=== PATIENT | female | born 1955 | race Caucasian/White ===

== ENCOUNTER 2019-04-11 09:24 | Observation (INO) | payer BC, MEDICARE ==
[~2019-04-11] VITALS: Ht 167.7 cm; Wt 107.9 kg
--- NOTE | 2019-04-11 10:22 | NUR ---
pt arrived to floor with family at bedside. Pt denies needs at this time, pt oriented to room, call light in reach. Will continue to monitor
[2019-04-11 10:41] VITALS: BP 115/76
[2019-04-11 12:00] VITALS: BP 107/71
[2019-04-11] MEDS ORDERED: CLON0.5T4 PO (12:14)
[2019-04-11] MEDS ORDERED: BUPR-42 PO (12:14)
[2019-04-11] MEDS ORDERED: PRAM0.5T9 PO (12:14)
[2019-04-11] MEDS ORDERED: LORA10TA7 PO (12:14)
[2019-04-11] MEDS ORDERED: MELO15TA39 PO (12:14)
[2019-04-11] MEDS ORDERED: FLUT9.9S NS (12:14)
[2019-04-11] MEDS ORDERED: AMOX1TAB12 PO (12:14)
[2019-04-11] MEDS ORDERED: DULO60CA59 PO (12:14)
[2019-04-11] MEDS ORDERED: ZINC50TA58 PO (12:15)
[2019-04-11] MEDS ORDERED: [UNRECOGNIZED DRUG - CODE] PO (12:15)
[2019-04-11] MEDS ORDERED: BIOT25007 PO (12:15)
--- NOTE | 2019-04-11 12:16 | NUR ---
SPOKE WITH THE PT AND RECEIVED A MED LIST FROM HER PHARMACY TO COMPLETE THE MED REC. PT WAS ABLE TO TELL ME HOW SHE TAKES EACH MED AND IT MATCHED THE PHARM RECORD THE FOLLOWING ARE FILL DATES: 02-25-2019 MELOXICAM 15MG #90/90DS 03-06-2019 FLONASE #1 03-06-2019 LORATADINE 10MG #90/90DS 03-27-2019 BUPROPION ER 150MG #68/34DS 04-08-2019 CLONAZEPAM 0.5MH #30/30DS 04-08-2019 DULOXETINE 60MG #68/34DS 04-08-2019 PRAMIPEXOLE 0.5MG #68/34DS 04-10-2019 AMOX/CLAV 875/125 #14/7DS OTC MEDS: BIOTIN MTV ZINC
--- NOTE | 2019-04-11 12:25 | NUR ---
PT INFORMED NOT TO TAKE ASA PER DR BUSTAMANTE.
[2019-04-11] MEDS ORDERED: ACETAMINOPHEN 325 MG TABLET PO PRN (12:30)
[2019-04-11] MEDS ORDERED: FLU QUADRIvalent (5+ YOA) 2019-2020 (AFLURIA) 0.5 ML IM ONE (12:30)
[2019-04-11] MEDS ORDERED: HYDROcodone/APAP 5 MG/325 MG (LORTAB) TAB PO PRN (12:30)
[2019-04-11] MEDS ORDERED: PATIENT MAY USE OWN MEDS, ALL MC SCH (12:30)
[2019-04-11 13:38] LABS: BASOPHILS % (AUTO) 0 % (0-10); EOSINOPHILS # (AUTO) 0.2 10^3/uL (0.0-0.3); EOSINOPHILS % (AUTO) 2 % (0-10); HEMATOCRIT 36 % (35-52); HEMOGLOBIN 11.5 G/DL (11.5-16.0); LYMPHOCYTES # (AUTO) 2.1 X 10^3 (1.0-4.0); LYMPHOCYTES % (AUTO) 25 % (12-44); MEAN CORPUSCULAR HEMOGLOBIN 28 PG (25-34); MEAN CORPUSCULAR HGB CONC 32 G/DL (32-36); MEAN CORPUSCULAR VOLUME 89 FL (80-99); MEAN PLATELET VOLUME 10.3 FL (7.4-10.4); MONOCYTES # (AUTO) 0.7 X 10^3 (0.0-1.0); MONOCYTES % (AUTO) 8 % (0-12); NEUTROPHILS # (AUTO) 5.4 X 10^3 (1.8-7.8); NEUTROPHILS % (AUTO) 64 % (42-75); PLATELET COUNT 274 10^3/uL (130-400); RED CELL DISTRIBUTION WIDTH 14.5 % (10.0-14.5); WHITE BLOOD COUNT 8.4 10^3/uL (4.3-11.0)
[2019-04-11 13:39] LABS: SMEAR SCAN COMMENT NO
[2019-04-11] MEDS ORDERED: OXYMETAZOLINE (AFRIN) 0.05% NA 30 ML BTL PRN (13:45)
[2019-04-11 13:57] LABS: BUN/CREATININE RATIO 22; CALCIUM 8.8 MG/DL (8.5-10.1); CARBON DIOXIDE 26 MMOL/L (21-32); CHLORIDE 108 MMOL/L (98-107); CREATININE SERUM 0.82 MG/DL (0.60-1.30); GFR ESTIMATED > 60; GLUCOSE 110 MG/DL (70-105); POTASSIUM 3.9 MMOL/L (3.6-5.0); SODIUM 143 MMOL/L (135-145)
[2019-04-11 14:03] LABS: BAND NEUTROPHILS 2 %; BASOPHILS % (MANUAL) 0 %; ELLIPT/OVALOCYTES SLIGHT; EOSINOPHILS % (MANUAL) 2 %; LYMPHOCYTES % (MANUAL) 24 %; MONOCYTES % (MANUAL) 5 %; NEUTROPHILS % (MANUAL) 67 %
[2019-04-11 16:29] VITALS: BP 106/69
[2019-04-11 19:59] VITALS: BP 92/58
[2019-04-11 23:56] VITALS: BP 97/61
[2019-04-12] VITALS (11 sets, daily range): BP systolic 97–157; BP diastolic 64–93
--- NOTE | 2019-04-12 06:53 | Progress Note-Pre Operative ---
Pre-Operative Progress Note H&P Reviewed The H&P was reviewed, patient examined and no changes noted. Date Seen by Provider: Apr 12, 2019 Time Seen by Provider: 06:30 Date H&P Reviewed: Apr 12, 2019 Time H&P Reviewed: 06:30 Pre-Operative Diagnosis: Recurrent Left Epistaxis MAXIMUS BUSTAMANTE MD Apr 12, 2019 06:53
--- NOTE | 2019-04-12 06:58 | Progress Note ---
Standard Progress Note Progress Notes/Assess & Plan Date Seen by a Provider: Apr 11, 2019 Time Seen by a Provider: 17:00 Progress/Assessment & Plan ENT-HIstory and Physical cc: Recurrent Left Epistaxis HPI: Patient admittted for treatment of recurrent left posterior epistaxis. Has had bleeding on a recurrent basis for the last 48 hours. Been to the [place] ER multiple times for packing which has been unsuccessful. Initail HGB 13.6. Bleeding has been from the left side of nose and down throat. No prior history of problems. Seen in theclinic and pack removed with no bleeding. Admitted for observation and then EUA on Monday of not bleeding overnight. Admission HGB- 11.5. NO bleeding since seen in clinic All/Meds-see chart Exam: Nose-no acute bleeding and no site seen anteriorly in the nose; right side clear OP-no new or old blood seen Neck-negative to palpation IMP: REcurrent Left Epistaxis REc: 1. NPO p midnight 2. plan on EUA of Nose in OR with potential cauterizatioin on monday as long as doesnt bleed prior to that. Risks and benefits discussed. NPO p mn. Blood work and EKG obtained Final Diagnosis Left Posterior Epistaxis MAXIMUS BUSTAMANTE MD Apr 12, 2019 06:58
[2019-04-12] MEDS ORDERED: ONDANSETRON 4 MG/2 ML (SDV) Z0FRAN ONE (10:07)
[2019-04-12] MEDS ORDERED: SUCCINYLCHOLINE INJ 100 MG/5 ML SYR ONE (10:07)
[2019-04-12] MEDS ORDERED: LIDOCAINE/EPI 1%-1:100,000 (XYLOCAINE) 20ML ONE (10:07)
[2019-04-12] MEDS ORDERED: ROCURONIUM 10 MG/ML 5 ML SYRINGE IV ONE (10:07)
[2019-04-12] MEDS ORDERED: PHENYLEPHRINE 0.5% NASAL SPR (NEO-SYNEPHRINE) REG ONE (10:07)
[2019-04-12] MEDS ORDERED: DEXAMETHASONE 10 MG/ML (DECADRON) 1 ML VIAL ONE (10:07)
[2019-04-12] MEDS ORDERED: proPOfol 200 MG/20 ML (DIPRIVAN) VIAL IV ONE (10:07)
[2019-04-12] MEDS ORDERED: LIDOCAINE PF 2% 5 ML (XYLOCAINE) VIAL ONE (10:07)
[2019-04-12] MEDS ORDERED: BSS 15 ML ONE (10:07)
[2019-04-12] MEDS ORDERED: COCAINE HCL 4% 2 ML SYR ONE (10:07)
[2019-04-12] MEDS ORDERED: MIDAZOLAM 2 MG/2 ML (VERSED) VIAL ONE (10:08)
[2019-04-12] MEDS ORDERED: fentaNYL INJECTION 100 MCG/2 ML AMP ONE (10:08)
[2019-04-12] MEDS ORDERED: MUPIROCIN 2% OINT 22 GM (BACTROBAN) TUBE ONE ×2 (10:17→12:57)
[2019-04-12] MEDS ORDERED: LACTATED RINGERS 1,000 ML IV PRN (11:25)
[2019-04-12] MEDS ORDERED: fentaNYL INJECTION 100 MCG/2 ML AMP IVP ONE (12:00)
[2019-04-12] MEDS ORDERED: morphine INJ 10 MG/ML 1ML (SYR OR VIAL) IVP ONE (12:00)
[2019-04-12] MEDS ORDERED: MEPERIDINE (DEMEROL) INJ 50 MG/ML IVP ONE (12:00)
[2019-04-12] MEDS ORDERED: ONDANSETRON 4 MG/2 ML (SDV) Z0FRAN IVP PRN (12:00)
[2019-04-12] MEDS ORDERED: PHENYLEPHRINE 100 MCG/ML 10 ML (ANESTHESIA) SYR ONE (12:13)
[2019-04-12] MEDS ORDERED: ISOFLURANE (FORANE) 15 ML/15 MIN INHALATION ONE ×4 (12:34→13:14)
[2019-04-12] MEDS ORDERED: D5 1/2 NS W/KCL 20 MEQ/L 1,000 ML IV SCH (13:01)
--- NOTE | 2019-04-12 13:01 | Progress Note-Post Operative ---
Post-Operative Progess Note Surgeon (s)/Golf Cart Repairer (s) Surgeon MAXIMUS BUSTAMANTE MD Golf Cart Repairer n/a Pre-Operative Diagnosis Recurrent Left Epistaxis Post-Operative Diagnosis same Post-Op Procedure Note Date of Procedure: Apr 12, 2019 Name of Procedure Performed: Endscopic Repair of Left Posterio Epistaxis Description & Findings Description and Findings: n/a Anesthesia Type get Estimated Blood Loss 800cc Packing surgicel packing ot lef tside of nose. Specimen(s) collected/removed none MAXIMUS BUSTAMANTE MD Apr 12, 2019 13:01
[2019-04-12] MEDS ORDERED: ACETAMINOPHEN 500 MG TAB (TYLENOL) PO PRN (13:15)
[2019-04-12] MEDS ORDERED: PHENYLEPHRINE 0.5% NASAL SPR (NEO-SYNEPHRINE) REG PRN (13:15)
[2019-04-12] MEDS ORDERED: ACETAMINOPHEN 325 MG TABLET PO PRN (13:15)
[2019-04-12 13:29] LABS: BASOPHILS % (AUTO) 0 % (0-10); EOSINOPHILS # (AUTO) 0.3 10^3/uL (0.0-0.3); EOSINOPHILS % (AUTO) 3 % (0-10); HEMATOCRIT 37 % (35-52); HEMOGLOBIN 11.8 G/DL (11.5-16.0); LYMPHOCYTES # (AUTO) 1.5 X 10^3 (1.0-4.0); LYMPHOCYTES % (AUTO) 16 % (12-44); MEAN CORPUSCULAR HEMOGLOBIN 28 PG (25-34); MEAN CORPUSCULAR HGB CONC 32 G/DL (32-36); MEAN CORPUSCULAR VOLUME 89 FL (80-99); MEAN PLATELET VOLUME 9.7 FL (7.4-10.4); MONOCYTES # (AUTO) 0.3 X 10^3 (0.0-1.0); MONOCYTES % (AUTO) 3 % (0-12); NEUTROPHILS # (AUTO) 7.4 X 10^3 (1.8-7.8); NEUTROPHILS % (AUTO) 78 % (42-75); PLATELET COUNT 287 10^3/uL (130-400); RED CELL DISTRIBUTION WIDTH 14.6 % (10.0-14.5); WHITE BLOOD COUNT 9.6 10^3/uL (4.3-11.0)
--- NOTE | 2019-04-12 14:29 | Anesthesia-General Post-Op ---
General Patient Condition Mental Status/LOC: Same as Preop Cardiovascular: Satisfactory Nausea/Vomiting: Absent Respiratory: Satisfactory Pain: Controlled Complications: Absent Post Op Complications Complications None Follow Up Care/Instructions Patient Instructions None needed. Anesthesia/Patient Condition Patient Condition Patient is doing well, no complaints, stable vital signs, no apparent adverse anesthesia problems. No complications reported per nursing. ADRIAN HAYES CRNA Apr 12, 2019 14:29
[2019-04-12] MEDS: NS IV 500 ML 500 ML IV SCH ×6 (14:32→19:32)
--- NOTE | 2019-04-12 16:13 | NUR ---
this RN took over patient care at this time. patient resting with eyes closed. family at bedside verbalized no additional needs at this time
--- NOTE | 2019-04-12 17:09 | Progress Note ---
Standard Progress Note Progress Notes/Assess & Plan Date Seen by a Provider: Apr 12, 2019 Time Seen by a Provider: 17:00 Progress/Assessment & Plan ENT-HIstory and Physical cc: Recurrent Left Epistaxis HPI: Patient admittted for treatment of recurrent left posterior epistaxis. Has had bleeding on a recurrent basis for the last 48 hours. Been to the [place] ER multiple times for packing which has been unsuccessful. Initail HGB 13.6. Bleeding has been from the left side of nose and down throat. No prior history of problems. Seen in theclinic and pack removed with no bleeding. Admitted for observation and then EUA on Monday of not bleeding overnight. Admission HGB- 11.5. NO bleeding since seen in clinic All/Meds-see chart Exam: Nose-no acute bleeding and no site seen anteriorly in the nose; right side clear OP-no new or old blood seen Neck-negative to palpation IMP: REcurrent Left Epistaxis REc: 1. NPO p midnight 2. plan on EUA of Nose in OR with potential cauterizatioin on monday as long as doesnt bleed prior to that. Risks and benefits discussed. NPO p mn. Blood work and EKG obtained ENT-Postop 3/7-1700 No bleeding since surery nose is sore lorrie diet Nose-no new or old blood seen OP -dry hgb post surgery 11.8-either the morning value of 11.5 is inacurate or the afternoon value is as I lost 800cc at time of surger nose bleed was severe will recheck at 1800 type and cross times 2 and type and screen times two more will be here until monday am home on antibiotics/pain medicine call if bleeds overnight may take home meds-hold meloxicam and flonase MAXIMUS BUSTAMANTE MD Apr 12, 2019 17:09
--- NOTE | 2019-04-12 17:14 | NUR ---
Dr waters here to see patient stated patient may take her own meds. medications except flonase and meloxicam. all other medication sent to pharmacy
[2019-04-12 18:16] LABS: HEMOGLOBIN 11.4 G/DL (11.5-16.0)
[2019-04-12] MEDS ORDERED: NON-FORMULARY MEDICATION 1 EA EA (Duloxetine HCl 60 MG) PO SCH (21:00)
[2019-04-12] MEDS ORDERED: buPROPion XL 150 MG (WELLBUTRIN XL) NON-FORM PO SCH (21:00)
[2019-04-12] MEDS: DULOXETINE 60 MG CAPSULE PO SCH (21:04)
[2019-04-12] MEDS: PRAMIPEXOLE 0.5 MG TAB (MIRAPEX) PO SCH (21:04)
[2019-04-12] MEDS: clonazePAM 0.5 MG (KlonoPIN) TAB PO SCH (21:05)
[2019-04-12] MEDS: HYDROcodone/APAP 5 MG/325 MG (LORTAB) TAB PO PRN (22:15)
[2019-04-13 00:56] VITALS: BP 111/67
[2019-04-13 04:00] VITALS: BP 95/68
[2019-04-13] MEDS: HYDROcodone/APAP 5 MG/325 MG (LORTAB) TAB PO PRN ×4 (05:53→22:41)
[2019-04-13 06:01] LABS: BASOPHILS % (AUTO) 0 % (0-10); EOSINOPHILS % (AUTO) 0 % (0-10); HEMATOCRIT 31 % (35-52); HEMOGLOBIN 9.8 G/DL (11.5-16.0); LYMPHOCYTES # (AUTO) 1.8 X 10^3 (1.0-4.0); LYMPHOCYTES % (AUTO) 16 % (12-44); MEAN CORPUSCULAR HEMOGLOBIN 29 PG (25-34); MEAN CORPUSCULAR HGB CONC 32 G/DL (32-36); MEAN CORPUSCULAR VOLUME 90 FL (80-99); MEAN PLATELET VOLUME 10.3 FL (7.4-10.4); MONOCYTES # (AUTO) 0.9 X 10^3 (0.0-1.0); MONOCYTES % (AUTO) 8 % (0-12); NEUTROPHILS # (AUTO) 8.5 X 10^3 (1.8-7.8); NEUTROPHILS % (AUTO) 77 % (42-75); PLATELET COUNT 276 10^3/uL (130-400); RED CELL DISTRIBUTION WIDTH 14.1 % (10.0-14.5); WHITE BLOOD COUNT 11.2 10^3/uL (4.3-11.0)
--- NOTE | 2019-04-13 06:10 | Progress Note ---
Standard Progress Note Progress Notes/Assess & Plan Date Seen by a Provider: Apr 13, 2019 Time Seen by a Provider: 06:00 Progress/Assessment & Plan ENT-HIstory and Physical cc: Recurrent Left Epistaxis HPI: Patient admittted for treatment of recurrent left posterior epistaxis. Has had bleeding on a recurrent basis for the last 48 hours. Been to the [place] ER multiple times for packing which has been unsuccessful. Initail HGB 13.6. Bleeding has been from the left side of nose and down throat. No prior history of problems. Seen in theclinic and pack removed with no bleeding. Admitted for observation and then EUA on Monday of not bleeding overnight. Admission HGB- 11.5. NO bleeding since seen in clinic All/Meds-see chart Exam: Nose-no acute bleeding and no site seen anteriorly in the nose; right side clear OP-no new or old blood seen Neck-negative to palpation IMP: REcurrent Left Epistaxis REc: 1. NPO p midnight 2. plan on EUA of Nose in OR with potential cauterizatioin on monday as long as doesnt bleed prior to that. Risks and benefits discussed. NPO p mn. Blood work and EKG obtained ENT-Postop 3/6-1700 No bleeding since surery nose is sore lorrie diet Nose-no new or old blood seen OP -dry hgb post surgery 11.8-either the morning value of 11.5 is inacurate or the afternoon value is as I lost 800cc at time of surger nose bleed was severe will recheck at 1800 type and cross times 2 and type and screen times two more will be here until monday am home on antibiotics/pain medicine call if bleeds overnight may take home meds-hold meloxicam and flonase ENT-04/12-6am no bleeding c/o of pain on right side-has vicodin and fentanyl ordered op-dry HGB-5am-9.8-hgb slowly equilibrating diet as tolerated needs to staay another dy to make sure not going to rebleed and watch hgb will repeat cbc on monday am will cover goyo fernandez as well MAXIMUS BUSTAMANTE MD Apr 13, 2019 06:09
[2019-04-13] MEDS: DULOXETINE 60 MG CAPSULE PO SCH ×2 (07:51→20:45)
[2019-04-13] MEDS: ceFAZolin INJECTION 1,000 MG in WATER (STERILE) FOR INJECTION 10 ML IV SCH ×3 (07:52→23:56)
[2019-04-13] MEDS: LORATADINE (CLARITIN) 10 MG TAB PO SCH (07:52)
[2019-04-13] MEDS: buPROPion SR 150 MG (WELLBUTRIN SR) TAB PO SCH ×2 (07:52→17:39)
[2019-04-13 09:00] VITALS: BP 108/57
[2019-04-13 11:29] VITALS: BP 102/59
[2019-04-13 16:00] VITALS: BP 109/57
[2019-04-13 19:46] VITALS: BP 93/51
[2019-04-13] MEDS: PRAMIPEXOLE 0.5 MG TAB (MIRAPEX) PO SCH (20:46)
[2019-04-13] MEDS: clonazePAM 0.5 MG (KlonoPIN) TAB PO SCH (20:47)
[2019-04-14] VITALS: BP 106/56
[2019-04-14] MEDS: HYDROcodone/APAP 5 MG/325 MG (LORTAB) TAB PO PRN ×2 (03:22→08:52)
[2019-04-14 04:00] VITALS: BP 106/67
[2019-04-14 06:19] LABS: BASOPHILS # (AUTO) 0.1 10^3/uL (0.0-0.1); BASOPHILS % (AUTO) 1 % (0-10); EOSINOPHILS # (AUTO) 0.3 10^3/uL (0.0-0.3); EOSINOPHILS % (AUTO) 3 % (0-10); HEMATOCRIT 29 % (35-52); HEMOGLOBIN 9.1 G/DL (11.5-16.0); LYMPHOCYTES # (AUTO) 3.5 X 10^3 (1.0-4.0); LYMPHOCYTES % (AUTO) 38 % (12-44); MEAN CORPUSCULAR HEMOGLOBIN 28 PG (25-34); MEAN CORPUSCULAR HGB CONC 31 G/DL (32-36); MEAN CORPUSCULAR VOLUME 91 FL (80-99); MEAN PLATELET VOLUME 10.2 FL (7.4-10.4); MONOCYTES # (AUTO) 0.8 X 10^3 (0.0-1.0); MONOCYTES % (AUTO) 9 % (0-12); NEUTROPHILS # (AUTO) 4.7 X 10^3 (1.8-7.8); NEUTROPHILS % (AUTO) 50 % (42-75); PLATELET COUNT 264 10^3/uL (130-400); RED CELL DISTRIBUTION WIDTH 14.7 % (10.0-14.5); WHITE BLOOD COUNT 9.3 10^3/uL (4.3-11.0)
--- NOTE | 2019-04-14 06:28 | Progress Note ---
Standard Progress Note Progress Notes/Assess & Plan Date Seen by a Provider: Apr 14, 2019 Time Seen by a Provider: 06:00 Progress/Assessment & Plan ENT-HIstory and Physical cc: Recurrent Left Epistaxis HPI: Patient admittted for treatment of recurrent left posterior epistaxis. Has had bleeding on a recurrent basis for the last 48 hours. Been to the [place] ER multiple times for packing which has been unsuccessful. Initail HGB 13.6. Bleeding has been from the left side of nose and down throat. No prior history of problems. Seen in theclinic and pack removed with no bleeding. Admitted for observation and then EUA on Monday of not bleeding overnight. Admission HGB- 11.5. NO bleeding since seen in clinic All/Meds-see chart Exam: Nose-no acute bleeding and no site seen anteriorly in the nose; right side clear OP-no new or old blood seen Neck-negative to palpation IMP: REcurrent Left Epistaxis REc: 1. NPO p midnight 2. plan on EUA of Nose in OR with potential cauterizatioin on monday as long as doesnt bleed prior to that. Risks and benefits discussed. NPO p mn. Blood work and EKG obtained ENT-Postop 3/6-1700 No bleeding since surery nose is sore lorrie diet Nose-no new or old blood seen OP -dry hgb post surgery 11.8-either the morning value of 11.5 is inacurate or the afternoon value is as I lost 800cc at time of surger nose bleed was severe will recheck at 1800 type and cross times 2 and type and screen times two more will be here until monday am home on antibiotics/pain medicine call if bleeds overnight may take home meds-hold meloxicam and flonase ENT-3/7-6am no bleeding c/o of pain on right side-has vicodin and fentanyl ordered op-dry HGB-5am-9.8-hgb slowly equilibrating diet as tolerated needs to staay another dy to make sure not going to rebleed and watch hgb will repeat cbc on monday am will cover iwth ancef as well ENT-Anaya doing well-no bleeding hgb-9.1 portion of packing came out on right doign well otherwise will discharge after brakfaast call if any recurrent bleeding RTC-2 weeks epistaxis discharge instructions discharge precriptions in chart Final Diagnosis Left Posterior Epistaxis MAXIMUS ANAYA MD Apr 14, 2019 06:28
[2019-04-14] MEDS: buPROPion SR 150 MG (WELLBUTRIN SR) TAB PO SCH (06:49)
[2019-04-14 07:54] VITALS: BP 118/73
[2019-04-14] MEDS ORDERED: FLU QUADRIvalent (5+ YOA) 2019-2020 (AFLURIA) 0.5 ML IM ONE (08:45)
[2019-04-14] MEDS: ceFAZolin INJECTION 1,000 MG in WATER (STERILE) FOR INJECTION 10 ML IV SCH (08:51)
[2019-04-14] MEDS: DULOXETINE 60 MG CAPSULE PO SCH (08:55)
[2019-04-14] MEDS: LORATADINE (CLARITIN) 10 MG TAB PO SCH (08:56)
[2019-04-14 09:30] VITALS: BP 118/73
--- OUTSIDE RECORDS SUMMARY | 2019-04-15 12:32 | XMS REPORT ---
Author Author [facility] Medic al StaffDENNIS Organization [facility] Address [address] [place], [place] [address] Phone [phone] Care Team Providers Care Slime Plant Operator Helper Name Role Phone WORKS PRAVEEN SIDDIQUI PP [phone] Summary purpose TRANSITION OF CARE AUTO GENERATION Chief Complaint and Reason for Visit No authorized Reason for Visit (Admitting Diagnosis) is available for this visit . Problem list No authorized problems tracked for continuity of care are available for this vis it. Encounters No authorized problems tracked for encounter diagnoses are available for this vi sit. Medications No medications recorded for this patient visit Allergies, adverse reactions, alerts Allergen Category Ingredient Status Reaction Severity Onset Sulfa (Sulfonamide Antibiotics) Drug Allergy Sulfa (Sulfonami de Antibiotics) Confirmed or Verified Hives Diclofenac Drug Allergy Diclofenac Confirmed or Verified feather Animal Allergy feather Confirmed or Verified Immunizations No immunizations recorded for this patient visit Relevant diagnostic tests and/or laboratory data RESULTS Radiology Results [id number] CT L-SPINE W/O CONT PACs Image DATE OF EXAM: Aug 05 2014 [id number] LUMBAR SPINE W O CONTRAST : RADIOLOGY REPORT DATE OF SERVICE:08/05/2014 HISTORY:Low back pain, radiculopathy. NONCONTRAST CT SCAN OF LUMBAR SPINE 1300 HOURS Axial scans were obtained and reconstruc rick at 2.5 mm intervals. Sagittal and coronal reformatted images were performed on the CT scanner. The lumbar vertebrae are normal in heigh t. There is bilateral L5 spondylolysis. There is 10 mm of spondyl olisthesis of L5 on S1. No lytic or blastic bony lesions are present. The paraspinous soft tissues are normal. At T12-L1 and L1-L2, the disc spaces, ca nal, facets, foramina, and spinal canal are well maintained. At L2-L3 and L3-L4, the disc is normal. There is mild degenerative facet narrowing bilaterally at both levels. Th ere is no canal stenosis or foraminal narrowing. At L4-L5, there is mild degenerative dis c narrowing and posterior bulging. There is thickening of the liga mentum flavum. There is no foraminal stenosis or definite canal stenosis. At L5-S1, there is severe degenerative d isc narrowing with degenerative sclerosis and irregularity along the end plates. There is bilateral L5 spondylolysis with previously mentioned 10 mm L5-S1 spondylolisthesis. There is moderate foraminal stenosis bilaterally. IMPRESSION: 1. 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 2. Severe degenerative disc changes at L 5- S1. 3. Moderate foraminal stenosis bilateral ly at L5-S1. 4. Mild degenerative disc bulging at the L4-L5 level without nerve root effacement. 5. Mild degenerative facet changes at L2 -L3 and L3-L4. Johnnie Pekc MD MWD/cc08/05/2014 14:00:00 / 07/09 15:49:14 cc: This document has been electronically Signed by: On: History of procedures No procedures recorded for this patient visit. Functional status No functional or cognitive status observations are available for this visit. Vital signs No authorized vital signs are available for this visit. Social history No Social History or smoking status observations were recorded for this visit. ( Unknown if ever smoked.) Treatment Plan No treatment plan text is available for this visit. Hospital discharge instructions No discharge instruction text is available for this visit.
--- OUTSIDE RECORDS SUMMARY | 2019-04-15 12:33 | XMS REPORT ---
Author Author [facility] Medic al StaffDENNIS Organization [facility] Address [address] [place], [place] [address] Phone [phone] Care Team Providers Care Consumer Studies Professor Name Role Phone WORKS LAB TECHNOLOGIST, PRAVEEN PP [phone] WORKS LAB TECHNOLOGIST, PRAVEEN PP [phone] WORKS LAB TECHNOLOGIST, PRAVEEN PP [phone] Summary purpose TRANSITION OF CARE AUTO GENERATION [...] tests and/or laboratory data RESULTS Radiology Results [id number] KNEE XRAY - 3 VIEW PACs Image DATE OF EXAM: Jul 24 2014 RAD 0953-KNEE XRAY-3 VIEW - LEFT: RADIOLOGY REPORT DATE OF SERVICE: 07/24/14 HISTORY: Left knee pain LEFT KNEE 3 [id number] HOURS 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 There is no definite loosening or infection. The cement-bone interface is maintained. IMPRESSION: Satisfactory appearance of k nee prosthesis. Johnnie Peck MD [facility]/co07/24/2014 14:40:00 / 07/07 15:25:02 cc:Dr. Kvng Oquendo This document has been electronically Signed by: On: DATE OF EXAM: Jul 24 2014 RAD 0953-KNEE XRAY-3 VIEW - LEFT: RADIOLOGY REPORT DATE OF SERVICE: 07/24/14 HISTORY: Left knee pain LEFT KNEE 3 [id number] HOURS 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 There is no definite loosening or infection. The cement-bone interface is maintained. IMPRESSION: Satisfactory appearance of k nee prosthesis. MD NICKOLAS Stoll/lona06 14:40:00 / 07/07 15:25:02 cc:Dr. Kvng Oquendo This document has been electronically Signed by: JOHNNIE PECK On: Jul 24 20145:39P Result Amended on 2014-07-24 at 17:39:05 . Previous status was HI. KNEE XRAY - 3 VIEW PACs Image DATE OF EXAM: Jul 24 2014 RAD 0953-KNEE XRAY-3 VIEW - RIGHT: RADIOLOGY REPORT DATE OF SERVICE: 07/24/14 HISTORY: Right knee pain RIGHT KNEE 3 [id number] HOURS Comparison is made with the previous adelaida dy of 09/22/2011. Lucency has developed surrounding the cement of the tibial and femoral prostheses. This is surrounded by a thin rim of scle rosis and is a new finding from 09/22/2011. IMPRESSION: Probable loosening of the ri ght knee prosthesis. Infection is not excluded, but less likely. MD NICKOLAS Stoll/lona06 14:40:07/07 15:24:00 cc:Dr. Kvng Oquendo This document has been electronically Signed by: On: DATE OF EXAM: Jul 24 2014 RAD 0953-KNEE XRAY-3 VIEW - RIGHT: RADIOLOGY REPORT DATE OF SERVICE: 07/24/14 HISTORY: Right knee pain RIGHT KNEE 3 [id number] HOURS Comparison is made with the previous adelaida dy of 09/22/2011. Lucency has developed surrounding the cement of the tibial and femoral prostheses. This is surrounded by a thin rim of scle rosis and is a new finding from 09/22/2011. IMPRESSION: Probable loosening of the ri ght knee prosthesis. Infection is not excluded, but less likely. MD NICKOLAS Stoll/lona06 14:40:07/07 15:24:00 cc:Dr. Kvng Oquendo This document has been electronically Signed by: JOHNNIE PECK On: Jul 24 20145:39P Result Amended on 2014-07-24 at 17:39:04 . Previous status was HI. History of procedures No procedures recorded for [...]
--- OUTSIDE RECORDS SUMMARY | 2019-04-15 12:33 | XMS REPORT ---
Author Author [facility] Medic al StaffDENNIS Organization [facility] Address [address] [place], [place] [address] Phone [phone] Care Team Providers Care Fender Finisher Name Role Phone WORKS PRAVEEN SIDDIQUI PP [phone] Summary purpose TRANSITION OF CARE AUTO GENERATION Chief Complaint and Reason for Visit Admit Diagnosis 1 LUMBAGO Problem list No authorized problems tracked for [...] tests and/or laboratory data RESULTS Radiology Results [id number] CT L-SPINE W/O CONT PACs Image DATE OF EXAM: Aug 05 2014 [id number] LUMBAR SPINE W O CONTRAST : RADIOLOGY [...] facet changes at L2 -L3 and L3-L4. MD NICKOLAS Stoll/cc08/05/2014 14:00:00 / 07/09 15:49:14 cc: This document has been electronically Signed by: On: DATE OF EXAM: Aug 05 2014 [id number] LUMBAR SPINE W O CONTRAST : RADIOLOGY [...] changes at L2 -L3 and L3-L4. Johnnie Peck MD MWD/cc08/05/2014 14:00:00 / 07/09 15:49:14 cc: This document has been electronically Signed by: JOHNNIE PECK On: 20144:01P Result Amended on 2014-08-06 at 16:01:09 . Previous status was SD. History of procedures Procedure Code Code Type Description Date Performed Performing Physician [id number] CPT-4 CT LUMBAR SPINE W/O DYE 08-05-[address] Functional status No functional or cognitive status [...]
--- OUTSIDE RECORDS SUMMARY | 2019-04-15 12:33 | XMS REPORT ---
Author Author [facility] Medic al StaffDENNIS Organization [facility] Address [address] [place], [place] [address] Phone [phone] Care Team Providers Care Campground Manager Name Role Phone WORKS PRAVEEN SIDDIQUI PP [phone] Summary purpose TRANSITION OF CARE AUTO GENERATION [...] Relevant diagnostic tests and/or laboratory data RESULTS Chemistry [id number] Result Normal Range Units C-Reactive Protein <= 0.2 0-1 m g/dl Hematology - Other (Misc) [id number]:10:00 Result Normal Range Units Sed Rate 17 0-30 History of procedures No procedures recorded for [...]
--- OUTSIDE RECORDS SUMMARY | 2019-04-15 12:33 | XMS REPORT ---
Author Author [email or web address] Medic al StaffDENNIS Organization [facility] Address [address] [place] [id number] Phone [phone] Care Team Providers Care Host Hostess Name Role Phone WORKS PRISCILLA SIDDIQUI PP [phone] WORKS PRISCILLA SIDDIQUI PP [phone] Summary purpose TRANSITION OF CARE AUTO GENERATION Chief Complaint and Reason for Visit Admit Diagnosis 1 TIA Problem list No authorized problems tracked for continuity of care are available for this vis it. Encounters The following conditions tracked for encounter diagnoses were recorded for this visit: Finding or Diagnosis Status Certainty Chronicity Onset *TRANSIENT ISCHEMIC ATTACK Active Medications Discharge Medications Status Medication Directions Current ASPIRIN 325 mg: TABLET 325 MG oral Giv e PO Daily Current bupropion HCl SR 150 mg tablet,sustained -release 150 milligram (s) oral Daily depression Current duloxetine 60 mg capsule,delayed release 60 milligram (s) oral Daily depression Current pramipexole 0.25 mg tablet 1 tab oral o ral Bedtime daily Allergies, adverse reactions, alerts Allergen Category Ingredient Status Reaction Severity Onset Sulfa (Sulfonamide Antibiotics) Drug Allergy Sulfa (Sulfonami de Antibiotics) Confirmed or Verified Hives Diclofenac Drug Allergy Diclofenac Confirmed or Verified feather Animal Allergy feather Confirmed or Verified Immunizations No immunizations recorded for this patient visit Relevant diagnostic tests and/or laboratory data RESULTS [id number]:14:00 Progress Note PROGRESS NOTE 05/30/2015 10:14:56 S: Patient came in with a TIA yester day. She had been doing well. She has had no residual symptoms and no neur opathy. She is eating well. Her mood has been normal. She feels ready to go home. Her tests were done yesterday and all looked good. Her carot id Doppler was normal. Her CT of her head was normal. Her echocardiogram did show some thickening on some of the valves, but has been otherwise normal. O: VITAL SIGNS: Temperature 97.5, pu lse 70, blood pressure 113/71, respiratory rate 16 and oxygen saturatio n is 96% on room air. GENERAL: The patient is alert, oriented, lying in bed, no acute distress. CARDIOVASCULAR: Regular rate and rhythm. LUNGS: Clear. ABDOMEN: Soft, nontender, nondistended. Positive bowel sounds. NEUROLOGIC: Cranial nerves II through XII intact. Sensation normal upper and lower extremities. MUSCULOSKELETAL: Strength i s normal upper and lower extremities. A: TIA. P: 1. Plan to discharge the patient to home this morning. I am sending her home with an aspirin daily in additi on to her other home medications. 2. The patient has had carotid Doppler w hich showed no significant blockage. She has had a CT scan of the h ead done which was normal. She has had echocardiogram done which showed normal ejection fraction and normal size heart. There was some thicke dulce on the mitral valve. She is unable to do the MRI due to her InterSti m. I have advised her that when she follows up with her primary care kathryn pisano she should get her cholesterol checked. 3. The patient was advised to follow up with her primary care provider Priscilla Garcia in the next 7 to 10 days. 4. The patient is being sent out in good condition. Marion Clarke MD /nj 05/30/2015 10:14:56/2015 11:08:48 Clinic Code: cc:Priscilla Garcia DISPATCHER CLERK [facility] [address] [place] [address]<END HEADER> Routine Urinalysis [id number]:35:00 Result Normal Range Units Color YELLOW Clarity Clear Specific [place] 1.025 1.003-1.035 pH 5.5 4.5-8.0 Glucose NEGATIVE Bilirubin NEGATIVE Ketones NEGATIVE Protein NEGATIVE Urobilinogen 0.2 0-0.2 E.U./dL Nitrites NEGATIVE Blood NEGATIVE Leukocytes NEGATIVE WBCs 0-5 RBCs 0-5 Squamous Epithelial 2+ Bacteria Occasional Mucous 1+ Drug Screen In House [id number]:35:00 Result Normal Range Units Amphetamine Negative Negative Barbiturates Negative Negative Benzodiazepines Negative Negative Cannabinoids Negative Negative *Triage TOXis a medical drug screen to be used only for assessment and treatment of patients. This drug screen cannot be used for employment or legal purposes. Cocaine Negative Negative Mamp/MDMA Negative Negative Methadone Negative Negative Opiates Negative Negative Phencyclidine Negative Negative Tricyclic Antidepressants Negative Negativ e Chemistry :55:00 Result Normal Range Units Sodium 141 134-145 mEq/l Potassium L 3.4 3.5-5.1 mEq/l Chloride 107 98-107 mEq/l CO2 H 28.8 22-28 mEq/l Glucose H 121 70-105 mg/dl BUN 16 7-18 mg/dl Creatinine 0.90 0.6-1.0 mg/dl Calcium L 8.2 8.4-10.2 mg/dl TP - Total Protein 6.1 6.0-8.3 g /dl Albumin L 3.1 3.5-5 g/dl Bilirubin - Total 0.4 0.1-1.0 mg /dl AST 18 10-42 IU/L ALT 24 12-65 IU/L ALP H 172 25-72 IU/L Osmolality 283.7 280-300 mOsm/L Albumin/Globulin Ratio 1.0 0-8 Anion GAP L 5.2 8-16 BUN/Creatinine Ratio 17.8 10-20 Estimated GFR 63 >= 60 mL/min /1.7 Hematology [id number]:55:00 Result Normal Range Units WBC 6.2 4.8-10.8 103/uL RBC 4.5 4.2-5.4 106/uL HGB 13.5 12.0-16.0 g/dl HCT 40.0 36.9-47.0 % MCV 89.9 81-99 FL MCH 30.3 27-31 pg MCHC 33.8 33-37 g/dl RDW 12.9 11.5-15.5 % PLT 230 130-400 103/uL MPV 10.1 7.3-10.4 FL Neutro % 49.5 40-70 % Lymph % 31.0 20-40 % [place] % H 10.2 0-10.0 % Eos % H 8.1 0-7.0 % Baso % 1.0 0-2 % Neutro # 3.1 1.5-7.5 103/uL Lymph # 1.9 0.9-4.0 103/uL [place] # 0.6 0-0.8 103/uL Eos # 0.5 0-0.6 103/uL Baso # 0.1 0-0.1 103/uL Body Fluid [id number]:35:00 Result Normal Range Units pH 5.5 4.5-8.0 Hematology - Other (Misc) [id number]:55:00 Result Normal Range Units Sed Rate 10 0-30 Radiology Results [id number]:03:00 CAROTID DUPLEX PACs Image DATE OF EXAM: May 29 2015 [id number] CAROTID DUPLE X SONO : RADIOLOGY REPORT DATE OF SERVICE:05/29/15 HISTORY:Patient has transient ischem ic attacks.This patient has dizziness, visual disturbance x one episode. CAROTID DOPPLER SONOGRAM 1532 HOURS There is minimal amount of plaque in the carotid bulb on the left. Otherwise, no plaque formation is seen e lsewhere. There is no increase of velocities or velocity ratios. Verteb ral arteries show antegrade flow. IMPRESSION:No significant plaque for mation or narrowing in the extracranial carotid artery system. DO AELXANDRA Mandujano/shannan 05/29/2015 16:16:05/08 18:09:14 cc:Priscilla Garcia APRN This document has been electronically Signed by: On: DATE OF EXAM: May 29 2015 [id number] CAROTID DUPLE X SONO : RADIOLOGY REPORT DATE OF SERVICE:05/29/15 HISTORY:Patient has transient ischem ic attacks.This patient has dizziness, visual disturbance x one episode. CAROTID DOPPLER SONOGRAM 1532 HOURS There is minimal amount of plaque in the carotid bulb on the left. Otherwise, no plaque formation is seen e lsewhere. There is no increase of velocities or velocity ratios. Verteb ral arteries show antegrade flow. IMPRESSION:No significant plaque for mation or narrowing in the extracranial carotid artery system. DO ALEXANDRA Mandujano/shannan 05/29/2015 16:16:05/08 18:09:14 cc:[employer] RENATO This document has been electronically Signed by: LIEN COYNE DO On: May 29 2015 10:03P TIA Result Amended on 2015-05-29 at 22:03:33 . Previous status was [place]. TIA [id number]:08:00 CT HEAD W/O CONT PACs Image DATE OF EXAM: May 29 2015 [id number] HEAD WO CONTRA ST : RADIOLOGY REPORT DATE OF SERVICE: 05/29/15 HISTORY: Weakness, visual changes, confu kaila, and headache, evaluate for CVA. NONCONTRAST CT [id number] HOURS Axial scans were obtained at 5 mm interv als. No contrast was administered. Comparison is made with [facility] previous CT study performed 12/25/2011. The ventricles are normal. There are no masses or midline shift. There is no hemorrhage or infarction. The cere bellum and brainstem are normal. There is minimal physiological calcifica tion in the basal ganglia. There are no unusual intra or extra-axial flui d collections. The bony calvarium is intact. IMPRESSION: Normal CT head. MD NICKOLAS Stoll/lona05/29/2015 12:02:00 / 05/08 12:49:11 cc:Priscilla Trovit RENATO This document has been electronically Signed by: On: DATE OF EXAM: May 29 2015 [id number] HEAD WO CONTRA ST : RADIOLOGY REPORT DATE OF SERVICE: 05/29/15 HISTORY: Weakness, visual changes, confu kaila, and headache, evaluate for CVA. NONCONTRAST CT [id number] HOURS Axial scans were obtained at 5 mm interv als. No contrast was administered. Comparison is made with [facility] previous CT study performed 12/25/2011. The ventricles are normal. There are no masses or midline shift. There is no hemorrhage or infarction. The cere bellum and brainstem are normal. There is minimal physiological calcifica tion in the basal ganglia. There are no unusual intra or extra-axial flui d collections. The bony calvarium is intact. IMPRESSION: Normal CT head. MD NICKOLAS Stoll/lona05/29/2015 12:02:00 / 05/08 12:49:11 cc:[employer] RENATO This document has been electronically Signed by: MAXIMUS COCHRAN MD On: May 29 20152:08P Result Amended on 2015-05-29 at 14:08:09 . Previous status was [place]. [id number]:55:00 Result Normal Range Units MPV 10.1 7.3-10.4 FL History of procedures Procedure Code Code Type Description Date Performed Performing Physician 83793 CPT-4 ROUTINE VENIPUNCTURE 05-29-2015 ARI MONTES DE OCA 49921 CPT-4 CT HEAD/BRAIN W/O DYE 05-29-2015 MELISSA MONTES DE OCA 57396 CPT-4 COMPREHEN METABOLIC PANEL 05-29-2015 ARI MONTES DE OCA 43238 CPT-4 DRUG SCREEN NON TLC DEVICES 05-29-2015 ARI MONTES DE OCA 07623 CPT-4 URINALYSIS, AUTO W/SCOPE 05-29-2015 Dayan CLARKE 77564 CPT-4 COMPLETE CBC W/AUTO DIFF WBC 05-29-2015 ARI MONTES DE OCA 14651 CPT-4 RBC SED RATE, NONAUTOMATED 05-29-2015 MARION CLARKE 55707 CPT-4 TTE W/DOPPLER, COMPLETE 05-29-2015 DA JENNY CLARKE 48005 CPT-4 EXTRACRANIAL STUDY 05-29-2015 MARION PERSON 30969 CPT-4 EMERGENCY DEPT VISIT 05-29-2015 ARI MONTES DE OCA 09897 CPT-4 EMERGENCY DEPT VISIT 05-29-2015 ARI MONTES DE OCA G0378 CPT-4 HOSPITAL OBSERVATION PER HR 05-29-2015 MARION CLARKE G0378 CPT-4 HOSPITAL OBSERVATION PER HR 05-29-2015 MARION CLARKE G0378 CPT-4 HOSPITAL OBSERVATION PER HR 05-30-2015 MARION CLARKE Functional status Functional Status Finding Observation Time Hearing Prob Loc none 23-21-045081:11 Vision Problems yes 07-28-781952:11 Vision Correct Dev glasses 38-38-394699:11 Ambulation Asst Dev none 72-73-235024:11 Range of Motion full :32 Muscle Strength RUE 5 ROM full resist :32 Muscle Strength RLE 5 ROM full resist :32 Muscle Strength LUE 5 ROM full resist :32 Muscle Strength LLE 5 ROM full resist :32 Transfers independent :32 Ambulation in room :32 Balance steady :32 Bathing Assistance none 64-54-082671:11 Eating Assistance none 62-09-576969:11 Dressing Assistance none 41-45-081707:11 Toileting Assistance none 28-27-780433:11 Transfer Assistance none 32-29-929809:11 Decline Slf Care/Mob no 58-09-722515:11 Phys Cond Stable yes :11 Nutrition normal :32 Diet regular 63-09-885063:44 Oral Cavity moist and intact :32 Teeth intact :32 Dental Hygiene good 77-95-834641:32 Abdomen Appearance obese :32 Abdomen soft :32 Bowel Sounds present :32 NG Tube no :32 Feeding Tube none :32 Henderson no :32 Cont Bladder Irr no :32 Ostomy no :32 Stool normal :32 Urination normal :32 Quality sym/unlabored :32 Cough absent :32 Secretions no :32 Breath Sounds RUL clear :32 Breath Sounds RML clear :32 Breath Sounds RLL clear :32 Breath Sounds AGUILA clear :32 Breath Sounds LLL clear :32 Airway natural :32 Chest Tube no :32 Oxygen no :32 C-PAP no :32 BI-PAP no :32 Temp >100.4 no :32 Temp <96.8 no :32 Chills with rigors no :32 HR > 90bpm no 40-18-505171:32 Respirations > 20 no 07-43-055069:32 Systolic <90 no :32 headache stiff neck no :32 WBC > 76998 no 30-82-727509:32 WBC < 4000 no 43-35-510877:32 IV Site Location L ac :44 IV Type peripheral :44 IV Site Information discontinued :44 IV Site Start Attmpt 1 times 64-39-114393:34 IV Site Guicho 20 48-67-941654:33 IV Site Appearance WNL :44 IV Site Color clear :44 IV Site Patent yes :33 Dressing Changed yes :44 Dressing Type gauze :44 Nursing Note pt discharged, pt escorted o ff unit per w/c in good condition. Home care instructions reviewed with pt. discussed need to cll and make a f/u appt with Elaine Garcia in 1 week, Home med list reviewed with changes noted. Encouraged pt to take this list to pcp to review. pt verbalized understanding of all instructions. copies of education given to pt. sl and tele have been dcd' :42 Cognitive Status Finding Observation Time Oriented To Date 5 Yes :[address] 5 Yes 56-24-797196:11 Name 3 Objects 3 Yes :11 Name Object in Rm 2 Yes :11 Recall 3 Objects 3 Yes 29-09-779352:11 Repeats a Phrase 1 Yes 05-00-181068:11 Follows Verbal Direc 3 Yes :11 Follows Written Dire 1 Yes 98-63-813216:11 Write a Sentance 1 Yes :11 Draw an Object 1 Yes 34-09-170859:11 Mini Mental Total 25 points 93-08-137726:11 Learning Ability comprehends well :33 Neurological no :33 Psychological no :33 Physical no 71-99-734046:33 Hearing no :33 Extrusion Manager Needed no :33 Sign Language no :33 Emotional no :33 Vision yes :33 Laguage no :33 Financial no :33 Vital signs Type Value Date Respiration Rate 16breaths per minute : Pulse 70beats per minute :30 Oxygen Saturation 96% :30 BP Systolic 113mmHg :30 BP Diastolic 71mmHg :30 Temperature See CommentsF 49-29-563701:33 Height 66inches :38 Weight 186.5LB :38 Social history Type Value Smoking Status FORMER SMOKER Treatment Plan No treatment plan text is available for this visit. Hospital discharge instructions Discharge Date/Time 05/30/2015 10:42 Relationship friend Dismissal Condition good Disposition on DC home Valuables yes Valuable Type cell phone Valuables Returned T patient DC Inst/Educ Give yes Exit Care Educ Given yes Med/Side Effects Rev yes DC Med Rec Rev yes PNE Vac never Flu Vac never Tetanus Vac unknown Diet Explained yes Follow up appt call for appointment
--- OUTSIDE RECORDS SUMMARY | 2019-04-15 12:33 | XMS REPORT ---
Author Author [facility] Medic al StaffDENNIS Organization [facility] Address [address] [place], [place] [address] Phone [phone] Care Team Providers Care Supervisor Pyrotechnic Loading Name Role Phone WORKS ACCIDENT REPORT CLERK, PRAVEEN PP [phone] WORKS ACCIDENT REPORT CLERK, PRAVEEN PP [phone] WORKS ACCIDENT REPORT CLERK, PRAVEEN PP [phone] Summary purpose TRANSITION OF CARE AUTO GENERATION Chief Complaint and Reason for Visit Admit Diagnosis 1 JOINT PAIN-L/LEG Problem list No authorized problems tracked for [...] tests and/or laboratory data RESULTS Radiology Results [id number]:39:00 KNEE XRAY - 3 VIEW PACs Image DATE OF EXAM: Jul 24 2014 RAD 0953-KNEE XRAY-3 VIEW - LEFT: RADIOLOGY REPORT DATE OF SERVICE: 07/24/14 HISTORY: Left knee pain LEFT KNEE 3 [id number] HOURS 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 There is no definite loosening or infection. The cement-bone interface is maintained. IMPRESSION: Satisfactory appearance of k nee prosthesis. Johnnie Peck MD MWDayan/ok07/24/2014 14:40:00 / 07/07 15:25:02 cc:Dr. 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 There is no definite loosening or infection. The cement-bone interface is maintained. IMPRESSION: Satisfactory appearance of k nee prosthesis. MD NICKOLAS Stoll/ok07/24/2014 14:40:07/07 15:25:02 cc:Dr. Kvng Oquendo This document has been electronically Signed by: JOHNNIE PECK On: Jul 24 20145:39P Result Amended on 2014-07-24 at 17:39:05 . Previous status was [place]. KNEE XRAY - 3 VIEW PACs Image DATE OF EXAM: Jul 24 2014 RAD 0953-KNEE XRAY-3 VIEW - RIGHT: RADIOLOGY REPORT DATE OF SERVICE: 07/24/14 HISTORY: Right knee pain RIGHT KNEE 3 [id number] HOURS Comparison is made with the previous adelaida dy of 09/22/2011. Lucency has developed surrounding the cement of the tibial and femoral prostheses. This is surrounded by a thin rim of scle rosis and is a new finding from 09/22/2011. IMPRESSION: Probable loosening of the ri ght knee prosthesis. Infection is not excluded, but less likely. MD NICKOLAS Stoll/ok06 14:40:07/07 15:24:00 cc:Dr. Kvng Oquendo This document has been electronically Signed by: On: DATE OF EXAM: Jul 24 2014 RAD 0953-KNEE XRAY-3 VIEW - RIGHT: RADIOLOGY REPORT DATE OF SERVICE: 07/24/14 HISTORY: Right knee pain RIGHT KNEE 3 [id number] HOURS Comparison is made with the previous adelaida dy of 09/22/2011. Lucency has developed surrounding the cement of the tibial and femoral prostheses. This is surrounded by a thin rim of scle rosis and is a new finding from 09/22/2011. IMPRESSION: Probable loosening of the ri ght knee prosthesis. Infection is not excluded, but less likely. MD NICKOLAS Stoll/ok06 14:40:07/07 15:24:00 cc:Dr. Kvng Oquendo This document has been electronically Signed by: JOHNNIE PECK On: Jul 24 20145:39P Result Amended on 2014-07-24 at 17:39:04 . Previous status was [place]. History of procedures Procedure Code Code Type Description Date Performed Performing Physician 38006 CPT-4 X-RAY EXAM OF KNEE, 07-24-2014 WILL ELISA OQUENDO 71045 CPT-4 X-RAY EXAM OF KNEE, 07-24-2014 WILL ELISA RIVERA Functional status No functional or cognitive status [...]
--- OUTSIDE RECORDS SUMMARY | 2019-04-15 12:33 | XMS REPORT ---
Author Author [facility] Medic al StaffDENNIS Organization [facility] Address [address] [place], [place] [address] Phone [phone] Care Team Providers Care Shipping Checker Name Role Phone WORKS PERSONAL FINANCIAL PLANNER, PRAVEEN PP [phone] WORKS PERSONAL FINANCIAL PLANNER, PRAVEEN PP [phone] WORKS PERSONAL FINANCIAL PLANNER, PRAVEEN PP [phone] WORKS PERSONAL FINANCIAL PLANNER, PRAVEEN PP [phone] Summary purpose TRANSITION OF CARE AUTO GENERATION [...] tests and/or laboratory data RESULTS Radiology Results [id number]:59:00 WB BONE SCAN PACs Image DATE OF EXAM: Jul 30 2014 [id number] BONE SCAN : RADIOLOGY REPORT DATE OF SERVICE: 07/30/14 HISTORY: Bilateral knee and hip pain. RADIONUCLIDE TOTAL BODY BONE SCAN 1330 HOURS Total body bone scan was performed follo wing injection of 24.0 mCi 99m technetium MDP. Abnormal increased activity of the label ed phosphate is noted surrounding the tibial component of the right knee prosthesis and the femoral component and to a lesser extent , tibial component of the left knee prosthesis. There is increased phos phate activity in both wrists greater on the right. There is otherwise normal distribution of the labeled phosphate in the axial and perip heral skeleton. IMPRESSION: Abnormal appearance about marc th knees with increased phosphate activity about both knee prost heses. The appearance is of concern for infection or loosening of th e prostheses bilaterally. MD NICKOLAS Stoll/la07/30/2014 14:16:07/08 14:19:34 cc:Dr. Kvng Oquendo This document has been electronically Signed by: On: DATE OF EXAM: Jul 30 2014 [id number] BONE SCAN : RADIOLOGY REPORT DATE OF SERVICE: 07/30/14 HISTORY: Bilateral knee and hip pain. RADIONUCLIDE TOTAL BODY BONE SCAN 1330 HOURS Total body bone scan was performed follo wing injection of 24.0 mCi 99m technetium MDP. Abnormal increased activity of the label ed phosphate is noted surrounding the tibial component of the right knee prosthesis and the femoral component and to a lesser extent , tibial component of the left knee prosthesis. There is increased phos phate activity in both wrists greater on the right. There is otherwise normal distribution of the labeled phosphate in the axial and perip heral skeleton. IMPRESSION: Abnormal appearance about marc th knees with increased phosphate activity about both knee prost heses. The appearance is of concern for infection or loosening of th e prostheses bilaterally. MD NICKOLAS Stoll/la07/30/2014 14:16:07/08 14:19:34 cc:Dr. Kvng Oquendo This document has been electronically Signed by: MAXIMUS COCHRAN On: Jul 30 20142:59P Result Amended on 2014-07-30 at 14:59:16 . Previous status was [place]. History of procedures No procedures recorded for [...]
--- OUTSIDE RECORDS SUMMARY | 2019-04-15 12:33 | XMS REPORT ---
Author Author [facility] Medic al StaffDENNIS Organization [facility] Address [address] [place], [place] [address] Phone [phone] Care Team Providers Care Night Manager Name Role Phone WORKS PRAVEEN SIDDIQUI PP [phone] Summary purpose TRANSITION OF CARE AUTO GENERATION [...] diagnostic tests and/or laboratory data RESULTS Chemistry [id number]:10:00 Result Normal Range Units C-Reactive Protein <= 0.2 0-1 m g/dl Hematology - Other (Misc) 19-27-747273:10:00 Result Normal Range Units Sed Rate 17 0-30 History of procedures Procedure Code Code Type Description Date Performed Performing Physician 06755 CPT-4 C-REACTIVE PROTEIN 07-31-2014 DARIEN STAFFORD 53024 CPT-4 RBC SED RATE, NONAUTOMATED 07-31-2014 DARIEN STAFFORD 95566 CPT-4 ROUTINE VENIPUNCTURE 07-31-2014 WILLI AM RIVERA Functional status No functional or cognitive [...]
--- OUTSIDE RECORDS SUMMARY | 2019-04-15 12:33 | XMS REPORT ---
Author Author [facility] Medic al StaffDENNIS Organization [facility] Address [address] [place], [place] [address] Phone [phone] Care Team Providers Care Chronic Manager Name Role Phone WORKS CIGAR PACKING EXAMINER, PRAVEEN PP [phone] WORKS CIGAR PACKING EXAMINER, PRAVEEN PP [phone] WORKS CIGAR PACKING EXAMINER, PRAVEEN PP [phone] WORKS CIGAR PACKING EXAMINER, PRAVEEN PP [phone] Summary purpose TRANSITION OF CARE AUTO GENERATION [...] tests and/or laboratory data RESULTS Radiology Results 08-10-321256:59:00 WB BONE SCAN PACs Image DATE OF EXAM: Jul 30 2014 [id number] BONE SCAN : RADIOLOGY REPORT DATE OF [...] of th e prostheses bilaterally. MD NICKOLAS Stoll/ms07/30/2014 14:16:07/08 14:19:34 cc:Dr. Kvng Oquendo This document has been electronically Signed by: On: DATE OF EXAM: Jul 30 2014 [id number] BONE SCAN : RADIOLOGY REPORT DATE OF [...] of th e prostheses bilaterally. MD NICKOLAS Stoll/ms07/30/2014 14:16:07/08 14:19:34 cc:Dr. Kvng Oquendo This document has been electronically Signed by: MAXIMUS COCHRAN On: Jul 30 20142:59P Result Amended on 2014-07-30 at 14:59:16 . Previous status was [place]. History of procedures No procedures recorded for [...]
--- OUTSIDE RECORDS SUMMARY | 2019-04-15 12:33 | XMS REPORT ---
Author Author [facility] Medic al StaffDENNIS Organization [facility] Address [address] [place] [id number] Phone [phone] Care Team Providers Care Per Diem Clerk Name Role Phone WORKS PRAVEEN SIDDIQUI PP [phone] Summary purpose TRANSITION OF CARE AUTO GENERATION [...] tests and/or laboratory data RESULTS Radiology Results [id number]:04:00 Bone Survey PACs Image DATE OF EXAM: Aug 21 2014 RAD [id number]-BONE SURVEY X-RAY : RADIOLOGY REPORT DATE OF SERVICE: 08/21/14 HISTORY: Evaluate for Paget's disease, p rediabetes, elevated alkaline phosphatase level SKELETAL SURVEY 1110 HOURS The bony calvarium shows benign hyperost osis frontalis interna. The calvarium is otherwise normally minerali zed without lytic or sclerotic change. AP and lateral views of the cervical spi ne show degenerative disc changes at C5-C6 and C6-C7 and moderate facet arthrosis. No lytic or sclerotic bony changes are present. AP and lateral views of the thoracic spi ne show no lytic or sclerotic changes. Degenerative disc changes are p resent at several lower thoracic levels. AP and lateral views of the lumbar spine show no lytic or sclerotic change. There is L5-S1 spondylolisthesis and severe degenerative disc change at L5-S1. Although not easily dem onstrated on these views, underlying spondylolysis is likely. AP view of the pelvis shows no lytic or sclerotic changes. The sacroiliac joints are normal. Transsacra l stimulator is in place. AP views of both humeri are normal. AP views of the right lower extremity sh ow a right knee prosthesis in place. There appears to be a zone of joel ency surrounding the tibial component of the right knee prosthesis s imilar to the prior radiographs of 07/24/2014. AP views of the left lower extremity beckie w no lytic or sclerotic changes or periosteal reaction. Knee prosthesis is in place. Degenerative changes are present with acetabular spurring. IMPRESSION: 1. No radiographic changes of Paget's di sease in any of the visualized bony structures. Degenerative spinal anu nges as above. 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 2. Bilateral knee prostheses. Probable l oosening of the tibial component on the right. Johnnie Peck MD MWDayan/nh08/21/2014 11:41:00 / 08/06 11:53:19 cc:Dr. Osito Shi This document has been electronically Signed by: On: DATE OF EXAM: Aug 21 2014 RAD 0185-BONE SURVEY X-RAY : RADIOLOGY REPORT DATE OF SERVICE: 08/21/14 HISTORY: Evaluate for Paget's disease, p rediabetes, elevated alkaline phosphatase level SKELETAL SURVEY 1110 HOURS The bony calvarium shows benign hyperost osis frontalis interna. The calvarium is otherwise normally minerali zed without lytic or sclerotic change. AP and lateral views of the cervical spi ne show degenerative disc changes at C5-C6 and C6-C7 and moderate facet arthrosis. No lytic or sclerotic bony changes are present. AP and lateral views of the thoracic spi ne show no lytic or sclerotic changes. Degenerative disc changes are p resent at several lower thoracic levels. AP and lateral views of the lumbar spine show no lytic or sclerotic change. There is L5-S1 spondylolisthesis and severe degenerative disc change at L5-S1. Although not easily dem onstrated on these views, underlying spondylolysis is likely. AP view of the pelvis shows no lytic or sclerotic changes. The sacroiliac joints are normal. Transsacra l stimulator is in place. AP views of both humeri are normal. AP views of the right lower extremity sh ow a right knee prosthesis in place. There appears to be a zone of joel ency surrounding the tibial component of the right knee prosthesis s imilar to the prior radiographs of 07/24/2014. AP views of the left lower extremity beckie w no lytic or sclerotic changes or periosteal reaction. Knee prosthesis is in place. Degenerative changes are present with acetabular spurring. IMPRESSION: 1. No radiographic changes of Paget's di sease in any of the visualized bony structures. Degenerative spinal anu nges as above. 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 2. Bilateral knee prostheses. Probable l oosening of the tibial component on the right. Johnnie Peck MD MWD/nh08/21/2014 11:41:00 / 08/06 11:53:19 cc:Dr. Osito Shi This document has been electronically Signed by: JOHNNIE PECK On: Aug 21 015 12:04P Result Amended on 2014-08-21 at 12:04:58 . Previous status was NM. History of procedures No procedures recorded for [...]
--- OUTSIDE RECORDS SUMMARY | 2019-04-15 12:33 | XMS REPORT ---
Author Author [facility] Medic al StaffDENNIS Organization [facility] Address [address] [id number] Phone [phone] Care Team Providers Care Inspector Firearms Name Role Phone WORKS PRAVEEN SIDDIQUI PP [phone] WORKS PRAVEEN SIDDIQUI ROBERTO [phone] Summary purpose TRANSITION OF CARE AUTO GENERATION [...] Relevant diagnostic tests and/or laboratory data RESULTS [id number]:14:00 Progress Note PROGRESS NOTE 05/30/2015 10:14:56 S: [...] follow up with her primary care provider Praveen Garcia in the next 7 to 10 days. 4. The patient is being sent out in good condition. Alfredo Clarke MD /tx 05/30/2015 10:14:56/2015 11:08:48 Clinic Code: cc:Praveen Garcia [employer] ENGINEER [facility] [address] [place] [address]<END HEADER> Routine Urinalysis [id number]:35:00 Result Normal Range Units Color YELLOW Clarity Clear Specific [place] 1.025 1.003-1.035 pH 5.5 4.5-8.0 Glucose NEGATIVE Bilirubin NEGATIVE Ketones NEGATIVE Protein NEGATIVE Urobilinogen 0.2 0-0.2 E.U./dL Nitrites NEGATIVE Blood NEGATIVE Leukocytes NEGATIVE WBCs 0-5 RBCs 0-5 Squamous Epithelial 2+ Bacteria Occasional Mucous 1+ Drug Screen In House [id number]:35:00 Result Normal Range Units Amphetamine Negative Negative [...] GFR 63 >= 60 mL/min /1.7 Hematology [id number]:55:00 Result Normal Range Units WBC 6.2 4.8-10.8 103/uL RBC 4.5 4.2-5.4 106/uL HGB 13.5 12.0-16.0 g/dl HCT 40.0 36.9-47.0 % MCV 89.9 81-99 FL MCH 30.3 27-31 pg MCHC 33.8 33-37 g/dl RDW 12.9 11.5-15.5 % PLT 230 130-400 103/uL MPV 10.1 7.3-10.4 FL Neutro % 49.5 40-70 % Lymph % 31.0 20-40 % [place] % H 10.2 0-10.0 % Eos % H 8.1 0-7.0 % Baso % 1.0 0-2 % Neutro # 3.1 1.5-7.5 103/uL Lymph # 1.9 0.9-4.0 103/uL [place] # 0.6 0-0.8 103/uL Eos # 0.5 0-0.6 103/uL Baso # 0.1 0-0.1 103/uL Body Fluid [id number]:35:00 Result Normal Range Units pH 5.5 4.5-8.0 Hematology - Other (Misc) [id number]:55:00 Result Normal Range Units Sed Rate 10 0-30 Radiology Results [id number] CAROTID DUPLEX PACs Image DATE OF EXAM: May 29 2015 [id number] CAROTID DUPLE X SONO : RADIOLOGY REPORT [...] system. DO ALEXANDRA Mandujano/shannan 05/29/2015 16:16:05/08 18:09:14 cc:Praveen Garcia APRN This document has been electronically Signed by: On: DATE OF EXAM: May 29 2015 [id number] CAROTID DUPLE X SONO : RADIOLOGY REPORT [...] system. DO ALEXANDRA Mandujano/shannan 05/29/2015 16:16:05/08 18:09:14 cc:[employer] [facility] RENATO This document has been electronically Signed by: LIEN COYNE DO On: May 29 2015 10:03P TIA Result Amended on 2015-05-29 at 22:03:33 . Previous status was DE. TIA [id number]:08:00 CT HEAD W/O CONT PACs Image DATE OF EXAM: May 29 2015 [id number] HEAD WO CONTRA ST : RADIOLOGY REPORT DATE OF SERVICE: 05/29/15 HISTORY: Weakness, visual changes, confu kaila, and headache, evaluate for CVA. NONCONTRAST CT [id number] HOURS Axial scans were obtained at 5 mm interv als. No contrast was administered. Comparison is made with [facility] previous CT study performed 12/25/2011. The ventricles are normal. There are no masses or midline shift. There is no hemorrhage or infarction. The cere bellum and brainstem are normal. There is minimal physiological calcifica tion in the basal ganglia. There are no unusual intra or extra-axial flui d collections. The bony calvarium is intact. IMPRESSION: Normal CT head. MD NICKOLAS Stoll/tx05/29/2015 12:02: / 05/08 12:49:11 cc:[facility] RENATO This document has been electronically Signed by: On: DATE OF EXAM: May 29 2015 [id number] HEAD WO CONTRA ST : RADIOLOGY REPORT DATE OF SERVICE: 05/29/15 HISTORY: Weakness, visual changes, confu kaila, and headache, evaluate for CVA. NONCONTRAST CT [id number] HOURS Axial scans were obtained at 5 mm interv als. No contrast was administered. Comparison is made with [facility] previous CT study performed 12/25/2011. The ventricles are normal. There are no masses or midline shift. There is no hemorrhage or infarction. The cere bellum and brainstem are normal. There is minimal physiological calcifica tion in the basal ganglia. There are no unusual intra or extra-axial flui d collections. The bony calvarium is intact. IMPRESSION: Normal CT head. MD NICKOLAS Stoll/tx05/29/2015 12:02:00 / 05/08 12:49:11 cc:[employer] [facility] RENATO This document has been electronically Signed by: MAXIMUS COCHRAN MD On: May 29 20152:08P Result Amended on 2015-05-29 at 14:08:09 . Previous status was DE. [id number]:55:00 Result Normal Range Units MPV 10.1 7.3-10.4 FL History of procedures No procedures recorded for this patient visit. Functional status Functional Status Finding Observation Time Hearing Prob Loc none [id number]:11 Vision Problems yes [id number]:11 Vision Correct Dev glasses :11 Ambulation Asst Dev none [id number]:11 Range of Motion full :32 Muscle Strength RUE 5 ROM full resist :32 Muscle Strength RLE 5 ROM full resist :32 Muscle Strength LUE 5 ROM full resist :32 Muscle Strength LLE 5 ROM full resist :32 Transfers independent :32 Ambulation in room :32 Balance steady :32 Bathing Assistance none [id number]:11 Eating Assistance none :11 Dressing Assistance none :11 Toileting Assistance none :11 Transfer Assistance none :11 Decline Slf Care/Mob no :11 Phys Cond Stable yes [id number]:11 Nutrition normal :32 Diet regular 33-90-852565:44 Oral Cavity moist and intact :32 Teeth intact :32 Dental Hygiene good :32 Abdomen Appearance obese :32 Abdomen soft :32 Bowel Sounds present :32 NG Tube no :32 Feeding Tube none :32 Henderson no :32 Cont Bladder Irr no :32 Ostomy no :32 Stool normal :32 Urination normal 74-84-009866:32 Quality sym/unlabored :32 Cough absent :32 Secretions no :32 Breath Sounds RUL clear :32 Breath Sounds RML clear :32 Breath Sounds RLL clear :32 Breath Sounds AGUILA clear :32 Breath Sounds LLL clear :32 Airway natural :32 Chest Tube no :32 Oxygen no :32 C-PAP no :32 BI-PAP no :32 Temp >100.4 no : Temp <96.8 no :32 Chills with rigors no :32 HR > 90bpm no :32 Respirations > 20 no :32 Systolic <90 no :32 headache stiff neck no :32 WBC > 40243 no :32 WBC < 4000 no :32 IV Site Location L ac :44 IV Type peripheral :44 IV Site Information discontinued :44 IV Site Start Attmpt 1 times 20-43-056249:34 IV Site Guicho 20 :33 IV Site Appearance WNL :44 IV Site Color clear :44 IV Site Patent yes :33 Dressing Changed yes :44 Dressing Type gauze :44 Nursing Note Nursing assessment completed , see flowsheets. pt states she feels good, awaiting arrival of . pt verbalizing desire for discharge this am. AM meal on order :34 Cognitive Status Finding Observation Time Oriented To Date 5 Yes :[address] 5 Yes 01-28-976071:11 Name 3 Objects 3 Yes 29-78-808888:11 Name Object in Rm 2 Yes 42-10-136532:11 Recall 3 Objects 3 Yes [id number]:11 Repeats a Phrase 1 Yes :11 Follows Verbal Direc 3 Yes :11 Follows Written Dire 1 Yes :11 Write a Sentance 1 Yes 12-45-613652:11 Draw an Object 1 Yes 47-74-233507:11 Mini Mental Total 25 points 08-73-799717:11 Learning Ability comprehends well :33 Neurological no :33 Psychological no 89-66-273458:33 Physical no 83-03-280367:33 Hearing no 15-17-885047:33 Tin Dipper Needed no 33-51-805912:33 Sign Language no :33 Emotional no :33 Vision yes 66-77-221304:33 Laguage no 40-23-041484:33 Financial no :33 Vital signs Type Value Date Respiration Rate 16breaths per minute : 30 Pulse 70beats per minute :30 Oxygen Saturation 96% :30 BP Systolic 113mmHg :30 BP Diastolic 71mmHg :30 Temperature See CommentsF :33 Height 66inches :38 Weight 186.5LB 86-37-718740:38 Social history Type Value Smoking Status FORMER [...]
--- OUTSIDE RECORDS SUMMARY | 2019-04-15 12:34 | XMS REPORT | Clinical Summary ---
Author Author Admin, Sabrina Jefferson Organization [facility] Address Unknown Phone Unavailable Allergies, Adverse Reactions, Alerts Allergy Name Reaction Description Start Date Severity Status Pr kristy VICENTES Critical Active Sobia Naff LP N SULFA rash Moderate Active Symone Lucke DICLOFENAC SODIUM Moderate Active Symone Tabby cke Conditions or Problems Problem Name Problem Code Onset Date Status Entry Date Provider Comment Standard Description Annotate DISORDERS OF PHOSPHORUS METABOLISM 275.3 Resolved 2 Joao BOYD Disorders of phosphorus metabolism ENCOUNTER FOR LONG-TERM USE OF OTHER MEDICATIONS V58.69 11/05 Active Sadie Jones LPN Long-term (current) use of oth er medications HYPERLIPIDEMIA 272.4 Active Sadie Jones LPN Other and unspecified hyperlipidemia OSTEOARTHRITIS 715.90 Active Sobia Naff MANAGER INTERFACE Osteoarthrosis, unspecified whether generalized or localized, involving unspecified site G E R D 530.81 Active Sobia Naff MANAGER INTERFACE Esoph ageal reflux DEPRESSION 311 Active Sobia Naff MANAGER INTERFACE De pressive disorder, not elsewhere classified FH DIABETES V18.0 Active Sobia Naff MANAGER INTERFACE F amily history of diabetes mellitus DROWSINESS 780.09 Active Joao BOYD O ther alteration of consciousness INSOMNIA, HX OF V15.89 Active Joao BOYD Other specified personal history presenting hazards to health MYALGIA 729.1 Active Joao BOYD Myal chano and myositis, unspecified RESTLESS LEG SYNDROME, HX OF V12.49 Active Joao BOYD Personal history of other disorders of nervous system and sense organs INCONTINENCE, URGE 788.31 Active Arnol harman MD Urge incontinence Atypical chest pain 786.59 Active Elaine Meadows APR N Other chest pain Colon cancer screening V76.51 Active Elaine Meadows APRN Screening for malignant neoplasms of colon Contusion of left foot, initial encounter 924.20 Resol germain Diallo Shirley MD Contusion of foot Contusion of unspecified part of head, subsequent encounter V58. 89 Resolved Diallo Shirley MD Encounter for other specified aftercare Contusion of left foot, subsequent encounter V58.89 1 Active Dave Noriega DO Encounter for other specified af tercare 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 nactive Joao BOYD Contusion of left foot, initial encounter ICD-924.20 Inactive Diallo Shirley MD Contusion of unspecified part of head, subsequent encounter ICD-V58.89 Inactive Diallo Shirley MD Medication List Medication Instructions Start Date Stop Date Generic Name NDC Status Provider Patient Instruction LIPITOR 10 MG ORAL TABS 1 tab daily ATORVASTATI N CALCIUM 20067275592 Active Diallo Shirley MD Active MIRAPEX 0.5 MG ORAL TABS 1 tab in the am 2 tabs in pm PRAMIPEXOLE DIHYDROCHLORIDE 79216619149 Active Diallo Shirley MD Active WELLBUTRIN SR 150 MG ORAL [id number] 1 tab twice daily BUPROPION HCL 76563915251 Active Diallo Shirley MD Active CLONAZEPAM 0.5 MG TABS 2 tablet by mouth 1 times daily at bedtime CLONAZEPAM 59359495027 No Longer Active Diallo Shirley MD Activ e PRILOSEC 40 MG CPDR 1 tab daily OMEPRAZOLE 84471 119915 No Longer Active Diallo Shirley MD Active MELOXICAM 15 MG TABS 1qd MELOXICAM 38264183732 No Longer Active Arnol Ballard MD Active PANTOPRAZOLE SODIUM 40 MG TBEC Take one by mouth bid PANTOPRAZOLE SODIUM 50970937949 No Longer Active Arnol Ballard MD Acti ve VESICARE 10 MG TABS 1 tab daily SOLIFENACIN SUCCI KAHLIL 97417508724 No Longer Active Arnol Ballard MD Active SUPER B-50 B COMPLEX CAPS 1qd B COMPLEX-BIOT IN-FA 31960853893 No Longer Active Arnol Ballard MD Active OMEGA 3-6-9 COMPLEX CAPS 1qd OMEGA 3-6-9 FAT TY ACIDS 64983969983 No Longer Active Arnol Ballard MD Active NAPROSYN 500 MG TABS 1 bid NAPROXEN 80670318050 No Longer Active J William Ballard MD Active HYDROCODONE-ACETAMINOPHEN 5-325 MG TABS 1-2 q 4 hr prn pain HYDROCODONE-ACETAMINOPHEN 72336455393 No Longer Active Arnol Ballard MD Active NEXIUM 40 MG CPDR 1 q d ESOMEPRAZOLE MAGNE SIUM 23089372386 No Longer Active Rony Mata MD Active CVS ZINC 50 MG TABS 1 qd ZINC 96542466911 Active Anupama Meadows APRN Active CVS MAGNESIUM 250 MG TABS 3 q d MAGNESIUM 076757188 81 Active Elaine Meadows APRN Active CVS VITAMIN C 1000 MG TABS 1 qd ASCORBIC ACID 5042 7511128 Active Elaine Meadows APRN Active SUPER B COMPLEX TABS Take one by mouth daily B COMPLEX-C 43994524714 No Longer Active Elaine Meadows APRN Active AMBIEN 10 MG TABS 1 at bedtime ZOLPIDEM TARTRAT E 55957627692 No Longer Active Elaine Meadows APRN Active ASPIRIN 81 MG TAB 1 tablet by mouth daily ASPIR IN 59073939135 No Longer Active Elaine Meadows APRN Active MACRODANTIN 100 MG CAPS Take one by mouth daily 10/18 NITROFURANTOIN MACROCRYSTAL 18982165106 No Longer Active Arnol Ballard MD Active VITAMIN D3 5000 UNIT TABS 1qd CHOLECALCIFER OL 91314506837 No Longer Active Arnol Ballard MD Active FIBER THERAPY 500 MG TABS 1qd METHYLCELL ULOSE (LAXATIVE) 90865983799 No Longer Active Arnol Ballard MD Active VITAMIN C 1000 MG TABS 1qd ASCORBIC ACID 30 648725174 No Longer Active Arnol Ballard MD Active HYDROCODONE-ACETAMINOPHEN 10-500 MG TABS 1 prn HYDROCODONE-ACETAMINOPHEN 63142489213 No Longer Active Arnol Ballard MD Active LOVASTATIN 40 MG TABS 1 at bedtime LOVASTATIN 00 389600127 No Longer Active Joao Harms PA Active CYMBALTA 60 MG CPEP 1 every morning DULOXETINE HC L 25003292782 Active Joao Harms PA Active CYMBALTA 30 MG CPEP 1 cap by mouth daily with 60mg cap DULOXETINE HCL 76785969044 No Longer Active Joao Harms PA Active CLONAZEPAM 0.5 MG TBDP 2 tabs at bedtime CLONAZ EPAM 28835391178 No Longer Active Joao Harms PA Active ZYRTEC ALLERGY 10 MG TABS Take one by mouth daily 2011 CETIRIZINE HCL 85308610176 No Longer Active Sobia Naff MANAGER INTERFACE Active VITAMIN D3 2000 UNIT CAPS 2 1/2 daily CHOLECALC IFEROL 74878385430 No Longer Active Sobia Naff MANAGER INTERFACE Active ZITHROMAX Z-ANTONIETA 250 MG TABS 2x1day,1d8bhxv AZIT HROMYCIN 42468980514 No Longer Active Sobia Naff MANAGER INTERFACE Active MULTIVITAMINS TABS Take one by mouth daily MULT IPLE VITAMIN 95032332143 Active Symone Lucke Active AMBIEN 10 MG TABS 1 at bedtime AMBIEN 10 MG TABS 752378 ZOLPIDEM TARTRATE Inactive MACRODANTIN 100 MG CAPS Take one by mouth daily 10/18 MACRODANTIN 100 MG CAPS 7431422 NITROFURANTOIN MACROCRYSTAL Inactive NAPROSYN 500 MG TABS 1 bid NAPROSYN 500 MG T ABS 002044 NAPROXEN Inactive SUPER B COMPLEX TABS Take one by mouth daily 4 SUPER B COMPLEX TABS B COMPLEX-C Inactive VITAMIN C 1000 MG TABS 1qd VITAMIN C 1000 M G TABS 978779 ASCORBIC ACID Inactive ASPIRIN 81 MG TAB 1 tablet by mouth daily ASPIRIN 81 MG TAB ASPIRIN Inactive CLONAZEPAM 0.5 MG TABS 2 tablet by mouth 1 times daily at bedtime CLONAZEPAM 0.5 MG TABS 19740315 CLONAZEPAM Inactive LOVASTATIN 40 MG TABS 1 at bedtime LOVASTATIN 4 0 MG TABS 914732 LOVASTATIN Inactive SUPER B-50 B COMPLEX CAPS 1qd SUPER B-50 B COMPLEX CAPS B [id number] Inactive HYDROCODONE-ACETAMINOPHEN 10-500 MG TABS 1 prn HYDROCODONE- ACETAMINOPHEN 10-500 MG TABS HYDROCODONE-ACETAMINOPHEN Inact kiya MELOXICAM 15 MG TABS 1qd MELOXICAM 15 MG T ABS 133405 MELOXICAM Inactive PRILOSEC 40 MG CPDR 1 tab daily PRILOSEC 40 MG C PDR OMEPRAZOLE Inactive PANTOPRAZOLE SODIUM 40 MG TBEC Take one by mouth bid 4 PANTOPRAZOLE SODIUM 40 MG TBEC 738846 PANTOPRAZOLE SODIUM Inactive NEXIUM 40 MG CPDR 1 q d NEXIUM 40 MG CPDR 60 6730 ESOMEPRAZOLE MAGNESIUM Inactive ZITHROMAX Z-ANTONIETA 250 MG TABS 2x1day,[id number] ZITHROMAX Z-ANTONIETA 250 MG TABS 4033662 AZITHROMYCIN Inactive HYDROCODONE-ACETAMINOPHEN 5-325 MG TABS 1-2 q 4 hr prn pain 2013 HYDROCODONE-ACETAMINOPHEN 5-325 MG TABS 166616 HYDROCODONE-ACETAMINOPHEN Inactive CLONAZEPAM 0.5 MG TBDP 2 tabs at bedtime CLONAZEPAM 0.5 MG TBDP 658395 CLONAZEPAM Inactive FIBER THERAPY 500 MG TABS 1qd FIBER THERAPY 500 MG TABS METHYLCELLULOSE (LAXATIVE) Inactive CYMBALTA 30 MG CPEP 1 cap by mouth daily with 60mg cap CYMBALTA 30 MG CPEP 391320 DULOXETINE HCL Inactive VESICARE 10 MG TABS 1 tab daily VESICARE 10 MG T ABS SOLIFENACIN SUCCINATE Inactive ZYRTEC ALLERGY 10 MG TABS Take one by mouth daily 2011 ZYRTEC ALLERGY 10 MG TABS 6486891 CETIRIZINE HCL Inactive VITAMIN D3 2000 UNIT CAPS 2 1/2 daily TAMIN D3 2000 UNIT CAPS CHOLECALCIFEROL Inactive VITAMIN D3 5000 UNIT TABS 1qd VITAMIN D3 50 00 UNIT TABS CHOLECALCIFEROL Inactive OMEGA 3-6-9 COMPLEX CAPS 1qd OMEGA 3-6-9 CO MPLEX CAPS OMEGA 3-6-9 FATTY ACIDS Inactive Vital Signs Date Name Value Unit Range Description blood pressure, diastolic - 8462-4 73 mm[Hg] BP shore blood pressure, systolic - 8480-6 122 mm[Hg] BP sys pulse rate E&M - 8867-4 81 /min H eart rate temperature E&M 96.6 [degF] Body temp erature weight E&M - 3141-9 195 [lb_av] Weigh t Measured blood pressure, diastolic - 8462-4 75 mm[Hg] BP shore blood pressure, systolic - 8480-6 125 mm[Hg] BP sys height E&M - 8302-2 67 [in_us] Bdy h eight pulse rate E&M - 8867-4 92 /min H eart rate temperature E&M 97.2 [degF] Body temp erature weight E&M - 3141-9 192.5 [lb_av] Weigh t Measured blood pressure, diastolic - 8462-4 69 mm[Hg] BP shore blood pressure, systolic - 8480-6 107 mm[Hg] BP sys height E&M - 8302-2 67 [in_us] Bdy h eight pulse rate E&M - 8867-4 116 /min H eart rate temperature E&M 98.4 [degF] Body temp erature weight E&M - 3141-9 194.4 [lb_av] Weigh t Measured blood pressure, diastolic - 8462-4 80 mm[Hg] BP shore blood pressure, systolic - 8480-6 138 mm[Hg] BP sys height E&M - 8302-2 67 [in_us] Bdy h eight pulse rate E&M - 8867-4 108 /min H eart rate temperature E&M 98.5 [degF] Body temp erature weight E&M - 3141-9 190 [lb_av] Weigh t Measured blood pressure, diastolic - 8462-4 74 mm[Hg] BP shore blood pressure, systolic - 8480-6 109 mm[Hg] BP sys pulse rate E&M - 8867-4 77 /min H eart rate temperature E&M 97.2 [degF] Body temp erature weight E&M - 3141-9 190.6 [lb_av] Weigh t Measured Encounters Code Encounter Date Provider Facility CPT-41876 Level 3 Est. Patient 13:55:16 CDT Diallo Shirley MD [facility] CPT-36061 Level 3 Est. Patient 17:02:03 CDT Diallo Shirley MD [facility] CPT-88855 Level 3 Est. Patient 16:22:59 CDT Dave palm DO [facility] CPT-06874 Level 3 Est. Patient 12:28:01 CDT Diallo Shirley MD [facility] CPT-72344 Level 3 Est. Patient 22:35:01 CDT Arnol collier MD [facility] CPT-86072 Level 3 Est. Patient 12:55:02 [employer] Arnol collier MD [facility] CPT-24122 Level 4 New Patient 14:35:08 CDT Arnol quinn MD [facility] CPT-32262 Level 4 Est. Patient 08:52:50 CDT Joao jacques [facility] CPT-75989 Level 4 Est. Patient 07:47:45 CDT Joao jacques [facility] Procedures Code Procedure Name Date Entry Date Standard Desc ription CPT-65317 Foot, left, comp min 3V - XRAY USE ONLY 16:58:22 CDT CPT-05719 Foot, left, comp min 3V - XRAY USE ONLY 16:47:13 CDT CPT-98865 Chest 2V Frontal and Lat - XRAY USE ONLY 16:45:56 CDT CPT-11401 Postop F/U Visit 14:36:53 CDT CPT-OV Office Visit 14:55:53 CDT CPT-OV Office Visit 14:55:26 CDT CPT-OV Office Visit 15:26:35 CDT CPT-45169 Postop F/U Visit 17:47:54 [employer] CPT-86760 Interstim trial 12:55:02 [employer] CPT-73087 Venipuncture Draw Fee 17:04:06 CDT
--- OUTSIDE RECORDS SUMMARY | 2019-04-15 12:34 | XMS REPORT | Clinical Summary ---
Author Author Admin, Sabrina Jefferson Organization [facility] Address Unknown Phone Unavailable Allergies, Adverse Reactions, Alerts Allergy Name Reaction Description Start Date Severity Status Pr kristy VICENTES Critical Active Sobia Naff LP N SULFA rash Moderate Active Symone Lucke DICLOFENAC SODIUM Moderate Active Ysmone Tabby cke Conditions or Problems Problem Name [...] unspecified hyperlipidemia OSTEOARTHRITIS 715.90 Active Sobia Naff MONOTYPE SETTER Osteoarthrosis, unspecified whether generalized or localized, involving unspecified site G E R D 530.81 Active Sobia Naff MONOTYPE SETTER Esoph ageal reflux DEPRESSION 311 Active Sobia Naff MONOTYPE SETTER De pressive disorder, not elsewhere classified FH DIABETES V18.0 Active Sobia Naff MONOTYPE SETTER F amily history of diabetes mellitus DROWSINESS [...] TABS 1 tab daily ATORVASTATI N CALCIUM 01014832647 Active Diallo Shirley MD Active MIRAPEX 0.5 MG ORAL TABS 1 tab in the am 2 tabs in pm PRAMIPEXOLE DIHYDROCHLORIDE 45897512534 Active Diallo Shirley MD Active WELLBUTRIN SR 150 MG ORAL [id number] 1 tab twice daily BUPROPION HCL 64510557574 Active Diallo Shirley MD Active CLONAZEPAM 0.5 MG TABS 2 tablet by mouth 1 times daily at bedtime CLONAZEPAM 38248004946 No Longer Active Diallo Shirley MD Activ e PRILOSEC 40 MG CPDR 1 tab daily OMEPRAZOLE 67575 983165 No Longer Active Diallo Shirley MD Active MELOXICAM 15 MG TABS 1qd MELOXICAM 42477824490 No Longer Active Arnol Ballard MD Active PANTOPRAZOLE SODIUM 40 MG TBEC Take one by mouth bid PANTOPRAZOLE SODIUM 95934677911 No Longer Active Arnol Ballard MD Acti ve VESICARE 10 MG TABS 1 tab daily SOLIFENACIN SUCCI KAHLIL 10200093247 No Longer Active Arnol Ballard MD Active SUPER B-50 B COMPLEX CAPS 1qd B COMPLEX-BIOT IN-FA 21868346815 No Longer Active Arnol Ballard MD Active OMEGA 3-6-9 COMPLEX CAPS 1qd OMEGA 3-6-9 FAT TY ACIDS 95234321282 No Longer Active Arnol Ballard MD Active NAPROSYN 500 MG TABS 1 bid NAPROXEN 43679991719 No Longer Active J William Ballard MD Active HYDROCODONE-ACETAMINOPHEN 5-325 MG TABS 1-2 q 4 hr prn pain HYDROCODONE-ACETAMINOPHEN 77602724275 No Longer Active Aronl Ballard MD Active NEXIUM 40 MG CPDR 1 q d ESOMEPRAZOLE MAGNE SIUM 74893898755 No Longer Active Rony Mata MD Active CVS ZINC 50 MG TABS 1 qd ZINC 28819670595 Active Anupama Meadows APRN Active CVS MAGNESIUM 250 MG TABS 3 q d MAGNESIUM 531190539 81 Active Elaine Meadows APRN Active CVS VITAMIN C 1000 MG TABS 1 qd ASCORBIC ACID 5042 5210763 Active Elaine Meadows APRN Active SUPER B COMPLEX TABS Take one by mouth daily B COMPLEX-C 51315998374 No Longer Active Elaine Meadows APRN Active AMBIEN 10 MG TABS 1 at bedtime ZOLPIDEM TARTRAT E 72220199250 No Longer Active Elaine Meadows APRN Active ASPIRIN 81 MG TAB 1 tablet by mouth daily ASPIR IN 64786230457 No Longer Active Elaine Meadows APRN Active MACRODANTIN 100 MG CAPS Take one by mouth daily 10/18 NITROFURANTOIN MACROCRYSTAL 37973286044 No Longer Active Arnol Ballard MD Active VITAMIN D3 5000 UNIT TABS 1qd CHOLECALCIFER OL 05123423605 No Longer Active Arnol Ballard MD Active FIBER THERAPY 500 MG TABS 1qd METHYLCELL ULOSE (LAXATIVE) 62655344388 No Longer Active Arnol Ballard MD Active VITAMIN C 1000 MG TABS 1qd ASCORBIC ACID 30 343053173 No Longer Active Arnol Ballard MD Active HYDROCODONE-ACETAMINOPHEN 10-500 MG TABS 1 prn HYDROCODONE-ACETAMINOPHEN 27897893024 No Longer Active Arnol Ballard MD Active LOVASTATIN 40 MG TABS 1 at bedtime LOVASTATIN 00 396965922 No Longer Active Joao Harms PA Active CYMBALTA 60 MG CPEP 1 every morning DULOXETINE HC L 91261683049 Active Joao Harms PA Active CYMBALTA 30 MG CPEP 1 cap by mouth daily with 60mg cap DULOXETINE HCL 81852919691 No Longer Active Joao Harms PA Active CLONAZEPAM 0.5 MG TBDP 2 tabs at bedtime CLONAZ EPAM 37309760626 No Longer Active Joao Harms PA Active ZYRTEC ALLERGY 10 MG TABS Take one by mouth daily 2011 CETIRIZINE HCL 17199973374 No Longer Active Sobia Naff MONOTYPE SETTER Active VITAMIN D3 2000 UNIT CAPS 2 1/2 daily CHOLECALC IFEROL 80250575635 No Longer Active Sobia Naff MONOTYPE SETTER Active ZITHROMAX Z-ANTONIETA 250 MG TABS 2x1day,1e1qjvp AZIT HROMYCIN 56546887702 No Longer Active Sobia Naff MONOTYPE SETTER Active MULTIVITAMINS TABS Take one by mouth daily MULT IPLE VITAMIN 27069259430 Active Symone Lucke Active VITAMIN D3 2000 UNIT CAPS 2 1/2 daily TAMIN D3 2000 UNIT CAPS CHOLECALCIFEROL Inactive ZYRTEC ALLERGY 10 MG TABS Take one by mouth daily 2011 ZYRTEC ALLERGY 10 MG TABS 4214450 CETIRIZINE HCL Inactive CLONAZEPAM 0.5 MG TBDP 2 tabs at bedtime CLONAZEPAM 0.5 MG TBDP 301717 CLONAZEPAM Inactive CYMBALTA 30 MG CPEP 1 cap by mouth daily with 60mg cap CYMBALTA 30 MG CPEP 027313 DULOXETINE HCL Inactive LOVASTATIN 40 MG TABS 1 at bedtime LOVASTATIN 4 0 MG TABS 658639 LOVASTATIN Inactive HYDROCODONE-ACETAMINOPHEN 10-500 MG TABS 1 prn HYDROCODONE- ACETAMINOPHEN 10-500 MG TABS HYDROCODONE-ACETAMINOPHEN Inact kiya VITAMIN C 1000 MG TABS 1qd VITAMIN C 1000 M G TABS 010771 ASCORBIC ACID Inactive FIBER THERAPY 500 MG TABS 1qd FIBER THERAPY 500 MG TABS METHYLCELLULOSE (LAXATIVE) Inactive VITAMIN D3 5000 UNIT TABS 1qd VITAMIN D3 50 00 UNIT TABS CHOLECALCIFEROL Inactive MACRODANTIN 100 MG CAPS Take one by mouth daily 10/18 MACRODANTIN 100 MG CAPS 7325132 NITROFURANTOIN MACROCRYSTAL Inactive ASPIRIN 81 MG TAB 1 tablet by mouth daily ASPIRIN 81 MG TAB ASPIRIN Inactive AMBIEN 10 MG TABS 1 at bedtime AMBIEN 10 MG TABS 544189 ZOLPIDEM TARTRATE Inactive SUPER B COMPLEX TABS Take one by mouth daily 4 SUPER B COMPLEX TABS B COMPLEX-C Inactive NEXIUM 40 MG CPDR 1 q d NEXIUM 40 MG CPDR 60 6730 ESOMEPRAZOLE MAGNESIUM Inactive HYDROCODONE-ACETAMINOPHEN 5-325 MG TABS 1-2 q 4 hr prn pain 2013 HYDROCODONE-ACETAMINOPHEN 5-325 MG TABS 714775 HYDROCODONE-ACETAMINOPHEN Inactive NAPROSYN 500 MG TABS 1 bid NAPROSYN 500 MG T ABS 941839 NAPROXEN Inactive OMEGA 3-6-9 COMPLEX CAPS 1qd OMEGA 3-6-9 CO MPLEX CAPS OMEGA 3-6-9 FATTY ACIDS Inactive SUPER B-50 B COMPLEX CAPS 1qd SUPER B-50 B COMPLEX CAPS B [id number] Inactive VESICARE 10 MG TABS 1 tab daily VESICARE 10 MG T ABS SOLIFENACIN SUCCINATE Inactive PANTOPRAZOLE SODIUM 40 MG TBEC Take one by mouth bid 4 PANTOPRAZOLE SODIUM 40 MG TBEC 226402 PANTOPRAZOLE SODIUM Inactive MELOXICAM 15 MG TABS 1qd MELOXICAM 15 MG T ABS 671571 MELOXICAM Inactive PRILOSEC 40 MG CPDR 1 tab daily PRILOSEC 40 MG C PDR OMEPRAZOLE Inactive CLONAZEPAM 0.5 MG TABS 2 tablet by mouth 1 times daily at bedtime CLONAZEPAM 0.5 MG TABS 737482 CLONAZEPAM Inactive ZITHROMAX Z-ANTONIETA 250 MG TABS 2x1day,7v5mdch ZITHROMAX Z-ANTONIETA 250 MG TABS 7911585 AZITHROMYCIN Inactive Vital Signs Date Name Value Unit Range Description blood pressure, diastolic - 8462-4 75 mm[Hg] [...] Measured Encounters Code Encounter Date Provider Facility [id number] Level 3 Est. Patient 17:02:03 CDT Diallo Shirley MD [facility] CPT-46496 Level 3 Est. Patient 16:22:59 CDT Dave palm DO [facility] CPT-38194 Level 3 Est. Patient 12:28:01 CDT Diallo Shirley MD [facility] CPT-65257 Level 3 Est. Patient 22:35:01 CDT Arnol collier MD [facility] CPT-12785 Level 3 Est. Patient 12:55:02 MEDICAL CASE WORKER J William collier MD [facility] CPT-46198 Level 4 New Patient 14:35:08 CDT Arnol quinn MD [facility] CPT-88547 Level 4 Est. Patient 08:52:50 CDT Joao jacques [facility] CPT-21928 Level 4 Est. Patient 07:47:45 CDT Joao jacques [facility] Procedures Code Procedure Name Date Entry Date Standard Desc ription CPT-60405 Foot, left, comp min 3V - XRAY USE ONLY 16:58:22 CDT CPT-26436 Foot, left, comp min 3V - XRAY USE ONLY 16:47:13 CDT CPT-20829 Chest 2V Frontal and Lat - XRAY USE ONLY 16:45:56 CDT CPT-44580 Postop F/U Visit 14:36:53 CDT CPT-OV Office Visit 14:55:53 CDT CPT-OV Office Visit 14:55:26 CDT CPT-OV Office Visit 15:26:35 CDT CPT-95309 Postop F/U Visit 17:47:54 MEDICAL CASE WORKER CPT-46106 Interstim trial 12:55:02 MEDICAL CASE WORKER CPT-36204 Venipuncture Draw Fee 17:04:06 CDT
--- OUTSIDE RECORDS SUMMARY | 2019-04-15 12:34 | XMS REPORT | Clinical Summary ---
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 CNC MACHINIST 2ND SHIFT De pressive disorder, not elsewhere classified FH DIABETES V18.0 Active Sobia Naff CNC MACHINIST 2ND SHIFT F amily history of diabetes mellitus DROWSINESS [...] TABS 1 tab daily ATORVASTATI N CALCIUM 83166713422 Active Diallo Shirley MD Active MIRAPEX 0.5 MG ORAL TABS 1 tab in the am 2 tabs in pm PRAMIPEXOLE DIHYDROCHLORIDE 49131342519 Active Diallo Shirley MD Active WELLBUTRIN SR 150 MG ORAL [id number] 1 tab twice daily BUPROPION HCL 90524385942 Active Diallo Shirley MD Active CLONAZEPAM 0.5 MG TABS 2 tablet by mouth 1 times daily at bedtime CLONAZEPAM 17641003129 No Longer Active Diallo Shirley MD Activ e PRILOSEC 40 MG CPDR 1 tab daily OMEPRAZOLE 11999 894938 No Longer Active Diallo Shirley MD Active MELOXICAM 15 MG TABS 1qd MELOXICAM 09574292160 No Longer Active Arnol Ballard MD Active PANTOPRAZOLE SODIUM 40 MG TBEC Take one by mouth bid PANTOPRAZOLE SODIUM 41882625391 No Longer Active Arnol Ballard MD Acti ve VESICARE 10 MG TABS 1 tab daily SOLIFENACIN SUCCI KAHLIL 04679698630 No Longer Active Arnol Ballard MD Active SUPER B-50 B COMPLEX CAPS 1qd B COMPLEX-BIOT IN-FA 11268331534 No Longer Active Arnol Ballard MD Active OMEGA 3-6-9 COMPLEX CAPS 1qd OMEGA 3-6-9 FAT TY ACIDS 51341457133 No Longer Active Arnol Ballard MD Active NAPROSYN 500 MG TABS 1 bid NAPROXEN 20525311670 No Longer Active J William Ballard MD Active HYDROCODONE-ACETAMINOPHEN 5-325 MG TABS 1-2 q 4 hr prn pain HYDROCODONE-ACETAMINOPHEN 45555553882 No Longer Active Arnol Ballard MD Active NEXIUM 40 MG CPDR 1 q d ESOMEPRAZOLE MAGNE SIUM 25716220789 No Longer Active Rony Mata MD Active CVS ZINC 50 MG TABS 1 qd ZINC 94610920267 Active Anupama Meadows APRN Active CVS MAGNESIUM 250 MG TABS 3 q d MAGNESIUM 640546600 81 Active Elaine Meadows APRN Active CVS VITAMIN C 1000 MG TABS 1 qd ASCORBIC ACID 5042 6099990 Active Elaine Meadows APRN Active SUPER B COMPLEX TABS Take one by mouth daily B COMPLEX-C 41657581558 No Longer Active Elaine Meadows APRN Active AMBIEN 10 MG TABS 1 at bedtime ZOLPIDEM TARTRAT E 98574540965 No Longer Active Elaine Meadows APRN Active ASPIRIN 81 MG TAB 1 tablet by mouth daily ASPIR IN 67313095371 No Longer Active Elaine Meadows APRN Active MACRODANTIN 100 MG CAPS Take one by mouth daily 10/18 NITROFURANTOIN MACROCRYSTAL 99696757847 No Longer Active Arnol Ballard MD Active VITAMIN D3 5000 UNIT TABS 1qd CHOLECALCIFER OL 05994216513 No Longer Active Arnol Ballard MD Active FIBER THERAPY 500 MG TABS 1qd METHYLCELL ULOSE (LAXATIVE) 13544962860 No Longer Active Arnol Ballard MD Active VITAMIN C 1000 MG TABS 1qd ASCORBIC ACID 30 318561964 No Longer Active Arnol Ballard MD Active HYDROCODONE-ACETAMINOPHEN 10-500 MG TABS 1 prn HYDROCODONE-ACETAMINOPHEN 54560583525 No Longer Active Arnol Ballard MD Active LOVASTATIN 40 MG TABS 1 at bedtime LOVASTATIN 00 482341879 No Longer Active Joao Harms PA Active CYMBALTA 60 MG CPEP 1 every morning DULOXETINE HC L 79054515814 Active Joao Harms PA Active CYMBALTA 30 MG CPEP 1 cap by mouth daily with 60mg cap DULOXETINE HCL 97750032002 No Longer Active Joao Harms PA Active CLONAZEPAM 0.5 MG TBDP 2 tabs at bedtime CLONAZ EPAM 78418932150 No Longer Active Joao Harms PA Active ZYRTEC ALLERGY 10 MG TABS Take one by mouth daily 2011 CETIRIZINE HCL 06216053294 No Longer Active Sobia Naff CNC MACHINIST 2ND SHIFT Active VITAMIN D3 2000 UNIT CAPS 2 1/2 daily CHOLECALC IFEROL 75471958804 No Longer Active Sobia Naff CNC MACHINIST 2ND SHIFT Active ZITHROMAX Z-ANTONIETA 250 MG TABS 2x1day,3p8thcu AZIT HROMYCIN 65901543608 No Longer Active Sobia Naff CNC MACHINIST 2ND SHIFT Active MULTIVITAMINS TABS Take one by mouth daily MULT IPLE VITAMIN 23289276899 Active Symone Lucke Active VITAMIN D3 2000 UNIT CAPS 2 1/2 daily TAMIN D3 2000 UNIT CAPS CHOLECALCIFEROL Inactive ZYRTEC ALLERGY 10 MG TABS Take one by mouth daily 2011 ZYRTEC ALLERGY 10 MG TABS 7594785 CETIRIZINE HCL Inactive CLONAZEPAM 0.5 MG TBDP 2 tabs at bedtime CLONAZEPAM 0.5 MG TBDP 468605 CLONAZEPAM Inactive CYMBALTA 30 MG CPEP 1 cap by mouth daily with 60mg cap CYMBALTA 30 MG CPEP 114521 DULOXETINE HCL Inactive LOVASTATIN 40 MG TABS 1 at bedtime LOVASTATIN 4 0 MG TABS 426998 LOVASTATIN Inactive HYDROCODONE-ACETAMINOPHEN 10-500 MG TABS 1 prn HYDROCODONE- ACETAMINOPHEN 10-500 MG TABS HYDROCODONE-ACETAMINOPHEN Inact kiya VITAMIN C 1000 MG TABS 1qd VITAMIN C 1000 M G TABS 036531 ASCORBIC ACID Inactive FIBER THERAPY 500 MG TABS 1qd FIBER THERAPY 500 MG TABS METHYLCELLULOSE (LAXATIVE) Inactive VITAMIN D3 5000 UNIT TABS 1qd VITAMIN D3 50 00 UNIT TABS CHOLECALCIFEROL Inactive MACRODANTIN 100 MG CAPS Take one by mouth daily 10/18 MACRODANTIN 100 MG CAPS 1173863 NITROFURANTOIN MACROCRYSTAL Inactive ASPIRIN 81 MG TAB 1 tablet by mouth daily ASPIRIN 81 MG TAB ASPIRIN Inactive AMBIEN 10 MG TABS 1 at bedtime AMBIEN 10 MG TABS 038808 ZOLPIDEM TARTRATE Inactive SUPER B COMPLEX TABS Take one by mouth daily 4 SUPER B COMPLEX TABS B COMPLEX-C Inactive NEXIUM 40 MG CPDR 1 q d NEXIUM 40 MG CPDR 60 6730 ESOMEPRAZOLE MAGNESIUM Inactive HYDROCODONE-ACETAMINOPHEN 5-325 MG TABS 1-2 q 4 hr prn pain 2013 HYDROCODONE-ACETAMINOPHEN 5-325 MG TABS 516002 HYDROCODONE-ACETAMINOPHEN Inactive NAPROSYN 500 MG TABS 1 bid NAPROSYN 500 MG T ABS 670396 NAPROXEN Inactive OMEGA 3-6-9 COMPLEX CAPS 1qd OMEGA 3-6-9 CO MPLEX CAPS OMEGA 3-6-9 FATTY ACIDS Inactive SUPER B-50 B COMPLEX CAPS 1qd SUPER B-50 B COMPLEX CAPS B [id number] Inactive VESICARE 10 MG TABS 1 tab daily VESICARE 10 MG T ABS SOLIFENACIN SUCCINATE Inactive PANTOPRAZOLE SODIUM 40 MG TBEC Take one by mouth bid 4 PANTOPRAZOLE SODIUM 40 MG TBEC 896581 PANTOPRAZOLE SODIUM Inactive MELOXICAM 15 MG TABS 1qd MELOXICAM 15 MG T ABS 652254 MELOXICAM Inactive PRILOSEC 40 MG CPDR 1 tab daily PRILOSEC 40 MG C PDR OMEPRAZOLE Inactive CLONAZEPAM 0.5 MG TABS 2 tablet by mouth 1 times daily at bedtime CLONAZEPAM 0.5 MG TABS 289541 CLONAZEPAM Inactive ZITHROMAX Z-ANTONIETA 250 MG TABS 2x1day,2h2jovi ZITHROMAX Z-ANTONIETA 250 MG TABS 1599799 AZITHROMYCIN Inactive Vital Signs Date Name Value [...] Measured Encounters Code Encounter Date Provider Facility CPT-[id number] Level 3 Est. Patient 13:55:16 CDT Diallo Shirley MD [facility] CPT-25049 Level 3 Est. Patient 17:02:03 CDT Diallo Shirley MD [facility] CPT-06563 Level 3 Est. Patient 16:22:59 CDT Dave palm DO [facility] CPT-53598 Level 3 Est. Patient 12:28:01 CDT Diallo Shirley MD [facility] CPT-87250 Level 3 Est. Patient 22:35:01 CDT Arnol collier MD [facility] CPT-72377 Level 3 Est. Patient 12:55:02 GREETER Arnol collier MD [facility] CPT-18262 Level 4 New Patient 14:35:08 CDT Arnol quinn MD [facility] CPT-50602 Level 4 Est. Patient 08:52:50 CDT Joao jacques [facility] CPT-77547 Level 4 Est. Patient 07:47:45 CDT Joao jacques [facility] Procedures Code Procedure Name Date Entry Date Standard Desc ription CPT-35728 Foot, left, comp min 3V - XRAY USE ONLY 16:58:22 CDT CPT-28926 Foot, left, comp min 3V - XRAY USE ONLY 16:47:13 CDT CPT-65758 Chest 2V Frontal and Lat - XRAY USE ONLY 16:45:56 CDT CPT-07492 Postop F/U Visit 14:36:53 CDT CPT-OV Office Visit 14:55:53 CDT CPT-OV Office Visit 14:55:26 CDT CPT-OV Office Visit 15:26:35 CDT CPT-26608 Postop F/U Visit 17:47:54 GREETER CPT-09756 Interstim trial 12:55:02 GREETER CPT-71659 Venipuncture Draw Fee 17:04:06 CDT
--- OUTSIDE RECORDS SUMMARY | 2019-04-15 12:34 | XMS REPORT | Clinical Summary ---
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 F amily history of diabetes mellitus DROWSINESS [...] foot, subsequent encounter V58.89 1 Active Dave Norieag DO Encounter for other specified af tercare [...] TABS 1 tab daily ATORVASTATI N CALCIUM 26929595300 Active Diallo Shirley MD Active MIRAPEX 0.5 MG ORAL TABS 1 tab in the am 2 tabs in pm PRAMIPEXOLE DIHYDROCHLORIDE 72072260885 Active Diallo Shirley MD Active WELLBUTRIN SR 150 MG ORAL [id number] 1 tab twice daily BUPROPION HCL 97876851047 Active Diallo Shirley MD Active CLONAZEPAM 0.5 MG TABS 2 tablet by mouth 1 times daily at bedtime CLONAZEPAM 93729341059 No Longer Active Diallo Shirley MD Activ e PRILOSEC 40 MG CPDR 1 tab daily OMEPRAZOLE 21516 036882 No Longer Active Diallo Shirley MD Active MELOXICAM 15 MG TABS 1qd MELOXICAM 52337535599 No Longer Active Arnol Ballard MD Active PANTOPRAZOLE SODIUM 40 MG TBEC Take one by mouth bid PANTOPRAZOLE SODIUM 96383296990 No Longer Active Arnol Ballard MD Acti ve VESICARE 10 MG TABS 1 tab daily SOLIFENACIN SUCCI KAHLIL 86942238491 No Longer Active Arnol Ballard MD Active SUPER B-50 B COMPLEX CAPS 1qd B COMPLEX-BIOT IN-FA 80311522542 No Longer Active Arnol Ballard MD Active OMEGA 3-6-9 COMPLEX CAPS 1qd OMEGA 3-6-9 FAT TY ACIDS 32952861264 No Longer Active Arnol Ballard MD Active NAPROSYN 500 MG TABS 1 bid NAPROXEN 65321150777 No Longer Active J William Ballard MD Active HYDROCODONE-ACETAMINOPHEN 5-325 MG TABS 1-2 q 4 hr prn pain HYDROCODONE-ACETAMINOPHEN 95222720309 No Longer Active Arnol Ballard MD Active NEXIUM 40 MG CPDR 1 q d ESOMEPRAZOLE MAGNE SIUM 68639007661 No Longer Active Rony Mata MD Active CVS ZINC 50 MG TABS 1 qd ZINC 21857784874 Active Anupama Meadows APRN Active CVS MAGNESIUM 250 MG TABS 3 q d MAGNESIUM 479502453 81 Active Elaine Meadows APRN Active CVS VITAMIN C 1000 MG TABS 1 qd ASCORBIC ACID 5042 4721554 Active Elaine Meadows APRN Active SUPER B COMPLEX TABS Take one by mouth daily B COMPLEX-C 34093657150 No Longer Active Elaine Meadows APRN Active AMBIEN 10 MG TABS 1 at bedtime ZOLPIDEM TARTRAT E 05030232027 No Longer Active Elaine Meadows APRN Active ASPIRIN 81 MG TAB 1 tablet by mouth daily ASPIR IN 08908311420 No Longer Active Elaine Meadows APRN Active MACRODANTIN 100 MG CAPS Take one by mouth daily 10/18 NITROFURANTOIN MACROCRYSTAL 52382614553 No Longer Active Arnol Ballard MD Active VITAMIN D3 5000 UNIT TABS 1qd CHOLECALCIFER OL 94667788932 No Longer Active Arnol Ballard MD Active FIBER THERAPY 500 MG TABS 1qd METHYLCELL ULOSE (LAXATIVE) 57993036130 No Longer Active Arnol Ballard MD Active VITAMIN C 1000 MG TABS 1qd ASCORBIC ACID 30 644828682 No Longer Active Arnol Ballard MD Active HYDROCODONE-ACETAMINOPHEN 10-500 MG TABS 1 prn HYDROCODONE-ACETAMINOPHEN 13058454916 No Longer Active Arnol Ballard MD Active LOVASTATIN 40 MG TABS 1 at bedtime LOVASTATIN 00 381856731 No Longer Active Joao Harms PA Active CYMBALTA 60 MG CPEP 1 every morning DULOXETINE HC L 96759693519 Active Joao Harms PA Active CYMBALTA 30 MG CPEP 1 cap by mouth daily with 60mg cap DULOXETINE HCL 15770947344 No Longer Active Joao Harms PA Active CLONAZEPAM 0.5 MG TBDP 2 tabs at bedtime CLONAZ EPAM 09177111543 No Longer Active Joao Harms PA Active ZYRTEC ALLERGY 10 MG TABS Take one by mouth daily 2011 CETIRIZINE HCL 72792892563 No Longer Active 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 VITAMIN D3 2000 UNIT CAPS 2 1/2 daily CHOLECALC IFEROL 91218589377 No Longer Active Sobia Naff 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 Active ZITHROMAX Z-ANTONIETA 250 MG TABS 2x1day,3r9gcvu AZIT HROMYCIN 24089660926 No Longer Active 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 Active MULTIVITAMINS TABS Take one by mouth daily MULT IPLE VITAMIN 65438685825 Active Symone Lucke Active VITAMIN D3 2000 UNIT CAPS 2 1/2 daily TAMIN D3 2000 UNIT CAPS CHOLECALCIFEROL Inactive ZYRTEC ALLERGY 10 MG TABS Take one by mouth daily 2011 ZYRTEC ALLERGY 10 MG TABS 1570350 CETIRIZINE HCL Inactive CLONAZEPAM 0.5 MG TBDP 2 tabs at bedtime CLONAZEPAM 0.5 MG TBDP 649944 CLONAZEPAM Inactive CYMBALTA 30 MG CPEP 1 cap by mouth daily with 60mg cap CYMBALTA 30 MG CPEP 854094 DULOXETINE HCL Inactive LOVASTATIN 40 MG TABS 1 at bedtime LOVASTATIN 4 0 MG TABS 250448 LOVASTATIN Inactive HYDROCODONE-ACETAMINOPHEN 10-500 MG TABS 1 prn HYDROCODONE- ACETAMINOPHEN 10-500 MG TABS HYDROCODONE-ACETAMINOPHEN Inact kiya VITAMIN C 1000 MG TABS 1qd VITAMIN C 1000 M G TABS 437938 ASCORBIC ACID Inactive FIBER THERAPY 500 MG TABS 1qd FIBER THERAPY 500 MG TABS METHYLCELLULOSE (LAXATIVE) Inactive VITAMIN D3 5000 UNIT TABS 1qd VITAMIN D3 50 00 UNIT TABS CHOLECALCIFEROL Inactive MACRODANTIN 100 MG CAPS Take one by mouth daily 10/18 MACRODANTIN 100 MG CAPS 3040116 NITROFURANTOIN MACROCRYSTAL Inactive ASPIRIN 81 MG TAB 1 tablet by mouth daily ASPIRIN 81 MG TAB ASPIRIN Inactive AMBIEN 10 MG TABS 1 at bedtime AMBIEN 10 MG TABS 993606 ZOLPIDEM TARTRATE Inactive SUPER B COMPLEX TABS Take one by mouth daily 4 SUPER B COMPLEX TABS B COMPLEX-C Inactive NEXIUM 40 MG CPDR 1 q d NEXIUM 40 MG CPDR 60 6730 ESOMEPRAZOLE MAGNESIUM Inactive HYDROCODONE-ACETAMINOPHEN 5-325 MG TABS 1-2 q 4 hr prn pain 2013 HYDROCODONE-ACETAMINOPHEN 5-325 MG TABS 737992 HYDROCODONE-ACETAMINOPHEN Inactive NAPROSYN 500 MG TABS 1 bid NAPROSYN 500 MG T ABS 450081 NAPROXEN Inactive OMEGA 3-6-9 COMPLEX CAPS 1qd OMEGA 3-6-9 CO MPLEX CAPS OMEGA 3-6-9 FATTY ACIDS Inactive SUPER B-50 B COMPLEX CAPS 1qd SUPER B-50 B COMPLEX CAPS B [id number] Inactive VESICARE 10 MG TABS 1 tab daily VESICARE 10 MG T ABS SOLIFENACIN SUCCINATE Inactive PANTOPRAZOLE SODIUM 40 MG TBEC Take one by mouth bid 4 PANTOPRAZOLE SODIUM 40 MG TBEC 770031 PANTOPRAZOLE SODIUM Inactive MELOXICAM 15 MG TABS 1qd MELOXICAM 15 MG T ABS 847436 MELOXICAM Inactive PRILOSEC 40 MG CPDR 1 tab daily PRILOSEC 40 MG C PDR OMEPRAZOLE Inactive CLONAZEPAM 0.5 MG TABS 2 tablet by mouth 1 times daily at bedtime CLONAZEPAM 0.5 MG TABS 664550 CLONAZEPAM Inactive ZITHROMAX Z-ANTONIETA 250 MG TABS 2x1day,3q8ikcq ZITHROMAX Z-ANTONIETA 250 MG TABS 5315461 AZITHROMYCIN Inactive Vital Signs Date Name Value [...] Measured Encounters Code Encounter Date Provider Facility CPT-90323 Level 3 Est. Patient 13:55:16 CDT Diallo Shirley MD [facility] CPT-51617 Level 3 Est. Patient 17:02:03 CDT Diallo Shirley MD [facility] CPT-99090 Level 3 Est. Patient 16:22:59 CDT Dave palm DO [facility] CPT-17253 Level 3 Est. Patient 12:28:01 CDT Diallo Shirley MD [facility] CPT-48557 Level 3 Est. Patient 22:35:01 CDT Arnol collier MD [facility] CPT-24667 Level 3 Est. 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 Patient 08:52:50 CDT Joao jacques [facility] CPT-21469 Level 4 Est. Patient 07:47:45 CDT Joao jacques [facility] Procedures Code Procedure Name Date Entry Date Standard Desc ription CPT-04085 Foot, left, comp min 3V - XRAY USE ONLY 16:58:22 CDT CPT-78503 Foot, left, comp min 3V - XRAY USE ONLY 16:47:13 CDT CPT-07963 Chest 2V Frontal and Lat - XRAY USE ONLY 16:45:56 CDT CPT-13797 Postop F/U Visit 14:36:53 CDT CPT-OV Office Visit 14:55:53 CDT CPT-OV Office Visit 14:55:26 CDT CPT-OV Office Visit 15:26:35 CDT CPT-76909 Postop F/U Visit 17:47:54 STATIONARY ENGINEER APPRENTICE CPT-71239 Interstim trial 12:55:02 STATIONARY ENGINEER APPRENTICE CPT-03836 Venipuncture Draw Fee 17:04:06 CDT
--- OUTSIDE RECORDS SUMMARY | 2019-04-15 12:34 | XMS REPORT | Clinical Summary ---
Author Author Admin, Sabrina Jefferson Organization [facility] Address Unknown Phone Unavailable Allergies, Adverse Reactions, [...] unspecified hyperlipidemia OSTEOARTHRITIS 715.90 Active Sobia Naff TANBARK PEELER Osteoarthrosis, unspecified whether generalized or localized, involving unspecified site G E R D 530.81 Active Sobia Naff TANBARK PEELER Esoph ageal reflux DEPRESSION 311 Active Sobia Naff TANBARK PEELER De pressive disorder, not elsewhere classified FH DIABETES V18.0 Active Sobia Naff TANBARK PEELER F amily history of diabetes mellitus DROWSINESS [...] Contusion of left foot, initial encounter 924.20 Activ e Diallo Shirley MD Contusion of foot Contusion of unspecified part of head, subsequent encounter V58. 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 nacgagan BOYD Medication List Medication Instructions Start Date Stop Date Generic Name NDC Status Provider Patient Instruction MIRAPEX 0.5 MG ORAL TABS 1 tab in the am 2 tabs in pm PRAMIPEXOLE DIHYDROCHLORIDE 86143636040 Active Diallo Shirley MD Active WELLBUTRIN SR 150 MG ORAL [id number] 1 tab twice daily BUPROPION HCL 20066060025 Active Diallo Shirley MD Active CLONAZEPAM 0.5 MG TABS 2 tablet by mouth 1 times daily at bedtime CLONAZEPAM 45320504332 No Longer Active Diallo Shirley MD Activ e PRILOSEC 40 MG CPDR 1 tab daily OMEPRAZOLE 56858 253978 No Longer Active Diallo Shirley MD Active MELOXICAM 15 MG TABS 1qd MELOXICAM 70158535625 No Longer Active Arnol Ballard MD Active PANTOPRAZOLE SODIUM 40 MG TBEC Take one by mouth bid PANTOPRAZOLE SODIUM 98458357410 No Longer Active Arnol Ballard MD Acti ve VESICARE 10 MG TABS 1 tab daily SOLIFENACIN SUCCI KAHLIL 65749690304 No Longer Active Arnol Ballard MD Active SUPER B-50 B COMPLEX CAPS 1qd B COMPLEX-BIOT IN-FA 58517443813 No Longer Active Arnol Ballard MD Active OMEGA 3-6-9 COMPLEX CAPS 1qd OMEGA 3-6-9 FAT TY ACIDS 86721838031 No Longer Active Arnol Ballard MD Active NAPROSYN 500 MG TABS 1 bid NAPROXEN 69581458370 No Longer Active Arnol Ballard MD Active HYDROCODONE-ACETAMINOPHEN 5-325 MG TABS 1-2 q 4 hr prn pain HYDROCODONE-ACETAMINOPHEN 54019593453 No Longer Active Arnol Ballard MD Active NEXIUM 40 MG CPDR 1 q d ESOMEPRAZOLE MAGNE SIUM 51358081554 No Longer Active Rony Mata MD Active CVS ZINC 50 MG TABS 1 qd ZINC 29874728222 Active Anupama Meadows RENATO Active CVS MAGNESIUM 250 MG TABS 3 q d MAGNESIUM 138794183 81 Active Elaine Meadows RENATO Active CVS VITAMIN C 1000 MG TABS 1 qd ASCORBIC ACID 5042 3576699 Active Elaine Meadows RENATO Active SUPER B COMPLEX TABS Take one by mouth daily B COMPLEX-C 33298087121 No Longer Active Elaine Meadows RENATO Active AMBIEN 10 MG TABS 1 at bedtime ZOLPIDEM TARTRAT E 53225159930 No Longer Active Elaine Meadows RENATO Active ASPIRIN 81 MG TAB 1 tablet by mouth daily ASPIR IN 98458343024 No Longer Active Elaine Meadows RENATO Active MACRODANTIN 100 MG CAPS Take one by mouth daily 10/18 NITROFURANTOIN MACROCRYSTAL 71866560390 No Longer Active Arnol Ballard MD Active VITAMIN D3 5000 UNIT TABS 1qd CHOLECALCIFER OL 14306884576 No Longer Active Arnol Ballard MD Active FIBER THERAPY 500 MG TABS 1qd METHYLCELL ULOSE (LAXATIVE) 20662192203 No Longer Active Arnol Ballard MD Active VITAMIN C 1000 MG TABS 1qd ASCORBIC ACID 30 764944350 No Longer Active Arnol Ballard MD Active HYDROCODONE-ACETAMINOPHEN 10-500 MG TABS 1 prn HYDROCODONE-ACETAMINOPHEN 58250324827 No Longer Active Arnol Ballard MD Active LOVASTATIN 40 MG TABS 1 at bedtime LOVASTATIN 00 986443548 No Longer Active Joao Harms PA Active CYMBALTA 60 MG CPEP 1 every morning DULOXETINE HC L 11013136094 Active Joao Harms PA Active CYMBALTA 30 MG CPEP 1 cap by mouth daily with 60mg cap DULOXETINE HCL 14179765019 No Longer Active Joao Harms PA Active CLONAZEPAM 0.5 MG TBDP 2 tabs at bedtime CLONAZ EPAM 61383222601 No Longer Active Joao Harms PA Active ZYRTEC ALLERGY 10 MG TABS Take one by mouth daily 2011 CETIRIZINE HCL 75232543167 No Longer Active Sobia Naff TANBARK PEELER Active VITAMIN D3 2000 UNIT CAPS 2 1/2 daily CHOLECALC IFEROL 05837057592 No Longer Active Sobia Naff TANBARK PEELER Active ZITHROMAX Z-ANTONIETA 250 MG TABS 2x1day,7t4dpiz AZIT HROMYCIN 41615000486 No Longer Active Sobia Naff TANBARK PEELER Active MULTIVITAMINS TABS Take one by mouth daily MULT IPLE VITAMIN 16581604890 Active Symone Lucke Active VITAMIN D3 2000 UNIT CAPS 2 1/2 daily TAMIN D3 2000 UNIT CAPS CHOLECALCIFEROL Inactive ZYRTEC ALLERGY 10 MG TABS Take one by mouth daily 2011 ZYRTEC ALLERGY 10 MG TABS 6152271 CETIRIZINE HCL Inactive CLONAZEPAM 0.5 MG TBDP 2 tabs at bedtime CLONAZEPAM 0.5 MG TBDP 834451 CLONAZEPAM Inactive CYMBALTA 30 MG CPEP 1 cap by mouth daily with 60mg cap CYMBALTA 30 MG CPEP 126715 DULOXETINE HCL Inactive LOVASTATIN 40 MG TABS 1 at bedtime LOVASTATIN 4 0 MG TABS 171301 LOVASTATIN Inactive HYDROCODONE-ACETAMINOPHEN 10-500 MG TABS 1 prn HYDROCODONE- ACETAMINOPHEN 10-500 MG TABS HYDROCODONE-ACETAMINOPHEN Inact kiya VITAMIN C 1000 MG TABS 1qd VITAMIN C 1000 M G TABS 312039 ASCORBIC ACID Inactive FIBER THERAPY 500 MG TABS 1qd FIBER THERAPY 500 MG TABS METHYLCELLULOSE (LAXATIVE) Inactive VITAMIN D3 5000 UNIT TABS 1qd VITAMIN D3 50 00 UNIT TABS CHOLECALCIFEROL Inactive MACRODANTIN 100 MG CAPS Take one by mouth daily 10/18 MACRODANTIN 100 MG CAPS 4752647 NITROFURANTOIN MACROCRYSTAL Inactive ASPIRIN 81 MG TAB 1 tablet by mouth daily ASPIRIN 81 MG TAB ASPIRIN Inactive AMBIEN 10 MG TABS 1 at bedtime AMBIEN 10 MG TABS 669339 ZOLPIDEM TARTRATE Inactive SUPER B COMPLEX TABS Take one by mouth daily 4 SUPER B COMPLEX TABS B COMPLEX-C Inactive NEXIUM 40 MG CPDR 1 q d NEXIUM 40 MG CPDR 60 6730 ESOMEPRAZOLE MAGNESIUM Inactive HYDROCODONE-ACETAMINOPHEN 5-325 MG TABS 1-2 q 4 hr prn pain 2013 HYDROCODONE-ACETAMINOPHEN 5-325 MG TABS 078226 HYDROCODONE-ACETAMINOPHEN Inactive NAPROSYN 500 MG TABS 1 bid NAPROSYN 500 MG T ABS 120739 NAPROXEN Inactive OMEGA 3-6-9 COMPLEX CAPS 1qd OMEGA 3-6-9 CO MPLEX CAPS OMEGA 3-6-9 FATTY ACIDS Inactive SUPER B-50 B COMPLEX CAPS 1qd SUPER B-50 B COMPLEX CAPS B [id number] Inactive VESICARE 10 MG TABS 1 tab daily VESICARE 10 MG T ABS SOLIFENACIN SUCCINATE Inactive PANTOPRAZOLE SODIUM 40 MG TBEC Take one by mouth bid 4 PANTOPRAZOLE SODIUM 40 MG TBEC 387602 PANTOPRAZOLE SODIUM Inactive MELOXICAM 15 MG TABS 1qd MELOXICAM 15 MG T ABS 522452 MELOXICAM Inactive PRILOSEC 40 MG CPDR 1 tab daily PRILOSEC 40 MG C PDR OMEPRAZOLE Inactive CLONAZEPAM 0.5 MG TABS 2 tablet by mouth 1 times daily at bedtime CLONAZEPAM 0.5 MG TABS 425484 CLONAZEPAM Inactive ZITHROMAX Z-ANTONIETA 250 MG TABS 2x1day,6l6uxpb ZITHROMAX Z-ANTONIETA 250 MG TABS 9366533 AZITHROMYCIN Inactive Vital Signs Date Name Value Unit Range Description blood pressure, diastolic - 8462-4 80 mm[Hg] [...] Measured Encounters Code Encounter Date Provider Facility CPT-42494 Level 3 Est. Patient 12:28:01 CDT Diallo Shirley MD [facility] CPT-72979 Level 3 Est. Patient 22:35:[address] [facility] CPT-17535 Level 3 Est. Patient 12:55:02 VIDEO PHOTOGRAPHER Arnol collier MD [facility] CPT-06089 Level 4 New Patient 14:35:08 CDT Arnol quinn MD [facility] CPT-36482 Level 4 Est. Patient 08:52:50 CDT Joao Jakob jacques [facility] CPT-82939 Level 4 Est. Patient 07:47:45 CDT Joao Robert sawyer [facility] Procedures Code Procedure Name Date Entry Date Standard Desc ription CPT-61590 Postop F/U Visit 14:36:53 CDT CPT-OV Office Visit 14:55:53 CDT CPT-OV Office Visit 14:55:26 CDT CPT-OV Office Visit 15:26:35 CDT CPT-27533 Postop F/U Visit 17:47:54 VIDEO PHOTOGRAPHER CPT-38107 Interstim trial 12:55:02 VIDEO PHOTOGRAPHER CPT-30425 Venipuncture Draw Fee 17:04:06 CDT
--- OUTSIDE RECORDS SUMMARY | 2019-04-15 12:35 | XMS REPORT | Clinical Summary ---
Author Author Admin, Sabrina Jefferson Organization [facility] Address Unknown Phone Unavailable Allergies, Adverse Reactions, [...] unspecified hyperlipidemia OSTEOARTHRITIS 715.90 Active Sobia Naff DISBURSEMENT CLERK Osteoarthrosis, unspecified whether generalized or localized, involving unspecified site G E R D 530.81 Active Sobia Naff DISBURSEMENT CLERK Esoph ageal reflux DEPRESSION 311 Active Sobia Naff DISBURSEMENT CLERK De pressive disorder, not elsewhere classified FH DIABETES V18.0 Active Sobia Naff DISBURSEMENT CLERK F amily history of diabetes mellitus DROWSINESS [...] TABS 1 tab daily ATORVASTATI N CALCIUM 63117604809 Active Diallo Shirley MD Active MIRAPEX 0.5 MG ORAL TABS 1 tab in the am 2 tabs in pm PRAMIPEXOLE DIHYDROCHLORIDE 14716146503 Active Diallo Shirley MD Active WELLBUTRIN SR 150 MG ORAL [id number] 1 tab twice daily BUPROPION HCL 11774032020 Active Diallo Shirley MD Active CLONAZEPAM 0.5 MG TABS 2 tablet by mouth 1 times daily at bedtime CLONAZEPAM 25419592655 No Longer Active Diallo Shirley MD Activ e PRILOSEC 40 MG CPDR 1 tab daily OMEPRAZOLE 47421 876670 No Longer Active Diallo Shirley MD Active MELOXICAM 15 MG TABS 1qd MELOXICAM 62803786771 No Longer Active Arnol Ballard MD Active PANTOPRAZOLE SODIUM 40 MG TBEC Take one by mouth bid PANTOPRAZOLE SODIUM 85302272460 No Longer Active Arnol Ballard MD Acti ve VESICARE 10 MG TABS 1 tab daily SOLIFENACIN SUCCI KAHLIL 60603908531 No Longer Active Arnol Ballard MD Active SUPER B-50 B COMPLEX CAPS 1qd B COMPLEX-BIOT IN-FA 00749850169 No Longer Active Arnol Ballard MD Active OMEGA 3-6-9 COMPLEX CAPS 1qd OMEGA 3-6-9 FAT TY ACIDS 00513462148 No Longer Active Arnol Ballard MD Active NAPROSYN 500 MG TABS 1 bid NAPROXEN 85658368555 No Longer Active J William Ballard MD Active HYDROCODONE-ACETAMINOPHEN 5-325 MG TABS 1-2 q 4 hr prn pain HYDROCODONE-ACETAMINOPHEN 44374169049 No Longer Active Arnol Ballard MD Active NEXIUM 40 MG CPDR 1 q d ESOMEPRAZOLE MAGNE SIUM 78112297922 No Longer Active Rony Mata MD Active CVS ZINC 50 MG TABS 1 qd ZINC 45430976039 Active Anupama Meadows APRN Active CVS MAGNESIUM 250 MG TABS 3 q d MAGNESIUM 313047419 81 Active Elaine Meadows APRN Active CVS VITAMIN C 1000 MG TABS 1 qd ASCORBIC ACID 5042 0012247 Active Elaine Meadows APRN Active SUPER B COMPLEX TABS Take one by mouth daily B COMPLEX-C 15812905526 No Longer Active Elaine Meadows APRN Active AMBIEN 10 MG TABS 1 at bedtime ZOLPIDEM TARTRAT E 04902883761 No Longer Active Elaine Meadows APRN Active ASPIRIN 81 MG TAB 1 tablet by mouth daily ASPIR IN 62259253586 No Longer Active Elaine Meadows APRN Active MACRODANTIN 100 MG CAPS Take one by mouth daily 10/18 NITROFURANTOIN MACROCRYSTAL 04455957481 No Longer Active Arnol Ballard MD Active VITAMIN D3 5000 UNIT TABS 1qd CHOLECALCIFER OL 12879467885 No Longer Active Arnol Ballard MD Active FIBER THERAPY 500 MG TABS 1qd METHYLCELL ULOSE (LAXATIVE) 72496486542 No Longer Active Arnol Ballard MD Active VITAMIN C 1000 MG TABS 1qd ASCORBIC ACID 30 725988486 No Longer Active Arnol Ballard MD Active HYDROCODONE-ACETAMINOPHEN 10-500 MG TABS 1 prn HYDROCODONE-ACETAMINOPHEN 87641859955 No Longer Active Arnol Ballard MD Active LOVASTATIN 40 MG TABS 1 at bedtime LOVASTATIN 00 582725219 No Longer Active Joao Harms PA Active CYMBALTA 60 MG CPEP 1 every morning DULOXETINE HC L 93311675172 Active Joao Harms PA Active CYMBALTA 30 MG CPEP 1 cap by mouth daily with 60mg cap DULOXETINE HCL 43770044316 No Longer Active Joao Harms PA Active CLONAZEPAM 0.5 MG TBDP 2 tabs at bedtime CLONAZ EPAM 55987197196 No Longer Active Joao Harms PA Active ZYRTEC ALLERGY 10 MG TABS Take one by mouth daily 2011 CETIRIZINE HCL 20720590760 No Longer Active Sobia Naff DISBURSEMENT CLERK Active VITAMIN D3 2000 UNIT CAPS 2 1/2 daily CHOLECALC IFEROL 89652601602 No Longer Active Sobia Naff DISBURSEMENT CLERK Active ZITHROMAX Z-ANTONIETA 250 MG TABS 2x1day,6s5bpwf AZIT HROMYCIN 03223785968 No Longer Active Sboia Naff DISBURSEMENT CLERK Active MULTIVITAMINS TABS Take one by mouth daily MULT IPLE VITAMIN 47698380996 Active Symone Lucke Active AMBIEN 10 MG TABS 1 at bedtime AMBIEN 10 MG TABS 383381 ZOLPIDEM TARTRATE Inactive MACRODANTIN 100 MG CAPS Take one by mouth daily 10/18 MACRODANTIN 100 MG CAPS 7247275 NITROFURANTOIN MACROCRYSTAL Inactive NAPROSYN 500 MG TABS 1 bid NAPROSYN 500 MG T ABS 719619 NAPROXEN Inactive SUPER B COMPLEX TABS Take one by mouth daily 4 SUPER B COMPLEX TABS B COMPLEX-C Inactive VITAMIN C 1000 MG TABS 1qd VITAMIN C 1000 M G TABS 569384 ASCORBIC ACID Inactive ASPIRIN 81 MG TAB 1 tablet by mouth daily ASPIRIN 81 MG TAB ASPIRIN Inactive CLONAZEPAM 0.5 MG TABS 2 tablet by mouth 1 times daily at bedtime CLONAZEPAM 0.5 MG TABS 19740315 CLONAZEPAM Inactive LOVASTATIN 40 MG TABS 1 at bedtime LOVASTATIN 4 0 MG TABS 172526 LOVASTATIN Inactive SUPER B-50 B COMPLEX CAPS 1qd SUPER B-50 B COMPLEX CAPS B [id number] Inactive HYDROCODONE-ACETAMINOPHEN 10-500 MG TABS 1 prn HYDROCODONE- ACETAMINOPHEN 10-500 MG TABS HYDROCODONE-ACETAMINOPHEN Inact kiya MELOXICAM 15 MG TABS 1qd MELOXICAM 15 MG T ABS 210329 MELOXICAM Inactive PRILOSEC 40 MG CPDR 1 tab daily PRILOSEC 40 MG C PDR OMEPRAZOLE Inactive PANTOPRAZOLE SODIUM 40 MG TBEC Take one by mouth bid 4 PANTOPRAZOLE SODIUM 40 MG TBEC 834565 PANTOPRAZOLE SODIUM Inactive NEXIUM 40 MG CPDR 1 q d NEXIUM 40 MG CPDR 60 6730 ESOMEPRAZOLE MAGNESIUM Inactive ZITHROMAX Z-ANTONIETA 250 MG TABS 2x1day,4o1uvrv ZITHROMAX Z-ANTONIETA 250 MG TABS 8133672 AZITHROMYCIN Inactive HYDROCODONE-ACETAMINOPHEN 5-325 MG TABS 1-2 q 4 hr prn pain 2013 HYDROCODONE-ACETAMINOPHEN 5-325 MG TABS 254168 HYDROCODONE-ACETAMINOPHEN Inactive CLONAZEPAM 0.5 MG TBDP 2 tabs at bedtime CLONAZEPAM 0.5 MG TBDP 329414 CLONAZEPAM Inactive FIBER THERAPY 500 MG TABS 1qd FIBER THERAPY 500 MG TABS METHYLCELLULOSE (LAXATIVE) Inactive CYMBALTA 30 MG CPEP 1 cap by mouth daily with 60mg cap CYMBALTA 30 MG CPEP 160703 DULOXETINE HCL Inactive VESICARE 10 MG TABS 1 tab daily VESICARE 10 MG T ABS SOLIFENACIN SUCCINATE Inactive ZYRTEC ALLERGY 10 MG TABS Take one by mouth daily 2011 ZYRTEC ALLERGY 10 MG TABS 4384469 CETIRIZINE HCL Inactive VITAMIN D3 2000 UNIT [...] Measured Encounters Code Encounter Date Provider Facility CPT-40495 Level 3 Est. Patient 13:55:16 CDT Diallo Shirley MD [facility] CPT-22686 Level 3 Est. Patient 17:02:03 CDT Diallo Shirley MD [facility] CPT-77066 Level 3 Est. Patient 16:22:59 CDT Dave palm DO [facility] CPT-74293 Level 3 Est. Patient 12:28:01 CDT Diallo Shirley MD [facility] CPT-50012 Level 3 Est. Patient 22:35:01 CDT Arnol collier MD [facility] CPT-51164 Level 3 Est. Patient 12:55:02 BANK SECRECY ACT OFFICER Arnol collier MD [facility] CPT-64069 Level 4 New Patient 14:35:08 CDT Arnol quinn MD [facility] CPT-37936 Level 4 Est. Patient 08:52:50 CDT Joao jacques [facility] CPT-48602 Level 4 Est. Patient 07:47:45 CDT Joao jacques [facility] Procedures Code Procedure Name Date Entry Date Standard Desc ription CPT-95681 Foot, left, comp min 3V - XRAY USE ONLY 16:58:22 CDT CPT-93594 Foot, left, comp min 3V - XRAY USE ONLY 16:47:13 CDT CPT-85350 Chest 2V Frontal and Lat - XRAY USE ONLY 16:45:56 CDT CPT-67945 Postop F/U Visit 14:36:53 CDT CPT-OV Office Visit 14:55:53 CDT CPT-OV Office Visit 14:55:26 CDT CPT-OV Office Visit 15:26:35 CDT CPT-60915 Postop F/U Visit 17:47:54 [employer] OFFICER CPT-92240 Interstim trial 12:55:02 [employer] OFFICER CPT-92416 Venipuncture Draw Fee 17:04:06 CDT
--- OUTSIDE RECORDS SUMMARY | 2019-04-15 12:35 | XMS REPORT | Clinical Summary ---
Author Author Admin, Sabrina Jefferson Organization [facility] Address Unknown Phone Unavailable Allergies, Adverse [...] unspecified hyperlipidemia OSTEOARTHRITIS 715.90 Active Sobia Naff CHUTE MAN Osteoarthrosis, unspecified whether generalized or localized, involving unspecified site G E R D 530.81 Active Sobia Naff CHUTE MAN Esoph ageal reflux DEPRESSION 311 Active Sobia Naff CHUTE MAN De pressive disorder, not elsewhere classified FH DIABETES V18.0 Active Sobia Naff CHUTE MAN F amily history of diabetes mellitus DROWSINESS [...] TABS 1 tab daily ATORVASTATI N CALCIUM 68293164365 Active Diallo Shirley MD Active MIRAPEX 0.5 MG ORAL TABS 1 tab in the am 2 tabs in pm PRAMIPEXOLE DIHYDROCHLORIDE 57373432350 Active Diallo Shirley MD Active WELLBUTRIN SR 150 MG ORAL [id number] 1 tab twice daily BUPROPION HCL 75908389328 Active Diallo Shirley MD Active CLONAZEPAM 0.5 MG TABS 2 tablet by mouth 1 times daily at bedtime CLONAZEPAM 80982107150 No Longer Active Diallo Shirley MD Activ e PRILOSEC 40 MG CPDR 1 tab daily OMEPRAZOLE 45228 626164 No Longer Active Diallo Shirley MD Active MELOXICAM 15 MG TABS 1qd MELOXICAM 63710502803 No Longer Active Arnol Ballard MD Active PANTOPRAZOLE SODIUM 40 MG TBEC Take one by mouth bid PANTOPRAZOLE SODIUM 80224508220 No Longer Active Arnol Ballard MD Acti ve VESICARE 10 MG TABS 1 tab daily SOLIFENACIN SUCCI KAHLIL 92049502505 No Longer Active Arnol Ballard MD Active SUPER B-50 B COMPLEX CAPS 1qd B COMPLEX-BIOT IN-FA 03244419670 No Longer Active Arnol Ballard MD Active OMEGA 3-6-9 COMPLEX CAPS 1qd OMEGA 3-6-9 FAT TY ACIDS 87469879767 No Longer Active Arnol Ballard MD Active NAPROSYN 500 MG TABS 1 bid NAPROXEN 47495152203 No Longer Active J William Ballard MD Active HYDROCODONE-ACETAMINOPHEN 5-325 MG TABS 1-2 q 4 hr prn pain HYDROCODONE-ACETAMINOPHEN 42772267949 No Longer Active Arnol Ballard MD Active NEXIUM 40 MG CPDR 1 q d ESOMEPRAZOLE MAGNE SIUM 13085756542 No Longer Active Rony Mata MD Active CVS ZINC 50 MG TABS 1 qd ZINC 02808956935 Active Anupama Meadows APRN Active CVS MAGNESIUM 250 MG TABS 3 q d MAGNESIUM 586118170 81 Active Elaine Meadows APRN Active CVS VITAMIN C 1000 MG TABS 1 qd ASCORBIC ACID 5042 2979635 Active Elaine Meadows APRN Active SUPER B COMPLEX TABS Take one by mouth daily B COMPLEX-C 52084761851 No Longer Active Elaine Meadows APRN Active AMBIEN 10 MG TABS 1 at bedtime ZOLPIDEM TARTRAT E 57254540081 No Longer Active Elaine Meadows APRN Active ASPIRIN 81 MG TAB 1 tablet by mouth daily ASPIR IN 17528195854 No Longer Active Elaine Meadows APRN Active MACRODANTIN 100 MG CAPS Take one by mouth daily 10/18 NITROFURANTOIN MACROCRYSTAL 62630768064 No Longer Active Arnol Ballard MD Active VITAMIN D3 5000 UNIT TABS 1qd CHOLECALCIFER OL 44655971478 No Longer Active Arnol Ballard MD Active FIBER THERAPY 500 MG TABS 1qd METHYLCELL ULOSE (LAXATIVE) 47538069320 No Longer Active Arnol Ballard MD Active VITAMIN C 1000 MG TABS 1qd ASCORBIC ACID 30 692717200 No Longer Active Arnol Ballard MD Active HYDROCODONE-ACETAMINOPHEN 10-500 MG TABS 1 prn HYDROCODONE-ACETAMINOPHEN 87245112606 No Longer Active Arnol Ballard MD Active LOVASTATIN 40 MG TABS 1 at bedtime LOVASTATIN 00 525383920 No Longer Active Joao Harms PA Active CYMBALTA 60 MG CPEP 1 every morning DULOXETINE HC L 26786445721 Active Joao Harms PA Active CYMBALTA 30 MG CPEP 1 cap by mouth daily with 60mg cap DULOXETINE HCL 85668016759 No Longer Active Joao Harms PA Active CLONAZEPAM 0.5 MG TBDP 2 tabs at bedtime CLONAZ EPAM 32102352555 No Longer Active Joao Harms PA Active ZYRTEC ALLERGY 10 MG TABS Take one by mouth daily 2011 CETIRIZINE HCL 82464753288 No Longer Active Sobia Naff CHUTE MAN Active VITAMIN D3 2000 UNIT CAPS 2 1/2 daily CHOLECALC IFEROL 93764978773 No Longer Active Sobia Naff CHUTE MAN Active ZITHROMAX Z-ANTONIETA 250 MG TABS 2x1day,2c4nxgj AZIT HROMYCIN 77468652829 No Longer Active Sobia Naff CHUTE MAN Active MULTIVITAMINS TABS Take one by mouth daily MULT IPLE VITAMIN 22636372387 Active Symone Lucke Active VITAMIN D3 2000 UNIT CAPS 2 1/2 daily TAMIN D3 2000 UNIT CAPS CHOLECALCIFEROL Inactive ZYRTEC ALLERGY 10 MG TABS Take one by mouth daily 2011 ZYRTEC ALLERGY 10 MG TABS 9537990 CETIRIZINE HCL Inactive CLONAZEPAM 0.5 MG TBDP 2 tabs at bedtime CLONAZEPAM 0.5 MG TBDP 833193 CLONAZEPAM Inactive CYMBALTA 30 MG CPEP 1 cap by mouth daily with 60mg cap CYMBALTA 30 MG CPEP 482129 DULOXETINE HCL Inactive LOVASTATIN 40 MG TABS 1 at bedtime LOVASTATIN 4 0 MG TABS 373865 LOVASTATIN Inactive HYDROCODONE-ACETAMINOPHEN 10-500 MG TABS 1 prn HYDROCODONE- ACETAMINOPHEN 10-500 MG TABS HYDROCODONE-ACETAMINOPHEN Inact kiya VITAMIN C 1000 MG TABS 1qd VITAMIN C 1000 M G TABS 082114 ASCORBIC ACID Inactive FIBER THERAPY 500 MG TABS 1qd FIBER THERAPY 500 MG TABS METHYLCELLULOSE (LAXATIVE) Inactive VITAMIN D3 5000 UNIT TABS 1qd VITAMIN D3 50 00 UNIT TABS CHOLECALCIFEROL Inactive MACRODANTIN 100 MG CAPS Take one by mouth daily 10/18 MACRODANTIN 100 MG CAPS 4841238 NITROFURANTOIN MACROCRYSTAL Inactive ASPIRIN 81 MG TAB 1 tablet by mouth daily ASPIRIN 81 MG TAB ASPIRIN Inactive AMBIEN 10 MG TABS 1 at bedtime AMBIEN 10 MG TABS 022511 ZOLPIDEM TARTRATE Inactive SUPER B COMPLEX TABS Take one by mouth daily 4 SUPER B COMPLEX TABS B COMPLEX-C Inactive NEXIUM 40 MG CPDR 1 q d NEXIUM 40 MG CPDR 60 6730 ESOMEPRAZOLE MAGNESIUM Inactive HYDROCODONE-ACETAMINOPHEN 5-325 MG TABS 1-2 q 4 hr prn pain 2013 HYDROCODONE-ACETAMINOPHEN 5-325 MG TABS 610731 HYDROCODONE-ACETAMINOPHEN Inactive NAPROSYN 500 MG TABS 1 bid NAPROSYN 500 MG T ABS 969096 NAPROXEN Inactive OMEGA 3-6-9 COMPLEX CAPS 1qd OMEGA 3-6-9 CO MPLEX CAPS OMEGA 3-6-9 FATTY ACIDS Inactive SUPER B-50 B COMPLEX CAPS 1qd SUPER B-50 B COMPLEX CAPS B [id number] Inactive VESICARE 10 MG TABS 1 tab daily VESICARE 10 MG T ABS SOLIFENACIN SUCCINATE Inactive PANTOPRAZOLE SODIUM 40 MG TBEC Take one by mouth bid 4 PANTOPRAZOLE SODIUM 40 MG TBEC 977240 PANTOPRAZOLE SODIUM Inactive MELOXICAM 15 MG TABS 1qd MELOXICAM 15 MG T ABS 710684 MELOXICAM Inactive PRILOSEC 40 MG CPDR 1 tab daily PRILOSEC 40 MG C PDR OMEPRAZOLE Inactive CLONAZEPAM 0.5 MG TABS 2 tablet by mouth 1 times daily at bedtime CLONAZEPAM 0.5 MG TABS 966830 CLONAZEPAM Inactive ZITHROMAX Z-ANTONIETA 250 MG TABS 2x1day,3q8cgfj ZITHROMAX Z-ANTONIETA 250 MG TABS 4803509 AZITHROMYCIN Inactive Vital Signs Date Name Value [...] Measured Encounters Code Encounter Date Provider Facility CPT-25262 Level 3 Est. Patient 17:02:03 CDT Diallo Shirley MD [facility] CPT-74324 Level 3 Est. Patient 16:22:59 CDT Dave palm DO [facility] CPT-19892 Level 3 Est. Patient 12:28:01 CDT Diallo Shirley MD [facility] CPT-02697 Level 3 Est. Patient 22:35:01 CDT Arnol collier MD [facility] CPT-23227 Level 3 Est. Patient 12:55:02 MUSIC STORE MANAGER J William collier MD [facility] CPT-01369 Level 4 New Patient 14:35:08 CDT Arnol quinn MD [facility] CPT-84728 Level 4 Est. Patient 08:52:50 CDT Joao jacques DEB [facility] CPT-53990 Level 4 Est. Patient 07:47:45 CDT Joao jacques DEB [facility] Procedures Code Procedure Name Date Entry Date Standard Desc ription CPT-32624 Foot, left, comp min 3V - XRAY USE ONLY 16:58:22 CDT CPT-76209 Foot, left, comp min 3V - XRAY USE ONLY 16:47:13 CDT CPT-07076 Chest 2V Frontal and Lat - XRAY USE ONLY 16:45:56 CDT CPT-60177 Postop F/U Visit 14:36:53 CDT CPT-OV Office Visit 14:55:53 CDT CPT-OV Office Visit 14:55:26 CDT CPT-OV Office Visit 15:26:35 CDT CPT-02492 Postop F/U Visit 17:47:54 MUSIC STORE MANAGER CPT-91077 Interstim trial 12:55:02 MUSIC STORE MANAGER CPT-35940 Venipuncture Draw Fee 17:04:06 CDT
--- OUTSIDE RECORDS SUMMARY | 2019-04-15 12:35 | XMS REPORT | Clinical Summary ---
Author Author Admin, Sabrina Jefferson Organization [facility] Address Unknown Phone Unavailable Allergies, Adverse Reactions, [...] unspecified hyperlipidemia OSTEOARTHRITIS 715.90 Active Sobia Naff RAIL SETTER Osteoarthrosis, unspecified whether generalized or localized, involving unspecified site G E R D 530.81 Active Sobia Naff RAIL SETTER Esoph ageal reflux DEPRESSION 311 Active Sobia Naff RAIL SETTER De pressive disorder, not elsewhere classified FH DIABETES V18.0 Active Sobia Naff RAIL SETTER F amily history of diabetes mellitus [...] sense organs INCONTINENCE, URGE 788.31 Active Arnol rizvi MD Urge incontinence Atypical chest pain 786.59 Active Elaine Rizvi Other chest pain Colon cancer screening V76.51 Active Elaine Meadows APRN Screening for malignant neoplasms of colon 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 nactive Joao BOYD Medication List Medication Instructions Start Date Stop Date Generic Name NDC Status Provider Patient Instruction MELOXICAM 15 MG TABS 1qd MELOXICAM 89133668497 No Longer Active Arnol Ballard MD Active PANTOPRAZOLE SODIUM 40 MG TBEC Take one by mouth bid PANTOPRAZOLE SODIUM 02353512182 No Longer Active Arnol Ballard MD Acti ve VESICARE 10 MG TABS 1 tab daily SOLIFENACIN SUCCI KAHLIL 07151606104 No Longer Active Arnol Ballard MD Active SUPER B-50 B COMPLEX CAPS 1qd B COMPLEX-BIOT IN-FA 47015873047 No Longer Active Arnol Ballard MD Active OMEGA 3-6-9 COMPLEX CAPS 1qd OMEGA 3-6-9 FAT TY ACIDS 33490042027 No Longer Active Arnol Ballard MD Active NAPROSYN 500 MG TABS 1 bid NAPROXEN 97270560965 No Longer Active Arnol Ballard MD Active HYDROCODONE-ACETAMINOPHEN 5-325 MG TABS 1-2 q 4 hr prn pain HYDROCODONE-ACETAMINOPHEN 21054276851 No Longer Active Arnol Ballard MD Active NEXIUM 40 MG CPDR 1 q d ESOMEPRAZOLE MAGNE SIUM 63814647349 No Longer Active Rony Mata MD Active PRILOSEC 40 MG CPDR 1 tab daily OMEPRAZOLE 5600241549 8 Active Rony Mata MD Active CVS ZINC 50 MG TABS 1 qd ZINC 45061285877 Active Anupama Meadows APRN Active CVS MAGNESIUM 250 MG TABS 3 q d MAGNESIUM 465608681 81 Active Elaine Meadows APRN Active CVS VITAMIN C 1000 MG TABS 1 qd ASCORBIC ACID 5042 0005999 Active Elaine Meadows APRN Active SUPER B COMPLEX TABS Take one by mouth daily B COMPLEX-C 29891783502 No Longer Active Elaine Meadows APRN Active AMBIEN 10 MG TABS 1 at bedtime ZOLPIDEM TARTRAT E 41037923153 No Longer Active Elaine Meadows APRN Active ASPIRIN 81 MG TAB 1 tablet by mouth daily ASPIR IN 16998180068 No Longer Active Elaine Meadows APRN Active MACRODANTIN 100 MG CAPS Take one by mouth daily 10/18 NITROFURANTOIN MACROCRYSTAL 88387823105 No Longer Active Arnol Ballard MD Active VITAMIN D3 5000 UNIT TABS 1qd CHOLECALCIFER OL 89771250679 No Longer Active Arnol Ballard MD Active FIBER THERAPY 500 MG TABS 1qd METHYLCELL ULOSE (LAXATIVE) 92289522167 No Longer Active Arnol Ballard MD Active VITAMIN C 1000 MG TABS 1qd ASCORBIC ACID 30 708524401 No Longer Active Arnol Ballard MD Active HYDROCODONE-ACETAMINOPHEN 10-500 MG TABS 1 prn HYDROCODONE-ACETAMINOPHEN 75015419343 No Longer Active Arnol Ballard MD Active LOVASTATIN 40 MG TABS 1 at bedtime LOVASTATIN 00 295095750 No Longer Active Joao Harms PA Active CLONAZEPAM 0.5 MG TABS 2 tablet by mouth 1 times daily at bedtime CLONAZEPAM 55599559333 Active Joao Harms PA Active CYMBALTA 60 MG CPEP 1 every morning DULOXETINE HC L 45172642933 Active Joao Harms PA Active CYMBALTA 30 MG CPEP 1 cap by mouth daily with 60mg cap DULOXETINE HCL 40509469330 No Longer Active Joao Harms PA Active CLONAZEPAM 0.5 MG TBDP 2 tabs at bedtime CLONAZ EPAM 12065507142 No Longer Active Joao Harms PA Active ZYRTEC ALLERGY 10 MG TABS Take one by mouth daily 2011 CETIRIZINE HCL 05029332445 No Longer Active Sobia Cartwright RAIL SETTER Active VITAMIN D3 2000 UNIT CAPS 2 1/2 daily CHOLECALC IFEROL 44733113855 No Longer Active Sobia Inmanf RAIL SETTER Active ZITHROMAX Z-ANTONIETA 250 MG TABS 2x1day,3h4hnyv AZIT HROMYCIN 93908791677 No Longer Active Sobia Cartwright RAIL SETTER Active MULTIVITAMINS TABS Take one by mouth daily MULT IPLE VITAMIN 18391802609 Active Symone Lucke Active VITAMIN D3 2000 UNIT CAPS 2 1/2 daily TAMIN D3 2000 UNIT CAPS CHOLECALCIFEROL Inactive ZYRTEC ALLERGY 10 MG TABS Take one by mouth daily 2011 ZYRTEC ALLERGY 10 MG TABS 2065628 CETIRIZINE HCL Inactive CLONAZEPAM 0.5 MG TBDP 2 tabs at bedtime CLONAZEPAM 0.5 MG TBDP 637109 CLONAZEPAM Inactive CYMBALTA 30 MG CPEP 1 cap by mouth daily with 60mg cap CYMBALTA 30 MG CPEP 707733 DULOXETINE HCL Inactive LOVASTATIN 40 MG TABS 1 at bedtime LOVASTATIN 4 0 MG TABS 224776 LOVASTATIN Inactive HYDROCODONE-ACETAMINOPHEN 10-500 MG TABS 1 prn HYDROCODONE- ACETAMINOPHEN 10-500 MG TABS HYDROCODONE-ACETAMINOPHEN Inact kiya VITAMIN C 1000 MG TABS 1qd VITAMIN C 1000 M G TABS 897438 ASCORBIC ACID Inactive FIBER THERAPY 500 MG TABS 1qd FIBER THERAPY 500 MG TABS METHYLCELLULOSE (LAXATIVE) Inactive VITAMIN D3 5000 UNIT TABS 1qd VITAMIN D3 50 00 UNIT TABS CHOLECALCIFEROL Inactive MACRODANTIN 100 MG CAPS Take one by mouth daily 10/18 MACRODANTIN 100 MG CAPS 7864941 NITROFURANTOIN MACROCRYSTAL Inactive ASPIRIN 81 MG TAB 1 tablet by mouth daily ASPIRIN 81 MG TAB ASPIRIN Inactive AMBIEN 10 MG TABS 1 at bedtime AMBIEN 10 MG TABS 635794 ZOLPIDEM TARTRATE Inactive SUPER B COMPLEX TABS Take one by mouth daily 4 SUPER B COMPLEX TABS B COMPLEX-C Inactive NEXIUM 40 MG CPDR 1 q d NEXIUM 40 MG CPDR 60 6730 ESOMEPRAZOLE MAGNESIUM Inactive HYDROCODONE-ACETAMINOPHEN 5-325 MG TABS 1-2 q 4 hr prn pain 2013 HYDROCODONE-ACETAMINOPHEN 5-325 MG TABS 011503 HYDROCODONE-ACETAMINOPHEN Inactive NAPROSYN 500 MG TABS 1 bid NAPROSYN 500 MG T ABS 109490 NAPROXEN Inactive OMEGA 3-6-9 COMPLEX CAPS 1qd OMEGA 3-6-9 CO MPLEX CAPS OMEGA 3-6-9 FATTY ACIDS Inactive SUPER B-50 B COMPLEX CAPS 1qd SUPER B-50 B COMPLEX CAPS B [id number] Inactive VESICARE 10 MG TABS 1 tab daily VESICARE 10 MG T ABS SOLIFENACIN SUCCINATE Inactive PANTOPRAZOLE SODIUM 40 MG TBEC Take one by mouth bid 4 PANTOPRAZOLE SODIUM 40 MG TBEC 932784 PANTOPRAZOLE SODIUM Inactive MELOXICAM 15 MG TABS 1qd MELOXICAM 15 MG T ABS 664702 MELOXICAM Inactive ZITHROMAX Z-ANTONIETA 250 MG TABS 2x1day,7k8wzhk ZITHROMAX Z-ANTONIETA 250 MG TABS 0277600 AZITHROMYCIN Inactive Vital Signs Date Name Value Unit Range Description blood pressure, diastolic - 8462-4 74 mm[Hg] BP shore blood pressure, systolic - 8480-6 109 mm[Hg] BP sys pulse rate E&M - 8867-4 77 /min H eart rate temperature E&M 97.2 [degF] Body temp erature weight E&M - 3141-9 190.6 [lb_av] Weigh t Measured Encounters Code Encounter Date Provider Facility CPT-11084 Level 3 Est. Patient 22:35:01 CDT Aronl collier MD [facility] CPT-08714 Level 3 Est. Patient 12:55:02 DEER FARMER Arnol collier MD [facility] CPT-01491 Level 4 New Patient 14:35:08 CDT Arnol quinn MD [facility] CPT-27475 Level 4 Est. Patient 08:52:50 CDT [facility] Level 4 Est. Patient 07:47:45 [facility]T [facility] Procedures Code Procedure Name Date Entry Date Standard Desc ription CPT-50542 Postop F/U Visit 14:36:53 CDT CPT-OV Office Visit 14:55:53 CDT CPT-OV Office Visit 14:55:26 CDT CPT-OV Office Visit 15:26:35 CDT CPT-09181 Postop F/U Visit 17:47:54 DEER FARMER CPT-04493 Interstim trial 12:55:02 DEER FARMER CPT-04011 Venipuncture Draw Fee 17:04:06 CDT
--- OUTSIDE RECORDS SUMMARY | 2019-04-15 12:35 | XMS REPORT | Clinical Summary ---
Author Author Admin, Sabrina Jefferson Organization [facility] Address Unknown Phone Unavailable Allergies, Adverse Reactions, [...] unspecified hyperlipidemia OSTEOARTHRITIS 715.90 Active Sobia Naff SUPERINTENDENT HOUSE Osteoarthrosis, unspecified whether generalized or localized, involving unspecified site G E R D 530.81 Active Sobia Naff SUPERINTENDENT HOUSE Esoph ageal reflux DEPRESSION 311 Active Sobia Naff SUPERINTENDENT HOUSE De pressive disorder, not elsewhere classified FH DIABETES V18.0 Active Sobia Naff SUPERINTENDENT HOUSE F amily history of diabetes mellitus DROWSINESS [...] TABS 1 tab daily ATORVASTATI N CALCIUM 35417640102 Active Diallo Shirley MD Active MIRAPEX 0.5 MG ORAL TABS 1 tab in the am 2 tabs in pm PRAMIPEXOLE DIHYDROCHLORIDE 74755311258 Active Diallo Shirley MD Active WELLBUTRIN SR 150 MG ORAL [id number] 1 tab twice daily BUPROPION HCL 43180761646 Active Diallo Shirley MD Active CLONAZEPAM 0.5 MG TABS 2 tablet by mouth 1 times daily at bedtime CLONAZEPAM 79646688868 No Longer Active Diallo Shirley MD Activ e PRILOSEC 40 MG CPDR 1 tab daily OMEPRAZOLE 63835 857722 No Longer Active Diallo Shirley MD Active MELOXICAM 15 MG TABS 1qd MELOXICAM 66715587566 No Longer Active Arnol Ballard MD Active PANTOPRAZOLE SODIUM 40 MG TBEC Take one by mouth bid PANTOPRAZOLE SODIUM 24514317011 No Longer Active Arnol Ballard MD Acti ve VESICARE 10 MG TABS 1 tab daily SOLIFENACIN SUCCI KAHLIL 23303014724 No Longer Active Arnol Ballard MD Active SUPER B-50 B COMPLEX CAPS 1qd B COMPLEX-BIOT IN-FA 12858474061 No Longer Active Arnol Ballard MD Active OMEGA 3-6-9 COMPLEX CAPS 1qd OMEGA 3-6-9 FAT TY ACIDS 89945649103 No Longer Active Arnol Ballard MD Active NAPROSYN 500 MG TABS 1 bid NAPROXEN 95567634940 No Longer Active J William Ballard MD Active HYDROCODONE-ACETAMINOPHEN 5-325 MG TABS 1-2 q 4 hr prn pain HYDROCODONE-ACETAMINOPHEN 13584751852 No Longer Active Arnol Ballard MD Active NEXIUM 40 MG CPDR 1 q d ESOMEPRAZOLE MAGNE SIUM 47845594868 No Longer Active Rony Mata MD Active CVS ZINC 50 MG TABS 1 qd ZINC 04414558990 Active Anupama Meadows APRN Active CVS MAGNESIUM 250 MG TABS 3 q d MAGNESIUM 225588102 81 Active Elaine Meadows APRN Active CVS VITAMIN C 1000 MG TABS 1 qd ASCORBIC ACID 5042 0041449 Active Elaine Meadows APRN Active SUPER B COMPLEX TABS Take one by mouth daily B COMPLEX-C 03971318134 No Longer Active Elaine Meadows APRN Active AMBIEN 10 MG TABS 1 at bedtime ZOLPIDEM TARTRAT E 46470839788 No Longer Active Elaine Meadows APRN Active ASPIRIN 81 MG TAB 1 tablet by mouth daily ASPIR IN 34240818177 No Longer Active Elaine Meadows APRN Active MACRODANTIN 100 MG CAPS Take one by mouth daily 10/18 NITROFURANTOIN MACROCRYSTAL 81390648326 No Longer Active Arnol Ballard MD Active VITAMIN D3 5000 UNIT TABS 1qd CHOLECALCIFER OL 51618624147 No Longer Active Arnol Ballard MD Active FIBER THERAPY 500 MG TABS 1qd METHYLCELL ULOSE (LAXATIVE) 42052242313 No Longer Active Anrol Ballard MD Active VITAMIN C 1000 MG TABS 1qd ASCORBIC ACID 30 686730994 No Longer Active Arnol Ballard MD Active HYDROCODONE-ACETAMINOPHEN 10-500 MG TABS 1 prn HYDROCODONE-ACETAMINOPHEN 65176791670 No Longer Active Arnol Ballard MD Active LOVASTATIN 40 MG TABS 1 at bedtime LOVASTATIN 00 884649036 No Longer Active Joao Harms PA Active CYMBALTA 60 MG CPEP 1 every morning DULOXETINE HC L 78510098807 Active Joao Harms PA Active CYMBALTA 30 MG CPEP 1 cap by mouth daily with 60mg cap DULOXETINE HCL 77653930860 No Longer Active Joao Harms PA Active CLONAZEPAM 0.5 MG TBDP 2 tabs at bedtime CLONAZ EPAM 81148075220 No Longer Active Joao Harms PA Active ZYRTEC ALLERGY 10 MG TABS Take one by mouth daily 2011 CETIRIZINE HCL 64321560009 No Longer Active Sobia Naff SUPERINTENDENT HOUSE Active VITAMIN D3 2000 UNIT CAPS 2 1/2 daily CHOLECALC IFEROL 65835583393 No Longer Active Sobia Naff SUPERINTENDENT HOUSE Active ZITHROMAX Z-ANTONIETA 250 MG TABS 2x1day,4u3dkbw AZIT HROMYCIN 59111435633 No Longer Active Sobia Naff SUPERINTENDENT HOUSE Active MULTIVITAMINS TABS Take one by mouth daily MULT IPLE VITAMIN 87508123982 Active Symone Lucke Active VITAMIN D3 2000 UNIT CAPS 2 1/2 daily TAMIN D3 2000 UNIT CAPS CHOLECALCIFEROL Inactive ZYRTEC ALLERGY 10 MG TABS Take one by mouth daily 2011 ZYRTEC ALLERGY 10 MG TABS 8690653 CETIRIZINE HCL Inactive CLONAZEPAM 0.5 MG TBDP 2 tabs at bedtime CLONAZEPAM 0.5 MG TBDP 737685 CLONAZEPAM Inactive CYMBALTA 30 MG CPEP 1 cap by mouth daily with 60mg cap CYMBALTA 30 MG CPEP 852046 DULOXETINE HCL Inactive LOVASTATIN 40 MG TABS 1 at bedtime LOVASTATIN 4 0 MG TABS 516533 LOVASTATIN Inactive HYDROCODONE-ACETAMINOPHEN 10-500 MG TABS 1 prn HYDROCODONE- ACETAMINOPHEN 10-500 MG TABS HYDROCODONE-ACETAMINOPHEN Inact kiya VITAMIN C 1000 MG TABS 1qd VITAMIN C 1000 M G TABS 270700 ASCORBIC ACID Inactive FIBER THERAPY 500 MG TABS 1qd FIBER THERAPY 500 MG TABS METHYLCELLULOSE (LAXATIVE) Inactive VITAMIN D3 5000 UNIT TABS 1qd VITAMIN D3 50 00 UNIT TABS CHOLECALCIFEROL Inactive MACRODANTIN 100 MG CAPS Take one by mouth daily 10/18 MACRODANTIN 100 MG CAPS 5914961 NITROFURANTOIN MACROCRYSTAL Inactive ASPIRIN 81 MG TAB 1 tablet by mouth daily ASPIRIN 81 MG TAB ASPIRIN Inactive AMBIEN 10 MG TABS 1 at bedtime AMBIEN 10 MG TABS 778929 ZOLPIDEM TARTRATE Inactive SUPER B COMPLEX TABS Take one by mouth daily 4 SUPER B COMPLEX TABS B COMPLEX-C Inactive NEXIUM 40 MG CPDR 1 q d NEXIUM 40 MG CPDR 60 6730 ESOMEPRAZOLE MAGNESIUM Inactive HYDROCODONE-ACETAMINOPHEN 5-325 MG TABS 1-2 q 4 hr prn pain 2013 HYDROCODONE-ACETAMINOPHEN 5-325 MG TABS 145151 HYDROCODONE-ACETAMINOPHEN Inactive NAPROSYN 500 MG TABS 1 bid NAPROSYN 500 MG T ABS 973071 NAPROXEN Inactive OMEGA 3-6-9 COMPLEX CAPS 1qd OMEGA 3-6-9 CO MPLEX CAPS OMEGA 3-6-9 FATTY ACIDS Inactive SUPER B-50 B COMPLEX CAPS 1qd SUPER B-50 B COMPLEX CAPS B [id number] Inactive VESICARE 10 MG TABS 1 tab daily VESICARE 10 MG T ABS SOLIFENACIN SUCCINATE Inactive PANTOPRAZOLE SODIUM 40 MG TBEC Take one by mouth bid 4 PANTOPRAZOLE SODIUM 40 MG TBEC 139913 PANTOPRAZOLE SODIUM Inactive MELOXICAM 15 MG TABS 1qd MELOXICAM 15 MG T ABS 471434 MELOXICAM Inactive PRILOSEC 40 MG CPDR 1 tab daily PRILOSEC 40 MG C PDR OMEPRAZOLE Inactive CLONAZEPAM 0.5 MG TABS 2 tablet by mouth 1 times daily at bedtime CLONAZEPAM 0.5 MG TABS 131494 CLONAZEPAM Inactive ZITHROMAX Z-ANTONIETA 250 MG TABS 2x1day,3y2wxgj ZITHROMAX Z-ANTONIETA 250 MG TABS 0461579 AZITHROMYCIN Inactive Vital Signs Date Name Value [...] Measured Encounters Code Encounter Date Provider Facility CPT-38754 Level 3 Est. Patient 17:02:03 CDT Diallo Shirley MD [facility] CPT-97111 Level 3 Est. Patient 16:22:59 CDT Dave palm DO [facility] CPT-43935 Level 3 Est. Patient 12:28:01 CDT Diallo Shirley MD [facility] CPT-66279 Level 3 Est. Patient 22:35:01 CDT Arnol collier MD [facility] CPT-63544 Level 3 Est. Patient 12:55:02 JIG FILLER J William collier MD [facility] CPT-43742 Level 4 New Patient 14:35:08 CDT Arnol quinn MD [facility] CPT-45152 Level 4 Est. Patient 08:52:50 CDT Joao jacques DEB [facility] CPT-11436 Level 4 Est. Patient 07:47:45 CDT Joao jacques DEB [facility] Procedures Code Procedure Name Date Entry Date Standard Desc ription CPT-99288 Foot, left, comp min 3V - XRAY USE ONLY 16:58:22 CDT CPT-42310 Foot, left, comp min 3V - XRAY USE ONLY 16:47:13 CDT CPT-04608 Chest 2V Frontal and Lat - XRAY USE ONLY 16:45:56 CDT CPT-45553 Postop F/U Visit 14:36:53 CDT CPT-OV Office Visit 14:55:53 CDT CPT-OV Office Visit 14:55:26 CDT CPT-OV Office Visit 15:26:35 CDT CPT-95736 Postop F/U Visit 17:47:54 JIG FILLER CPT-76407 Interstim trial 12:55:02 JIG FILLER CPT-64462 Venipuncture Draw Fee 17:04:06 CDT
--- OUTSIDE RECORDS SUMMARY | 2019-04-15 12:35 | XMS REPORT | Clinical Summary ---
Author Author Admin, Sabrina Jefferson Organization [facility] Address Unknown Phone Unavailable Allergies, Adverse Reactions, [...] unspecified hyperlipidemia OSTEOARTHRITIS 715.90 Active Sobia Naff GLOVE MAKER Osteoarthrosis, unspecified whether generalized or localized, involving unspecified site G E R D 530.81 Active Sobia Naff GLOVE MAKER Esoph ageal reflux DEPRESSION 311 Active Sobia Naff GLOVE MAKER De pressive disorder, not elsewhere classified FH DIABETES V18.0 Active Sobia Naff GLOVE MAKER F amily history of diabetes mellitus DROWSINESS [...] of head, subsequent encounter ICD-V58.89 Inactive Diallo hSirley MD Medication List Medication Instructions Start Date Stop Date Generic Name NDC Status Provider Patient Instruction LIPITOR 10 MG ORAL TABS 1 tab daily ATORVASTATI N CALCIUM 55817199154 Active Diallo Shirley MD Active MIRAPEX 0.5 MG ORAL TABS 1 tab in the am 2 tabs in pm PRAMIPEXOLE DIHYDROCHLORIDE 15939776563 Active Diallo Shirley MD Active WELLBUTRIN SR 150 MG ORAL [id number] 1 tab twice daily BUPROPION HCL 51057492749 Active Diallo Shirley MD Active CLONAZEPAM 0.5 MG TABS 2 tablet by mouth 1 times daily at bedtime CLONAZEPAM 95539443814 No Longer Active Diallo Shirley MD Activ e PRILOSEC 40 MG CPDR 1 tab daily OMEPRAZOLE 87154 293078 No Longer Active Diallo Shirley MD Active MELOXICAM 15 MG TABS 1qd MELOXICAM 52818352051 No Longer Active Arnol Ballard MD Active PANTOPRAZOLE SODIUM 40 MG TBEC Take one by mouth bid PANTOPRAZOLE SODIUM 11464454679 No Longer Active Arnol Ballard MD Acti ve VESICARE 10 MG TABS 1 tab daily SOLIFENACIN SUCCI KAHLIL 99505627719 No Longer Active Arnol Ballard MD Active SUPER B-50 B COMPLEX CAPS 1qd B COMPLEX-BIOT IN-FA 22907514917 No Longer Active Arnol Ballard MD Active OMEGA 3-6-9 COMPLEX CAPS 1qd OMEGA 3-6-9 FAT TY ACIDS 93163396130 No Longer Active Arnol Ballard MD Active NAPROSYN 500 MG TABS 1 bid NAPROXEN 93694977217 No Longer Active J William Ballard MD Active HYDROCODONE-ACETAMINOPHEN 5-325 MG TABS 1-2 q 4 hr prn pain HYDROCODONE-ACETAMINOPHEN 94982685648 No Longer Active Arnol Ballard MD Active NEXIUM 40 MG CPDR 1 q d ESOMEPRAZOLE MAGNE SIUM 95039231564 No Longer Active Rony Mata MD Active CVS ZINC 50 MG TABS 1 qd ZINC 84837564699 Active Anupama Meadows APRN Active CVS MAGNESIUM 250 MG TABS 3 q d MAGNESIUM 606991945 81 Active Elaine Meadows APRN Active CVS VITAMIN C 1000 MG TABS 1 qd ASCORBIC ACID 5042 6154231 Active Elaine Meadows APRN Active SUPER B COMPLEX TABS Take one by mouth daily B COMPLEX-C 23766568337 No Longer Active Elaine Meadows APRN Active AMBIEN 10 MG TABS 1 at bedtime ZOLPIDEM TARTRAT E 92897472883 No Longer Active Elaine Meadows APRN Active ASPIRIN 81 MG TAB 1 tablet by mouth daily ASPIR IN 97398544635 No Longer Active Elaine Meadows APRN Active MACRODANTIN 100 MG CAPS Take one by mouth daily 10/18 NITROFURANTOIN MACROCRYSTAL 30149339962 No Longer Active Arnol Ballard MD Active VITAMIN D3 5000 UNIT TABS 1qd CHOLECALCIFER OL 27188978572 No Longer Active Arnol Ballard MD Active FIBER THERAPY 500 MG TABS 1qd METHYLCELL ULOSE (LAXATIVE) 91110771582 No Longer Active Arnol Ballard MD Active VITAMIN C 1000 MG TABS 1qd ASCORBIC ACID 30 695098447 No Longer Active Arnol Ballard MD Active HYDROCODONE-ACETAMINOPHEN 10-500 MG TABS 1 prn HYDROCODONE-ACETAMINOPHEN 29044833769 No Longer Active Arnol Ballard MD Active LOVASTATIN 40 MG TABS 1 at bedtime LOVASTATIN 00 253148286 No Longer Active Joao Harms PA Active CYMBALTA 60 MG CPEP 1 every morning DULOXETINE HC L 87403586999 Active Joao Harms PA Active CYMBALTA 30 MG CPEP 1 cap by mouth daily with 60mg cap DULOXETINE HCL 11850228355 No Longer Active Joao Harms PA Active CLONAZEPAM 0.5 MG TBDP 2 tabs at bedtime CLONAZ EPAM 09768171472 No Longer Active Joao Harms PA Active ZYRTEC ALLERGY 10 MG TABS Take one by mouth daily 2011 CETIRIZINE HCL 14113291643 No Longer Active Sobia Naff GLOVE MAKER Active VITAMIN D3 2000 UNIT CAPS 2 1/2 daily CHOLECALC IFEROL 37253159044 No Longer Active Sobia Naff GLOVE MAKER Active ZITHROMAX Z-ANTONIETA 250 MG TABS 2x1day,5v8quvr AZIT HROMYCIN 79485017232 No Longer Active Sobia Naff GLOVE MAKER Active MULTIVITAMINS TABS Take one by mouth daily MULT IPLE VITAMIN 60159329520 Active Symone Lucke Active AMBIEN 10 MG TABS 1 at bedtime AMBIEN 10 MG TABS 738906 ZOLPIDEM TARTRATE Inactive MACRODANTIN 100 MG CAPS Take one by mouth daily 10/18 MACRODANTIN 100 MG CAPS 3973415 NITROFURANTOIN MACROCRYSTAL Inactive NAPROSYN 500 MG TABS 1 bid NAPROSYN 500 MG T ABS 877266 NAPROXEN Inactive SUPER B COMPLEX TABS Take one by mouth daily 4 SUPER B COMPLEX TABS B COMPLEX-C Inactive VITAMIN C 1000 MG TABS 1qd VITAMIN C 1000 M G TABS 166265 ASCORBIC ACID Inactive ASPIRIN 81 MG TAB 1 tablet by mouth daily ASPIRIN 81 MG TAB ASPIRIN Inactive CLONAZEPAM 0.5 MG TABS 2 tablet by mouth 1 times daily at bedtime CLONAZEPAM 0.5 MG TABS 19740315 CLONAZEPAM Inactive LOVASTATIN 40 MG TABS 1 at bedtime LOVASTATIN 4 0 MG TABS 363490 LOVASTATIN Inactive SUPER B-50 B COMPLEX CAPS 1qd SUPER B-50 B COMPLEX CAPS B [id number] Inactive HYDROCODONE-ACETAMINOPHEN 10-500 MG TABS 1 prn HYDROCODONE- ACETAMINOPHEN 10-500 MG TABS HYDROCODONE-ACETAMINOPHEN Inact kiya MELOXICAM 15 MG TABS 1qd MELOXICAM 15 MG T ABS 278529 MELOXICAM Inactive PRILOSEC 40 MG CPDR 1 tab daily PRILOSEC 40 MG C PDR OMEPRAZOLE Inactive PANTOPRAZOLE SODIUM 40 MG TBEC Take one by mouth bid 4 PANTOPRAZOLE SODIUM 40 MG TBEC 401236 PANTOPRAZOLE SODIUM Inactive NEXIUM 40 MG CPDR 1 q d NEXIUM 40 MG CPDR 60 6730 ESOMEPRAZOLE MAGNESIUM Inactive ZITHROMAX Z-ANTONIETA 250 MG TABS 2x1day,6r7iypm ZITHROMAX Z-ANTONIETA 250 MG TABS 1799366 AZITHROMYCIN Inactive HYDROCODONE-ACETAMINOPHEN 5-325 MG TABS 1-2 q 4 hr prn pain 2013 HYDROCODONE-ACETAMINOPHEN 5-325 MG TABS 216498 HYDROCODONE-ACETAMINOPHEN Inactive CLONAZEPAM 0.5 MG TBDP 2 tabs at bedtime CLONAZEPAM 0.5 MG TBDP 701175 CLONAZEPAM Inactive FIBER THERAPY 500 MG TABS 1qd FIBER THERAPY 500 MG TABS METHYLCELLULOSE (LAXATIVE) Inactive CYMBALTA 30 MG CPEP 1 cap by mouth daily with 60mg cap CYMBALTA 30 MG CPEP 456708 DULOXETINE HCL Inactive VESICARE 10 MG TABS 1 tab daily VESICARE 10 MG T ABS SOLIFENACIN SUCCINATE Inactive ZYRTEC ALLERGY 10 MG TABS Take one by mouth daily 2011 ZYRTEC ALLERGY 10 MG TABS 7405094 CETIRIZINE HCL Inactive VITAMIN D3 2000 UNIT [...] Measured Encounters Code Encounter Date Provider Facility CPT-42887 Level 3 Est. Patient 13:55:16 CDT Diallo Shirley MD [facility] CPT-54242 Level 3 Est. Patient 17:02:03 CDT Diallo Shirley MD [facility] CPT-00355 Level 3 Est. Patient 16:22:59 CDT Dave palm DO [facility] CPT-52845 Level 3 Est. Patient 12:28:01 CDT Diallo Shirley MD [facility] CPT-61043 Level 3 Est. Patient 22:35:01 CDT Arnol collier MD [facility] CPT-17844 Level 3 Est. Patient 12:55:02 HOCKEY PLAYER Arnol collier MD [facility] CPT-15893 Level 4 New Patient 14:35:08 CDT Arnol quinn MD [facility] CPT-26163 Level 4 Est. Patient 08:52:50 CDT Joao jacques [facility] CPT-54252 Level 4 Est. Patient 07:47:45 CDT Joao jacques [facility] Procedures Code Procedure Name Date Entry Date Standard Desc ription CPT-97853 Foot, left, comp min 3V - XRAY USE ONLY 16:58:22 CDT CPT-27682 Foot, left, comp min 3V - XRAY USE ONLY 16:47:13 CDT CPT-35396 Chest 2V Frontal and Lat - XRAY USE ONLY 16:45:56 CDT CPT-62034 Postop F/U Visit 14:36:53 CDT CPT-OV Office Visit 14:55:53 CDT CPT-OV Office Visit 14:55:26 CDT CPT-OV Office Visit 15:26:35 CDT CPT-17549 Postop F/U Visit 17:47:54 HOCKEY PLAYER CPT-76575 Interstim trial 12:55:02 HOCKEY PLAYER CPT-45940 Venipuncture Draw Fee 17:04:06 CDT
--- OUTSIDE RECORDS SUMMARY | 2019-04-15 12:36 | XMS REPORT | Clinical Summary ---
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 De pressive disorder, not elsewhere classified FH DIABETES V18.0 Active 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 F amily history of diabetes mellitus DROWSINESS [...] TABS 1 tab daily ATORVASTATI N CALCIUM 66136250763 Active Diallo Shirley MD Active MIRAPEX 0.5 MG ORAL TABS 1 tab in the am 2 tabs in pm PRAMIPEXOLE DIHYDROCHLORIDE 53187605487 Active Diallo Shirley MD Active WELLBUTRIN SR 150 MG ORAL [id number] 1 tab twice daily BUPROPION HCL 86802609252 Active Diallo Shirley MD Active CLONAZEPAM 0.5 MG TABS 2 tablet by mouth 1 times daily at bedtime CLONAZEPAM 46143236202 No Longer Active Diallo Shirley MD Activ e PRILOSEC 40 MG CPDR 1 tab daily OMEPRAZOLE 55230 264877 No Longer Active Diallo Shirley MD Active MELOXICAM 15 MG TABS 1qd MELOXICAM 85018494860 No Longer Active Arnol Ballard MD Active PANTOPRAZOLE SODIUM 40 MG TBEC Take one by mouth bid PANTOPRAZOLE SODIUM 39668705137 No Longer Active Arnol Ballard MD Acti ve VESICARE 10 MG TABS 1 tab daily SOLIFENACIN SUCCI KAHLIL 26070543301 No Longer Active Arnol Ballard MD Active SUPER B-50 B COMPLEX CAPS 1qd B COMPLEX-BIOT IN-FA 33256449464 No Longer Active Arnol Ballard MD Active OMEGA 3-6-9 COMPLEX CAPS 1qd OMEGA 3-6-9 FAT TY ACIDS 80317693892 No Longer Active Arnol Ballard MD Active NAPROSYN 500 MG TABS 1 bid NAPROXEN 23673224698 No Longer Active J William Ballard MD Active HYDROCODONE-ACETAMINOPHEN 5-325 MG TABS 1-2 q 4 hr prn pain HYDROCODONE-ACETAMINOPHEN 30858560485 No Longer Active Arnol Ballard MD Active NEXIUM 40 MG CPDR 1 q d ESOMEPRAZOLE MAGNE SIUM 38733931354 No Longer Active Rony Mata MD Active CVS ZINC 50 MG TABS 1 qd ZINC 81081237181 Active Anupama Meadows APRN Active CVS MAGNESIUM 250 MG TABS 3 q d MAGNESIUM 089476173 81 Active Elaine Meadows APRN Active CVS VITAMIN C 1000 MG TABS 1 qd ASCORBIC ACID 5042 9850489 Active Elaine Meadows APRN Active SUPER B COMPLEX TABS Take one by mouth daily B COMPLEX-C 12512393082 No Longer Active Elaine Meadows APRN Active AMBIEN 10 MG TABS 1 at bedtime ZOLPIDEM TARTRAT E 43911253803 No Longer Active Elaine Meadows APRN Active ASPIRIN 81 MG TAB 1 tablet by mouth daily ASPIR IN 49415352739 No Longer Active Elaine Meadows APRN Active MACRODANTIN 100 MG CAPS Take one by mouth daily 10/18 NITROFURANTOIN MACROCRYSTAL 18652298846 No Longer Active Arnol Ballard MD Active VITAMIN D3 5000 UNIT TABS 1qd CHOLECALCIFER OL 21789185954 No Longer Active Arnol Ballard MD Active FIBER THERAPY 500 MG TABS 1qd METHYLCELL ULOSE (LAXATIVE) 88141914160 No Longer Active Arnol Ballard MD Active VITAMIN C 1000 MG TABS 1qd ASCORBIC ACID 30 048472646 No Longer Active Arnol Ballard MD Active HYDROCODONE-ACETAMINOPHEN 10-500 MG TABS 1 prn HYDROCODONE-ACETAMINOPHEN 91683476273 No Longer Active Arnol Balladr MD Active LOVASTATIN 40 MG TABS 1 at bedtime LOVASTATIN 00 086497381 No Longer Active Joao Harms PA Active CYMBALTA 60 MG CPEP 1 every morning DULOXETINE HC L 03489820033 Active Joao Harms PA Active CYMBALTA 30 MG CPEP 1 cap by mouth daily with 60mg cap DULOXETINE HCL 76899900308 No Longer Active Joao Harms PA Active CLONAZEPAM 0.5 MG TBDP 2 tabs at bedtime CLONAZ EPAM 15464196665 No Longer Active Joao Harms PA Active ZYRTEC ALLERGY 10 MG TABS Take one by mouth daily 2011 CETIRIZINE HCL 57546260941 No Longer Active 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 Active VITAMIN D3 2000 UNIT CAPS 2 1/2 daily CHOLECALC IFEROL 60087992233 No Longer Active 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 Active ZITHROMAX Z-ANTONIETA 250 MG TABS 2x1day,2c2efzy AZIT HROMYCIN 02358563761 No Longer Active 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 Active MULTIVITAMINS TABS Take one by mouth daily MULT IPLE VITAMIN 82248294597 Active Symone Lucke Active VITAMIN D3 2000 UNIT CAPS 2 1/2 daily TAMIN D3 2000 UNIT CAPS CHOLECALCIFEROL Inactive ZYRTEC ALLERGY 10 MG TABS Take one by mouth daily 2011 ZYRTEC ALLERGY 10 MG TABS 0447875 CETIRIZINE HCL Inactive CLONAZEPAM 0.5 MG TBDP 2 tabs at bedtime CLONAZEPAM 0.5 MG TBDP 189582 CLONAZEPAM Inactive CYMBALTA 30 MG CPEP 1 cap by mouth daily with 60mg cap CYMBALTA 30 MG CPEP 329750 DULOXETINE HCL Inactive LOVASTATIN 40 MG TABS 1 at bedtime LOVASTATIN 4 0 MG TABS 266145 LOVASTATIN Inactive HYDROCODONE-ACETAMINOPHEN 10-500 MG TABS 1 prn HYDROCODONE- ACETAMINOPHEN 10-500 MG TABS HYDROCODONE-ACETAMINOPHEN Inact kiya VITAMIN C 1000 MG TABS 1qd VITAMIN C 1000 M G TABS 430308 ASCORBIC ACID Inactive FIBER THERAPY 500 MG TABS 1qd FIBER THERAPY 500 MG TABS METHYLCELLULOSE (LAXATIVE) Inactive VITAMIN D3 5000 UNIT TABS 1qd VITAMIN D3 50 00 UNIT TABS CHOLECALCIFEROL Inactive MACRODANTIN 100 MG CAPS Take one by mouth daily 10/18 MACRODANTIN 100 MG CAPS 0384079 NITROFURANTOIN MACROCRYSTAL Inactive ASPIRIN 81 MG TAB 1 tablet by mouth daily ASPIRIN 81 MG TAB ASPIRIN Inactive AMBIEN 10 MG TABS 1 at bedtime AMBIEN 10 MG TABS 713843 ZOLPIDEM TARTRATE Inactive SUPER B COMPLEX TABS Take one by mouth daily 4 SUPER B COMPLEX TABS B COMPLEX-C Inactive NEXIUM 40 MG CPDR 1 q d NEXIUM 40 MG CPDR 60 6730 ESOMEPRAZOLE MAGNESIUM Inactive HYDROCODONE-ACETAMINOPHEN 5-325 MG TABS 1-2 q 4 hr prn pain 2013 HYDROCODONE-ACETAMINOPHEN 5-325 MG TABS 262495 HYDROCODONE-ACETAMINOPHEN Inactive NAPROSYN 500 MG TABS 1 bid NAPROSYN 500 MG T ABS 450857 NAPROXEN Inactive OMEGA 3-6-9 COMPLEX CAPS 1qd OMEGA 3-6-9 CO MPLEX CAPS OMEGA 3-6-9 FATTY ACIDS Inactive SUPER B-50 B COMPLEX CAPS 1qd SUPER B-50 B COMPLEX CAPS B [id number] Inactive VESICARE 10 MG TABS 1 tab daily VESICARE 10 MG T ABS SOLIFENACIN SUCCINATE Inactive PANTOPRAZOLE SODIUM 40 MG TBEC Take one by mouth bid 4 PANTOPRAZOLE SODIUM 40 MG TBEC 451540 PANTOPRAZOLE SODIUM Inactive MELOXICAM 15 MG TABS 1qd MELOXICAM 15 MG T ABS 025614 MELOXICAM Inactive PRILOSEC 40 MG CPDR 1 tab daily PRILOSEC 40 MG C PDR OMEPRAZOLE Inactive CLONAZEPAM 0.5 MG TABS 2 tablet by mouth 1 times daily at bedtime CLONAZEPAM 0.5 MG TABS 918256 CLONAZEPAM Inactive ZITHROMAX Z-ANTONIETA 250 MG TABS 2x1day,1s8hntv ZITHROMAX Z-ANTONIETA 250 MG TABS 2869417 AZITHROMYCIN Inactive Vital Signs Date Name Value [...] Measured Encounters Code Encounter Date Provider Facility CPT-11787 Level 3 Est. Patient 17:02:03 CDT Diallo Shirley MD [facility] CPT-30886 Level 3 Est. Patient 16:22:59 CDT Dave palm DO [facility] CPT-08503 Level 3 Est. Patient 12:28:01 CDT Diallo Shirley MD [facility] CPT-22095 Level 3 Est. Patient 22:35:01 CDT Arnol collier MD [facility] CPT-56985 Level 3 Est. Patient 12:55:02 SINGING TELEGRAM PERFORMER J William collier MD [facility] CPT-72673 Level 4 New Patient 14:35:08 CDT Arnol quinn MD [facility] CPT-18032 Level 4 Est. Patient 08:52:50 CDT Joao jacques [facility] CPT-73484 Level 4 Est. Patient 07:47:45 CDT Joao jacques DE[facility] Procedures Code Procedure Name Date Entry Date Standard Desc ription CPT-16806 Foot, left, comp min 3V - XRAY USE ONLY 16:58:22 CDT CPT-10838 Foot, left, comp min 3V - XRAY USE ONLY 16:47:13 CDT CPT-88257 Chest 2V Frontal and Lat - XRAY USE ONLY 16:45:56 CDT CPT-13041 Postop F/U Visit 14:36:53 CDT CPT-OV Office Visit 14:55:53 CDT CPT-OV Office Visit 14:55:26 CDT CPT-OV Office Visit 15:26:35 CDT CPT-90457 Postop F/U Visit 17:47:54 SINGING TELEGRAM PERFORMER CPT-63505 Interstim trial 12:55:02 SINGING TELEGRAM PERFORMER CPT-69602 Venipuncture Draw Fee 17:04:06 CDT
--- OUTSIDE RECORDS SUMMARY | 2019-04-15 12:36 | XMS REPORT | Clinical Summary ---
Author Author Admin, Sabrina Jefferson Organization [facility] Address Unknown Phone Unavailable Allergies, Adverse [...] unspecified hyperlipidemia OSTEOARTHRITIS 715.90 Active Sobia Naff ENERGY ANALYST Osteoarthrosis, unspecified whether generalized or localized, involving unspecified site G E R D 530.81 Active Sobia Naff ENERGY ANALYST Esoph ageal reflux DEPRESSION 311 Active Sobia Naff ENERGY ANALYST De pressive disorder, not elsewhere classified FH DIABETES V18.0 Active Sobia Naff ENERGY ANALYST F amily history of diabetes mellitus DROWSINESS [...] TABS 1 tab daily ATORVASTATI N CALCIUM 26567955570 Active Diallo Shirley MD Active MIRAPEX 0.5 MG ORAL TABS 1 tab in the am 2 tabs in pm PRAMIPEXOLE DIHYDROCHLORIDE 54097558866 Active Diallo Shirley MD Active WELLBUTRIN SR 150 MG ORAL [id number] 1 tab twice daily BUPROPION HCL 01314316305 Active Diallo Shirley MD Active CLONAZEPAM 0.5 MG TABS 2 tablet by mouth 1 times daily at bedtime CLONAZEPAM 44903952170 No Longer Active Diallo Shirley MD Activ e PRILOSEC 40 MG CPDR 1 tab daily OMEPRAZOLE 39614 764442 No Longer Active Diallo Shirley MD Active MELOXICAM 15 MG TABS 1qd MELOXICAM 55513664864 No Longer Active Arnol Ballard MD Active PANTOPRAZOLE SODIUM 40 MG TBEC Take one by mouth bid PANTOPRAZOLE SODIUM 96803711783 No Longer Active Arnol Ballard MD Acti ve VESICARE 10 MG TABS 1 tab daily SOLIFENACIN SUCCI KAHLIL 94811247686 No Longer Active Arnol Ballard MD Active SUPER B-50 B COMPLEX CAPS 1qd B COMPLEX-BIOT IN-FA 81332020474 No Longer Active Arnol Ballard MD Active OMEGA 3-6-9 COMPLEX CAPS 1qd OMEGA 3-6-9 FAT TY ACIDS 67912074242 No Longer Active Arnol Ballard MD Active NAPROSYN 500 MG TABS 1 bid NAPROXEN 44477821660 No Longer Active J William Ballard MD Active HYDROCODONE-ACETAMINOPHEN 5-325 MG TABS 1-2 q 4 hr prn pain HYDROCODONE-ACETAMINOPHEN 45503732244 No Longer Active Arnol Ballard MD Active NEXIUM 40 MG CPDR 1 q d ESOMEPRAZOLE MAGNE SIUM 39919148928 No Longer Active Rony Mata MD Active CVS ZINC 50 MG TABS 1 qd ZINC 79248311699 Active Anupama Meadows APRN Active CVS MAGNESIUM 250 MG TABS 3 q d MAGNESIUM 474616836 81 Active Elaine Meadows APRN Active CVS VITAMIN C 1000 MG TABS 1 qd ASCORBIC ACID 5042 8154797 Active Elaine Meadows APRN Active SUPER B COMPLEX TABS Take one by mouth daily B COMPLEX-C 59905649585 No Longer Active Elaine Meadows APRN Active AMBIEN 10 MG TABS 1 at bedtime ZOLPIDEM TARTRAT E 29683185915 No Longer Active Elaine Meadows APRN Active ASPIRIN 81 MG TAB 1 tablet by mouth daily ASPIR IN 29484499043 No Longer Active Elaine Meadows APRN Active MACRODANTIN 100 MG CAPS Take one by mouth daily 10/18 NITROFURANTOIN MACROCRYSTAL 41571622973 No Longer Active Arnol Ballard MD Active VITAMIN D3 5000 UNIT TABS 1qd CHOLECALCIFER OL 99966123203 No Longer Active Arnol Ballard MD Active FIBER THERAPY 500 MG TABS 1qd METHYLCELL ULOSE (LAXATIVE) 76957973380 No Longer Active Arnol Ballard MD Active VITAMIN C 1000 MG TABS 1qd ASCORBIC ACID 30 116619477 No Longer Active Arnol Ballard MD Active HYDROCODONE-ACETAMINOPHEN 10-500 MG TABS 1 prn HYDROCODONE-ACETAMINOPHEN 53125272602 No Longer Active Arnol Ballard MD Active LOVASTATIN 40 MG TABS 1 at bedtime LOVASTATIN 00 707321581 No Longer Active Joao Harms PA Active CYMBALTA 60 MG CPEP 1 every morning DULOXETINE HC L 57629025726 Active Joao Harms PA Active CYMBALTA 30 MG CPEP 1 cap by mouth daily with 60mg cap DULOXETINE HCL 98029291808 No Longer Active Joao Harms PA Active CLONAZEPAM 0.5 MG TBDP 2 tabs at bedtime CLONAZ EPAM 17197697421 No Longer Active Joao Harms PA Active ZYRTEC ALLERGY 10 MG TABS Take one by mouth daily 2011 CETIRIZINE HCL 39406491895 No Longer Active Sobia Naff ENERGY ANALYST Active VITAMIN D3 2000 UNIT CAPS 2 1/2 daily CHOLECALC IFEROL 87650907488 No Longer Active Sobia Naff ENERGY ANALYST Active ZITHROMAX Z-ANTONIETA 250 MG TABS 2x1day,0s8paeu AZIT HROMYCIN 92676398539 No Longer Active Sobia Naff ENERGY ANALYST Active MULTIVITAMINS TABS Take one by mouth daily MULT IPLE VITAMIN 14494133078 Active Symone Lucke Active AMBIEN 10 MG TABS 1 at bedtime AMBIEN 10 MG TABS 006260 ZOLPIDEM TARTRATE Inactive MACRODANTIN 100 MG CAPS Take one by mouth daily 10/18 MACRODANTIN 100 MG CAPS 4798086 NITROFURANTOIN MACROCRYSTAL Inactive NAPROSYN 500 MG TABS 1 bid NAPROSYN 500 MG T ABS 700684 NAPROXEN Inactive SUPER B COMPLEX TABS Take one by mouth daily 4 SUPER B COMPLEX TABS B COMPLEX-C Inactive VITAMIN C 1000 MG TABS 1qd VITAMIN C 1000 M G TABS 434639 ASCORBIC ACID Inactive ASPIRIN 81 MG TAB 1 tablet by mouth daily ASPIRIN 81 MG TAB ASPIRIN Inactive CLONAZEPAM 0.5 MG TABS 2 tablet by mouth 1 times daily at bedtime CLONAZEPAM 0.5 MG TABS 19740315 CLONAZEPAM Inactive LOVASTATIN 40 MG TABS 1 at bedtime LOVASTATIN 4 0 MG TABS 774460 LOVASTATIN Inactive SUPER B-50 B COMPLEX CAPS 1qd SUPER B-50 B COMPLEX CAPS B [id number]-GY Inactive HYDROCODONE-ACETAMINOPHEN 10-500 MG TABS 1 prn HYDROCODONE- ACETAMINOPHEN 10-500 MG TABS HYDROCODONE-ACETAMINOPHEN Inact kiya MELOXICAM 15 MG TABS 1qd MELOXICAM 15 MG T ABS 261037 MELOXICAM Inactive PRILOSEC 40 MG CPDR 1 tab daily PRILOSEC 40 MG C PDR OMEPRAZOLE Inactive PANTOPRAZOLE SODIUM 40 MG TBEC Take one by mouth bid 4 PANTOPRAZOLE SODIUM 40 MG TBEC 302516 PANTOPRAZOLE SODIUM Inactive NEXIUM 40 MG CPDR 1 q d NEXIUM 40 MG CPDR 60 6730 ESOMEPRAZOLE MAGNESIUM Inactive ZITHROMAX Z-ANTONIETA 250 MG TABS 2x1day,2z5zeql ZITHROMAX Z-ANTONIETA 250 MG TABS 2397520 AZITHROMYCIN Inactive HYDROCODONE-ACETAMINOPHEN 5-325 MG TABS 1-2 q 4 hr prn pain 2013 HYDROCODONE-ACETAMINOPHEN 5-325 MG TABS 488365 HYDROCODONE-ACETAMINOPHEN Inactive CLONAZEPAM 0.5 MG TBDP 2 tabs at bedtime CLONAZEPAM 0.5 MG TBDP 372326 CLONAZEPAM Inactive FIBER THERAPY 500 MG TABS 1qd FIBER THERAPY 500 MG TABS METHYLCELLULOSE (LAXATIVE) Inactive CYMBALTA 30 MG CPEP 1 cap by mouth daily with 60mg cap CYMBALTA 30 MG CPEP 089058 DULOXETINE HCL Inactive VESICARE 10 MG TABS 1 tab daily VESICARE 10 MG T ABS SOLIFENACIN SUCCINATE Inactive ZYRTEC ALLERGY 10 MG TABS Take one by mouth daily 2011 ZYRTEC ALLERGY 10 MG TABS 4864018 CETIRIZINE HCL Inactive VITAMIN D3 2000 UNIT [...] Measured Encounters Code Encounter Date Provider Facility CPT-56106 Level 3 Est. Patient 13:55:16 CDT Diallo Shirley MD [facility] CPT-74273 Level 3 Est. Patient 17:02:03 CDT Diallo Shirley MD [facility] CPT-86905 Level 3 Est. Patient 16:22:59 CDT Dave palm DO [facility] CPT-36296 Level 3 Est. Patient 12:28:01 CDT Diallo Shirley MD [facility] CPT-32600 Level 3 Est. Patient 22:35:01 CDT Arnol collier MD [facility] CPT-66392 Level 3 Est. Patient 12:55:02 RELAY ENGINEER Arnol collier MD [facility] CPT-02643 Level 4 New Patient 14:35:08 CDT Arnol quinn MD [facility] CPT-20428 Level 4 Est. Patient 08:52:50 CDT Joao jacques [facility] CPT-15050 Level 4 Est. Patient 07:47:45 CDT Joao jacques [facility] Procedures Code Procedure Name Date Entry Date Standard Desc ription CPT-17316 Foot, left, comp min 3V - XRAY USE ONLY 16:58:22 CDT CPT-37497 Foot, left, comp min 3V - XRAY USE ONLY 16:47:13 CDT CPT-50250 Chest 2V Frontal and Lat - XRAY USE ONLY 16:45:56 CDT CPT-09553 Postop F/U Visit 14:36:53 CDT CPT-OV Office Visit 14:55:53 CDT CPT-OV Office Visit 14:55:26 CDT CPT-OV Office Visit 15:26:35 CDT CPT-51611 Postop F/U Visit 17:47:54 RELAY ENGINEER CPT-41464 Interstim trial 12:55:02 RELAY ENGINEER CPT-41812 Venipuncture Draw Fee 17:04:06 CDT
--- OUTSIDE RECORDS SUMMARY | 2019-04-15 12:36 | XMS REPORT | Clinical Summary ---
Author Author Admin, Sabrina Jefferson Organization [facility] [employer] Address Unknown Phone Unavailable Allergies, Adverse Reactions, [...] unspecified hyperlipidemia OSTEOARTHRITIS 715.90 Active Sobia Naff BOTTLE WASHER MACHINE Osteoarthrosis, unspecified whether generalized or localized, involving unspecified site G E R D 530.81 Active Sobia Naff BOTTLE WASHER MACHINE Esoph ageal reflux DEPRESSION 311 Active Sobia Naff BOTTLE WASHER MACHINE De pressive disorder, not elsewhere classified FH DIABETES V18.0 Active Sobia Naff BOTTLE WASHER MACHINE F amily history of diabetes mellitus DROWSINESS [...] TABS 1 tab daily ATORVASTATI N CALCIUM 07194180634 Active Diallo Shirley MD Active MIRAPEX 0.5 MG ORAL TABS 1 tab in the am 2 tabs in pm PRAMIPEXOLE DIHYDROCHLORIDE 21557209500 Active Diallo Shirley MD Active WELLBUTRIN SR 150 MG ORAL [id number] 1 tab twice daily BUPROPION HCL 87591948727 Active Diallo Shirley MD Active CLONAZEPAM 0.5 MG TABS 2 tablet by mouth 1 times daily at bedtime CLONAZEPAM 43366624367 No Longer Active Diallo Shirley MD Activ e PRILOSEC 40 MG CPDR 1 tab daily OMEPRAZOLE 95545 812454 No Longer Active Diallo Shirley MD Active MELOXICAM 15 MG TABS 1qd MELOXICAM 93070956431 No Longer Active Arnol Ballard MD Active PANTOPRAZOLE SODIUM 40 MG TBEC Take one by mouth bid PANTOPRAZOLE SODIUM 06327431337 No Longer Active Arnol Ballard MD Acti ve VESICARE 10 MG TABS 1 tab daily SOLIFENACIN SUCCI KAHLIL 84774835355 No Longer Active Arnol Ballard MD Active SUPER B-50 B COMPLEX CAPS 1qd B COMPLEX-BIOT IN-FA 73030245873 No Longer Active Arnol Ballard MD Active OMEGA 3-6-9 COMPLEX CAPS 1qd OMEGA 3-6-9 FAT TY ACIDS 38062421629 No Longer Active Arnol Ballard MD Active NAPROSYN 500 MG TABS 1 bid NAPROXEN 03788998347 No Longer Active J William Ballard MD Active HYDROCODONE-ACETAMINOPHEN 5-325 MG TABS 1-2 q 4 hr prn pain HYDROCODONE-ACETAMINOPHEN 42549776910 No Longer Active Arnol Ballard MD Active NEXIUM 40 MG CPDR 1 q d ESOMEPRAZOLE MAGNE SIUM 80441779236 No Longer Active Rony Mata MD Active CVS ZINC 50 MG TABS 1 qd ZINC 64920621047 Active Anupama Meadows APRN Active CVS MAGNESIUM 250 MG TABS 3 q d MAGNESIUM 699283709 81 Active Elaine Meadows APRN Active CVS VITAMIN C 1000 MG TABS 1 qd ASCORBIC ACID 5042 5411048 Active Elaine Meadows APRN Active SUPER B COMPLEX TABS Take one by mouth daily B COMPLEX-C 64408573601 No Longer Active Elaine Meadows APRN Active AMBIEN 10 MG TABS 1 at bedtime ZOLPIDEM TARTRAT E 98324979037 No Longer Active Elaine Meadows APRN Active ASPIRIN 81 MG TAB 1 tablet by mouth daily ASPIR IN 23923930099 No Longer Active Elaine Meadows APRN Active MACRODANTIN 100 MG CAPS Take one by mouth daily 10/18 NITROFURANTOIN MACROCRYSTAL 18712693974 No Longer Active Arnol Ballard MD Active VITAMIN D3 5000 UNIT TABS 1qd CHOLECALCIFER OL 44973756702 No Longer Active Arnol Ballard MD Active FIBER THERAPY 500 MG TABS 1qd METHYLCELL ULOSE (LAXATIVE) 01247153525 No Longer Active Arnol Ballard MD Active VITAMIN C 1000 MG TABS 1qd ASCORBIC ACID 30 247542242 No Longer Active Arnol Ballard MD Active HYDROCODONE-ACETAMINOPHEN 10-500 MG TABS 1 prn HYDROCODONE-ACETAMINOPHEN 09050211783 No Longer Active Arnol Ballard MD Active LOVASTATIN 40 MG TABS 1 at bedtime LOVASTATIN 00 156685257 No Longer Active Joao Harms PA Active CYMBALTA 60 MG CPEP 1 every morning DULOXETINE HC L 01460183536 Active Joao Harms PA Active CYMBALTA 30 MG CPEP 1 cap by mouth daily with 60mg cap DULOXETINE HCL 53275628246 No Longer Active Joao Harms PA Active CLONAZEPAM 0.5 MG TBDP 2 tabs at bedtime CLONAZ EPAM 06453414199 No Longer Active Joao Harms PA Active ZYRTEC ALLERGY 10 MG TABS Take one by mouth daily 2011 CETIRIZINE HCL 70290005022 No Longer Active Sobia Naff BOTTLE WASHER MACHINE Active VITAMIN D3 2000 UNIT CAPS 2 1/2 daily CHOLECALC IFEROL 30588196525 No Longer Active Sobia Naff BOTTLE WASHER MACHINE Active ZITHROMAX Z-ANTONIETA 250 MG TABS 2x1day,8q1wuot AZIT HROMYCIN 24987918216 No Longer Active Sobia Naff BOTTLE WASHER MACHINE Active MULTIVITAMINS TABS Take one by mouth daily MULT IPLE VITAMIN 44807176598 Active Symone Lucke Active VITAMIN D3 2000 UNIT CAPS 2 1/2 daily TAMIN D3 2000 UNIT CAPS CHOLECALCIFEROL Inactive ZYRTEC ALLERGY 10 MG TABS Take one by mouth daily 2011 ZYRTEC ALLERGY 10 MG TABS 6474326 CETIRIZINE HCL Inactive CLONAZEPAM 0.5 MG TBDP 2 tabs at bedtime CLONAZEPAM 0.5 MG TBDP 165927 CLONAZEPAM Inactive CYMBALTA 30 MG CPEP 1 cap by mouth daily with 60mg cap CYMBALTA 30 MG CPEP 213673 DULOXETINE HCL Inactive LOVASTATIN 40 MG TABS 1 at bedtime LOVASTATIN 4 0 MG TABS 535669 LOVASTATIN Inactive HYDROCODONE-ACETAMINOPHEN 10-500 MG TABS 1 prn HYDROCODONE- ACETAMINOPHEN 10-500 MG TABS HYDROCODONE-ACETAMINOPHEN Inact kiya VITAMIN C 1000 MG TABS 1qd VITAMIN C 1000 M G TABS 081316 ASCORBIC ACID Inactive FIBER THERAPY 500 MG TABS 1qd FIBER THERAPY 500 MG TABS METHYLCELLULOSE (LAXATIVE) Inactive VITAMIN D3 5000 UNIT TABS 1qd VITAMIN D3 50 00 UNIT TABS CHOLECALCIFEROL Inactive MACRODANTIN 100 MG CAPS Take one by mouth daily 10/18 MACRODANTIN 100 MG CAPS 1083232 NITROFURANTOIN MACROCRYSTAL Inactive ASPIRIN 81 MG TAB 1 tablet by mouth daily ASPIRIN 81 MG TAB ASPIRIN Inactive AMBIEN 10 MG TABS 1 at bedtime AMBIEN 10 MG TABS 495408 ZOLPIDEM TARTRATE Inactive SUPER B COMPLEX TABS Take one by mouth daily 4 SUPER B COMPLEX TABS B COMPLEX-C Inactive NEXIUM 40 MG CPDR 1 q d NEXIUM 40 MG CPDR 60 6730 ESOMEPRAZOLE MAGNESIUM Inactive HYDROCODONE-ACETAMINOPHEN 5-325 MG TABS 1-2 q 4 hr prn pain 2013 HYDROCODONE-ACETAMINOPHEN 5-325 MG TABS 309318 HYDROCODONE-ACETAMINOPHEN Inactive NAPROSYN 500 MG TABS 1 bid NAPROSYN 500 MG T ABS 063249 NAPROXEN Inactive OMEGA 3-6-9 COMPLEX CAPS 1qd OMEGA 3-6-9 CO MPLEX CAPS OMEGA 3-6-9 FATTY ACIDS Inactive SUPER B-50 B COMPLEX CAPS 1qd SUPER B-50 B COMPLEX CAPS B [id number] Inactive VESICARE 10 MG TABS 1 tab daily VESICARE 10 MG T ABS SOLIFENACIN SUCCINATE Inactive PANTOPRAZOLE SODIUM 40 MG TBEC Take one by mouth bid 4 PANTOPRAZOLE SODIUM 40 MG TBEC 354073 PANTOPRAZOLE SODIUM Inactive MELOXICAM 15 MG TABS 1qd MELOXICAM 15 MG T ABS 404858 MELOXICAM Inactive PRILOSEC 40 MG CPDR 1 tab daily PRILOSEC 40 MG C PDR OMEPRAZOLE Inactive CLONAZEPAM 0.5 MG TABS 2 tablet by mouth 1 times daily at bedtime CLONAZEPAM 0.5 MG TABS 799957 CLONAZEPAM Inactive ZITHROMAX Z-ANTONIETA 250 MG TABS 2x1day,6u4wbku ZITHROMAX Z-ANTONIETA 250 MG TABS 8568185 AZITHROMYCIN Inactive Vital Signs Date Name Value [...] Measured Encounters Code Encounter Date Provider Facility CPT-01405 Level 3 Est. Patient 17:02:03 CDT Diallo Shirley MD [facility] CPT-31683 Level 3 Est. Patient 16:22:59 CDT Dave palm DO [facility] CPT-56073 Level 3 Est. Patient 12:28:01 CDT Diallo Shirley MD [facility] CPT-81166 Level 3 Est. Patient 22:35:01 CDT Arnol collier MD [facility] CPT-57567 Level 3 Est. Patient 12:55:02 SLUICE TENDER J William collier MD [facility] CPT-75179 Level 4 New Patient 14:35:08 CDT Arnol quinn MD [facility] CPT-05615 Level 4 Est. Patient 08:52:50 CDT Joao jacques DEB [facility] CPT-38485 Level 4 Est. Patient 07:47:45 CDT Joao jacques DEB [facility] Procedures Code Procedure Name Date Entry Date Standard Desc ription CPT-54089 Foot, left, comp min 3V - XRAY USE ONLY 16:58:22 CDT CPT-09927 Foot, left, comp min 3V - XRAY USE ONLY 16:47:13 CDT CPT-12493 Chest 2V Frontal and Lat - XRAY USE ONLY 16:45:56 CDT CPT-38294 Postop F/U Visit 14:36:53 CDT CPT-OV Office Visit 14:55:53 CDT CPT-OV Office Visit 14:55:26 CDT CPT-OV Office Visit 15:26:35 CDT CPT-19368 Postop F/U Visit 17:47:54 SLUICE TENDER CPT-65562 Interstim trial 12:55:02 SLUICE TENDER CPT-00998 Venipuncture Draw Fee 17:04:06 CDT
--- OUTSIDE RECORDS SUMMARY | 2019-04-15 12:36 | XMS REPORT | Clinical Summary ---
Author Author Admin, Sabrina Jefferson Organization [facility] [employer] Address Unknown Phone Unavailable Allergies, Adverse Reactions, Alerts Allergy Name Reaction Description Start Date Severity Status Pr krisyt VICENTES Critical Active Sobia Naff LP N [...] unspecified hyperlipidemia OSTEOARTHRITIS 715.90 Active Sobia Naff UI PROGRAMMER Osteoarthrosis, unspecified whether generalized or localized, involving unspecified site G E R D 530.81 Active Sobia Naff UI PROGRAMMER Esoph ageal reflux DEPRESSION 311 Active Sobia Naff UI PROGRAMMER De pressive disorder, not elsewhere classified FH DIABETES V18.0 Active Sobia Naff UI PROGRAMMER F amily history of diabetes mellitus DROWSINESS [...] TABS 1 tab daily ATORVASTATI N CALCIUM 21825565655 Active Diallo Shirley MD Active MIRAPEX 0.5 MG ORAL TABS 1 tab in the am 2 tabs in pm PRAMIPEXOLE DIHYDROCHLORIDE 99305633911 Active Diallo Shirley MD Active WELLBUTRIN SR 150 MG ORAL [id number] 1 tab twice daily BUPROPION HCL 73730555218 Active Diallo Shirley MD Active CLONAZEPAM 0.5 MG TABS 2 tablet by mouth 1 times daily at bedtime CLONAZEPAM 20810108423 No Longer Active Diallo Shirley MD Activ e PRILOSEC 40 MG CPDR 1 tab daily OMEPRAZOLE 04315 165572 No Longer Active Diallo Shirley MD Active MELOXICAM 15 MG TABS 1qd MELOXICAM 87591482457 No Longer Active Arnol Ballard MD Active PANTOPRAZOLE SODIUM 40 MG TBEC Take one by mouth bid PANTOPRAZOLE SODIUM 90846034028 No Longer Active Arnol Ballard MD Acti ve VESICARE 10 MG TABS 1 tab daily SOLIFENACIN SUCCI KAHLIL 66809020811 No Longer Active Arnol Ballard MD Active SUPER B-50 B COMPLEX CAPS 1qd B COMPLEX-BIOT IN-FA 03903816273 No Longer Active Arnol Ballard MD Active OMEGA 3-6-9 COMPLEX CAPS 1qd OMEGA 3-6-9 FAT TY ACIDS 11235493277 No Longer Active Arnol Ballard MD Active NAPROSYN 500 MG TABS 1 bid NAPROXEN 38975805263 No Longer Active J William Ballard MD Active HYDROCODONE-ACETAMINOPHEN 5-325 MG TABS 1-2 q 4 hr prn pain HYDROCODONE-ACETAMINOPHEN 37988259597 No Longer Active Arnol Ballard MD Active NEXIUM 40 MG CPDR 1 q d ESOMEPRAZOLE MAGNE SIUM 95550992559 No Longer Active Rony Mata MD Active CVS ZINC 50 MG TABS 1 qd ZINC 21138276062 Active Anupama Meadows APRN Active CVS MAGNESIUM 250 MG TABS 3 q d MAGNESIUM 946313973 81 Active Elaine Meadows APRN Active CVS VITAMIN C 1000 MG TABS 1 qd ASCORBIC ACID 5042 0878573 Active Elaine Meadows APRN Active SUPER B COMPLEX TABS Take one by mouth daily B COMPLEX-C 44933063774 No Longer Active Elaine Meadows APRN Active AMBIEN 10 MG TABS 1 at bedtime ZOLPIDEM TARTRAT E 75284751415 No Longer Active Elaine Meadows APRN Active ASPIRIN 81 MG TAB 1 tablet by mouth daily ASPIR IN 31770253066 No Longer Active Elaine Meadows APRN Active MACRODANTIN 100 MG CAPS Take one by mouth daily 10/18 NITROFURANTOIN MACROCRYSTAL 20978178450 No Longer Active Arnol Ballard MD Active VITAMIN D3 5000 UNIT TABS 1qd CHOLECALCIFER OL 39741594179 No Longer Active Arnol Ballard MD Active FIBER THERAPY 500 MG TABS 1qd METHYLCELL ULOSE (LAXATIVE) 98624421715 No Longer Active Arnol Ballard MD Active VITAMIN C 1000 MG TABS 1qd ASCORBIC ACID 30 782532859 No Longer Active Arnol Ballard MD Active HYDROCODONE-ACETAMINOPHEN 10-500 MG TABS 1 prn HYDROCODONE-ACETAMINOPHEN 49601517490 No Longer Active Arnol Ballard MD Active LOVASTATIN 40 MG TABS 1 at bedtime LOVASTATIN 00 201208404 No Longer Active Joao Harms PA Active CYMBALTA 60 MG CPEP 1 every morning DULOXETINE HC L 96631867505 Active Joao Harms PA Active CYMBALTA 30 MG CPEP 1 cap by mouth daily with 60mg cap DULOXETINE HCL 40410198902 No Longer Active Joao Harms PA Active CLONAZEPAM 0.5 MG TBDP 2 tabs at bedtime CLONAZ EPAM 57701738424 No Longer Active Joao Harms PA Active ZYRTEC ALLERGY 10 MG TABS Take one by mouth daily 2011 CETIRIZINE HCL 31445463085 No Longer Active Sobia Naff UI PROGRAMMER Active VITAMIN D3 2000 UNIT CAPS 2 1/2 daily CHOLECALC IFEROL 74259923113 No Longer Active Sobia Naff UI PROGRAMMER Active ZITHROMAX Z-ANTONIETA 250 MG TABS 2x1day,1g4depy AZIT HROMYCIN 29728609610 No Longer Active Sobia Naff UI PROGRAMMER Active MULTIVITAMINS TABS Take one by mouth daily MULT IPLE VITAMIN 30947205742 Active Symone Lucke Active VITAMIN D3 2000 UNIT CAPS 2 1/2 daily TAMIN D3 2000 UNIT CAPS CHOLECALCIFEROL Inactive ZYRTEC ALLERGY 10 MG TABS Take one by mouth daily 2011 ZYRTEC ALLERGY 10 MG TABS 1876137 CETIRIZINE HCL Inactive CLONAZEPAM 0.5 MG TBDP 2 tabs at bedtime CLONAZEPAM 0.5 MG TBDP 294195 CLONAZEPAM Inactive CYMBALTA 30 MG CPEP 1 cap by mouth daily with 60mg cap CYMBALTA 30 MG CPEP 436235 DULOXETINE HCL Inactive LOVASTATIN 40 MG TABS 1 at bedtime LOVASTATIN 4 0 MG TABS 249077 LOVASTATIN Inactive HYDROCODONE-ACETAMINOPHEN 10-500 MG TABS 1 prn HYDROCODONE- ACETAMINOPHEN 10-500 MG TABS HYDROCODONE-ACETAMINOPHEN Inact kiya VITAMIN C 1000 MG TABS 1qd VITAMIN C 1000 M G TABS 994129 ASCORBIC ACID Inactive FIBER THERAPY 500 MG TABS 1qd FIBER THERAPY 500 MG TABS METHYLCELLULOSE (LAXATIVE) Inactive VITAMIN D3 5000 UNIT TABS 1qd VITAMIN D3 50 00 UNIT TABS CHOLECALCIFEROL Inactive MACRODANTIN 100 MG CAPS Take one by mouth daily 10/18 MACRODANTIN 100 MG CAPS 2393768 NITROFURANTOIN MACROCRYSTAL Inactive ASPIRIN 81 MG TAB 1 tablet by mouth daily ASPIRIN 81 MG TAB ASPIRIN Inactive AMBIEN 10 MG TABS 1 at bedtime AMBIEN 10 MG TABS 155587 ZOLPIDEM TARTRATE Inactive SUPER B COMPLEX TABS Take one by mouth daily 4 SUPER B COMPLEX TABS B COMPLEX-C Inactive NEXIUM 40 MG CPDR 1 q d NEXIUM 40 MG CPDR 60 6730 ESOMEPRAZOLE MAGNESIUM Inactive HYDROCODONE-ACETAMINOPHEN 5-325 MG TABS 1-2 q 4 hr prn pain 2013 HYDROCODONE-ACETAMINOPHEN 5-325 MG TABS 915919 HYDROCODONE-ACETAMINOPHEN Inactive NAPROSYN 500 MG TABS 1 bid NAPROSYN 500 MG T ABS 349771 NAPROXEN Inactive OMEGA 3-6-9 COMPLEX CAPS 1qd OMEGA 3-6-9 CO MPLEX CAPS OMEGA 3-6-9 FATTY ACIDS Inactive SUPER B-50 B COMPLEX CAPS 1qd SUPER B-50 B COMPLEX CAPS B [id number] Inactive VESICARE 10 MG TABS 1 tab daily VESICARE 10 MG T ABS SOLIFENACIN SUCCINATE Inactive PANTOPRAZOLE SODIUM 40 MG TBEC Take one by mouth bid 4 PANTOPRAZOLE SODIUM 40 MG TBEC 724915 PANTOPRAZOLE SODIUM Inactive MELOXICAM 15 MG TABS 1qd MELOXICAM 15 MG T ABS 000478 MELOXICAM Inactive PRILOSEC 40 MG CPDR 1 tab daily PRILOSEC 40 MG C PDR OMEPRAZOLE Inactive CLONAZEPAM 0.5 MG TABS 2 tablet by mouth 1 times daily at bedtime CLONAZEPAM 0.5 MG TABS 039617 CLONAZEPAM Inactive ZITHROMAX Z-ANTONIETA 250 MG TABS 2x1day,8p8ueez ZITHROMAX Z-ANTONIETA 250 MG TABS 7816065 AZITHROMYCIN Inactive Vital Signs Date Name Value [...] Measured Encounters Code Encounter Date Provider Facility CPT-56517 Level 3 Est. Patient 17:02:03 CDT Diallo Shirley MD [facility] CPT-14161 Level 3 Est. Patient 16:22:59 CDT Dave palm DO [facility] CPT-09599 Level 3 Est. Patient 12:28:01 CDT Diallo Shirley MD [facility] CPT-13909 Level 3 Est. Patient 22:35:01 CDT Arnol collier MD [facility] CPT-72646 Level 3 Est. Patient 12:55:02 BINDER AND BOX BUILDER J William collier MD [facility] CPT-72930 Level 4 New Patient 14:35:08 CDT Arnol quinn MD [facility] CPT-61780 Level 4 Est. Patient 08:52:50 CDT Joao jacques DEB [facility] CPT-29767 Level 4 Est. Patient 07:47:45 CDT Joao jacques DEB [facility] Procedures Code Procedure Name Date Entry Date Standard Desc ription CPT-53161 Foot, left, comp min 3V - XRAY USE ONLY 16:58:22 CDT CPT-35074 Foot, left, comp min 3V - XRAY USE ONLY 16:47:13 CDT CPT-05996 Chest 2V Frontal and Lat - XRAY USE ONLY 16:45:56 CDT CPT-19108 Postop F/U Visit 14:36:53 CDT CPT-OV Office Visit 14:55:53 CDT CPT-OV Office Visit 14:55:26 CDT CPT-OV Office Visit 15:26:35 CDT CPT-91772 Postop F/U Visit 17:47:54 BINDER AND BOX BUILDER CPT-83055 Interstim trial 12:55:02 BINDER AND BOX BUILDER CPT-92082 Venipuncture Draw Fee 17:04:06 CDT
--- OUTSIDE RECORDS SUMMARY | 2019-04-15 12:36 | XMS REPORT | Clinical Summary ---
Author Author Admin, Sabrina Jefferson Organization [facility] [employer] Address Unknown Phone Unavailable Allergies, Adverse Reactions, [...] unspecified hyperlipidemia OSTEOARTHRITIS 715.90 Active Sobia Naff APPLE CHECKER Osteoarthrosis, unspecified whether generalized or localized, involving unspecified site G E R D 530.81 Active Sobia Naff APPLE CHECKER Esoph ageal reflux DEPRESSION 311 Active Sobia Naff APPLE CHECKER De pressive disorder, not elsewhere classified FH DIABETES V18.0 Active Sobia Naff APPLE CHECKER F amily history of diabetes mellitus DROWSINESS [...] am 2 tabs in pm PRAMIPEXOLE DIHYDROCHLORIDE 40756512303 Active Diallo Shirley MD Active WELLBUTRIN SR 150 MG ORAL [id number] 1 tab twice daily BUPROPION HCL 13177581802 Active Diallo Shirley MD Active CLONAZEPAM 0.5 MG TABS 2 tablet by mouth 1 times daily at bedtime CLONAZEPAM 15277492307 No Longer Active Diallo Shirley MD Activ e PRILOSEC 40 MG CPDR 1 tab daily OMEPRAZOLE 27388 830786 No Longer Active Diallo Shirley MD Active MELOXICAM 15 MG TABS 1qd MELOXICAM 59227387107 No Longer Active Arnol Ballard MD Active PANTOPRAZOLE SODIUM 40 MG TBEC Take one by mouth bid PANTOPRAZOLE SODIUM 26228177423 No Longer Active Arnol Ballard MD Acti ve VESICARE 10 MG TABS 1 tab daily SOLIFENACIN SUCCI KAHLIL 25343762457 No Longer Active Arnol Ballard MD Active SUPER B-50 B COMPLEX CAPS 1qd B COMPLEX-BIOT IN-FA 40735743884 No Longer Active Arnol Ballard MD Active OMEGA 3-6-9 COMPLEX CAPS 1qd OMEGA 3-6-9 FAT TY ACIDS 98800603095 No Longer Active Arnol Ballard MD Active NAPROSYN 500 MG TABS 1 bid NAPROXEN 29129656122 No Longer Active Arnol Ballard MD Active HYDROCODONE-ACETAMINOPHEN 5-325 MG TABS 1-2 q 4 hr prn pain HYDROCODONE-ACETAMINOPHEN 13345972594 No Longer Active Arnol Ballard MD Active NEXIUM 40 MG CPDR 1 q d ESOMEPRAZOLE MAGNE SIUM 86490677187 No Longer Active Rony Mata MD Active CVS ZINC 50 MG TABS 1 qd ZINC 34809113835 Active Anupama Meadows RENATO Active CVS MAGNESIUM 250 MG TABS 3 q d MAGNESIUM 870444553 81 Active Elaine Meadows RENATO Active CVS VITAMIN C 1000 MG TABS 1 qd ASCORBIC ACID 5042 7674012 Active Elaine Meadows RENATO Active SUPER B COMPLEX TABS Take one by mouth daily B COMPLEX-C 58559883899 No Longer Active Elaine Meadows RENATO Active AMBIEN 10 MG TABS 1 at bedtime ZOLPIDEM TARTRAT E 02310869617 No Longer Active Elaine Meadows RENATO Active ASPIRIN 81 MG TAB 1 tablet by mouth daily ASPIR IN 72169147265 No Longer Active Elaine Meadows RENATO Active MACRODANTIN 100 MG CAPS Take one by mouth daily 10/18 NITROFURANTOIN MACROCRYSTAL 29811444948 No Longer Active Arnol Ballard MD Active VITAMIN D3 5000 UNIT TABS 1qd CHOLECALCIFER OL 31237228584 No Longer Active Arnol Ballard MD Active FIBER THERAPY 500 MG TABS 1qd METHYLCELL ULOSE (LAXATIVE) 25691975193 No Longer Active Arnol Ballard MD Active VITAMIN C 1000 MG TABS 1qd ASCORBIC ACID 30 367977753 No Longer Active Arnol Ballard MD Active HYDROCODONE-ACETAMINOPHEN 10-500 MG TABS 1 prn HYDROCODONE-ACETAMINOPHEN 34924510028 No Longer Active Arnol Ballard MD Active LOVASTATIN 40 MG TABS 1 at bedtime LOVASTATIN 00 506028330 No Longer Active Joao Harms PA Active CYMBALTA 60 MG CPEP 1 every morning DULOXETINE HC L 32878245331 Active Joao Harms PA Active CYMBALTA 30 MG CPEP 1 cap by mouth daily with 60mg cap DULOXETINE HCL 67968695752 No Longer Active Joao Harms PA Active CLONAZEPAM 0.5 MG TBDP 2 tabs at bedtime CLONAZ EPAM 23041869330 No Longer Active Joao Harms PA Active ZYRTEC ALLERGY 10 MG TABS Take one by mouth daily 2011 CETIRIZINE HCL 64323231921 No Longer Active Sobia Naff APPLE CHECKER Active VITAMIN D3 2000 UNIT CAPS 2 1/2 daily CHOLECALC IFEROL 58785376271 No Longer Active Sobia Naff APPLE CHECKER Active ZITHROMAX Z-ANTONIETA 250 MG TABS 2x1day,0e5exlj AZIT HROMYCIN 64880391560 No Longer Active Sobia Naff APPLE CHECKER Active MULTIVITAMINS TABS Take one by mouth daily MULT IPLE VITAMIN 35209566777 Active Symone Lucke Active VITAMIN D3 2000 UNIT CAPS 2 1/2 daily TAMIN D3 2000 UNIT CAPS CHOLECALCIFEROL Inactive ZYRTEC ALLERGY 10 MG TABS Take one by mouth daily 2011 ZYRTEC ALLERGY 10 MG TABS 5864258 CETIRIZINE HCL Inactive CLONAZEPAM 0.5 MG TBDP 2 tabs at bedtime CLONAZEPAM 0.5 MG TBDP 163023 CLONAZEPAM Inactive CYMBALTA 30 MG CPEP 1 cap by mouth daily with 60mg cap CYMBALTA 30 MG CPEP 801463 DULOXETINE HCL Inactive LOVASTATIN 40 MG TABS 1 at bedtime LOVASTATIN 4 0 MG TABS 098233 LOVASTATIN Inactive HYDROCODONE-ACETAMINOPHEN 10-500 MG TABS 1 prn HYDROCODONE- ACETAMINOPHEN 10-500 MG TABS HYDROCODONE-ACETAMINOPHEN Inact kiya VITAMIN C 1000 MG TABS 1qd VITAMIN C 1000 M G TABS 324124 ASCORBIC ACID Inactive FIBER THERAPY 500 MG TABS 1qd FIBER THERAPY 500 MG TABS METHYLCELLULOSE (LAXATIVE) Inactive VITAMIN D3 5000 UNIT TABS 1qd VITAMIN D3 50 00 UNIT TABS CHOLECALCIFEROL Inactive MACRODANTIN 100 MG CAPS Take one by mouth daily 10/18 MACRODANTIN 100 MG CAPS 7793653 NITROFURANTOIN MACROCRYSTAL Inactive ASPIRIN 81 MG TAB 1 tablet by mouth daily ASPIRIN 81 MG TAB ASPIRIN Inactive AMBIEN 10 MG TABS 1 at bedtime AMBIEN 10 MG TABS 094068 ZOLPIDEM TARTRATE Inactive SUPER B COMPLEX TABS Take one by mouth daily 4 SUPER B COMPLEX TABS B COMPLEX-C Inactive NEXIUM 40 MG CPDR 1 q d NEXIUM 40 MG CPDR 60 6730 ESOMEPRAZOLE MAGNESIUM Inactive HYDROCODONE-ACETAMINOPHEN 5-325 MG TABS 1-2 q 4 hr prn pain 2013 HYDROCODONE-ACETAMINOPHEN 5-325 MG TABS 657734 HYDROCODONE-ACETAMINOPHEN Inactive NAPROSYN 500 MG TABS 1 bid NAPROSYN 500 MG T ABS 861733 NAPROXEN Inactive OMEGA 3-6-9 COMPLEX CAPS 1qd OMEGA 3-6-9 CO MPLEX CAPS OMEGA 3-6-9 FATTY ACIDS Inactive SUPER B-50 B COMPLEX CAPS 1qd SUPER B-50 B COMPLEX CAPS B [id number] Inactive VESICARE 10 MG TABS 1 tab daily VESICARE 10 MG T ABS SOLIFENACIN SUCCINATE Inactive PANTOPRAZOLE SODIUM 40 MG TBEC Take one by mouth bid 4 PANTOPRAZOLE SODIUM 40 MG TBEC 246648 PANTOPRAZOLE SODIUM Inactive MELOXICAM 15 MG TABS 1qd MELOXICAM 15 MG T ABS 946007 MELOXICAM Inactive PRILOSEC 40 MG CPDR 1 tab daily PRILOSEC 40 MG C PDR OMEPRAZOLE Inactive CLONAZEPAM 0.5 MG TABS 2 tablet by mouth 1 times daily at bedtime CLONAZEPAM 0.5 MG TABS 168619 CLONAZEPAM Inactive ZITHROMAX Z-ANTONIETA 250 MG TABS 2x1day,1z7ufgv ZITHROMAX Z-ANTONIETA 250 MG TABS 8656116 AZITHROMYCIN Inactive Vital Signs Date Name Value [...] Measured Encounters Code Encounter Date Provider Facility CPT-79445 Level 3 Est. Patient 12:28:01 CDT Diallo Shirley MD [facility] CPT-76336 Level 3 Est. Patient 22:35:01 ROD collier MD [facility] CPT-70112 Level 3 Est. Patient 12:55:02 MEDICAL BILLING CODER Arnol collier MD [facility] CPT-27321 Level 4 New Patient 14:35:08 CDT Arnol quinn MD [facility] CPT-12538 Level 4 Est. Patient 08:52:50 CDT [address] [facility] CPT-21999 Level 4 Est. Patient 07:47:45 CDT [address] [facility] Procedures Code Procedure Name Date Entry Date Standard Desc ription CPT-13715 Postop F/U Visit 14:36:53 CDT CPT-OV Office Visit 14:55:53 CDT CPT-OV Office Visit 14:55:26 CDT CPT-OV Office Visit 15:26:35 CDT CPT-90693 Postop F/U Visit 17:47:54 MEDICAL BILLING CODER CPT-61097 Interstim trial 12:55:02 MEDICAL BILLING CODER CPT-40541 Venipuncture Draw Fee 17:04:06 CDT
--- OUTSIDE RECORDS SUMMARY | 2019-04-15 12:37 | XMS REPORT | Clinical Summary ---
Author Author Admin, Sabrina Jefferson Organization [facility] [employer] Address Unknown Phone Unavailable Allergies, Adverse Reactions, [...] unspecified hyperlipidemia OSTEOARTHRITIS 715.90 Active Sobia Naff CUSTOMER RELATIONS CONSULTANT Osteoarthrosis, unspecified whether generalized or localized, involving unspecified site G E R D 530.81 Active Sobia Naff CUSTOMER RELATIONS CONSULTANT Esoph ageal reflux DEPRESSION 311 Active Sobia Naff CUSTOMER RELATIONS CONSULTANT De pressive disorder, not elsewhere classified FH DIABETES V18.0 Active Sobia Naff CUSTOMER RELATIONS CONSULTANT F amily history of diabetes mellitus DROWSINESS [...] MD Encounter for other sp ecified aftercare Contusion of left foot, subsequent encounter V58.89 1 Active Dave Noriega DO Encounter for other specified af tercare 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 nactive Joao BOYD Medication List Medication Instructions Start Date Stop Date Generic Name NDC Status Provider Patient Instruction MIRAPEX 0.5 MG ORAL TABS 1 tab in the am 2 tabs in pm PRAMIPEXOLE DIHYDROCHLORIDE 12295388007 Active Diallo Shirley MD Active WELLBUTRIN SR 150 MG ORAL [id number] 1 tab twice daily BUPROPION HCL 05939625147 Active Diallo Shirley MD Active CLONAZEPAM 0.5 MG TABS 2 tablet by mouth 1 times daily at bedtime CLONAZEPAM 33120189477 No Longer Active Diallo Shirley MD Activ e PRILOSEC 40 MG CPDR 1 tab daily OMEPRAZOLE 65044 239205 No Longer Active Diallo Shirley MD Active MELOXICAM 15 MG TABS 1qd MELOXICAM 70232674255 No Longer Active Arnol Ballard MD Active PANTOPRAZOLE SODIUM 40 MG TBEC Take one by mouth bid PANTOPRAZOLE SODIUM 46721864315 No Longer Active Arnol Ballard MD Acti ve VESICARE 10 MG TABS 1 tab daily SOLIFENACIN SUCCI KAHLIL 68412954272 No Longer Active Arnol Ballard MD Active SUPER B-50 B COMPLEX CAPS 1qd B COMPLEX-BIOT IN-FA 19604050871 No Longer Active Arnol Ballard MD Active OMEGA 3-6-9 COMPLEX CAPS 1qd OMEGA 3-6-9 FAT TY ACIDS 36391751269 No Longer Active Arnol Ballard MD Active NAPROSYN 500 MG TABS 1 bid NAPROXEN 46195136617 No Longer Active Arnol Ballard MD Active HYDROCODONE-ACETAMINOPHEN 5-325 MG TABS 1-2 q 4 hr prn pain HYDROCODONE-ACETAMINOPHEN 84299527121 No Longer Active Arnol Ballard MD Active NEXIUM 40 MG CPDR 1 q d ESOMEPRAZOLE MAGNE SIUM 95026916291 No Longer Active Rony Mata MD Active CVS ZINC 50 MG TABS 1 qd ZINC 99517167308 Active Anupama Meadows RENATO Active CVS MAGNESIUM 250 MG TABS 3 q d MAGNESIUM 542048295 81 Active Elaine Meadows RENATO Active CVS VITAMIN C 1000 MG TABS 1 qd ASCORBIC ACID 5042 2956567 Active Elaine Meadows RENATO Active SUPER B COMPLEX TABS Take one by mouth daily B COMPLEX-C 50470770290 No Longer Active Elaine Meadows RENATO Active AMBIEN 10 MG TABS 1 at bedtime ZOLPIDEM TARTRAT E 50985028086 No Longer Active Elaine Meadows RENATO Active ASPIRIN 81 MG TAB 1 tablet by mouth daily ASPIR IN 27152843229 No Longer Active Elaine Meadows RENATO Active MACRODANTIN 100 MG CAPS Take one by mouth daily 10/18 NITROFURANTOIN MACROCRYSTAL 19880976396 No Longer Active Arnol Ballard MD Active VITAMIN D3 5000 UNIT TABS 1qd CHOLECALCIFER OL 98039025208 No Longer Active Arnol Ballard MD Active FIBER THERAPY 500 MG TABS 1qd METHYLCELL ULOSE (LAXATIVE) 04334030371 No Longer Active Arnol Ballard MD Active VITAMIN C 1000 MG TABS 1qd ASCORBIC ACID 30 011982827 No Longer Active Arnol Ballard MD Active HYDROCODONE-ACETAMINOPHEN 10-500 MG TABS 1 prn HYDROCODONE-ACETAMINOPHEN 52544380393 No Longer Active Arnol Ballard MD Active LOVASTATIN 40 MG TABS 1 at bedtime LOVASTATIN 00 387755894 No Longer Active Joao Harms PA Active CYMBALTA 60 MG CPEP 1 every morning DULOXETINE HC L 99778415201 Active Joao Harms PA Active CYMBALTA 30 MG CPEP 1 cap by mouth daily with 60mg cap DULOXETINE HCL 14901759016 No Longer Active Joao Harms PA Active CLONAZEPAM 0.5 MG TBDP 2 tabs at bedtime CLONAZ EPAM 10505685286 No Longer Active Joao Harms PA Active ZYRTEC ALLERGY 10 MG TABS Take one by mouth daily 2011 CETIRIZINE HCL 31451517900 No Longer Active Sobia Naff CUSTOMER RELATIONS CONSULTANT Active VITAMIN D3 2000 UNIT CAPS 2 1/2 daily CHOLECALC IFEROL 22439796331 No Longer Active Sobia Naff CUSTOMER RELATIONS CONSULTANT Active ZITHROMAX Z-ANTONIETA 250 MG TABS 2x1day,2c2icxo AZIT HROMYCIN 37305703680 No Longer Active Sobia Naff CUSTOMER RELATIONS CONSULTANT Active MULTIVITAMINS TABS Take one by mouth daily MULT IPLE VITAMIN 05564258286 Active Symone Lucke Active VITAMIN D3 2000 UNIT CAPS 2 1/2 daily TAMIN D3 2000 UNIT CAPS CHOLECALCIFEROL Inactive ZYRTEC ALLERGY 10 MG TABS Take one by mouth daily 2011 ZYRTEC ALLERGY 10 MG TABS 0649482 CETIRIZINE HCL Inactive CLONAZEPAM 0.5 MG TBDP 2 tabs at bedtime CLONAZEPAM 0.5 MG TBDP 156346 CLONAZEPAM Inactive CYMBALTA 30 MG CPEP 1 cap by mouth daily with 60mg cap CYMBALTA 30 MG [facility] 251046 DULOXETINE HCL Inactive LOVASTATIN 40 MG TABS 1 at bedtime LOVASTATIN 4 0 MG TABS 338409 LOVASTATIN Inactive HYDROCODONE-ACETAMINOPHEN 10-500 MG TABS 1 prn HYDROCODONE- ACETAMINOPHEN 10-500 MG TABS HYDROCODONE-ACETAMINOPHEN Inact kiya VITAMIN C 1000 MG TABS 1qd VITAMIN C 1000 M G TABS 712258 ASCORBIC ACID Inactive FIBER THERAPY 500 MG TABS 1qd FIBER THERAPY 500 MG TABS METHYLCELLULOSE (LAXATIVE) Inactive VITAMIN D3 5000 UNIT TABS 1qd VITAMIN D3 50 00 UNIT TABS CHOLECALCIFEROL Inactive MACRODANTIN 100 MG CAPS Take one by mouth daily 10/18 MACRODANTIN 100 MG CAPS 3383618 NITROFURANTOIN MACROCRYSTAL Inactive ASPIRIN 81 MG TAB 1 tablet by mouth daily ASPIRIN 81 MG TAB ASPIRIN Inactive AMBIEN 10 MG TABS 1 at bedtime AMBIEN 10 MG TABS 682735 ZOLPIDEM TARTRATE Inactive SUPER B COMPLEX TABS Take one by mouth daily 4 SUPER B COMPLEX TABS B COMPLEX-C Inactive NEXIUM 40 MG CPDR 1 q d NEXIUM 40 MG CPDR 60 6730 ESOMEPRAZOLE MAGNESIUM Inactive HYDROCODONE-ACETAMINOPHEN 5-325 MG TABS 1-2 q 4 hr prn pain 2013 HYDROCODONE-ACETAMINOPHEN 5-325 MG TABS 851324 HYDROCODONE-ACETAMINOPHEN Inactive NAPROSYN 500 MG TABS 1 bid NAPROSYN 500 MG T ABS 346482 NAPROXEN Inactive OMEGA 3-6-9 COMPLEX CAPS 1qd OMEGA 3-6-9 CO MPLEX CAPS OMEGA 3-6-9 FATTY ACIDS Inactive SUPER B-50 B COMPLEX CAPS 1qd SUPER B-50 B COMPLEX CAPS B [id number] Inactive VESICARE 10 MG TABS 1 tab daily VESICARE 10 MG T ABS SOLIFENACIN SUCCINATE Inactive PANTOPRAZOLE SODIUM 40 MG TBEC Take one by mouth bid 4 PANTOPRAZOLE SODIUM 40 MG TBEC 005776 PANTOPRAZOLE SODIUM Inactive MELOXICAM 15 MG TABS 1qd MELOXICAM 15 MG T ABS 468336 MELOXICAM Inactive PRILOSEC 40 MG CPDR 1 tab daily PRILOSEC 40 MG C PDR OMEPRAZOLE Inactive CLONAZEPAM 0.5 MG TABS 2 tablet by mouth 1 times daily at bedtime CLONAZEPAM 0.5 MG TABS 520343 CLONAZEPAM Inactive ZITHROMAX Z-ANTONIETA 250 MG TABS 2x1day,5o3unbs ZITHROMAX Z-ANTONIETA 250 MG TABS 2809144 AZITHROMYCIN Inactive Vital Signs Date Name Value Unit Range Description blood pressure, diastolic - 8462-4 69 mm[Hg] [...] Measured Encounters Code Encounter Date Provider Facility [id number] Level 3 Est. Patient 16:22:59 CDT Dave palm DO [facility] CPT-23683 Level 3 Est. Patient 12:28:01 CDT Diallo Shirley MD [facility] CPT-51626 Level 3 Est. Patient 22:35:01 CDT Arnol collier MD [facility] CPT-98316 Level 3 Est. Patient 12:55:02 ADULT DAYCARE COORDINATOR J William collier MD [facility] CPT-00487 Level 4 New Patient 14:35:08 CDT Arnol quinn MD [facility] CPT-53017 Level 4 Est. Patient 08:52:50 CDT Joao jacques [facility] CPT-07925 Level 4 Est. Patient 07:47:45 CDT Joao jacques [facility] Procedures Code Procedure Name Date Entry Date Standard Desc ription CPT-31168 Postop F/U Visit 14:36:53 CDT CPT-OV Office Visit 14:55:53 CDT CPT-OV Office Visit 14:55:26 CDT CPT-OV Office Visit 15:26:35 CDT CPT-17667 Postop F/U Visit 17:47:54 ADULT DAYCARE COORDINATOR CPT-60387 Interstim trial 12:55:02 ADULT DAYCARE COORDINATOR CPT-76975 Venipuncture Draw Fee 17:04:06 CDT
--- OUTSIDE RECORDS SUMMARY | 2019-04-15 12:37 | XMS REPORT | Clinical Summary ---
Author Author Admin, Sabrina Jefferson Organization [facility] Address Unknown Phone Unavailable Allergies, Adverse Reactions, [...] unspecified hyperlipidemia OSTEOARTHRITIS 715.90 Active Sobia Naff FISH HATCHERY SPECIALIST Osteoarthrosis, unspecified whether generalized or localized, involving unspecified site G E R D 530.81 Active Sobia Naff FISH HATCHERY SPECIALIST Esoph ageal reflux DEPRESSION 311 Active Sobia Naff FISH HATCHERY SPECIALIST De pressive disorder, not elsewhere classified FH DIABETES V18.0 Active Sobia Naff FISH HATCHERY SPECIALIST F amily history of diabetes mellitus DROWSINESS [...] sense organs INCONTINENCE, URGE 788.31 Active Arnol rzivi MD Urge incontinence Atypical chest pain 786.59 Active Elaine Rizvi Other chest pain Colon cancer screening V76.51 Active Elaine Meadows APRN Screening for malignant neoplasms of colon 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 nactive Joao BOYD Medication List Medication Instructions Start Date Stop Date Generic Name NDC Status Provider Patient Instruction MELOXICAM 15 MG TABS 1qd MELOXICAM 01909680809 No Longer Active Arnol Ballard MD Active PANTOPRAZOLE SODIUM 40 MG TBEC Take one by mouth bid PANTOPRAZOLE SODIUM 54173877518 No Longer Active Arnol Ballard MD Acti ve VESICARE 10 MG TABS 1 tab daily SOLIFENACIN SUCCI KAHLIL 13088984827 No Longer Active Arnol Ballard MD Active SUPER B-50 B COMPLEX CAPS 1qd B COMPLEX-BIOT IN-FA 15046248523 No Longer Active Arnol Ballard MD Active OMEGA 3-6-9 COMPLEX CAPS 1qd OMEGA 3-6-9 FAT TY ACIDS 03632122978 No Longer Active Arnol Ballard MD Active NAPROSYN 500 MG TABS 1 bid NAPROXEN 76925135684 No Longer Active Arnol Ballard MD Active HYDROCODONE-ACETAMINOPHEN 5-325 MG TABS 1-2 q 4 hr prn pain HYDROCODONE-ACETAMINOPHEN 80410319413 No Longer Active Arnol Ballard MD Active NEXIUM 40 MG CPDR 1 q d ESOMEPRAZOLE MAGNE SIUM 74661270534 No Longer Active Rony Mata MD Active PRILOSEC 40 MG CPDR 1 tab daily OMEPRAZOLE 5464878730 8 Active Rony Mata MD Active CVS ZINC 50 MG TABS 1 qd ZINC 95328557917 Active Anupama Meadows APRN Active CVS MAGNESIUM 250 MG TABS 3 q d MAGNESIUM 391193311 81 Active Elaine Meadows APRN Active CVS VITAMIN C 1000 MG TABS 1 qd ASCORBIC ACID 5042 8554298 Active Elaine Meadows APRN Active SUPER B COMPLEX TABS Take one by mouth daily B COMPLEX-C 50072639542 No Longer Active Elaine Meadows APRN Active AMBIEN 10 MG TABS 1 at bedtime ZOLPIDEM TARTRAT E 03932497640 No Longer Active Elaine Meadows APRN Active ASPIRIN 81 MG TAB 1 tablet by mouth daily ASPIR IN 54168049379 No Longer Active Elaine Meadows APRN Active MACRODANTIN 100 MG CAPS Take one by mouth daily 10/18 NITROFURANTOIN MACROCRYSTAL 31070205269 No Longer Active Arnol Ballard MD Active VITAMIN D3 5000 UNIT TABS 1qd CHOLECALCIFER OL 82909586168 No Longer Active Arnol Ballard MD Active FIBER THERAPY 500 MG TABS 1qd METHYLCELL ULOSE (LAXATIVE) 52687254997 No Longer Active Arnol Ballard MD Active VITAMIN C 1000 MG TABS 1qd ASCORBIC ACID 30 716726932 No Longer Active Arnol Ballard MD Active HYDROCODONE-ACETAMINOPHEN 10-500 MG TABS 1 prn HYDROCODONE-ACETAMINOPHEN 27145667920 No Longer Active Arnol Ballard MD Active LOVASTATIN 40 MG TABS 1 at bedtime LOVASTATIN 00 707303858 No Longer Active Joao Harms PA Active CLONAZEPAM 0.5 MG TABS 2 tablet by mouth 1 times daily at bedtime CLONAZEPAM 54106622039 Active Joao Harms PA Active CYMBALTA 60 MG CPEP 1 every morning DULOXETINE HC L 51887840121 Active Joao Harms PA Active CYMBALTA 30 MG CPEP 1 cap by mouth daily with 60mg cap DULOXETINE HCL 98379549376 No Longer Active Joao Harms PA Active CLONAZEPAM 0.5 MG TBDP 2 tabs at bedtime CLONAZ EPAM 57003064957 No Longer Active Joao Harms PA Active ZYRTEC ALLERGY 10 MG TABS Take one by mouth daily 2011 CETIRIZINE HCL 81884787771 No Longer Active Sobia Cartwright FISH HATCHERY SPECIALIST Active VITAMIN D3 2000 UNIT CAPS 2 1/2 daily CHOLECALC IFEROL 91628239442 No Longer Active Sobia Inmanf FISH HATCHERY SPECIALIST Active ZITHROMAX Z-ANTONIETA 250 MG TABS 2x1day,3u2nsmg AZIT HROMYCIN 92906432763 No Longer Active Sobia Cartwright FISH HATCHERY SPECIALIST Active MULTIVITAMINS TABS Take one by mouth daily MULT IPLE VITAMIN 97116149112 Active Symone Lucke Active VITAMIN D3 2000 UNIT CAPS 2 1/2 daily TAMIN D3 2000 UNIT CAPS CHOLECALCIFEROL Inactive ZYRTEC ALLERGY 10 MG TABS Take one by mouth daily 2011 ZYRTEC ALLERGY 10 MG TABS 5711319 CETIRIZINE HCL Inactive CLONAZEPAM 0.5 MG TBDP 2 tabs at bedtime CLONAZEPAM 0.5 MG TBDP 625559 CLONAZEPAM Inactive CYMBALTA 30 MG CPEP 1 cap by mouth daily with 60mg cap CYMBALTA 30 MG CPEP 515899 DULOXETINE HCL Inactive LOVASTATIN 40 MG TABS 1 at bedtime LOVASTATIN 4 0 MG TABS 794866 LOVASTATIN Inactive HYDROCODONE-ACETAMINOPHEN 10-500 MG TABS 1 prn HYDROCODONE- ACETAMINOPHEN 10-500 MG TABS HYDROCODONE-ACETAMINOPHEN Inact kiya VITAMIN C 1000 MG TABS 1qd VITAMIN C 1000 M G TABS 665959 ASCORBIC ACID Inactive FIBER THERAPY 500 MG TABS 1qd FIBER THERAPY 500 MG TABS METHYLCELLULOSE (LAXATIVE) Inactive VITAMIN D3 5000 UNIT TABS 1qd VITAMIN D3 50 00 UNIT TABS CHOLECALCIFEROL Inactive MACRODANTIN 100 MG CAPS Take one by mouth daily 10/18 MACRODANTIN 100 MG CAPS 4903789 NITROFURANTOIN MACROCRYSTAL Inactive ASPIRIN 81 MG TAB 1 tablet by mouth daily ASPIRIN 81 MG TAB ASPIRIN Inactive AMBIEN 10 MG TABS 1 at bedtime AMBIEN 10 MG TABS 472529 ZOLPIDEM TARTRATE Inactive SUPER B COMPLEX TABS Take one by mouth daily 4 SUPER B COMPLEX TABS B COMPLEX-C Inactive NEXIUM 40 MG CPDR 1 q d NEXIUM 40 MG CPDR 60 6730 ESOMEPRAZOLE MAGNESIUM Inactive HYDROCODONE-ACETAMINOPHEN 5-325 MG TABS 1-2 q 4 hr prn pain 2013 HYDROCODONE-ACETAMINOPHEN 5-325 MG TABS 040596 HYDROCODONE-ACETAMINOPHEN Inactive NAPROSYN 500 MG TABS 1 bid NAPROSYN 500 MG T ABS 363359 NAPROXEN Inactive OMEGA 3-6-9 COMPLEX CAPS 1qd OMEGA 3-6-9 CO MPLEX CAPS OMEGA 3-6-9 FATTY ACIDS Inactive SUPER B-50 B COMPLEX CAPS 1qd SUPER B-50 B COMPLEX CAPS B [id number] Inactive VESICARE 10 MG TABS 1 tab daily VESICARE 10 MG T ABS SOLIFENACIN SUCCINATE Inactive PANTOPRAZOLE SODIUM 40 MG TBEC Take one by mouth bid 4 PANTOPRAZOLE SODIUM 40 MG TBEC 043388 PANTOPRAZOLE SODIUM Inactive MELOXICAM 15 MG TABS 1qd MELOXICAM 15 MG T ABS 297794 MELOXICAM Inactive ZITHROMAX Z-ANTONIETA 250 MG TABS 2x1day,1c4xfpe ZITHROMAX Z-ANTONIETA 250 MG TABS 0624097 AZITHROMYCIN Inactive Vital Signs Date Name Value Unit Range Description blood pressure, diastolic - 8462-4 74 mm[Hg] BP shore blood pressure, systolic - 8480-6 109 mm[Hg] BP sys pulse rate E&M - 8867-4 77 /min H eart rate temperature E&M 97.2 [degF] Body temp erature weight E&M - 3141-9 190.6 [lb_av] Weigh t Measured Encounters Code Encounter Date Provider Facility CPT-19583 Level 3 Est. Patient 22:35:01 CDT Arnol collier MD [facility] CPT-15862 Level 3 Est. Patient 12:55:02 ALUMNI COORDINATOR Arnol collier MD [facility] CPT-04560 Level 4 New Patient 14:35:08 CDT Arnol quinn MD [facility] CPT-09447 Level 4 Est. Patient 08:52:50 [facility] Level 4 Est. Patient 07:47:45 [facility] Procedures Code Procedure Name Date Entry Date Standard Desc ription CPT-51560 Postop F/U Visit 14:36:53 CDT CPT-OV Office Visit 14:55:53 CDT CPT-OV Office Visit 14:55:26 CDT CPT-OV Office Visit 15:26:35 CDT CPT-48200 Postop F/U Visit 17:47:54 ALUMNI COORDINATOR CPT-33861 Interstim trial 12:55:02 ALUMNI COORDINATOR CPT-87330 Venipuncture Draw Fee 17:04:06 CDT
--- OUTSIDE RECORDS SUMMARY | 2019-04-15 12:37 | XMS REPORT | Clinical Summary ---
Author Author Admin, Sabrina Jefferson Organization [facility] [employer] Address Unknown Phone Unavailable Allergies, Adverse Reactions, [...] oth er medications HYPERLIPIDEMIA 272.4 Active Sadie Jonse LPN Other and unspecified hyperlipidemia OSTEOARTHRITIS 715.90 Active Sobia Naff PAPER WRAPPING MACHINE OPERATOR Osteoarthrosis, unspecified whether generalized or localized, involving unspecified site G E R D 530.81 Active Sobia Naff PAPER WRAPPING MACHINE OPERATOR Esoph ageal reflux DEPRESSION 311 Active Sobia Naff PAPER WRAPPING MACHINE OPERATOR De pressive disorder, not elsewhere classified FH DIABETES V18.0 Active Sobia Naff PAPER WRAPPING MACHINE OPERATOR F amily history of diabetes mellitus DROWSINESS [...] DO Encounter for other specified af tercare Contusion of left foot, initial encounter ICD-924.20 Inactive Diallo Shirley MD Contusion of unspecified part of head, subsequent encounter ICD-V58.89 Inactive Diallo Shirley MD 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 nactive Joao BOYD Medication List Medication Instructions Start Date Stop Date Generic Name NDC Status Provider Patient Instruction LIPITOR 10 MG ORAL TABS 1 tab daily ATORVASTATI N CALCIUM 55796257183 Active Diallo Shirley MD Active MIRAPEX 0.5 MG ORAL TABS 1 tab in the am 2 tabs in pm PRAMIPEXOLE DIHYDROCHLORIDE 56048218134 Active Diallo Shirley MD Active WELLBUTRIN SR 150 MG ORAL [id number] 1 tab twice daily BUPROPION HCL 63721136009 Active Diallo Shirley MD Active CLONAZEPAM 0.5 MG TABS 2 tablet by mouth 1 times daily at bedtime CLONAZEPAM 08598922902 No Longer Active Diallo Shirley MD Activ e PRILOSEC 40 MG CPDR 1 tab daily OMEPRAZOLE 28477 934864 No Longer Active Diallo Shirley MD Active MELOXICAM 15 MG TABS 1qd MELOXICAM 56796472046 No Longer Active Arnol Ballard MD Active PANTOPRAZOLE SODIUM 40 MG TBEC Take one by mouth bid PANTOPRAZOLE SODIUM 20498486190 No Longer Active Arnol Ballard MD Acti ve VESICARE 10 MG TABS 1 tab daily SOLIFENACIN SUCCI KAHLIL 60372414908 No Longer Active Arnol Ballard MD Active SUPER B-50 B COMPLEX CAPS 1qd B COMPLEX-BIOT IN-FA 58579727836 No Longer Active Arnol Ballard MD Active OMEGA 3-6-9 COMPLEX CAPS 1qd OMEGA 3-6-9 FAT TY ACIDS 99227110869 No Longer Active Arnol Ballard MD Active NAPROSYN 500 MG TABS 1 bid NAPROXEN 38372626301 No Longer Active J William Ballard MD Active HYDROCODONE-ACETAMINOPHEN 5-325 MG TABS 1-2 q 4 hr prn pain HYDROCODONE-ACETAMINOPHEN 17890730890 No Longer Active Arnol Ballard MD Active NEXIUM 40 MG CPDR 1 q d ESOMEPRAZOLE MAGNE SIUM 02041137430 No Longer Active Rony Mata MD Active CVS ZINC 50 MG TABS 1 qd ZINC 48903305169 Active Anupama Meadows APRN Active CVS MAGNESIUM 250 MG TABS 3 q d MAGNESIUM 422488083 81 Active Elaine Meadows APRN Active CVS VITAMIN C 1000 MG TABS 1 qd ASCORBIC ACID 5042 0363396 Active Elaine Meadows APRN Active SUPER B COMPLEX TABS Take one by mouth daily B COMPLEX-C 27418178369 No Longer Active Elaine Meadows APRN Active AMBIEN 10 MG TABS 1 at bedtime ZOLPIDEM TARTRAT E 64782039627 No Longer Active Elaine Meadows APRN Active ASPIRIN 81 MG TAB 1 tablet by mouth daily ASPIR IN 45738570050 No Longer Active Elaine Meadows APRN Active MACRODANTIN 100 MG CAPS Take one by mouth daily 10/18 NITROFURANTOIN MACROCRYSTAL 01842439409 No Longer Active Arnol Ballard MD Active VITAMIN D3 5000 UNIT TABS 1qd CHOLECALCIFER OL 63162977742 No Longer Active Arnol Ballard MD Active FIBER THERAPY 500 MG TABS 1qd METHYLCELL ULOSE (LAXATIVE) 70505495812 No Longer Active Arnol Ballard MD Active VITAMIN C 1000 MG TABS 1qd ASCORBIC ACID 30 218480231 No Longer Active Arnol Ballard MD Active HYDROCODONE-ACETAMINOPHEN 10-500 MG TABS 1 prn HYDROCODONE-ACETAMINOPHEN 02274466147 No Longer Active Arnol Ballard MD Active LOVASTATIN 40 MG TABS 1 at bedtime LOVASTATIN 00 754726879 No Longer Active Joao Harms PA Active CYMBALTA 60 MG CPEP 1 every morning DULOXETINE HC L 87191559671 Active Joao Harms PA Active CYMBALTA 30 MG CPEP 1 cap by mouth daily with 60mg cap DULOXETINE HCL 56221501876 No Longer Active Joao Harms PA Active CLONAZEPAM 0.5 MG TBDP 2 tabs at bedtime CLONAZ EPAM 78737932511 No Longer Active Joao Harms PA Active ZYRTEC ALLERGY 10 MG TABS Take one by mouth daily 2011 CETIRIZINE HCL 77900291796 No Longer Active Sobia Naff PAPER WRAPPING MACHINE OPERATOR Active VITAMIN D3 2000 UNIT CAPS 2 1/2 daily CHOLECALC IFEROL 17265409738 No Longer Active Sobia Naff PAPER WRAPPING MACHINE OPERATOR Active ZITHROMAX Z-ANTONIETA 250 MG TABS 2x1day,8l3vdwi AZIT HROMYCIN 77505779984 No Longer Active Sobia Naff PAPER WRAPPING MACHINE OPERATOR Active MULTIVITAMINS TABS Take one by mouth daily MULT IPLE VITAMIN 80981702847 Active Symone Lucke Active VITAMIN D3 2000 UNIT CAPS 2 1/2 daily TAMIN D3 2000 UNIT CAPS CHOLECALCIFEROL Inactive ZYRTEC ALLERGY 10 MG TABS Take one by mouth daily 2011 ZYRTEC ALLERGY 10 MG TABS 0936287 CETIRIZINE HCL Inactive CLONAZEPAM 0.5 MG TBDP 2 tabs at bedtime CLONAZEPAM 0.5 MG TBDP 932819 CLONAZEPAM Inactive CYMBALTA 30 MG CPEP 1 cap by mouth daily with 60mg cap CYMBALTA 30 MG CPEP 115721 DULOXETINE HCL Inactive LOVASTATIN 40 MG TABS 1 at bedtime LOVASTATIN 4 0 MG TABS 810814 LOVASTATIN Inactive HYDROCODONE-ACETAMINOPHEN 10-500 MG TABS 1 prn HYDROCODONE- ACETAMINOPHEN 10-500 MG TABS HYDROCODONE-ACETAMINOPHEN Inact kiya VITAMIN C 1000 MG TABS 1qd VITAMIN C 1000 M G TABS 644092 ASCORBIC ACID Inactive FIBER THERAPY 500 MG TABS 1qd FIBER THERAPY 500 MG TABS METHYLCELLULOSE (LAXATIVE) Inactive VITAMIN D3 5000 UNIT TABS 1qd VITAMIN D3 50 00 UNIT TABS CHOLECALCIFEROL Inactive MACRODANTIN 100 MG CAPS Take one by mouth daily 10/18 MACRODANTIN 100 MG CAPS 2150105 NITROFURANTOIN MACROCRYSTAL Inactive ASPIRIN 81 MG TAB 1 tablet by mouth daily ASPIRIN 81 MG TAB ASPIRIN Inactive AMBIEN 10 MG TABS 1 at bedtime AMBIEN 10 MG TABS 263560 ZOLPIDEM TARTRATE Inactive SUPER B COMPLEX TABS Take one by mouth daily 4 SUPER B COMPLEX TABS B COMPLEX-C Inactive NEXIUM 40 MG CPDR 1 q d NEXIUM 40 MG CPDR 60 6730 ESOMEPRAZOLE MAGNESIUM Inactive HYDROCODONE-ACETAMINOPHEN 5-325 MG TABS 1-2 q 4 hr prn pain 2013 HYDROCODONE-ACETAMINOPHEN 5-325 MG TABS 777968 HYDROCODONE-ACETAMINOPHEN Inactive NAPROSYN 500 MG TABS 1 bid NAPROSYN 500 MG T ABS 476984 NAPROXEN Inactive OMEGA 3-6-9 COMPLEX CAPS 1qd OMEGA 3-6-9 CO MPLEX CAPS OMEGA 3-6-9 FATTY ACIDS Inactive SUPER B-50 B COMPLEX CAPS 1qd SUPER B-50 B COMPLEX CAPS B [id number] Inactive VESICARE 10 MG TABS 1 tab daily VESICARE 10 MG T ABS SOLIFENACIN SUCCINATE Inactive PANTOPRAZOLE SODIUM 40 MG TBEC Take one by mouth bid 4 PANTOPRAZOLE SODIUM 40 MG TBEC 666155 PANTOPRAZOLE SODIUM Inactive MELOXICAM 15 MG TABS 1qd MELOXICAM 15 MG T ABS 395037 MELOXICAM Inactive PRILOSEC 40 MG CPDR 1 tab daily PRILOSEC 40 MG C PDR OMEPRAZOLE Inactive CLONAZEPAM 0.5 MG TABS 2 tablet by mouth 1 times daily at bedtime CLONAZEPAM 0.5 MG TABS 990439 CLONAZEPAM Inactive ZITHROMAX Z-ANTONIETA 250 MG TABS 2x1day,6m2kbxs ZITHROMAX Z-ANTONIETA 250 MG TABS 8479700 AZITHROMYCIN Inactive Vital Signs Date Name Value [...] Measured Encounters Code Encounter Date Provider Facility CPT-91016 Level 3 Est. Patient 17:02:03 CDT Diallo Shirley MD [facility] CPT-07738 Level 3 Est. Patient 16:22:59 CDT Dave palm DO [facility] CPT-23024 Level 3 Est. Patient 12:28:01 CDT Diallo Shirley MD [facility] CPT-23353 Level 3 Est. Patient 22:35:01 CDT Arnol collier MD [facility] CPT-07519 Level 3 Est. Patient 12:55:02 BARBER APPRENTICE J William collier MD [facility] CPT-93490 Level 4 New Patient 14:35:08 CDT Arnol quinn MD [facility] CPT-34221 Level 4 Est. Patient 08:52:50 CDT Joao jacques DEB [facility] CPT-55508 Level 4 Est. Patient 07:47:45 CDT Joao jacques DEB [facility] Procedures Code Procedure Name Date Entry Date Standard Desc ription CPT-70513 Foot, left, comp min 3V - XRAY USE ONLY 16:58:22 CDT CPT-86676 Foot, left, comp min 3V - XRAY USE ONLY 16:47:13 CDT CPT-62638 Chest 2V Frontal and Lat - XRAY USE ONLY 16:45:56 CDT CPT-82227 Postop F/U Visit 14:36:53 CDT CPT-OV Office Visit 14:55:53 CDT CPT-OV Office Visit 14:55:26 CDT CPT-OV Office Visit 15:26:35 CDT CPT-00894 Postop F/U Visit 17:47:54 BARBER APPRENTICE CPT-62196 Interstim trial 12:55:02 BARBER APPRENTICE CPT-37609 Venipuncture Draw Fee 17:04:06 CDT
--- OUTSIDE RECORDS SUMMARY | 2019-04-15 12:37 | XMS REPORT | Clinical Summary ---
Author Author Admin, Sabrina Jefferson Organization [facility] [employer] Address Unknown Phone Unavailable Allergies, Adverse Reactions, [...] unspecified hyperlipidemia OSTEOARTHRITIS 715.90 Active Sobia Naff MONOGRAM MAKER Osteoarthrosis, unspecified whether generalized or localized, involving unspecified site G E R D 530.81 Active Sobia Naff MONOGRAM MAKER Esoph ageal reflux DEPRESSION 311 Active Sobia Naff MONOGRAM MAKER De pressive disorder, not elsewhere classified FH DIABETES V18.0 Active Sobia Naff MONOGRAM MAKER F amily history of diabetes mellitus [...] TABS 1 tab daily ATORVASTATI N CALCIUM 19716447458 Active Diallo Shirley MD Active MIRAPEX 0.5 MG ORAL TABS 1 tab in the am 2 tabs in pm PRAMIPEXOLE DIHYDROCHLORIDE 17164816725 Active Diallo Shirley MD Active WELLBUTRIN SR 150 MG ORAL [id number] 1 tab twice daily BUPROPION HCL 80084371461 Active Diallo Shirley MD Active CLONAZEPAM 0.5 MG TABS 2 tablet by mouth 1 times daily at bedtime CLONAZEPAM 43531499357 No Longer Active Diallo Shirley MD Activ e PRILOSEC 40 MG CPDR 1 tab daily OMEPRAZOLE 83192 192386 No Longer Active Diallo Shirley MD Active MELOXICAM 15 MG TABS 1qd MELOXICAM 73519660328 No Longer Active Arnol Ballard MD Active PANTOPRAZOLE SODIUM 40 MG TBEC Take one by mouth bid PANTOPRAZOLE SODIUM 91078139715 No Longer Active Arnol Ballard MD Acti ve VESICARE 10 MG TABS 1 tab daily SOLIFENACIN SUCCI KAHLIL 61994537788 No Longer Active Arnol Ballard MD Active SUPER B-50 B COMPLEX CAPS 1qd B COMPLEX-BIOT IN-FA 42154758044 No Longer Active Arnol Ballard MD Active OMEGA 3-6-9 COMPLEX CAPS 1qd OMEGA 3-6-9 FAT TY ACIDS 92090419182 No Longer Active Arnol Ballard MD Active NAPROSYN 500 MG TABS 1 bid NAPROXEN 60892061101 No Longer Active J William Ballard MD Active HYDROCODONE-ACETAMINOPHEN 5-325 MG TABS 1-2 q 4 hr prn pain HYDROCODONE-ACETAMINOPHEN 29694380950 No Longer Active rAnol Ballard MD Active NEXIUM 40 MG CPDR 1 q d ESOMEPRAZOLE MAGNE SIUM 56013682982 No Longer Active Rony Mata MD Active CVS ZINC 50 MG TABS 1 qd ZINC 98379798641 Active Anupama Meadows APRN Active CVS MAGNESIUM 250 MG TABS 3 q d MAGNESIUM 614746918 81 Active Elaine Meadows APRN Active CVS VITAMIN C 1000 MG TABS 1 qd ASCORBIC ACID 5042 4376165 Active Elaine Meadows APRN Active SUPER B COMPLEX TABS Take one by mouth daily B COMPLEX-C 32396506195 No Longer Active Elaine Meadows APRN Active AMBIEN 10 MG TABS 1 at bedtime ZOLPIDEM TARTRAT E 24944700644 No Longer Active Elaine Meadows APRN Active ASPIRIN 81 MG TAB 1 tablet by mouth daily ASPIR IN 10890550647 No Longer Active Elaine Meadows APRN Active MACRODANTIN 100 MG CAPS Take one by mouth daily 10/18 NITROFURANTOIN MACROCRYSTAL 36640894070 No Longer Active Arnol Ballard MD Active VITAMIN D3 5000 UNIT TABS 1qd CHOLECALCIFER OL 76576575892 No Longer Active Arnol Ballard MD Active FIBER THERAPY 500 MG TABS 1qd METHYLCELL ULOSE (LAXATIVE) 07255197783 No Longer Active Arnol Ballard MD Active VITAMIN C 1000 MG TABS 1qd ASCORBIC ACID 30 766250415 No Longer Active Arnol Ballard MD Active HYDROCODONE-ACETAMINOPHEN 10-500 MG TABS 1 prn HYDROCODONE-ACETAMINOPHEN 99382720521 No Longer Active Arnol Ballard MD Active LOVASTATIN 40 MG TABS 1 at bedtime LOVASTATIN 00 683203515 No Longer Active Joao Harms PA Active CYMBALTA 60 MG CPEP 1 every morning DULOXETINE HC L 96874860343 Active Joao Harms PA Active CYMBALTA 30 MG CPEP 1 cap by mouth daily with 60mg cap DULOXETINE HCL 77472578204 No Longer Active Joao Harms PA Active CLONAZEPAM 0.5 MG TBDP 2 tabs at bedtime CLONAZ EPAM 89944330248 No Longer Active Joao Harms PA Active ZYRTEC ALLERGY 10 MG TABS Take one by mouth daily 2011 CETIRIZINE HCL 78908581164 No Longer Active Sobia Naff MONOGRAM MAKER Active VITAMIN D3 2000 UNIT CAPS 2 1/2 daily CHOLECALC IFEROL 89170125713 No Longer Active Sobia Naff MONOGRAM MAKER Active ZITHROMAX Z-ANTONIETA 250 MG TABS 2x1day,6o6jdvo AZIT HROMYCIN 48125960619 No Longer Active Sobia Naff MONOGRAM MAKER Active MULTIVITAMINS TABS Take one by mouth daily MULT IPLE VITAMIN 03812994865 Active Symone Lucke Active VITAMIN D3 2000 UNIT CAPS 2 1/2 daily TAMIN D3 2000 UNIT CAPS CHOLECALCIFEROL Inactive ZYRTEC ALLERGY 10 MG TABS Take one by mouth daily 2011 ZYRTEC ALLERGY 10 MG TABS 4968259 CETIRIZINE HCL Inactive CLONAZEPAM 0.5 MG TBDP 2 tabs at bedtime CLONAZEPAM 0.5 MG TBDP 065661 CLONAZEPAM Inactive CYMBALTA 30 MG CPEP 1 cap by mouth daily with 60mg cap CYMBALTA 30 MG CPEP 654187 DULOXETINE HCL Inactive LOVASTATIN 40 MG TABS 1 at bedtime LOVASTATIN 4 0 MG TABS 632725 LOVASTATIN Inactive HYDROCODONE-ACETAMINOPHEN 10-500 MG TABS 1 prn HYDROCODONE- ACETAMINOPHEN 10-500 MG TABS HYDROCODONE-ACETAMINOPHEN Inact kiya VITAMIN C 1000 MG TABS 1qd VITAMIN C 1000 M G TABS 543340 ASCORBIC ACID Inactive FIBER THERAPY 500 MG TABS 1qd FIBER THERAPY 500 MG TABS METHYLCELLULOSE (LAXATIVE) Inactive VITAMIN D3 5000 UNIT TABS 1qd VITAMIN D3 50 00 UNIT TABS CHOLECALCIFEROL Inactive MACRODANTIN 100 MG CAPS Take one by mouth daily 10/18 MACRODANTIN 100 MG CAPS 0814912 NITROFURANTOIN MACROCRYSTAL Inactive ASPIRIN 81 MG TAB 1 tablet by mouth daily ASPIRIN 81 MG TAB ASPIRIN Inactive AMBIEN 10 MG TABS 1 at bedtime AMBIEN 10 MG TABS 449029 ZOLPIDEM TARTRATE Inactive SUPER B COMPLEX TABS Take one by mouth daily 4 SUPER B COMPLEX TABS B COMPLEX-C Inactive NEXIUM 40 MG CPDR 1 q d NEXIUM 40 MG CPDR 60 6730 ESOMEPRAZOLE MAGNESIUM Inactive HYDROCODONE-ACETAMINOPHEN 5-325 MG TABS 1-2 q 4 hr prn pain 2013 HYDROCODONE-ACETAMINOPHEN 5-325 MG TABS 171862 HYDROCODONE-ACETAMINOPHEN Inactive NAPROSYN 500 MG TABS 1 bid NAPROSYN 500 MG T ABS 835419 NAPROXEN Inactive OMEGA 3-6-9 COMPLEX CAPS 1qd OMEGA 3-6-9 CO MPLEX CAPS OMEGA 3-6-9 FATTY ACIDS Inactive SUPER B-50 B COMPLEX CAPS 1qd SUPER B-50 B COMPLEX CAPS B [id number] Inactive VESICARE 10 MG TABS 1 tab daily VESICARE 10 MG T ABS SOLIFENACIN SUCCINATE Inactive PANTOPRAZOLE SODIUM 40 MG TBEC Take one by mouth bid 4 PANTOPRAZOLE SODIUM 40 MG TBEC 941757 PANTOPRAZOLE SODIUM Inactive MELOXICAM 15 MG TABS 1qd MELOXICAM 15 MG T ABS 339883 MELOXICAM Inactive PRILOSEC 40 MG CPDR 1 tab daily PRILOSEC 40 MG C PDR OMEPRAZOLE Inactive CLONAZEPAM 0.5 MG TABS 2 tablet by mouth 1 times daily at bedtime CLONAZEPAM 0.5 MG TABS 793695 CLONAZEPAM Inactive ZITHROMAX Z-ANTONIETA 250 MG TABS 2x1day,6f1brfs ZITHROMAX Z-ANTONIETA 250 MG TABS 6429464 AZITHROMYCIN Inactive Vital Signs Date Name Value [...] Measured Encounters Code Encounter Date Provider Facility CPT-09988 Level 3 Est. Patient 13:55:16 CDT Diallo Shirley MD [facility] CPT-90533 Level 3 Est. Patient 17:02:03 CDT Diallo Shirley MD [facility] CPT-20640 Level 3 Est. Patient 16:22:59 CDT Dave palm DO [facility] CPT-35423 Level 3 Est. Patient 12:28:01 CDT Diallo Shirley MD [facility] CPT-44649 Level 3 Est. Patient 22:35:01 CDT Arnol collier MD [facility] CPT-81670 Level 3 Est. Patient 12:55:02 EXAMINING OFFICER Arnol collier MD [facility] CPT-06468 Level 4 New Patient 14:35:08 CDT Arnol quinn MD [facility] CPT-02922 Level 4 Est. Patient 08:52:50 CDT Joao jacques [facility] CPT-85984 Level 4 Est. Patient 07:47:45 CDT Joao jacques [facility] Procedures Code Procedure Name Date Entry Date Standard Desc ription CPT-37566 Foot, left, comp min 3V - XRAY USE ONLY 16:58:22 CDT CPT-02026 Foot, left, comp min 3V - XRAY USE ONLY 16:47:13 CDT CPT-22840 Chest 2V Frontal and Lat - XRAY USE ONLY 16:45:56 CDT CPT-38726 Postop F/U Visit 14:36:53 CDT CPT-OV Office Visit 14:55:53 CDT CPT-OV Office Visit 14:55:26 CDT CPT-OV Office Visit 15:26:35 CDT CPT-64779 Postop F/U Visit 17:47:54 EXAMINING OFFICER CPT-61079 Interstim trial 12:55:02 EXAMINING OFFICER CPT-56536 Venipuncture Draw Fee 17:04:06 CDT
--- OUTSIDE RECORDS SUMMARY | 2019-04-15 12:37 | XMS REPORT | Clinical Summary ---
Author Author Admin, Sabrina Jefferson Organization [facility] [employer] Address Unknown Phone Unavailable Allergies, Adverse Reactions, Alerts Allergy Name Reaction Description Start Date Severity Status Pr kristy VICENTES Critical Active Sobia Naff LP N SULFA rash Moderate Active Ysmone Lucke DICLOFENAC SODIUM Moderate Active Symone Tabby [...] unspecified hyperlipidemia OSTEOARTHRITIS 715.90 Active Sobia Naff GALLEY BOY Osteoarthrosis, unspecified whether generalized or localized, involving unspecified site G E R D 530.81 Active Sobia Naff GALLEY BOY Esoph ageal reflux DEPRESSION 311 Active Sobia Naff GALLEY BOY De pressive disorder, not elsewhere classified FH DIABETES V18.0 Active Sobia Naff GALLEY BOY F amily history of diabetes mellitus DROWSINESS [...] am 2 tabs in pm PRAMIPEXOLE DIHYDROCHLORIDE 55637439563 Active Diallo Shirley MD Active WELLBUTRIN SR 150 MG ORAL [id number] 1 tab twice daily BUPROPION HCL 70530095762 Active Diallo Shirley MD Active CLONAZEPAM 0.5 MG TABS 2 tablet by mouth 1 times daily at bedtime CLONAZEPAM 56635129404 No Longer Active Diallo Shirley MD Activ e PRILOSEC 40 MG CPDR 1 tab daily OMEPRAZOLE 11705 629592 No Longer Active Diallo Shirley MD Active MELOXICAM 15 MG TABS 1qd MELOXICAM 94265972565 No Longer Active Arnol Ballard MD Active PANTOPRAZOLE SODIUM 40 MG TBEC Take one by mouth bid PANTOPRAZOLE SODIUM 32358722684 No Longer Active Arnol Ballard MD Acti ve VESICARE 10 MG TABS 1 tab daily SOLIFENACIN SUCCI KAHLIL 80250546986 No Longer Active Arnol Ballard MD Active SUPER B-50 B COMPLEX CAPS 1qd B COMPLEX-BIOT IN-FA 75465491051 No Longer Active Arnol Ballard MD Active OMEGA 3-6-9 COMPLEX CAPS 1qd OMEGA 3-6-9 FAT TY ACIDS 40889892941 No Longer Active Arnol Ballard MD Active NAPROSYN 500 MG TABS 1 bid NAPROXEN 80616976905 No Longer Active Arnol Ballard MD Active HYDROCODONE-ACETAMINOPHEN 5-325 MG TABS 1-2 q 4 hr prn pain HYDROCODONE-ACETAMINOPHEN 68968778007 No Longer Active Arnol Ballard MD Active NEXIUM 40 MG CPDR 1 q d ESOMEPRAZOLE MAGNE SIUM 71094438760 No Longer Active Rony Mata MD Active CVS ZINC 50 MG TABS 1 qd ZINC 81292887157 Active Anupama Meadows RENATO Active CVS MAGNESIUM 250 MG TABS 3 q d MAGNESIUM 171584718 81 Active Elaine Meadows RENATO Active CVS VITAMIN C 1000 MG TABS 1 qd ASCORBIC ACID 5042 2436277 Active Elaine Meadows RENATO Active SUPER B COMPLEX TABS Take one by mouth daily B COMPLEX-C 52539307050 No Longer Active Elaine Meadows RENATO Active AMBIEN 10 MG TABS 1 at bedtime ZOLPIDEM TARTRAT E 60627631872 No Longer Active Elaine Meadows RENATO Active ASPIRIN 81 MG TAB 1 tablet by mouth daily ASPIR IN 22996213175 No Longer Active Elaine Meadows RENATO Active MACRODANTIN 100 MG CAPS Take one by mouth daily 10/18 NITROFURANTOIN MACROCRYSTAL 79284672726 No Longer Active Arnol Ballard MD Active VITAMIN D3 5000 UNIT TABS 1qd CHOLECALCIFER OL 81167651893 No Longer Active Arnol Ballrad MD Active FIBER THERAPY 500 MG TABS 1qd METHYLCELL ULOSE (LAXATIVE) 50929948716 No Longer Active Arnol Ballard MD Active VITAMIN C 1000 MG TABS 1qd ASCORBIC ACID 30 120779462 No Longer Active Arnol Ballard MD Active HYDROCODONE-ACETAMINOPHEN 10-500 MG TABS 1 prn HYDROCODONE-ACETAMINOPHEN 73785048054 No Longer Active Arnol Ballard MD Active LOVASTATIN 40 MG TABS 1 at bedtime LOVASTATIN 00 555581584 No Longer Active Joao Harms PA Active CYMBALTA 60 MG CPEP 1 every morning DULOXETINE HC L 95816708214 Active Joao Harms PA Active CYMBALTA 30 MG CPEP 1 cap by mouth daily with 60mg cap DULOXETINE HCL 90246929156 No Longer Active Joao Harms PA Active CLONAZEPAM 0.5 MG TBDP 2 tabs at bedtime CLONAZ EPAM 49559891365 No Longer Active Joao Harms PA Active ZYRTEC ALLERGY 10 MG TABS Take one by mouth daily 2011 CETIRIZINE HCL 56477141959 No Longer Active Sobia Naff GALLEY BOY Active VITAMIN D3 2000 UNIT CAPS 2 1/2 daily CHOLECALC IFEROL 66222069546 No Longer Active Sobia Naff GALLEY BOY Active ZITHROMAX Z-ANTONIETA 250 MG TABS 2x1day,1g9adgk AZIT HROMYCIN 45838173145 No Longer Active Sobia Naff GALLEY BOY Active MULTIVITAMINS TABS Take one by mouth daily MULT IPLE VITAMIN 09729137819 Active Symone Lucke Active VITAMIN D3 2000 UNIT CAPS 2 1/2 daily TAMIN D3 2000 UNIT CAPS CHOLECALCIFEROL Inactive ZYRTEC ALLERGY 10 MG TABS Take one by mouth daily 2011 ZYRTEC ALLERGY 10 MG TABS 6029875 CETIRIZINE HCL Inactive CLONAZEPAM 0.5 MG TBDP 2 tabs at bedtime CLONAZEPAM 0.5 MG TBDP 871647 CLONAZEPAM Inactive CYMBALTA 30 MG CPEP 1 cap by mouth daily with 60mg cap CYMBALTA 30 MG CPEP 439916 DULOXETINE HCL Inactive LOVASTATIN 40 MG TABS 1 at bedtime LOVASTATIN 4 0 MG TABS 870376 LOVASTATIN Inactive HYDROCODONE-ACETAMINOPHEN 10-500 MG TABS 1 prn HYDROCODONE- ACETAMINOPHEN 10-500 MG TABS HYDROCODONE-ACETAMINOPHEN Inact kiya VITAMIN C 1000 MG TABS 1qd VITAMIN C 1000 M G TABS 857410 ASCORBIC ACID Inactive FIBER THERAPY 500 MG TABS 1qd FIBER THERAPY 500 MG TABS METHYLCELLULOSE (LAXATIVE) Inactive VITAMIN D3 5000 UNIT TABS 1qd VITAMIN D3 50 00 UNIT TABS CHOLECALCIFEROL Inactive MACRODANTIN 100 MG CAPS Take one by mouth daily 10/18 MACRODANTIN 100 MG CAPS 7742066 NITROFURANTOIN MACROCRYSTAL Inactive ASPIRIN 81 MG TAB 1 tablet by mouth daily ASPIRIN 81 MG TAB ASPIRIN Inactive AMBIEN 10 MG TABS 1 at bedtime AMBIEN 10 MG TABS 842326 ZOLPIDEM TARTRATE Inactive SUPER B COMPLEX TABS Take one by mouth daily 4 SUPER B COMPLEX TABS B COMPLEX-C Inactive NEXIUM 40 MG CPDR 1 q d NEXIUM 40 MG CPDR 60 6730 ESOMEPRAZOLE MAGNESIUM Inactive HYDROCODONE-ACETAMINOPHEN 5-325 MG TABS 1-2 q 4 hr prn pain 2013 HYDROCODONE-ACETAMINOPHEN 5-325 MG TABS 993524 HYDROCODONE-ACETAMINOPHEN Inactive NAPROSYN 500 MG TABS 1 bid NAPROSYN 500 MG T ABS 832022 NAPROXEN Inactive OMEGA 3-6-9 COMPLEX CAPS 1qd OMEGA 3-6-9 CO MPLEX CAPS OMEGA 3-6-9 FATTY ACIDS Inactive SUPER B-50 B COMPLEX CAPS 1qd SUPER B-50 B COMPLEX CAPS B [id number] Inactive VESICARE 10 MG TABS 1 tab daily VESICARE 10 MG T ABS SOLIFENACIN SUCCINATE Inactive PANTOPRAZOLE SODIUM 40 MG TBEC Take one by mouth bid 4 PANTOPRAZOLE SODIUM 40 MG TBEC 611681 PANTOPRAZOLE SODIUM Inactive MELOXICAM 15 MG TABS 1qd MELOXICAM 15 MG T ABS 158238 MELOXICAM Inactive PRILOSEC 40 MG CPDR 1 tab daily PRILOSEC 40 MG C PDR OMEPRAZOLE Inactive CLONAZEPAM 0.5 MG TABS 2 tablet by mouth 1 times daily at bedtime CLONAZEPAM 0.5 MG TABS 203338 CLONAZEPAM Inactive ZITHROMAX Z-ANTONIETA 250 MG TABS 2x1day,7n2glzd ZITHROMAX Z-ANTONIETA 250 MG TABS 2509317 AZITHROMYCIN Inactive Vital Signs Date Name Value [...] Measured Encounters Code Encounter Date Provider Facility CPT-06600 Level 3 Est. Patient 12:28:01 CDT Diallo Shirley MD [facility] CPT-69128 Level 3 Est. Patient 22:35:01 ROD collier MD [facility] CPT-83118 Level 3 Est. Patient 12:55:02 PLATFORM INSPECTOR Arnol collier MD [facility] CPT-44497 Level 4 New Patient 14:35:08 CDT Arnol quinn MD [facility] CPT-29681 Level 4 Est. Patient 08:52:50 CDT Joao Jakob jacques [facility] CPT-74034 Level 4 Est. Patient 07:47:45 CDT Joao Robert sawyer [facility] Procedures Code Procedure Name Date Entry Date Standard Desc ription CPT-03340 Postop F/U Visit 14:36:53 CDT CPT-OV Office Visit 14:55:53 CDT CPT-OV Office Visit 14:55:26 CDT CPT-OV Office Visit 15:26:35 CDT CPT-66390 Postop F/U Visit 17:47:54 PLATFORM INSPECTOR CPT-24495 Interstim trial 12:55:02 PLATFORM INSPECTOR CPT-60648 Venipuncture Draw Fee 17:04:06 CDT
--- OUTSIDE RECORDS SUMMARY | 2019-04-15 12:38 | XMS REPORT | Clinical Summary ---
Author Author Admin, Sabrina Jefferson Organization [facility] Address Unknown Phone Allergies, Adverse Reactions, Alerts Allergy Name Reaction Description Start Date Severity Status Pr kristy HORNHERS Critical Active Sobia Leonard LPN SULFA rash Moderate Active Symone Lucke DICLOFENAC [...] and unspecified hyperlipidemia OSTEOARTHRITIS 715.90 Active Sobia Leonard LPN Osteoarthrosis, unspecified whether generalized or localized, involving unspecified site G E R D 530.81 Active Sobia Leonard LPN Es ophageal reflux DEPRESSION 311 Active Sobia Leonard LPN Depressive disorder, not elsewhere classified FH DIABETES V18.0 Active Sobia Leonard LPN Family history of diabetes mellitus DROWSINESS 780.09 Active [...] incontinence Atypical chest pain 786.59 Active Elaine King CUATE Rizvi Other chest pain Colon cancer screening V76.51 Active Elaine Meadows RENATO Screening for malignant neoplasms of colon 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 nactive Joao BOYD Medication List Medication Instructions Start Date Stop Date Generic Name NDC Status Provider Patient Instruction NAPROSYN 500 MG TABS 1 bid NAPROXEN 79102547573 Act kiya Elaine Meadows RENATO Active [facility] ZINC 50 MG TABS 1 qd ZINC 29888968999 Active Anupama Meadows RENATO Active [facility] MAGNESIUM 250 MG TABS 3 q d MAGNESIUM 762110920 81 Active Elaine Meadows FILE DRAWER FINISHER Active CVS VITAMIN C 1000 MG TABS 1 qd ASCORBIC ACID 5042 7239420 Active Elaine Meadows FILE DRAWER FINISHER Active SUPER B COMPLEX TABS Take one by mouth daily B COMPLEX-C 46308942486 No Longer Active Elaine Meadows FILE DRAWER FINISHER Active AMBIEN 10 MG TABS 1 at bedtime ZOLPIDEM TARTRAT E 23753968389 No Longer Active Elaine Meadows FILE DRAWER FINISHER Active ASPIRIN 81 MG TAB 1 tablet by mouth daily ASPIR IN 58778893254 No Longer Active Elaine Meadows FILE DRAWER FINISHER Active PANTOPRAZOLE SODIUM 40 MG TBEC Take one by mouth bid PANTOPRAZOLE SODIUM 10612060737 [facility] MACRODANTIN 100 MG CAPS Take one by mouth daily 10/18 NITROFURANTOIN MACROCRYSTAL 56182735081 No Longer Active Arnol Ballard MD Active VITAMIN D3 5000 UNIT TABS 1qd CHOLECALCIFER OL 24348791219 No Longer Active Arnol Ballard MD Active FIBER THERAPY 500 MG TABS 1qd METHYLCELL ULOSE (LAXATIVE) 20125240587 No Longer Active Arnol Ballard MD Active VITAMIN C 1000 MG TABS 1qd ASCORBIC ACID 30 256413477 No Longer Active Arnol Ballard MD Active HYDROCODONE-ACETAMINOPHEN 10-500 MG TABS 1 prn HYDROCODONE-ACETAMINOPHEN 77026690977 No Longer Active Arnol Ballard MD Active LOVASTATIN 40 MG TABS 1 at bedtime LOVASTATIN 00 640589717 No Longer Active Joao aMrleny PA Active CLONAZEPAM 0.5 MG TABS 2 tablet by mouth 1 times daily at bedtime CLONAZEPAM 91783107813 Active Joao Harms PA Active CYMBALTA 60 MG CPEP 1 every morning DULOXETINE HC L 29915860926 Active Joao Harms PA Active CYMBALTA 30 MG CPEP 1 cap by mouth daily with 60mg cap DULOXETINE HCL 25319310301 No Longer Active Joao Farmer PA Active CLONAZEPAM 0.5 MG TBDP 2 tabs at bedtime CLONAZ EPAM 71890044512 No Longer Active Joao Marleny PA Active OMEGA 3-6-9 COMPLEX CAPS 1qd OMEGA 3-6-9 FATTY ACIDS 47953775635 Active Sobia Aisha SUPERINTENDENT HOUSE Active SUPER B-50 B COMPLEX CAPS 1qd B [id number] 00 235971759 Active Sobia Aisha SUPERINTENDENT HOUSE Active ZYRTEC ALLERGY 10 MG TABS Take one by mouth daily 2011 CETIRIZINE HCL 03726719003 No Longer Active Sobia [place] SUPERINTENDENT HOUSE Act kiya VITAMIN D3 2000 UNIT CAPS 2 1/2 daily CHOLECALC IFEROL 57570303630 No Longer Active Sobia [place] SUPERINTENDENT HOUSE Active ZITHROMAX Z-ANTONIETA 250 MG TABS 2x1day,6n2qfkk AZIT HROMYCIN 36044787715 No Longer Active Sobia [place] SUPERINTENDENT HOUSE Active MELOXICAM 15 MG TABS 1qd MELOXICAM 28104706306 Ac tive Sobia [place] SUPERINTENDENT HOUSE Active VESICARE 10 MG TABS 1 tab daily SOLIFENACIN SUCCI KAHLIL 80443318454 Active Symone Lucke Active MULTIVITAMINS TABS Take one by mouth daily MULT IPLE VITAMIN 52019421170 Active Symone Lucke Active VITAMIN D3 2000 UNIT CAPS 2 1/2 daily TAMIN D3 2000 UNIT CAPS CHOLECALCIFEROL Inactive ZYRTEC ALLERGY 10 MG TABS Take one by mouth daily 2011 ZYRTEC ALLERGY 10 MG TABS 0548468 CETIRIZINE HCL Inactive CLONAZEPAM 0.5 MG TBDP 2 tabs at bedtime CLONAZEPAM 0.5 MG TBDP 105219 CLONAZEPAM Inactive CYMBALTA 30 MG CPEP 1 cap by mouth daily with 60mg cap CYMBALTA 30 MG CPEP 180560 DULOXETINE HCL Inactive LOVASTATIN 40 MG TABS 1 at bedtime LOVASTATIN 4 0 MG TABS 469176 LOVASTATIN Inactive HYDROCODONE-ACETAMINOPHEN 10-500 MG TABS 1 prn HYDROCODONE- ACETAMINOPHEN 10-500 MG TABS 170737 HYDROCODONE-ACETAMINOPHEN Inact kiya VITAMIN C 1000 MG TABS 1qd VITAMIN C 1000 M G TABS 789595 ASCORBIC ACID Inactive FIBER THERAPY 500 MG TABS 1qd FIBER THERAPY 500 MG TABS METHYLCELLULOSE (LAXATIVE) Inactive VITAMIN D3 5000 UNIT TABS 1qd VITAMIN D3 50 00 UNIT TABS CHOLECALCIFEROL Inactive MACRODANTIN 100 MG CAPS Take one by mouth daily 10/18 MACRODANTIN 100 MG CAPS 247228 NITROFURANTOIN MACROCRYSTAL Inactive ASPIRIN 81 MG TAB 1 tablet by mouth daily ASPIRIN 81 MG TAB 306815 ASPIRIN Inactive AMBIEN 10 MG TABS 1 at bedtime AMBIEN 10 MG TABS 317715 ZOLPIDEM TARTRATE Inactive SUPER B COMPLEX TABS Take one by mouth daily 4 SUPER B COMPLEX TABS B COMPLEX-C Inactive ZITHROMAX Z-ANTONIETA 250 MG TABS 2x1day,[id number] ZITHROMAX Z-ANTONIETA 250 MG TABS 5567774 AZITHROMYCIN Inactive Vital Signs Date Name Value Unit Range Description blood pressure, diastolic 79 mm[Hg] BP shore blood pressure, systolic 115 mm[Hg] BP sys height E&M 67 [in_us] Bdy height pulse rate E&M 73 /min Heart rate temperature E&M 96.6 [degF] Body temp erature weight E&M 235 [lb_av] Weight Measure d blood pressure, diastolic 79 mm[Hg] BP shore blood pressure, systolic 118 mm[Hg] BP sys height E&M 67 [in_us] Bdy height pulse rate E&M 90 /min Heart rate temperature E&M 99.0 [degF] Body temp erature weight E&M 263 [lb_av] Weight Measure d blood pressure, diastolic 82 mm[Hg] BP shore blood pressure, systolic 120 mm[Hg] BP sys height E&M 67 [in_us] Bdy height pulse rate E&M 105 /min Heart rate temperature E&M 96.9 [degF] Body temp erature weight E&M 263 [lb_av] Weight Measure d blood pressure, diastolic 81 mm[Hg] BP shore blood pressure, systolic 114 mm[Hg] BP sys height E&M 67 [in_us] Bdy height pulse rate E&M 103 /min Heart rate temperature E&M 96.8 [degF] Body temp erature weight E&M 248.6 [lb_av] Weight Measure d Diagnostic Results Date Name Value Unit Range Description Chart Maintenance: Outside labs entered on flowsheet - Chemistry sodium, serum 146 mmol/L potassium, serum 3.3 mmol/L blood glucose 96 mg/dL creatinine, serum 0.96 mg/dL aspartate aminotransferase (SGOT), serum 15 U/L alanine aminotransferase (SGPT), serum 28 U/L alkaline phosphatase, serum 189 U/L Chart Maintenance: Outside labs entered on flowsheet - Hematology leukocyte count, blood 7.1 10*3/mm3 hemoglobin, blood 13.6 g/dL platelet count 296 10*3/mm3 Lab Report: CBC w/ Diff, [facility] - Chemistry sodium, serum 144 mmol/L potassium, serum 3.7 mmol/L chloride, serum 105 mmol/L carbon dioxide, venous blood 29.3 mmol/L urea nitrogen, blood 17 mg/dL blood glucose 91 mg/dL creatinine, serum 1.10 mg/dL calcium, serum 9.2 mg/dL Lab Report: CBC w/ Diff, [facility] - Hematolog y leukocyte count, blood 8.7 10*3/mm3 erythrocyte (RBC) count 4.6 10*6/mm3 hemoglobin, blood 13.1 g/dL hematocrit, blood 41.0 % mean corpuscular volume, RBC 88.4 fL mean corpuscular hemoglobin, RBC 28.2 pg red blood cell distribution width 13.8 % platelet count 293 10*3/mm3 Office Visit: frequency - Chemistry RBC, urine, dipstick negative protein, total urine random trace mg/dL Office Visit: frequency - Urinalysis urinalysis, routine Clean Catch ketones, urine, by test strip negative bilirubin, urine negative glucose, urine, semiquantitative negative pH, urine, semiquantitative 6.5 specific gravity, urine 1.020 urine color yellow appearance, urine cloudy leukocyte esterase, urine, by dipstick 2+ nitrite, urine, semiquantitative negative urobilinogen, urine, semiquantitative (dipstick) negative protein, urine, semiquantitative (dipstick) negative Encounters Code Encounter Date Provider Facility CPT-69710 Level 3 Est. Patient 12:55:02 GOVERNMENT AFFAIRS FELLOW J William collier MD [facility] CPT-54514 Level 4 New Patient 14:35:08 CDT Arnol quinn MD [facility] CPT-31453 Level 4 Est. Patient 08:52:50 CDT Joao jacques Formerly named [facility] CPT-91383 Level 4 Est. Patient 07:47:45 CDT Joao jacques Formerly named [facility] Procedures Code Procedure Name Date Entry Date Standard Desc ription CPT-OV Office Visit 15:26:35 CDT CPT-52522 Postop F/U Visit 17:47:54 GOVERNMENT AFFAIRS FELLOW CPT-16193 Interstim trial 12:55:02 GOVERNMENT AFFAIRS FELLOW CPT-06279 Venipuncture Draw Fee 17:04:06 CDT
--- OUTSIDE RECORDS SUMMARY | 2019-04-15 12:38 | XMS REPORT | Clinical Summary ---
Author Author Admin, Sabrina Jefferson Organization [facility] Address Unknown Phone Unavailable Allergies, Adverse Reactions, [...] unspecified hyperlipidemia OSTEOARTHRITIS 715.90 Active Sobia Naff VP [employer]ET[employer] Osteoarthrosis, unspecified whether generalized or localized, involving unspecified site G E R D 530.81 Active Sobia Naff VP [employer]ODUCT MARKET[employer] Esoph ageal reflux DEPRESSION 311 Active Sobia Naff VP [employer]ODUCT MARKET[employer] De pressive disorder, not elsewhere classified FH DIABETES V18.0 Active Sobia Naff VP [employer] MARKET[employer] F amily history of diabetes mellitus DROWSINESS [...] TABS 1 tab daily ATORVASTATI N CALCIUM 93003987785 Active Diallo Shirley MD Active MIRAPEX 0.5 MG ORAL TABS 1 tab in the am 2 tabs in pm PRAMIPEXOLE DIHYDROCHLORIDE 00675786076 Active Diallo Shirley MD Active WELLBUTRIN SR 150 MG ORAL [id number] 1 tab twice daily BUPROPION HCL 00299526094 Active Diallo Shirley MD Active CLONAZEPAM 0.5 MG TABS 2 tablet by mouth 1 times daily at bedtime CLONAZEPAM 10693700607 No Longer Active Diallo Shirley MD Activ e PRILOSEC 40 MG CPDR 1 tab daily OMEPRAZOLE 68844 440861 No Longer Active Diallo Shirley MD Active MELOXICAM 15 MG TABS 1qd MELOXICAM 52990342234 No Longer Active Arnol Ballard MD Active PANTOPRAZOLE SODIUM 40 MG TBEC Take one by mouth bid PANTOPRAZOLE SODIUM 32450172689 No Longer Active Arnol Ballard MD Acti ve VESICARE 10 MG TABS 1 tab daily SOLIFENACIN SUCCI KAHLIL 47486187126 No Longer Active Arnol Ballard MD Active SUPER B-50 B COMPLEX CAPS 1qd B COMPLEX-BIOT IN-FA 20618329282 No Longer Active Arnol Ballard MD Active OMEGA 3-6-9 COMPLEX CAPS 1qd OMEGA 3-6-9 FAT TY ACIDS 50061748133 No Longer Active Arnol Ballard MD Active NAPROSYN 500 MG TABS 1 bid NAPROXEN 62038341269 No Longer Active J William Ballard MD Active HYDROCODONE-ACETAMINOPHEN 5-325 MG TABS 1-2 q 4 hr prn pain HYDROCODONE-ACETAMINOPHEN 61224345732 No Longer Active Arnol Ballard MD Active NEXIUM 40 MG CPDR 1 q d ESOMEPRAZOLE MAGNE SIUM 38937586082 No Longer Active Rony Mata MD Active CVS ZINC 50 MG TABS 1 qd ZINC 30258506749 Active Anupama Meadows APRN Active CVS MAGNESIUM 250 MG TABS 3 q d MAGNESIUM 911566526 81 Active Elaine Meadows APRN Active CVS VITAMIN C 1000 MG TABS 1 qd ASCORBIC ACID 5042 2776794 Active Elaine Meadows APRN Active SUPER B COMPLEX TABS Take one by mouth daily B COMPLEX-C 94349462468 No Longer Active Elaine Meadows APRN Active AMBIEN 10 MG TABS 1 at bedtime ZOLPIDEM TARTRAT E 59390653567 No Longer Active Elaine Meadows APRN Active ASPIRIN 81 MG TAB 1 tablet by mouth daily ASPIR IN 43379463089 No Longer Active Elaine Meadows APRN Active MACRODANTIN 100 MG CAPS Take one by mouth daily 10/18 NITROFURANTOIN MACROCRYSTAL 28592640740 No Longer Active Arnol Ballard MD Active VITAMIN D3 5000 UNIT TABS 1qd CHOLECALCIFER OL 09615051846 No Longer Active Arnol Ballard MD Active FIBER THERAPY 500 MG TABS 1qd METHYLCELL ULOSE (LAXATIVE) 79459864621 No Longer Active Arnol Ballard MD Active VITAMIN C 1000 MG TABS 1qd ASCORBIC ACID 30 036486252 No Longer Active Arnol Ballard MD Active HYDROCODONE-ACETAMINOPHEN 10-500 MG TABS 1 prn HYDROCODONE-ACETAMINOPHEN 17298772609 No Longer Active Arnol Ballard MD Active LOVASTATIN 40 MG TABS 1 at bedtime LOVASTATIN 00 653795206 No Longer Active Joao Harms PA Active CYMBALTA 60 MG CPEP 1 every morning DULOXETINE HC L 10023580668 Active Joao Harms PA Active CYMBALTA 30 MG CPEP 1 cap by mouth daily with 60mg cap DULOXETINE HCL 05884087265 No Longer Active Joao Harms PA Active CLONAZEPAM 0.5 MG TBDP 2 tabs at bedtime CLONAZ EPAM 68153042667 No Longer Active Joao Harms PA Active ZYRTEC ALLERGY 10 MG TABS Take one by mouth daily 2011 CETIRIZINE HCL 97194774479 No Longer Active Sobia Naff VP PRODUCT MARKETING Active VITAMIN D3 2000 UNIT CAPS 2 1/2 daily CHOLECALC IFEROL 33253404320 No Longer Active Sobia Naff VP PRODUCT MARKETING Active ZITHROMAX Z-ANTONIETA 250 MG TABS 2x1day,2e1jrsy AZIT HROMYCIN 38060013179 No Longer Active Sobia Naff VP PRODUCT MARKETING Active MULTIVITAMINS TABS Take one by mouth daily MULT IPLE VITAMIN 42382968444 Active Symone Lucke Active VITAMIN D3 2000 UNIT CAPS 2 1/2 daily TAMIN D3 2000 UNIT CAPS CHOLECALCIFEROL Inactive ZYRTEC ALLERGY 10 MG TABS Take one by mouth daily 2011 ZYRTEC ALLERGY 10 MG TABS 2928632 CETIRIZINE HCL Inactive CLONAZEPAM 0.5 MG TBDP 2 tabs at bedtime CLONAZEPAM 0.5 MG TBDP 640790 CLONAZEPAM Inactive CYMBALTA 30 MG CPEP 1 cap by mouth daily with 60mg cap CYMBALTA 30 MG CPEP 301312 DULOXETINE HCL Inactive LOVASTATIN 40 MG TABS 1 at bedtime LOVASTATIN 4 0 MG TABS 769315 LOVASTATIN Inactive HYDROCODONE-ACETAMINOPHEN 10-500 MG TABS 1 prn HYDROCODONE- ACETAMINOPHEN 10-500 MG TABS HYDROCODONE-ACETAMINOPHEN Inact kiya VITAMIN C 1000 MG TABS 1qd VITAMIN C 1000 M G TABS 190101 ASCORBIC ACID Inactive FIBER THERAPY 500 MG TABS 1qd FIBER THERAPY 500 MG TABS METHYLCELLULOSE (LAXATIVE) Inactive VITAMIN D3 5000 UNIT TABS 1qd VITAMIN D3 50 00 UNIT TABS CHOLECALCIFEROL Inactive MACRODANTIN 100 MG CAPS Take one by mouth daily 10/18 MACRODANTIN 100 MG CAPS 2273545 NITROFURANTOIN MACROCRYSTAL Inactive ASPIRIN 81 MG TAB 1 tablet by mouth daily ASPIRIN 81 MG TAB ASPIRIN Inactive AMBIEN 10 MG TABS 1 at bedtime AMBIEN 10 MG TABS 514395 ZOLPIDEM TARTRATE Inactive SUPER B COMPLEX TABS Take one by mouth daily 4 SUPER B COMPLEX TABS B COMPLEX-C Inactive NEXIUM 40 MG CPDR 1 q d NEXIUM 40 MG CPDR 60 6730 ESOMEPRAZOLE MAGNESIUM Inactive HYDROCODONE-ACETAMINOPHEN 5-325 MG TABS 1-2 q 4 hr prn pain 2013 HYDROCODONE-ACETAMINOPHEN 5-325 MG TABS 563637 HYDROCODONE-ACETAMINOPHEN Inactive NAPROSYN 500 MG TABS 1 bid NAPROSYN 500 MG T ABS 662703 NAPROXEN Inactive OMEGA 3-6-9 COMPLEX CAPS 1qd OMEGA 3-6-9 CO MPLEX CAPS OMEGA 3-6-9 FATTY ACIDS Inactive SUPER B-50 B COMPLEX CAPS 1qd SUPER B-50 B COMPLEX CAPS B [id number] Inactive VESICARE 10 MG TABS 1 tab daily VESICARE 10 MG T ABS SOLIFENACIN SUCCINATE Inactive PANTOPRAZOLE SODIUM 40 MG TBEC Take one by mouth bid 4 PANTOPRAZOLE SODIUM 40 MG TBEC 926262 PANTOPRAZOLE SODIUM Inactive MELOXICAM 15 MG TABS 1qd MELOXICAM 15 MG T ABS 741701 MELOXICAM Inactive PRILOSEC 40 MG CPDR 1 tab daily PRILOSEC 40 MG C PDR OMEPRAZOLE Inactive CLONAZEPAM 0.5 MG TABS 2 tablet by mouth 1 times daily at bedtime CLONAZEPAM 0.5 MG TABS 501000 CLONAZEPAM Inactive ZITHROMAX Z-ANTONIETA 250 MG TABS 2x1day,3d6xibb ZITHROMAX Z-ANTONIETA 250 MG TABS 1828037 AZITHROMYCIN Inactive Vital Signs Date Name Value [...] Measured Encounters Code Encounter Date Provider Facility CPT-14065 Level 3 Est. Patient 17:02:03 CDT Diallo Shirley MD [facility] CPT-81709 Level 3 Est. Patient 16:22:59 CDT Dave palm DO [facility] CPT-25886 Level 3 Est. Patient 12:28:01 CDT Diallo Shirley MD [facility] CPT-99873 Level 3 Est. Patient 22:35:01 CDT Arnol collier MD [facility] CPT-00832 Level 3 Est. Patient 12:55:02 STEEL PLACER J William collier MD [facility] CPT-27171 Level 4 New Patient 14:35:08 CDT Arnol quinn MD [facility] CPT-67875 Level 4 Est. Patient 08:52:50 CDT Joao jacques DEB [facility] CPT-00954 Level 4 Est. Patient 07:47:45 CDT Joao jacques DEB [facility] Procedures Code Procedure Name Date Entry Date Standard Desc ription CPT-83870 Foot, left, comp min 3V - XRAY USE ONLY 16:58:22 CDT CPT-71287 Foot, left, comp min 3V - XRAY USE ONLY 16:47:13 CDT CPT-16530 Chest 2V Frontal and Lat - XRAY USE ONLY 16:45:56 CDT CPT-13125 Postop F/U Visit 14:36:53 CDT CPT-OV Office Visit 14:55:53 CDT CPT-OV Office Visit 14:55:26 CDT CPT-OV Office Visit 15:26:35 CDT CPT-19399 Postop F/U Visit 17:47:54 [employer] CPT-19518 Interstim trial 12:55:02 [employer] CPT-50864 Venipuncture Draw Fee 17:04:06 CDT
--- OUTSIDE RECORDS SUMMARY | 2019-04-15 12:38 | XMS REPORT | Clinical Summary ---
Author Author Admin, Sabrina Jefferson Organization [facility] [employer] Address Unknown Phone Unavailable Allergies, Adverse [...] unspecified hyperlipidemia OSTEOARTHRITIS 715.90 Active Sobia Naff POUNCER MACHINE Osteoarthrosis, unspecified whether generalized or localized, involving unspecified site G E R D 530.81 Active Sobia Naff POUNCER MACHINE Esoph ageal reflux DEPRESSION 311 Active Sobia Naff POUNCER MACHINE De pressive disorder, not elsewhere classified FH DIABETES V18.0 Active Sobia Naff POUNCER MACHINE F amily history of diabetes mellitus [...] TABS 1 tab daily ATORVASTATI N CALCIUM 85667554880 Active Diallo Shirley MD Active MIRAPEX 0.5 MG ORAL TABS 1 tab in the am 2 tabs in pm PRAMIPEXOLE DIHYDROCHLORIDE 97451426196 Active Diallo Shirley MD Active WELLBUTRIN SR 150 MG ORAL [id number] 1 tab twice daily BUPROPION HCL 65165193324 Active Diallo Shirley MD Active CLONAZEPAM 0.5 MG TABS 2 tablet by mouth 1 times daily at bedtime CLONAZEPAM 11909860383 No Longer Active Diallo Shirley MD Activ e PRILOSEC 40 MG CPDR 1 tab daily OMEPRAZOLE 08613 604683 No Longer Active Diallo Shirley MD Active MELOXICAM 15 MG TABS 1qd MELOXICAM 13211982926 No Longer Active Arnol Ballard MD Active PANTOPRAZOLE SODIUM 40 MG TBEC Take one by mouth bid PANTOPRAZOLE SODIUM 21110708610 No Longer Active Arnol Ballard MD Acti ve VESICARE 10 MG TABS 1 tab daily SOLIFENACIN SUCCI KAHLIL 81773639326 No Longer Active Arnol Ballard MD Active SUPER B-50 B COMPLEX CAPS 1qd B COMPLEX-BIOT IN-FA 99491729430 No Longer Active Arnol Ballard MD Active OMEGA 3-6-9 COMPLEX CAPS 1qd OMEGA 3-6-9 FAT TY ACIDS 54222002054 No Longer Active Arnol Ballard MD Active NAPROSYN 500 MG TABS 1 bid NAPROXEN 81238477312 No Longer Active J William Ballard MD Active HYDROCODONE-ACETAMINOPHEN 5-325 MG TABS 1-2 q 4 hr prn pain HYDROCODONE-ACETAMINOPHEN 20032565612 No Longer Active Arnol Ballard MD Active NEXIUM 40 MG CPDR 1 q d ESOMEPRAZOLE MAGNE SIUM 41933841841 No Longer Active Rony Mata MD Active CVS ZINC 50 MG TABS 1 qd ZINC 47414143972 Active Anupama Meadows APRN Active CVS MAGNESIUM 250 MG TABS 3 q d MAGNESIUM 631813601 81 Active Elaine Meadows APRN Active CVS VITAMIN C 1000 MG TABS 1 qd ASCORBIC ACID 5042 8342023 Active Elaine Meadows APRN Active SUPER B COMPLEX TABS Take one by mouth daily B COMPLEX-C 18160670803 No Longer Active Elaine Meadows APRN Active AMBIEN 10 MG TABS 1 at bedtime ZOLPIDEM TARTRAT E 62200962909 No Longer Active Elaine Meadows APRN Active ASPIRIN 81 MG TAB 1 tablet by mouth daily ASPIR IN 81891711121 No Longer Active Elaine Meadows APRN Active MACRODANTIN 100 MG CAPS Take one by mouth daily 10/18 NITROFURANTOIN MACROCRYSTAL 11530091067 No Longer Active Arnol Ballard MD Active VITAMIN D3 5000 UNIT TABS 1qd CHOLECALCIFER OL 92316004705 No Longer Active Arnol Ballard MD Active FIBER THERAPY 500 MG TABS 1qd METHYLCELL ULOSE (LAXATIVE) 35504595752 No Longer Active Arnol Ballard MD Active VITAMIN C 1000 MG TABS 1qd ASCORBIC ACID 30 044954299 No Longer Active Arnol Ballard MD Active HYDROCODONE-ACETAMINOPHEN 10-500 MG TABS 1 prn HYDROCODONE-ACETAMINOPHEN 19670987119 No Longer Active Arnol Ballard MD Active LOVASTATIN 40 MG TABS 1 at bedtime LOVASTATIN 00 924455584 No Longer Active Joao Harms PA Active CYMBALTA 60 MG CPEP 1 every morning DULOXETINE HC L 42536734610 Active Joao Harms PA Active CYMBALTA 30 MG CPEP 1 cap by mouth daily with 60mg cap DULOXETINE HCL 53544894025 No Longer Active Joao Harms PA Active CLONAZEPAM 0.5 MG TBDP 2 tabs at bedtime CLONAZ EPAM 91450326711 No Longer Active Joao Harms PA Active ZYRTEC ALLERGY 10 MG TABS Take one by mouth daily 2011 CETIRIZINE HCL 99551103393 No Longer Active Sobia Naff POUNCER MACHINE Active VITAMIN D3 2000 UNIT CAPS 2 1/2 daily CHOLECALC IFEROL 40909207483 No Longer Active Sobia Naff POUNCER MACHINE Active ZITHROMAX Z-ANTONIETA 250 MG TABS 2x1day,6x3uegb AZIT HROMYCIN 49070635336 No Longer Active Sobia Naff POUNCER MACHINE Active MULTIVITAMINS TABS Take one by mouth daily MULT IPLE VITAMIN 71423421363 Active Symone Lucke Active VITAMIN D3 2000 UNIT CAPS 2 1/2 daily TAMIN D3 2000 UNIT CAPS CHOLECALCIFEROL Inactive ZYRTEC ALLERGY 10 MG TABS Take one by mouth daily 2011 ZYRTEC ALLERGY 10 MG TABS 5532026 CETIRIZINE HCL Inactive CLONAZEPAM 0.5 MG TBDP 2 tabs at bedtime CLONAZEPAM 0.5 MG TBDP 670469 CLONAZEPAM Inactive CYMBALTA 30 MG CPEP 1 cap by mouth daily with 60mg cap CYMBALTA 30 MG CPEP 276772 DULOXETINE HCL Inactive LOVASTATIN 40 MG TABS 1 at bedtime LOVASTATIN 4 0 MG TABS 074609 LOVASTATIN Inactive HYDROCODONE-ACETAMINOPHEN 10-500 MG TABS 1 prn HYDROCODONE- ACETAMINOPHEN 10-500 MG TABS HYDROCODONE-ACETAMINOPHEN Inact kiya VITAMIN C 1000 MG TABS 1qd VITAMIN C 1000 M G TABS 274235 ASCORBIC ACID Inactive FIBER THERAPY 500 MG TABS 1qd FIBER THERAPY 500 MG TABS METHYLCELLULOSE (LAXATIVE) Inactive VITAMIN D3 5000 UNIT TABS 1qd VITAMIN D3 50 00 UNIT TABS CHOLECALCIFEROL Inactive MACRODANTIN 100 MG CAPS Take one by mouth daily 10/18 MACRODANTIN 100 MG CAPS 2949163 NITROFURANTOIN MACROCRYSTAL Inactive ASPIRIN 81 MG TAB 1 tablet by mouth daily ASPIRIN 81 MG TAB ASPIRIN Inactive AMBIEN 10 MG TABS 1 at bedtime AMBIEN 10 MG TABS 070319 ZOLPIDEM TARTRATE Inactive SUPER B COMPLEX TABS Take one by mouth daily 4 SUPER B COMPLEX TABS B COMPLEX-C Inactive NEXIUM 40 MG CPDR 1 q d NEXIUM 40 MG CPDR 60 6730 ESOMEPRAZOLE MAGNESIUM Inactive HYDROCODONE-ACETAMINOPHEN 5-325 MG TABS 1-2 q 4 hr prn pain 2013 HYDROCODONE-ACETAMINOPHEN 5-325 MG TABS 704445 HYDROCODONE-ACETAMINOPHEN Inactive NAPROSYN 500 MG TABS 1 bid NAPROSYN 500 MG T ABS 642930 NAPROXEN Inactive OMEGA 3-6-9 COMPLEX CAPS 1qd OMEGA 3-6-9 CO MPLEX CAPS OMEGA 3-6-9 FATTY ACIDS Inactive SUPER B-50 B COMPLEX CAPS 1qd SUPER B-50 B COMPLEX CAPS B [id number] Inactive VESICARE 10 MG TABS 1 tab daily VESICARE 10 MG T ABS SOLIFENACIN SUCCINATE Inactive PANTOPRAZOLE SODIUM 40 MG TBEC Take one by mouth bid 4 PANTOPRAZOLE SODIUM 40 MG TBEC 276469 PANTOPRAZOLE SODIUM Inactive MELOXICAM 15 MG TABS 1qd MELOXICAM 15 MG T ABS 231645 MELOXICAM Inactive PRILOSEC 40 MG CPDR 1 tab daily PRILOSEC 40 MG C PDR OMEPRAZOLE Inactive CLONAZEPAM 0.5 MG TABS 2 tablet by mouth 1 times daily at bedtime CLONAZEPAM 0.5 MG TABS 695903 CLONAZEPAM Inactive ZITHROMAX Z-ANTONIETA 250 MG TABS 2x1day,[id number] ZITHROMAX Z-ANTONIETA 250 MG TABS 2510679 AZITHROMYCIN Inactive Vital Signs Date Name Value Unit Range Description blood pressure, diastolic 73 mm[Hg] BP shore blood pressure, systolic 122 mm[Hg] BP sys pulse rate E&M 81 /min Heart rate temperature E&M 96.6 [degF] Body temp erature weight E&M 195 [lb_av] Weight Measure d blood pressure, diastolic 75 mm[Hg] BP shore blood pressure, systolic 125 mm[Hg] BP sys height E&M 67 [in_us] Bdy height pulse rate E&M 92 /min Heart rate temperature E&M 97.2 [degF] Body temp erature weight E&M 192.5 [lb_av] Weight Measure d blood pressure, diastolic 69 mm[Hg] BP shore blood pressure, systolic 107 mm[Hg] BP sys height E&M 67 [in_us] Bdy height pulse rate E&M 116 /min Heart rate temperature E&M 98.4 [degF] Body temp erature weight E&M 194.4 [lb_av] Weight Measure d blood pressure, diastolic 80 mm[Hg] BP shore blood pressure, systolic 138 mm[Hg] BP sys height E&M 67 [in_us] Bdy height pulse rate E&M 108 /min Heart rate temperature E&M 98.5 [degF] Body temp erature weight E&M 190 [lb_av] Weight Measure d blood pressure, diastolic 74 mm[Hg] BP shore blood pressure, systolic 109 mm[Hg] BP sys pulse rate E&M 77 /min Heart rate temperature E&M 97.2 [degF] Body temp erature weight E&M 190.6 [lb_av] Weight Measure d Encounters Code Encounter Date Provider Facility CPT-11191 Level 3 Est. Patient 13:55:16 CDT Diallo Shirley MD [facility] CPT-13565 Level 3 Est. Patient 17:02:03 CDT Diallo Shirley MD [facility] CPT-95266 Level 3 Est. Patient 16:22:59 CDT Dave palm DO [facility] CPT-58115 Level 3 Est. Patient 12:28:01 CDT Diallo Shirley MD [facility] CPT-81975 Level 3 Est. Patient 22:35:01 CDT Arnol collier MD [facility] CPT-22400 Level 3 Est. Patient 12:55:02 DRAFTING TEACHER Arnol collier MD [facility] CPT-22960 Level 4 New Patient 14:35:08 CDT Arnol quinn MD [facility] CPT-76796 Level 4 Est. Patient 08:52:50 CDT Joao jacques DEB [facility] CPT-54249 Level 4 Est. Patient 07:47:45 CDT Joao jacques [facility] Procedures Code Procedure Name Date Entry Date Standard Desc ription CPT-30722 Foot, left, comp min 3V - XRAY USE ONLY 16:58:22 CDT CPT-93002 Foot, left, comp min 3V - XRAY USE ONLY 16:47:13 CDT CPT-19398 Chest 2V Frontal and Lat - XRAY USE ONLY 16:45:56 CDT CPT-15452 Postop F/U Visit 14:36:53 CDT CPT-OV Office Visit 14:55:53 CDT CPT-OV Office Visit 14:55:26 CDT CPT-OV Office Visit 15:26:35 CDT CPT-05415 Postop F/U Visit 17:47:54 DRAFTING TEACHER CPT-82766 Interstim trial 12:55:02 DRAFTING TEACHER CPT-30547 Venipuncture Draw Fee 17:04:06 CDT
--- OUTSIDE RECORDS SUMMARY | 2019-04-15 12:38 | XMS REPORT | Clinical Summary ---
Author Author Admin, Sabrina Jefferson Organization [facility] Address Unknown Phone Unavailable Allergies, Adverse [...] unspecified hyperlipidemia OSTEOARTHRITIS 715.90 Active Sobia Naff TIER AND DETONATOR Osteoarthrosis, unspecified whether generalized or localized, involving unspecified site G E R D 530.81 Active Sobia Naff TIER AND DETONATOR Esoph ageal reflux DEPRESSION 311 Active Sobia Naff TIER AND DETONATOR De pressive disorder, not elsewhere classified FH DIABETES V18.0 Active Sobia Naff TIER AND DETONATOR F amily history of diabetes mellitus DROWSINESS 780.09 Active Joao BOYD O ther alteration of consciousness INSOMNIA, HX OF V15.89 Active Joao BOYD Other specified personal history presenting hazards to health MYALGIA 729.1 Active Joao BOYD Myal chano and myositis, unspecified RESTLESS LEG SYNDROME, HX OF V12.49 Active Joao BYOD Personal history of other disorders of nervous [...] am 2 tabs in pm PRAMIPEXOLE DIHYDROCHLORIDE 75265436832 Active Diallo Shirley MD Active WELLBUTRIN SR 150 MG ORAL [id number] 1 tab twice daily BUPROPION HCL 91188829249 Active Diallo Shirley MD Active CLONAZEPAM 0.5 MG TABS 2 tablet by mouth 1 times daily at bedtime CLONAZEPAM 64417819019 No Longer Active Diallo Shirley MD Activ e PRILOSEC 40 MG CPDR 1 tab daily OMEPRAZOLE 15077 492950 No Longer Active Diallo Shirley MD Active MELOXICAM 15 MG TABS 1qd MELOXICAM 62253945600 No Longer Active Arnol Ballard MD Active PANTOPRAZOLE SODIUM 40 MG TBEC Take one by mouth bid PANTOPRAZOLE SODIUM 12407766074 No Longer Active Arnol Ballard MD Acti ve VESICARE 10 MG TABS 1 tab daily SOLIFENACIN SUCCI KAHLIL 99913772861 No Longer Active Arnol Ballard MD Active SUPER B-50 B COMPLEX CAPS 1qd B COMPLEX-BIOT IN-FA 98892627923 No Longer Active Arnol Ballard MD Active OMEGA 3-6-9 COMPLEX CAPS 1qd OMEGA 3-6-9 FAT TY ACIDS 88157493646 No Longer Active Arnol Ballard MD Active NAPROSYN 500 MG TABS 1 bid NAPROXEN 86426151233 No Longer Active Arnol Ballard MD Active HYDROCODONE-ACETAMINOPHEN 5-325 MG TABS 1-2 q 4 hr prn pain HYDROCODONE-ACETAMINOPHEN 65880350027 No Longer Active Arnol Ballard MD Active NEXIUM 40 MG CPDR 1 q d ESOMEPRAZOLE MAGNE SIUM 50973042270 No Longer Active Rony Mata MD Active CVS ZINC 50 MG TABS 1 qd ZINC 47970583591 Active Anupama Meadows RENATO Active CVS MAGNESIUM 250 MG TABS 3 q d MAGNESIUM 371239886 81 Active Elaine Meadows RENATO Active CVS VITAMIN C 1000 MG TABS 1 qd ASCORBIC ACID 5042 9858064 Active Elaine Meadows RENATO Active SUPER B COMPLEX TABS Take one by mouth daily B COMPLEX-C 51200801147 No Longer Active Elaine Meadows RENATO Active AMBIEN 10 MG TABS 1 at bedtime ZOLPIDEM TARTRAT E 17386428664 No Longer Active Elaine Meadows RENATO Active ASPIRIN 81 MG TAB 1 tablet by mouth daily ASPIR IN 33618973217 No Longer Active Elaine Meadows RENATO Active MACRODANTIN 100 MG CAPS Take one by mouth daily 10/18 NITROFURANTOIN MACROCRYSTAL 36887055646 No Longer Active Arnol Ballard MD Active VITAMIN D3 5000 UNIT TABS 1qd CHOLECALCIFER OL 50117511191 No Longer Active Arnol Ballard MD Active FIBER THERAPY 500 MG TABS 1qd METHYLCELL ULOSE (LAXATIVE) 01004439066 No Longer Active Arnol Ballard MD Active VITAMIN C 1000 MG TABS 1qd ASCORBIC ACID 30 134672422 No Longer Active Arnol Ballard MD Active HYDROCODONE-ACETAMINOPHEN 10-500 MG TABS 1 prn HYDROCODONE-ACETAMINOPHEN 98768936940 No Longer Active Arnol Ballard MD Active LOVASTATIN 40 MG TABS 1 at bedtime LOVASTATIN 00 268982437 No Longer Active Joao Harms PA Active CYMBALTA 60 MG CPEP 1 every morning DULOXETINE HC L 09036453913 Active Joao Harms PA Active CYMBALTA 30 MG CPEP 1 cap by mouth daily with 60mg cap DULOXETINE HCL 77695769090 No Longer Active Joao Harms PA Active CLONAZEPAM 0.5 MG TBDP 2 tabs at bedtime CLONAZ EPAM 42252591111 No Longer Active Joao Harms PA Active ZYRTEC ALLERGY 10 MG TABS Take one by mouth daily 2011 CETIRIZINE HCL 47835016678 No Longer Active Sobia Naff TIER AND DETONATOR Active VITAMIN D3 2000 UNIT CAPS 2 1/2 daily CHOLECALC IFEROL 80797803566 No Longer Active Sobia Naff TIER AND DETONATOR Active ZITHROMAX Z-ANTONIETA 250 MG TABS 2x1day,[id number] AZIT HROMYCIN 89998479650 No Longer Active Sobia Naff TIER AND DETONATOR Active MULTIVITAMINS TABS Take one by mouth daily MULT IPLE VITAMIN 15238522902 Active Symone Lucke Active VITAMIN D3 2000 UNIT CAPS 2 1/2 daily TAMIN D3 2000 UNIT CAPS CHOLECALCIFEROL Inactive ZYRTEC ALLERGY 10 MG TABS Take one by mouth daily 2011 ZYRTEC ALLERGY 10 MG TABS 1396507 CETIRIZINE HCL Inactive CLONAZEPAM 0.5 MG TBDP 2 tabs at bedtime CLONAZEPAM 0.5 MG TBDP 043987 CLONAZEPAM Inactive CYMBALTA 30 MG CPEP 1 cap by mouth daily with 60mg cap CYMBALTA 30 MG [facility] 046041 DULOXETINE HCL Inactive LOVASTATIN 40 MG TABS 1 at bedtime LOVASTATIN 4 0 MG TABS 530589 LOVASTATIN Inactive HYDROCODONE-ACETAMINOPHEN 10-500 MG TABS 1 prn HYDROCODONE- ACETAMINOPHEN 10-500 MG TABS HYDROCODONE-ACETAMINOPHEN Inact kiya VITAMIN C 1000 MG TABS 1qd VITAMIN C 1000 M G TABS 170615 ASCORBIC ACID Inactive FIBER THERAPY 500 MG TABS 1qd FIBER THERAPY 500 MG TABS METHYLCELLULOSE (LAXATIVE) Inactive VITAMIN D3 5000 UNIT TABS 1qd VITAMIN D3 50 00 UNIT TABS CHOLECALCIFEROL Inactive MACRODANTIN 100 MG CAPS Take one by mouth daily 10/18 MACRODANTIN 100 MG CAPS 3149609 NITROFURANTOIN MACROCRYSTAL Inactive ASPIRIN 81 MG TAB 1 tablet by mouth daily ASPIRIN 81 MG TAB ASPIRIN Inactive AMBIEN 10 MG TABS 1 at bedtime AMBIEN 10 MG TABS 542631 ZOLPIDEM TARTRATE Inactive SUPER B COMPLEX TABS Take one by mouth daily 4 SUPER B COMPLEX TABS B COMPLEX-C Inactive NEXIUM 40 MG CPDR 1 q d NEXIUM 40 MG CPDR 60 6730 ESOMEPRAZOLE MAGNESIUM Inactive HYDROCODONE-ACETAMINOPHEN 5-325 MG TABS 1-2 q 4 hr prn pain 2013 HYDROCODONE-ACETAMINOPHEN 5-325 MG TABS 454170 HYDROCODONE-ACETAMINOPHEN Inactive NAPROSYN 500 MG TABS 1 bid NAPROSYN 500 MG T ABS 107480 NAPROXEN Inactive OMEGA 3-6-9 COMPLEX CAPS 1qd OMEGA 3-6-9 CO MPLEX CAPS OMEGA 3-6-9 FATTY ACIDS Inactive SUPER B-50 B COMPLEX CAPS 1qd SUPER B-50 B COMPLEX CAPS B [id number] Inactive VESICARE 10 MG TABS 1 tab daily VESICARE 10 MG T ABS SOLIFENACIN SUCCINATE Inactive PANTOPRAZOLE SODIUM 40 MG TBEC Take one by mouth bid 4 PANTOPRAZOLE SODIUM 40 MG TBEC 418039 PANTOPRAZOLE SODIUM Inactive MELOXICAM 15 MG TABS 1qd MELOXICAM 15 MG T ABS 007884 MELOXICAM Inactive PRILOSEC 40 MG CPDR 1 tab daily PRILOSEC 40 MG C PDR OMEPRAZOLE Inactive CLONAZEPAM 0.5 MG TABS 2 tablet by mouth 1 times daily at bedtime CLONAZEPAM 0.5 MG TABS 024271 CLONAZEPAM Inactive ZITHROMAX Z-ANTONIETA 250 MG TABS 2x1day,5q9iiii ZITHROMAX Z-ANTONIETA 250 MG TABS 3993962 AZITHROMYCIN Inactive Vital Signs Date Name Value [...] Measured Encounters Code Encounter Date Provider Facility CPT-09298 Level 3 Est. Patient 16:22:59 CDT Dave palm DO [facility] CPT-64886 Level 3 Est. Patient 12:28:01 CDT Diallo Shirley MD [facility] CPT-88756 Level 3 Est. Patient 22:35:01 CDT Arnol collier MD [facility] CPT-54922 Level 3 Est. Patient 12:55:02 RN NAVIGATOR J William collier MD [facility] CPT-29497 Level 4 New Patient 14:35:08 CDT Arnol quinn MD [facility] CPT-74020 Level 4 Est. Patient 08:52:50 CDT Joao jacques [facility] CPT-41342 Level 4 Est. Patient 07:47:45 CDT Joao jacques [facility] Procedures Code Procedure Name Date Entry Date Standard Desc ription CPT-11196 Postop F/U Visit 14:36:53 CDT CPT-OV Office Visit 14:55:53 CDT CPT-OV Office Visit 14:55:26 CDT CPT-OV Office Visit 15:26:35 CDT CPT-79881 Postop F/U Visit 17:47:54 RN NAVIGATOR CPT-19090 Interstim trial 12:55:02 RN NAVIGATOR CPT-22721 Venipuncture Draw Fee 17:04:06 CDT
--- OUTSIDE RECORDS SUMMARY | 2019-04-15 12:38 | XMS REPORT | Clinical Summary ---
Author Author Admin, Sabrina Jefferson Organization [facility] [employer] Address Unknown Phone Unavailable Allergies, Adverse Reactions, [...] unspecified hyperlipidemia OSTEOARTHRITIS 715.90 Active Sobia Naff LEASING PROPERTY MANAGER Osteoarthrosis, unspecified whether generalized or localized, involving unspecified site G E R D 530.81 Active Sobia Naff LEASING PROPERTY MANAGER Esoph ageal reflux DEPRESSION 311 Active Sobia Naff LEASING PROPERTY MANAGER De pressive disorder, not elsewhere classified FH DIABETES V18.0 Active Sobia Naff LEASING PROPERTY MANAGER F amily history of diabetes mellitus DROWSINESS 780.09 Active Joao OBYD O ther alteration of consciousness INSOMNIA, HX [...] TABS 1 tab daily ATORVASTATI N CALCIUM 60510664897 Active Diallo Shirley MD Active MIRAPEX 0.5 MG ORAL TABS 1 tab in the am 2 tabs in pm PRAMIPEXOLE DIHYDROCHLORIDE 50592077470 Active Diallo Shirley MD Active WELLBUTRIN SR 150 MG ORAL [id number] 1 tab twice daily BUPROPION HCL 40468432499 Active Diallo Shirley MD Active CLONAZEPAM 0.5 MG TABS 2 tablet by mouth 1 times daily at bedtime CLONAZEPAM 68594979168 No Longer Active Diallo Shirley MD Activ e PRILOSEC 40 MG CPDR 1 tab daily OMEPRAZOLE 57319 811352 No Longer Active Diallo Shirley MD Active MELOXICAM 15 MG TABS 1qd MELOXICAM 74002273327 No Longer Active Arnol Ballard MD Active PANTOPRAZOLE SODIUM 40 MG TBEC Take one by mouth bid PANTOPRAZOLE SODIUM 05276305596 No Longer Active Arnol Ballard MD Acti ve VESICARE 10 MG TABS 1 tab daily SOLIFENACIN SUCCI KAHLIL 95180579292 No Longer Active Arnol Ballard MD Active SUPER B-50 B COMPLEX CAPS 1qd B COMPLEX-BIOT IN-FA 82662311925 No Longer Active Arnol Ballard MD Active OMEGA 3-6-9 COMPLEX CAPS 1qd OMEGA 3-6-9 FAT TY ACIDS 43887732594 No Longer Active Arnol Ballard MD Active NAPROSYN 500 MG TABS 1 bid NAPROXEN 05606820438 No Longer Active J William Ballard MD Active HYDROCODONE-ACETAMINOPHEN 5-325 MG TABS 1-2 q 4 hr prn pain HYDROCODONE-ACETAMINOPHEN 77722997157 No Longer Active Arnol Ballard MD Active NEXIUM 40 MG CPDR 1 q d ESOMEPRAZOLE MAGNE SIUM 68819002305 No Longer Active Rony Mata MD Active CVS ZINC 50 MG TABS 1 qd ZINC 75428294161 Active Anupama Meadows APRN Active CVS MAGNESIUM 250 MG TABS 3 q d MAGNESIUM 242490436 81 Active Elaine Meadows APRN Active CVS VITAMIN C 1000 MG TABS 1 qd ASCORBIC ACID 5042 2429244 Active Elaine Meadows APRN Active SUPER B COMPLEX TABS Take one by mouth daily B COMPLEX-C 66032822150 No Longer Active Elaine Meadows APRN Active AMBIEN 10 MG TABS 1 at bedtime ZOLPIDEM TARTRAT E 13648388698 No Longer Active Elaine Meadows APRN Active ASPIRIN 81 MG TAB 1 tablet by mouth daily ASPIR IN 61938841800 No Longer Active Elaine Meadows APRN Active MACRODANTIN 100 MG CAPS Take one by mouth daily 10/18 NITROFURANTOIN MACROCRYSTAL 99703360840 No Longer Active Arnol Ballard MD Active VITAMIN D3 5000 UNIT TABS 1qd CHOLECALCIFER OL 03774853887 No Longer Active Arnol Ballard MD Active FIBER THERAPY 500 MG TABS 1qd METHYLCELL ULOSE (LAXATIVE) 67950238246 No Longer Active Arnol Ballard MD Active VITAMIN C 1000 MG TABS 1qd ASCORBIC ACID 30 287136666 No Longer Active Arnol Ballard MD Active HYDROCODONE-ACETAMINOPHEN 10-500 MG TABS 1 prn HYDROCODONE-ACETAMINOPHEN 14906007104 No Longer Active Arnol Ballard MD Active LOVASTATIN 40 MG TABS 1 at bedtime LOVASTATIN 00 038890156 No Longer Active Ojao Harms PA Active CYMBALTA 60 MG CPEP 1 every morning DULOXETINE HC L 51344726995 Active Joao Harms PA Active CYMBALTA 30 MG CPEP 1 cap by mouth daily with 60mg cap DULOXETINE HCL 88032124495 No Longer Active Joao Harms PA Active CLONAZEPAM 0.5 MG TBDP 2 tabs at bedtime CLONAZ EPAM 91186173561 No Longer Active Joao Harms PA Active ZYRTEC ALLERGY 10 MG TABS Take one by mouth daily 2011 CETIRIZINE HCL 25213618269 No Longer Active Sobia Naff LEASING PROPERTY MANAGER Active VITAMIN D3 2000 UNIT CAPS 2 1/2 daily CHOLECALC IFEROL 29076195127 No Longer Active Sobia Naff LEASING PROPERTY MANAGER Active ZITHROMAX Z-ANTONIETA 250 MG TABS 2x1day,0q1gypf AZIT HROMYCIN 39287622781 No Longer Active Sobia Naff LEASING PROPERTY MANAGER Active MULTIVITAMINS TABS Take one by mouth daily MULT IPLE VITAMIN 21949328743 Active Symone Lucke Active VITAMIN D3 2000 UNIT CAPS 2 1/2 daily TAMIN D3 2000 UNIT CAPS CHOLECALCIFEROL Inactive ZYRTEC ALLERGY 10 MG TABS Take one by mouth daily 2011 ZYRTEC ALLERGY 10 MG TABS 3040311 CETIRIZINE HCL Inactive CLONAZEPAM 0.5 MG TBDP 2 tabs at bedtime CLONAZEPAM 0.5 MG TBDP 069432 CLONAZEPAM Inactive CYMBALTA 30 MG CPEP 1 cap by mouth daily with 60mg cap CYMBALTA 30 MG CPEP 080013 DULOXETINE HCL Inactive LOVASTATIN 40 MG TABS 1 at bedtime LOVASTATIN 4 0 MG TABS 021574 LOVASTATIN Inactive HYDROCODONE-ACETAMINOPHEN 10-500 MG TABS 1 prn HYDROCODONE- ACETAMINOPHEN 10-500 MG TABS HYDROCODONE-ACETAMINOPHEN Inact kiya VITAMIN C 1000 MG TABS 1qd VITAMIN C 1000 M G TABS 598182 ASCORBIC ACID Inactive FIBER THERAPY 500 MG TABS 1qd FIBER THERAPY 500 MG TABS METHYLCELLULOSE (LAXATIVE) Inactive VITAMIN D3 5000 UNIT TABS 1qd VITAMIN D3 50 00 UNIT TABS CHOLECALCIFEROL Inactive MACRODANTIN 100 MG CAPS Take one by mouth daily 10/18 MACRODANTIN 100 MG CAPS 2545978 NITROFURANTOIN MACROCRYSTAL Inactive ASPIRIN 81 MG TAB 1 tablet by mouth daily ASPIRIN 81 MG TAB ASPIRIN Inactive AMBIEN 10 MG TABS 1 at bedtime AMBIEN 10 MG TABS 526763 ZOLPIDEM TARTRATE Inactive SUPER B COMPLEX TABS Take one by mouth daily 4 SUPER B COMPLEX TABS B COMPLEX-C Inactive NEXIUM 40 MG CPDR 1 q d NEXIUM 40 MG CPDR 60 6730 ESOMEPRAZOLE MAGNESIUM Inactive HYDROCODONE-ACETAMINOPHEN 5-325 MG TABS 1-2 q 4 hr prn pain 2013 HYDROCODONE-ACETAMINOPHEN 5-325 MG TABS 909973 HYDROCODONE-ACETAMINOPHEN Inactive NAPROSYN 500 MG TABS 1 bid NAPROSYN 500 MG T ABS 892338 NAPROXEN Inactive OMEGA 3-6-9 COMPLEX CAPS 1qd OMEGA 3-6-9 CO MPLEX CAPS OMEGA 3-6-9 FATTY ACIDS Inactive SUPER B-50 B COMPLEX CAPS 1qd SUPER B-50 B COMPLEX CAPS B [id number] Inactive VESICARE 10 MG TABS 1 tab daily VESICARE 10 MG T ABS SOLIFENACIN SUCCINATE Inactive PANTOPRAZOLE SODIUM 40 MG TBEC Take one by mouth bid 4 PANTOPRAZOLE SODIUM 40 MG TBEC 272808 PANTOPRAZOLE SODIUM Inactive MELOXICAM 15 MG TABS 1qd MELOXICAM 15 MG T ABS 087110 MELOXICAM Inactive PRILOSEC 40 MG CPDR 1 tab daily PRILOSEC 40 MG C PDR OMEPRAZOLE Inactive CLONAZEPAM 0.5 MG TABS 2 tablet by mouth 1 times daily at bedtime CLONAZEPAM 0.5 MG TABS 250843 CLONAZEPAM Inactive ZITHROMAX Z-ANTONIETA 250 MG TABS 2x1day,[id number] ZITHROMAX Z-ANTONIETA 250 MG TABS 4208025 AZITHROMYCIN Inactive Vital Signs Date Name Value [...] Measured Encounters Code Encounter Date Provider Facility CPT-22229 Level 3 Est. Patient 17:02:03 CDT Diallo Shirley MD [facility] CPT-25087 Level 3 Est. Patient 16:22:59 CDT Dave palm DO [facility] CPT-79957 Level 3 Est. Patient 12:28:01 CDT Diallo Shirley MD [facility] CPT-45875 Level 3 Est. Patient 22:35:01 CDT Arnol collier MD [facility] CPT-21590 Level 3 Est. Patient 12:55:02 SUPERVISOR COLOR MAKING J William collier MD [facility] CPT-24071 Level 4 New Patient 14:35:08 CDT Arnol quinn MD [facility] CPT-55966 Level 4 Est. Patient 08:52:50 CDT Joao jacques DEB [facility] CPT-24230 Level 4 Est. Patient 07:47:45 CDT Joao jacques DEB [facility] Procedures Code Procedure Name Date Entry Date Standard Desc ription CPT-63984 Foot, left, comp min 3V - XRAY USE ONLY 16:58:22 CDT CPT-78864 Foot, left, comp min 3V - XRAY USE ONLY 16:47:13 CDT CPT-91406 Chest 2V Frontal and Lat - XRAY USE ONLY 16:45:56 CDT CPT-55346 Postop F/U Visit 14:36:53 CDT CPT-OV Office Visit 14:55:53 CDT CPT-OV Office Visit 14:55:26 CDT CPT-OV Office Visit 15:26:35 CDT CPT-01479 Postop F/U Visit 17:47:54 SUPERVISOR COLOR MAKING CPT-95877 Interstim trial 12:55:02 SUPERVISOR COLOR MAKING CPT-75978 Venipuncture Draw Fee 17:04:06 CDT
--- OUTSIDE RECORDS SUMMARY | 2019-04-15 12:38 | XMS REPORT ---
Author Author Sabrina ALDANA [facility] [address] Address [address] [place] [address] Care Team Providers Care Industrial Chemist Name Role Phone ARI ALDANA Unavailable PROBLEMS Unknown Problems ALLERGIES No Information ENCOUNTERS Encounter Location Date Diagnosis [facility] [address] [place] [address] June, 16 [facility] [address] [place] [id number] May, 14 [facility] [place] [id number] [place] [address] May, [facility] [address] [place] [address] Jul, 13 IMMUNIZATIONS No Known Immunizations SOCIAL HISTORY Never Assessed REASON FOR VISIT PLAN OF CARE VITAL SIGNS MEDICATIONS Unknown Medications RESULTS No Results PROCEDURES No Known procedures INSTRUCTIONS MEDICATIONS ADMINISTERED No Known Medications
--- OUTSIDE RECORDS SUMMARY | 2019-04-15 12:39 | XMS REPORT | Clinical Summary ---
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 nactive Joao BOYD Medication List Medication Instructions Start Date Stop Date Generic Name NDC Status Provider Patient Instruction NAPROSYN 500 MG TABS 1 bid NAPROXEN 37493460262 Act kiya Elaine Meadows RENATO Active [facility] ZINC 50 MG TABS 1 qd ZINC 77110280452 Active Anupama Meadows RENATO Active CVS MAGNESIUM 250 MG TABS 3 q d MAGNESIUM 142491714 81 Active Elaine Meadows VICE INVESTIGATOR Active CVS VITAMIN C 1000 MG TABS 1 qd ASCORBIC ACID 5042 6279995 Active Elaine Meadows VICE INVESTIGATOR Active SUPER B COMPLEX TABS Take one by mouth daily B COMPLEX-C 56772864953 No Longer Active Elaine Meadows VICE INVESTIGATOR Active AMBIEN 10 MG TABS 1 at bedtime ZOLPIDEM TARTRAT E 51211050336 No Longer Active Elaine Meadows VICE INVESTIGATOR Active ASPIRIN 81 MG TAB 1 tablet by mouth daily ASPIR IN 46599917361 No Longer Active Elaine Meadows VICE INVESTIGATOR Active PANTOPRAZOLE SODIUM 40 MG TBEC Take one by mouth bid PANTOPRAZOLE SODIUM 78316062632 [facility] MACRODANTIN 100 MG CAPS Take one by mouth daily 10/18 NITROFURANTOIN MACROCRYSTAL 09155876740 No Longer Active Arnol Ballard MD Active VITAMIN D3 5000 UNIT TABS 1qd CHOLECALCIFER OL 03239778207 No Longer Active Arnol Ballard MD Active FIBER THERAPY 500 MG TABS 1qd METHYLCELL ULOSE (LAXATIVE) 20544447539 No Longer Active Arnol Ballard MD Active VITAMIN C 1000 MG TABS 1qd ASCORBIC ACID 30 866445089 No Longer Active Arnol Ballard MD Active HYDROCODONE-ACETAMINOPHEN 10-500 MG TABS 1 prn HYDROCODONE-ACETAMINOPHEN 13169005901 No Longer Active Arnol Ballard MD Active LOVASTATIN 40 MG TABS 1 at bedtime LOVASTATIN 00 530611557 No Longer Active Joao Marleny PA Active CLONAZEPAM 0.5 MG TABS 2 tablet by mouth 1 times daily at bedtime CLONAZEPAM 08487946552 Active Joao Harms PA Active CYMBALTA 60 MG CPEP 1 every morning DULOXETINE HC L 16474856505 Active Joao Harms PA Active CYMBALTA 30 MG CPEP 1 cap by mouth daily with 60mg cap DULOXETINE HCL 63662408698 No Longer Active Joao Farmer PA Active CLONAZEPAM 0.5 MG TBDP 2 tabs at bedtime CLONAZ EPAM 86961182803 No Longer Active Joao Marleny PA Active OMEGA 3-6-9 COMPLEX CAPS 1qd OMEGA 3-6-9 FATTY ACIDS 47424289948 Active Sobia Aisha FIRE CONTROL OFFICER Active SUPER B-50 B COMPLEX CAPS 1qd B [id number] 00 570232208 Active Sobia Aisha FIRE CONTROL OFFICER Active ZYRTEC ALLERGY 10 MG TABS Take one by mouth daily 2011 CETIRIZINE HCL 91099740901 No Longer Active Sobia [place] FIRE CONTROL OFFICER Act kiya VITAMIN D3 2000 UNIT CAPS 2 1/2 daily CHOLECALC IFEROL 08012273062 No Longer Active Sobia [place] FIRE CONTROL OFFICER Active ZITHROMAX Z-ANTONIETA 250 MG TABS 2x1day,[id number] AZIT HROMYCIN 38442308319 No Longer Active Sobia [place] FIRE CONTROL OFFICER Active MELOXICAM 15 MG TABS 1qd MELOXICAM 97449153827 Ac tive Sobia [place] FIRE CONTROL OFFICER Active VESICARE 10 MG TABS 1 tab daily SOLIFENACIN SUCCI KAHLIL 93823348353 Active Symone Lucke Active MULTIVITAMINS TABS Take one by mouth daily MULT IPLE VITAMIN 04227003650 Active Symone Lucke Active VITAMIN D3 2000 UNIT CAPS 2 1/2 daily TAMIN D3 2000 UNIT CAPS CHOLECALCIFEROL Inactive ZYRTEC ALLERGY 10 MG TABS Take one by mouth daily 2011 ZYRTEC ALLERGY 10 MG TABS 3419772 CETIRIZINE HCL Inactive CLONAZEPAM 0.5 MG TBDP 2 tabs at bedtime CLONAZEPAM 0.5 MG TBDP 341542 CLONAZEPAM Inactive CYMBALTA 30 MG CPEP 1 cap by mouth daily with 60mg cap CYMBALTA 30 MG CPEP 490271 DULOXETINE HCL Inactive LOVASTATIN 40 MG TABS 1 at bedtime LOVASTATIN 4 0 MG TABS 804285 LOVASTATIN Inactive HYDROCODONE-ACETAMINOPHEN 10-500 MG TABS 1 prn HYDROCODONE- ACETAMINOPHEN 10-500 MG TABS 631810 HYDROCODONE-ACETAMINOPHEN Inact kiya VITAMIN C 1000 MG TABS 1qd VITAMIN C 1000 M G TABS 343831 ASCORBIC ACID Inactive FIBER THERAPY 500 MG TABS 1qd FIBER THERAPY 500 MG TABS METHYLCELLULOSE (LAXATIVE) Inactive VITAMIN D3 5000 UNIT TABS 1qd VITAMIN D3 50 00 UNIT TABS CHOLECALCIFEROL Inactive MACRODANTIN 100 MG CAPS Take one by mouth daily 10/18 MACRODANTIN 100 MG CAPS 056702 NITROFURANTOIN MACROCRYSTAL Inactive ASPIRIN 81 MG TAB 1 tablet by mouth daily ASPIRIN 81 MG TAB 492643 ASPIRIN Inactive AMBIEN 10 MG TABS 1 at bedtime AMBIEN 10 MG TABS 123591 ZOLPIDEM TARTRATE Inactive SUPER B COMPLEX TABS Take one by mouth daily 4 SUPER B COMPLEX TABS B COMPLEX-C Inactive ZITHROMAX Z-ANTONIETA 250 MG TABS 2x1day,[id number] ZITHROMAX Z-ANTONIETA 250 MG TABS 0836924 AZITHROMYCIN Inactive Vital Signs Date Name Value Unit Range Description blood pressure, diastolic - 8462-4 79 mm[Hg] BP shore blood pressure, systolic - 8480-6 115 mm[Hg] BP sys height E&M - 8302-2 67 [in_us] Bdy h eight pulse rate E&M - 8867-4 73 /min H eart rate temperature E&M 96.6 [degF] Body temp erature weight E&M - 3141-9 235 [lb_av] Weigh t Measured blood pressure, diastolic - 8462-4 79 mm[Hg] BP shore blood pressure, systolic - 8480-6 118 mm[Hg] BP sys height E&M - 8302-2 67 [in_us] Bdy h eight pulse rate E&M - 8867-4 90 /min H eart rate temperature E&M 99.0 [degF] Body temp erature weight E&M - 3141-9 263 [lb_av] Weigh t Measured blood pressure, diastolic - 8462-4 82 mm[Hg] BP shore blood pressure, systolic - 8480-6 120 mm[Hg] BP sys height E&M - 8302-2 67 [in_us] Bdy h eight pulse rate E&M - 8867-4 105 /min H eart rate temperature E&M 96.9 [degF] Body temp erature weight E&M - 3141-9 263 [lb_av] Weigh t Measured blood pressure, diastolic - 8462-4 81 mm[Hg] BP shore blood pressure, systolic - 8480-6 114 mm[Hg] BP sys height E&M - 8302-2 67 [in_us] Bdy h eight pulse rate E&M - 8867-4 103 /min H eart rate temperature E&M 96.8 [degF] Body temp erature weight E&M - 3141-9 248.6 [lb_av] Weigh t Measured Diagnostic Results Date Name Value Unit Range Description Chart Maintenance: Outside labs entered on [employer] - Chemistry sodium, serum 146 mmol/L potassium, serum 3.3 mmol/L blood glucose 96 mg/dL creatinine, serum 0.96 mg/dL aspartate aminotransferase (SGOT), serum 15 U/L alanine aminotransferase (SGPT), serum 28 U/L alkaline phosphatase, serum 189 U/L Chart Maintenance: Outside labs entered on [employer] - Hematology leukocyte count, blood 7.1 10*3/mm3 hemoglobin, blood 13.6 g/dL platelet count 296 10*3/mm3 Lab Report: CBC w/ Diff, [facility] - Chemistry sodium, serum 144 mmol/L potassium, serum 3.7 mmol/L chloride, serum 105 mmol/L carbon dioxide, venous blood 29.3 mmol/L urea nitrogen, blood 17 mg/dL blood glucose 91 mg/dL creatinine, serum 1.10 mg/dL calcium, serum 9.2 mg/dL Lab Report: CBC w/ Diff, BMP - Hematolog y leukocyte count, blood 8.7 [...] negative Encounters Code Encounter Date Provider Facility CPT-43573 Level 3 Est. Patient 12:55:02 COMMUNITY INTEGRATION SPECIALIST Arnol collier MD [facility] CPT-08055 Level 4 New Patient 14:35:08 CDT Arnol quinn MD [facility] CPT-09382 Level 4 Est. Patient 08:52:50 CDT Joao jacques [facility] CPT-84055 Level 4 Est. Patient 07:47:45 CDT Joao jacques [facility] Procedures Code Procedure Name Date Entry Date Standard Desc ription CPT-OV Office Visit 15:26:35 CDT CPT-00175 Postop F/U Visit 17:47:54 COMMUNITY INTEGRATION SPECIALIST CPT-54318 Interstim trial 12:55:02 COMMUNITY INTEGRATION SPECIALIST CPT-55937 Venipuncture Draw Fee 17:04:06 CDT
--- OUTSIDE RECORDS SUMMARY | 2019-04-15 12:39 | XMS REPORT | Clinical Summary ---
Author Author Admin, Sabrina Jefferson Organization [facility] Address Unknown Phone Unavailable Allergies, Adverse [...] OF OTHER MEDICATIONS V58.69 11/05 Active Sadie Joens LPN Long-term (current) use of oth er medications HYPERLIPIDEMIA 272.4 Active Sadie Jones LPN Other and unspecified hyperlipidemia OSTEOARTHRITIS 715.90 Active Sobia Naff TRAFFIC EXPERT Osteoarthrosis, unspecified whether generalized or localized, involving unspecified site G E R D 530.81 Active Sobia Naff TRAFFIC EXPERT Esoph ageal reflux DEPRESSION 311 Active Sobia Naff TRAFFIC EXPERT De pressive disorder, not elsewhere classified FH DIABETES V18.0 Active Sobia Naff TRAFFIC EXPERT F amily history of diabetes mellitus DROWSINESS [...] pain Colon cancer screening V76.51 Active Elaine King RENATO Screening for malignant neoplasms of colon 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 nactive Joao BOYD Medication List Medication Instructions Start Date Stop Date Generic Name NDC Status Provider Patient Instruction HYDROCODONE-ACETAMINOPHEN 5-325 MG TABS 1-2 q 4 hr prn pain HYDROCODONE-ACETAMINOPHEN 27798300869 Active Rony Mata MD Active NAPROSYN 500 MG TABS 1 bid NAPROXEN 17469433807 Act kiya Elaine Meadows RENATO Active [facility] ZINC 50 MG TABS 1 qd ZINC 04719234959 Active Anupama Meadows RENATO Active CVS MAGNESIUM 250 MG TABS 3 q d MAGNESIUM 061408502 81 Active Elaine Meadows INSTALLATION COORDINATOR Active CVS VITAMIN C 1000 MG TABS 1 qd ASCORBIC ACID 5042 8303115 Active Elaine Meadows RENATO Active SUPER B COMPLEX TABS Take one by mouth daily B COMPLEX-C 55333744544 No Longer Active Elaine Meadows RENATO Active AMBIEN 10 MG TABS 1 at bedtime ZOLPIDEM TARTRAT E 75451862164 No Longer Active Elaine Meadows RENATO Active ASPIRIN 81 MG TAB 1 tablet by mouth daily ASPIR IN 82277426321 No Longer Active Elaine Meadows RENATO Active PANTOPRAZOLE SODIUM 40 MG TBEC Take one by mouth bid PANTOPRAZOLE SODIUM 97079694819 Active Elaine Meadows RENATO Active MACRODANTIN 100 MG CAPS Take one by mouth daily 10/18 NITROFURANTOIN MACROCRYSTAL 20299409137 No Longer Active Anrol Ballard MD Active VITAMIN D3 5000 UNIT TABS 1qd CHOLECALCIFER OL 61016756962 No Longer Active Arnol Ballard MD Active FIBER THERAPY 500 MG TABS 1qd METHYLCELL ULOSE (LAXATIVE) 07509854989 No Longer Active Arnol Ballard MD Active VITAMIN C 1000 MG TABS 1qd ASCORBIC ACID 30 270384244 No Longer Active Arnol Ballard MD Active HYDROCODONE-ACETAMINOPHEN 10-500 MG TABS 1 prn HYDROCODONE-ACETAMINOPHEN 74266959842 No Longer Active Arnol Ballard MD Active LOVASTATIN 40 MG TABS 1 at bedtime LOVASTATIN 00 453430941 No Longer Active Joao Harms PA Active CLONAZEPAM 0.5 MG TABS 2 tablet by mouth 1 times daily at bedtime CLONAZEPAM 20869563504 Active Joao Harms PA Active CYMBALTA 60 MG CPEP 1 every morning DULOXETINE HC L 61564726993 Active Joao Harms PA Active CYMBALTA 30 MG CPEP 1 cap by mouth daily with 60mg cap DULOXETINE HCL 67218142734 No Longer Active Joao Harms PA Active CLONAZEPAM 0.5 MG TBDP 2 tabs at bedtime CLONAZ EPAM 03169231585 No Longer Active Joao Harms PA Active OMEGA 3-6-9 COMPLEX CAPS 1qd OMEGA 3-6-9 FATTY ACIDS 24651871940 Active Sobia Naff TRAFFIC EXPERT Active SUPER B-50 B COMPLEX CAPS 1qd B [id number] 00 242200207 Active Sobia Naff TRAFFIC EXPERT Active ZYRTEC ALLERGY 10 MG TABS Take one by mouth daily 2011 CETIRIZINE HCL 24401888382 No Longer Active Sobia Naff TRAFFIC EXPERT Active VITAMIN D3 2000 UNIT CAPS 2 1/2 daily CHOLECALC IFEROL 59908517005 No Longer Active Sobia Naff TRAFFIC EXPERT Active ZITHROMAX Z-ANTONIETA 250 MG TABS 2x1day,3e6rbto AZIT HROMYCIN 47215996862 No Longer Active Sobia Naff TRAFFIC EXPERT Active MELOXICAM 15 MG TABS 1qd MELOXICAM 14973189073 Ac gagan Ramsay Naff TRAFFIC EXPERT Active VESICARE 10 MG TABS 1 tab daily SOLIFENACIN SUCCI KAHLIL 18908025260 Active Symone Lucke Active MULTIVITAMINS TABS Take one by mouth daily MULT IPLE VITAMIN 49664447531 Active Symone Lucke Active VITAMIN D3 2000 UNIT CAPS 2 1/2 daily TAMIN D3 2000 UNIT CAPS CHOLECALCIFEROL Inactive ZYRTEC ALLERGY 10 MG TABS Take one by mouth daily 2011 ZYRTEC ALLERGY 10 MG TABS 6941474 CETIRIZINE HCL Inactive CLONAZEPAM 0.5 MG TBDP 2 tabs at bedtime CLONAZEPAM 0.5 MG TBDP 686610 CLONAZEPAM Inactive CYMBALTA 30 MG CPEP 1 cap by mouth daily with 60mg cap CYMBALTA 30 MG CPEP 646857 DULOXETINE HCL Inactive LOVASTATIN 40 MG TABS 1 at bedtime LOVASTATIN 4 0 MG TABS 987423 LOVASTATIN Inactive HYDROCODONE-ACETAMINOPHEN 10-500 MG TABS 1 prn HYDROCODONE- ACETAMINOPHEN 10-500 MG TABS HYDROCODONE-ACETAMINOPHEN Inact kiya VITAMIN C 1000 MG TABS 1qd VITAMIN C 1000 M G TABS 643887 ASCORBIC ACID Inactive FIBER THERAPY 500 MG TABS 1qd FIBER THERAPY 500 MG TABS METHYLCELLULOSE (LAXATIVE) Inactive VITAMIN D3 5000 UNIT TABS 1qd VITAMIN D3 50 00 UNIT TABS CHOLECALCIFEROL Inactive MACRODANTIN 100 MG CAPS Take one by mouth daily 10/18 MACRODANTIN 100 MG CAPS 568121 NITROFURANTOIN MACROCRYSTAL Inactive ASPIRIN 81 MG TAB 1 tablet by mouth daily ASPIRIN 81 MG TAB 188047 ASPIRIN Inactive AMBIEN 10 MG TABS 1 at bedtime AMBIEN 10 MG TABS 394304 ZOLPIDEM TARTRATE Inactive SUPER B COMPLEX TABS Take one by mouth daily 4 SUPER B COMPLEX TABS B COMPLEX-C Inactive ZITHROMAX Z-ANTONIETA 250 MG TABS 2x1day,1p4lsjm ZITHROMAX Z-ANTONIETA 250 MG TABS 5063486 AZITHROMYCIN Inactive Vital Signs Date Name Value Unit Range Description blood pressure, diastolic - 8462-4 80 mm[Hg] BP shore blood pressure, systolic - 8480-6 122 mm[Hg] BP sys pulse rate E&M - 8867-4 83 /min H eart rate temperature E&M 96.3 [degF] Body temp erature weight E&M - 3141-9 218 [lb_av] Weigh t Measured blood pressure, diastolic - 8462-4 84 mm[Hg] BP shore blood pressure, systolic - 8480-6 125 mm[Hg] BP sys height E&M - 8302-2 67 [in_us] Bdy h eight pulse rate E&M - 8867-4 69 /min H eart rate temperature E&M 96. [degF] Body temp erature weight E&M - 3141-9 232 [lb_av] Weigh t Measured blood pressure, diastolic [...] Description Chart Maintenance: Outside labs entered on [employer] - Chemistry sodium, serum 146 mmol/L potassium, serum 3.3 mmol/L blood glucose 96 mg/dL creatinine, serum 0.96 mg/dL aspartate aminotransferase (SGOT), serum 15 U/L alanine aminotransferase (SGPT), serum 28 U/L alkaline phosphatase, serum 189 U/L Chart Maintenance: Outside labs entered on [employer] - Hematology leukocyte count, blood 7.1 10*3/mm3 hemoglobin, blood 13.6 g/dL platelet count 296 10*3/mm3 Lab Report: CBC w/ Diff, [facility] - Chemistry sodium, serum 144 mmol/L potassium, serum 3.7 mmol/L chloride, serum 105 mmol/L carbon dioxide, venous blood 29.3 mmol/L urea nitrogen, blood 17 mg/dL blood glucose 91 mg/dL creatinine, serum 1.10 mg/dL calcium, serum 9.2 mg/dL Lab Report: CBC w/ Diff, [facility] - Hematolog y leukocyte count, blood 8.7 [...] negative Encounters Code Encounter Date Provider Facility CPT-87337 Level 3 Est. Patient 12:55:02 ASSISTANT CORPORATION COUNSEL Arnol collier MD [facility] CPT-22309 Level 4 New Patient 14:35:08 CDT Arnol quinn MD [facility] CPT-33002 Level 4 Est. Patient 08:52:50 CDT Joao jacques [facility] CPT-92875 Level 4 Est. Patient 07:47:45 CDT Joao jacques [facility] Procedures Code Procedure Name Date Entry Date Standard Desc ription CPT-OV Office Visit 14:55:53 CDT CPT-OV Office Visit 14:55:26 CDT CPT-OV Office Visit 15:26:35 CDT CPT-94397 Postop F/U Visit 17:47:54 ASSISTANT CORPORATION COUNSEL CPT-90071 Interstim trial 12:55:02 ASSISTANT CORPORATION COUNSEL CPT-93839 Venipuncture Draw Fee 17:04:06 CDT
--- OUTSIDE RECORDS SUMMARY | 2019-04-15 12:39 | XMS REPORT | Clinical Summary ---
Author Author Admin, Sabrina Jefferson Organization [facility] Address Unknown Phone Allergies, Adverse Reactions, Alerts [...] NAPROSYN 500 MG TABS 1 bid NAPROXEN 24179750848 Act kiya Elaine Meadows RENATO Active CVS ZINC 50 MG TABS 1 qd ZINC 86898806588 Active Anupama Meadows RENATO Active CVS MAGNESIUM 250 MG TABS 3 q d MAGNESIUM 181183552 81 Active Elaine Meadows UPPER CUTTER MACHINE Active CVS VITAMIN C 1000 MG TABS 1 qd ASCORBIC ACID 5042 2132674 Active Elaine Meadows UPPER CUTTER MACHINE Active SUPER B COMPLEX TABS Take one by mouth daily B COMPLEX-C 55684817997 No Longer Active Elaine Meadows UPPER CUTTER MACHINE Active AMBIEN 10 MG TABS 1 at bedtime ZOLPIDEM TARTRAT E 47417128031 No Longer Active Elaine Meadows UPPER CUTTER MACHINE Active ASPIRIN 81 MG TAB 1 tablet by mouth daily ASPIR IN 79531227706 No Longer Active Elaine Meadows UPPER CUTTER MACHINE Active PANTOPRAZOLE SODIUM 40 MG TBEC Take one by mouth bid PANTOPRAZOLE SODIUM 99418161355 [facility] MACRODANTIN 100 MG CAPS Take one by mouth daily 10/18 NITROFURANTOIN MACROCRYSTAL 96699797933 No Longer Active Arnol Ballard MD Active VITAMIN D3 5000 UNIT TABS 1qd CHOLECALCIFER OL 33029853798 No Longer Active Arnol Ballard MD Active FIBER THERAPY 500 MG TABS 1qd METHYLCELL ULOSE (LAXATIVE) 91690785297 No Longer Active Arnol Ballard MD Active VITAMIN C 1000 MG TABS 1qd ASCORBIC ACID 30 344819814 No Longer Active Arnol Ballard MD Active HYDROCODONE-ACETAMINOPHEN 10-500 MG TABS 1 prn HYDROCODONE-ACETAMINOPHEN 46792037433 No Longer Active Arnol Ballard MD Active LOVASTATIN 40 MG TABS 1 at bedtime LOVASTATIN 00 107195300 No Longer Active Joao Farmer PA Active CLONAZEPAM 0.5 MG TABS 2 tablet by mouth 1 times daily at bedtime CLONAZEPAM 61985416943 Active Joao Harms PA Active CYMBALTA 60 MG CPEP 1 every morning DULOXETINE HC L 30702171430 Active Joao Harms PA Active CYMBALTA 30 MG CPEP 1 cap by mouth daily with 60mg cap DULOXETINE HCL 83795862358 No Longer Active Joao Farmer PA Active CLONAZEPAM 0.5 MG TBDP 2 tabs at bedtime CLONAZ EPAM 57153523829 No Longer Active Joao Marleny PA Active OMEGA 3-6-9 COMPLEX CAPS 1qd OMEGA 3-6-9 FATTY ACIDS 03805788779 Active Sobia Aisha INCIDENT RESPONSE ENGINEER Active SUPER B-50 B COMPLEX CAPS 1qd B [id number] 00 902645872 Active Sobia Aisha INCIDENT RESPONSE ENGINEER Active ZYRTEC ALLERGY 10 MG TABS Take one by mouth daily 2011 CETIRIZINE HCL 03475146796 No Longer Active Sobia [place] INCIDENT RESPONSE ENGINEER Act kiya VITAMIN D3 2000 UNIT CAPS 2 1/2 daily CHOLECALC IFEROL 25783121268 No Longer Active Sobia [place] INCIDENT RESPONSE ENGINEER Active ZITHROMAX Z-ANTONIETA 250 MG TABS 2x1day,7y2suuq AZIT HROMYCIN 81302560605 No Longer Active Sobia [place] INCIDENT RESPONSE ENGINEER Active MELOXICAM 15 MG TABS 1qd MELOXICAM 62215792733 Ac tive Sobia [place] INCIDENT RESPONSE ENGINEER Active VESICARE 10 MG TABS 1 tab daily SOLIFENACIN SUCCI KAHLIL 21764811843 Active Symone Lucke Active MULTIVITAMINS TABS Take one by mouth daily MULT IPLE VITAMIN 43320252773 Active Symone Lucke Active VITAMIN D3 2000 UNIT CAPS 2 1/2 daily TAMIN D3 2000 UNIT CAPS CHOLECALCIFEROL Inactive ZYRTEC ALLERGY 10 MG TABS Take one by mouth daily 2011 ZYRTEC ALLERGY 10 MG TABS 6370192 CETIRIZINE HCL Inactive CLONAZEPAM 0.5 MG TBDP 2 tabs at bedtime CLONAZEPAM 0.5 MG TBDP 256300 CLONAZEPAM Inactive CYMBALTA 30 MG CPEP 1 cap by mouth daily with 60mg cap CYMBALTA 30 MG CPEP 773492 DULOXETINE HCL Inactive LOVASTATIN 40 MG TABS 1 at bedtime LOVASTATIN 4 0 MG TABS 752077 LOVASTATIN Inactive HYDROCODONE-ACETAMINOPHEN 10-500 MG TABS 1 prn HYDROCODONE- ACETAMINOPHEN 10-500 MG TABS 789974 HYDROCODONE-ACETAMINOPHEN Inact kiya VITAMIN C 1000 MG TABS 1qd VITAMIN C 1000 M G TABS 198370 ASCORBIC ACID Inactive FIBER THERAPY 500 MG TABS 1qd FIBER THERAPY 500 MG TABS METHYLCELLULOSE (LAXATIVE) Inactive VITAMIN D3 5000 UNIT TABS 1qd VITAMIN D3 50 00 UNIT TABS CHOLECALCIFEROL Inactive MACRODANTIN 100 MG CAPS Take one by mouth daily 10/18 MACRODANTIN 100 MG CAPS 096806 NITROFURANTOIN MACROCRYSTAL Inactive ASPIRIN 81 MG TAB 1 tablet by mouth daily ASPIRIN 81 MG TAB 593315 ASPIRIN Inactive AMBIEN 10 MG TABS 1 at bedtime AMBIEN 10 MG TABS 968011 ZOLPIDEM TARTRATE Inactive SUPER B COMPLEX TABS Take one by mouth daily 4 SUPER B COMPLEX TABS B COMPLEX-C Inactive ZITHROMAX Z-ANTONIETA 250 MG TABS 2x1day,6y6eakc ZITHROMAX Z-ANTONIETA 250 MG TABS 9979388 AZITHROMYCIN Inactive Vital Signs Date Name Value Unit Range Description blood pressure, diastolic 84 mm[Hg] BP shore blood pressure, systolic 125 mm[Hg] BP sys height E&M 67 [in_us] Bdy height pulse rate E&M 69 /min Heart rate temperature E&M 96. [degF] Body temp erature weight E&M 232 [lb_av] Weight Measure d blood pressure, diastolic [...] Description Chart Maintenance: Outside labs entered on [employer] - Chemistry sodium, serum 146 mmol/L potassium, serum 3.3 mmol/L blood glucose 96 mg/dL creatinine, serum 0.96 mg/dL aspartate aminotransferase (SGOT), serum 15 U/L alanine aminotransferase (SGPT), serum 28 U/L alkaline phosphatase, serum 189 U/L Chart Maintenance: Outside labs entered on [employer] - Hematology leukocyte count, blood 7.1 10*3/mm3 hemoglobin, blood 13.6 g/dL platelet count 296 10*3/mm3 Lab Report: CBC w/ Diff, [facility] - Chemistry sodium, serum 144 [...] negative Encounters Code Encounter Date Provider Facility CPT-65143 Level 3 Est. Patient 12:55:02 GOLF TOURNAMENT CONSULTANT Arnol collier MD [facility] CPT-67793 Level 4 New Patient 14:35:08 CDT Arnol quinn MD [facility] CPT-91849 Level 4 Est. Patient 08:52:50 CDT Joao jacques [facility] CPT-64625 Level 4 Est. Patient 07:47:45 CDT Joao jacques [facility] Procedures Code Procedure Name Date Entry Date Standard Desc ription CPT-OV Office Visit 14:55:26 CDT CPT-OV Office Visit 15:26:35 CDT CPT-35005 Postop F/U Visit 17:47:54 GOLF TOURNAMENT CONSULTANT CPT-33818 Interstim trial 12:55:02 GOLF TOURNAMENT CONSULTANT CPT-09540 Venipuncture Draw Fee 17:04:06 CDT
--- OUTSIDE RECORDS SUMMARY | 2019-04-15 12:39 | XMS REPORT | Clinical Summary ---
Author Author Admin, Sabrina Jefferson Organization [facility] Address Unknown Phone Allergies, Adverse Reactions, Alerts [...] NAPROSYN 500 MG TABS 1 bid NAPROXEN 81664702306 Act kiya Elaine Meadows RENATO Active CVS ZINC 50 MG TABS 1 qd ZINC 44850710957 Active Anupama Meadows RENATO Active CVS MAGNESIUM 250 MG TABS 3 q d MAGNESIUM 694589116 81 Active Elaine Meadows IT TRAINING SPECIALIST Active CVS VITAMIN C 1000 MG TABS 1 qd ASCORBIC ACID 5042 9286006 Active Elaine Meadows IT TRAINING SPECIALIST Active SUPER B COMPLEX TABS Take one by mouth daily B COMPLEX-C 02495701192 No Longer Active Elaine Meadows IT TRAINING SPECIALIST Active AMBIEN 10 MG TABS 1 at bedtime ZOLPIDEM TARTRAT E 05412598533 No Longer Active Elaine Meadows IT TRAINING SPECIALIST Active ASPIRIN 81 MG TAB 1 tablet by mouth daily ASPIR IN 37203089007 No Longer Active Elaine Meadows IT TRAINING SPECIALIST Active PANTOPRAZOLE SODIUM 40 MG TBEC Take one by mouth bid PANTOPRAZOLE SODIUM 47319277514 [facility] MACRODANTIN 100 MG CAPS Take one by mouth daily 10/18 NITROFURANTOIN MACROCRYSTAL 92276477215 No Longer Active Arnol Ballard MD Active VITAMIN D3 5000 UNIT TABS 1qd CHOLECALCIFER OL 15980796461 No Longer Active Arnol Ballard MD Active FIBER THERAPY 500 MG TABS 1qd METHYLCELL ULOSE (LAXATIVE) 38697753389 No Longer Active Arnol Ballard MD Active VITAMIN C 1000 MG TABS 1qd ASCORBIC ACID 30 293228837 No Longer Active Arnol Ballard MD Active HYDROCODONE-ACETAMINOPHEN 10-500 MG TABS 1 prn HYDROCODONE-ACETAMINOPHEN 33525556744 No Longer Active Arnol Ballard MD Active LOVASTATIN 40 MG TABS 1 at bedtime LOVASTATIN 00 395766732 No Longer Active Joao Farmer PA Active CLONAZEPAM 0.5 MG TABS 2 tablet by mouth 1 times daily at bedtime CLONAZEPAM 28131071566 Active Joao Harms PA Active CYMBALTA 60 MG CPEP 1 every morning DULOXETINE HC L 90162432079 Active Joao Harms PA Active CYMBALTA 30 MG CPEP 1 cap by mouth daily with 60mg cap DULOXETINE HCL 04562327900 No Longer Active Joao Farmer PA Active CLONAZEPAM 0.5 MG TBDP 2 tabs at bedtime CLONAZ EPAM 72789016987 No Longer Active Joao Marleny PA Active OMEGA 3-6-9 COMPLEX CAPS 1qd OMEGA 3-6-9 FATTY ACIDS 66295578111 Active Sobia Aisha BODY JOINER Active SUPER B-50 B COMPLEX CAPS 1qd B [id number] 00 238155041 Active Sobia Aisha BODY JOINER Active ZYRTEC ALLERGY 10 MG TABS Take one by mouth daily 2011 CETIRIZINE HCL 68873611560 No Longer Active Sobia [place] BODY JOINER Act kiya VITAMIN D3 2000 UNIT CAPS 2 1/2 daily CHOLECALC IFEROL 33773602030 No Longer Active Sobia [place] BODY JOINER Active ZITHROMAX Z-ANTONIETA 250 MG TABS 2x1day,2n2opti AZIT HROMYCIN 70605886353 No Longer Active Sobia [place] BODY JOINER Active MELOXICAM 15 MG TABS 1qd MELOXICAM 20244505068 Ac tive Sobia [place] BODY JOINER Active VESICARE 10 MG TABS 1 tab daily SOLIFENACIN SUCCI KAHLIL 88316399905 Active Symone Lucke Active MULTIVITAMINS TABS Take one by mouth daily MULT IPLE VITAMIN 82416956158 Active Symone Lucke Active VITAMIN D3 2000 UNIT CAPS 2 1/2 daily TAMIN D3 2000 UNIT CAPS CHOLECALCIFEROL Inactive ZYRTEC ALLERGY 10 MG TABS Take one by mouth daily 2011 ZYRTEC ALLERGY 10 MG TABS 4237429 CETIRIZINE HCL Inactive CLONAZEPAM 0.5 MG TBDP 2 tabs at bedtime CLONAZEPAM 0.5 MG TBDP 509354 CLONAZEPAM Inactive CYMBALTA 30 MG CPEP 1 cap by mouth daily with 60mg cap CYMBALTA 30 MG CPEP 026558 DULOXETINE HCL Inactive LOVASTATIN 40 MG TABS 1 at bedtime LOVASTATIN 4 0 MG TABS 500115 LOVASTATIN Inactive HYDROCODONE-ACETAMINOPHEN 10-500 MG TABS 1 prn HYDROCODONE- ACETAMINOPHEN 10-500 MG TABS 171248 HYDROCODONE-ACETAMINOPHEN Inact kiya VITAMIN C 1000 MG TABS 1qd VITAMIN C 1000 M G TABS 835798 ASCORBIC ACID Inactive FIBER THERAPY 500 MG TABS 1qd FIBER THERAPY 500 MG TABS METHYLCELLULOSE (LAXATIVE) Inactive VITAMIN D3 5000 UNIT TABS 1qd VITAMIN D3 50 00 UNIT TABS CHOLECALCIFEROL Inactive MACRODANTIN 100 MG CAPS Take one by mouth daily 10/18 MACRODANTIN 100 MG CAPS 579672 NITROFURANTOIN MACROCRYSTAL Inactive ASPIRIN 81 MG TAB 1 tablet by mouth daily ASPIRIN 81 MG TAB 146447 ASPIRIN Inactive AMBIEN 10 MG TABS 1 at bedtime AMBIEN 10 MG TABS 224500 ZOLPIDEM TARTRATE Inactive SUPER B COMPLEX TABS Take one by mouth daily 4 SUPER B COMPLEX TABS B COMPLEX-C Inactive ZITHROMAX Z-ANTONIETA 250 MG TABS 2x1day,4j0zcwe ZITHROMAX Z-ANTONIETA 250 MG TABS 9155174 AZITHROMYCIN Inactive Vital Signs Date Name Value [...] Description Chart Maintenance: Outside labs entered on [employer] - Chemistry sodium, serum 146 mmol/L potassium, serum 3.3 mmol/L blood glucose 96 mg/dL creatinine, serum 0.96 mg/dL aspartate aminotransferase (SGOT), serum 15 U/L alanine aminotransferase (SGPT), serum 28 U/L alkaline phosphatase, serum 189 U/L Chart Maintenance: Outside labs entered on [employer] - Hematology leukocyte count, blood 7.1 10*3/mm3 hemoglobin, blood 13.6 g/dL platelet count 296 10*3/mm3 Lab Report: CBC w/ Diff, [facility] - Chemistry sodium, serum 144 mmol/L [...] negative Encounters Code Encounter Date Provider Facility CPT-42222 Level 3 Est. Patient 12:55:02 HEAD ESTHETICIAN Arnol collier MD [facility] CPT-18353 Level 4 New Patient 14:35:08 CDT Arnol quinn MD [facility] CPT-53166 Level 4 Est. Patient 08:52:50 CDT Joao jacques [facility] [place] CPT-70277 Level 4 Est. Patient 07:47:45 CDT Joao jacques [facility] [place] Procedures Code Procedure Name Date Entry Date Standard Desc ription CPT-OV Office Visit 14:55:26 CDT CPT-OV Office Visit 15:26:35 CDT CPT-20355 Postop F/U Visit 17:47:54 HEAD ESTHETICIAN CPT-59180 Interstim trial 12:55:02 HEAD ESTHETICIAN CPT-38911 Venipuncture Draw Fee 17:04:06 CDT
--- OUTSIDE RECORDS SUMMARY | 2019-04-15 12:39 | XMS REPORT | Clinical Summary ---
Author Author Admin, Sabrina Jefferson Organization [facility] Address Unknown Phone Allergies, Adverse Reactions, [...] NAPROSYN 500 MG TABS 1 bid NAPROXEN [id number] Act kiya Elaine Meadows RENATO Active [facility] ZINC 50 MG TABS 1 qd ZINC 26437076115 Active Anupama Meadows RENATO Active [facility]S MAGNESIUM 250 MG TABS 3 q d MAGNESIUM 201739848 81 Active Elaine Meadows EXCEL DEVELOPER Active CVS VITAMIN C 1000 MG TABS 1 qd ASCORBIC ACID 5042 5137021 Active Elaine Meadows EXCEL DEVELOPER Active SUPER B COMPLEX TABS Take one by mouth daily B COMPLEX-C 81892095281 No Longer Active Elaine Meadows EXCEL DEVELOPER Active AMBIEN 10 MG TABS 1 at bedtime ZOLPIDEM TARTRAT E 53362084075 No Longer Active Elaine Meadows EXCEL DEVELOPER Active ASPIRIN 81 MG TAB 1 tablet by mouth daily ASPIR IN 91760249341 No Longer Active Elaine Meadows EXCEL DEVELOPER Active PANTOPRAZOLE SODIUM 40 MG TBEC Take one by mouth bid PANTOPRAZOLE SODIUM 93735648285 Active [facility] MACRODANTIN 100 MG CAPS Take one by mouth daily 10/18 NITROFURANTOIN MACROCRYSTAL 72809842069 No Longer Active Arnol Ballard MD Active VITAMIN D3 5000 UNIT TABS 1qd CHOLECALCIFER OL 46076474278 No Longer Active Arnol Ballard MD Active FIBER THERAPY 500 MG TABS 1qd METHYLCELL ULOSE (LAXATIVE) 23680337259 No Longer Active Arnol Ballard MD Active VITAMIN C 1000 MG TABS 1qd ASCORBIC ACID 30 677421266 No Longer Active Arnol Ballard MD Active HYDROCODONE-ACETAMINOPHEN 10-500 MG TABS 1 prn HYDROCODONE-ACETAMINOPHEN 36032878178 No Longer Active Arnol Ballard MD Active LOVASTATIN 40 MG TABS 1 at bedtime LOVASTATIN 00 891322542 No Longer Active Joao Farmer PA Active CLONAZEPAM 0.5 MG TABS 2 tablet by mouth 1 times daily at bedtime CLONAZEPAM 08581844004 Active Joao Harms PA Active CYMBALTA 60 MG CPEP 1 every morning DULOXETINE HC L 65916288071 Active Joao Harms PA Active CYMBALTA 30 MG CPEP 1 cap by mouth daily with 60mg cap DULOXETINE HCL 81476881082 No Longer Active Joao Farmer PA Active CLONAZEPAM 0.5 MG TBDP 2 tabs at bedtime CLONAZ EPAM 08029793060 No Longer Active Joao Marleny PA Active OMEGA 3-6-9 COMPLEX CAPS 1qd OMEGA 3-6-9 FATTY ACIDS 25924352376 Active Sobia Aisha SOLDERING MACHINE OPERATOR HELPER Active SUPER B-50 B COMPLEX CAPS 1qd B [id number] 00 762380394 Active Sobia Aisha SOLDERING MACHINE OPERATOR HELPER Active ZYRTEC ALLERGY 10 MG TABS Take one by mouth daily 2011 CETIRIZINE HCL 03704108280 No Longer Active Sobia Wasilla SOLDERING MACHINE OPERATOR HELPER Act kiya VITAMIN D3 2000 UNIT CAPS 2 1/2 daily CHOLECALC IFEROL 27792332674 No Longer Active Sobia Wasilla SOLDERING MACHINE OPERATOR HELPER Active ZITHROMAX Z-ANTONIETA 250 MG TABS 2x1day,3w4myga AZIT HROMYCIN 29498619002 No Longer Active Sobia Wasilla SOLDERING MACHINE OPERATOR HELPER Active MELOXICAM 15 MG TABS 1qd MELOXICAM 47317786069 Ac tive Sobia Wasilla SOLDERING MACHINE OPERATOR HELPER Active VESICARE 10 MG TABS 1 tab daily SOLIFENACIN SUCCI KAHLIL 07588984656 Active Symone Lucke Active MULTIVITAMINS TABS Take one by mouth daily MULT IPLE VITAMIN 34852174819 Active Symone Lucke Active VITAMIN D3 2000 UNIT CAPS 2 1/2 daily TAMIN D3 2000 UNIT CAPS CHOLECALCIFEROL Inactive ZYRTEC ALLERGY 10 MG TABS Take one by mouth daily 2011 ZYRTEC ALLERGY 10 MG TABS 4370267 CETIRIZINE HCL Inactive CLONAZEPAM 0.5 MG TBDP 2 tabs at bedtime CLONAZEPAM 0.5 MG TBDP 784433 CLONAZEPAM Inactive CYMBALTA 30 MG CPEP 1 cap by mouth daily with 60mg cap CYMBALTA 30 MG CPEP 612468 DULOXETINE HCL Inactive LOVASTATIN 40 MG TABS 1 at bedtime LOVASTATIN 4 0 MG TABS 932978 LOVASTATIN Inactive HYDROCODONE-ACETAMINOPHEN 10-500 MG TABS 1 prn HYDROCODONE- ACETAMINOPHEN 10-500 MG TABS 278451 HYDROCODONE-ACETAMINOPHEN Inact kiya VITAMIN C 1000 MG TABS 1qd VITAMIN C 1000 M G TABS 561526 ASCORBIC ACID Inactive FIBER THERAPY 500 MG TABS 1qd FIBER THERAPY 500 MG TABS METHYLCELLULOSE (LAXATIVE) Inactive VITAMIN D3 5000 UNIT TABS 1qd VITAMIN D3 50 00 UNIT TABS CHOLECALCIFEROL Inactive MACRODANTIN 100 MG CAPS Take one by mouth daily 10/18 MACRODANTIN 100 MG CAPS 282694 NITROFURANTOIN MACROCRYSTAL Inactive ASPIRIN 81 MG TAB 1 tablet by mouth daily ASPIRIN 81 MG TAB 226424 ASPIRIN Inactive AMBIEN 10 MG TABS 1 at bedtime AMBIEN 10 MG TABS 186133 ZOLPIDEM TARTRATE Inactive SUPER B COMPLEX TABS Take one by mouth daily 4 SUPER B COMPLEX TABS B COMPLEX-C Inactive ZITHROMAX Z-ANTONIETA 250 MG TABS 2x1day,0m6lyfy ZITHROMAX Z-ANTONIETA 250 MG TABS 2428114 AZITHROMYCIN Inactive Vital Signs Date Name Value [...] Description Chart Maintenance: Outside labs entered on [employer] - Chemistry sodium, serum 146 mmol/L potassium, serum 3.3 mmol/L blood glucose 96 mg/dL creatinine, serum 0.96 mg/dL aspartate aminotransferase (SGOT), serum 15 U/L alanine aminotransferase (SGPT), serum 28 U/L alkaline phosphatase, serum 189 U/L Chart Maintenance: Outside labs entered on [employer] - Hematology leukocyte count, blood 7.1 10*3/mm3 hemoglobin, blood 13.6 g/dL platelet count 296 10*3/mm3 Lab Report: CBC w/ Diff, [facility] - Chemistry sodium, serum 144 [...] negative Encounters Code Encounter Date Provider Facility CPT-63831 Level 3 Est. Patient 12:55:02 SHORT ORDER FRY COOK Arnol collier MD [facility] CPT-04648 Level 4 New Patient 14:35:08 CDT Arnol quinn MD [facility] CPT-32271 Level 4 Est. Patient 08:52:50 CDT Joao jacques [facility] CPT-16606 Level 4 Est. Patient 07:47:45 CDT Joao jacques [facility] Procedures Code Procedure Name Date Entry Date Standard Desc ription CPT-OV Office Visit 14:55:26 CDT CPT-OV Office Visit 15:26:35 CDT CPT-01481 Postop F/U Visit 17:47:54 SHORT ORDER FRY COOK CPT-[id number] Interstim trial 12:55:02 SHORT ORDER FRY COOK [id number]-[id number] Venipuncture Draw Fee 17:04:06 CDT
--- OUTSIDE RECORDS SUMMARY | 2019-04-15 12:40 | XMS REPORT | Clinical Summary ---
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 MAKER F amily history of diabetes mellitus [...] Generic Name NDC Status Provider Patient Instruction NEXIUM 40 MG CPDR 1 q d ESOMEPRAZOLE MAGNE SIUM 64286450779 No Longer Active Rony Mata MD Active PRILOSEC 40 MG CPDR 1 tab daily OMEPRAZOLE 1326661920 8 Active Rony Mata MD Active HYDROCODONE-ACETAMINOPHEN 5-325 MG TABS 1-2 q 4 hr prn pain HYDROCODONE-ACETAMINOPHEN 26532769310 Active Rony Mata MD Active NAPROSYN 500 MG TABS 1 bid NAPROXEN 36083886628 Act kiya Elaine Abdiel RENATO Active [facility] ZINC 50 MG TABS 1 qd ZINC 08117707439 Active Anupama lange King RENATO Active [facility]S MAGNESIUM 250 MG TABS 3 q d MAGNESIUM 328730828 81 Active [facility] VITAMIN C 1000 MG TABS 1 qd ASCORBIC ACID 5042 5463061 Active [facility] Active SUPER B COMPLEX TABS Take one by mouth daily B COMPLEX-C 73416305706 No [facility] AM[facility]EN 10 MG TABS 1 at bedtime ZOLPIDEM TARTRAT E 45171466026 No Longer Active Elaine Abdiel RENATO Active ASPIRIN 81 MG TAB 1 tablet by mouth daily ASPIR IN 52648129474 No Longer Active [facility] Active PANTOPRAZOLE SODIUM 40 MG TBEC Take one by mouth bid PANTOPRAZOLE SODIUM 70015927744 Active Elaine Meadows NEWS ANALYST Active MACRODANTIN 100 MG CAPS Take one by mouth daily 10/18 NITROFURANTOIN MACROCRYSTAL 93498937690 No Longer Active Arnol Ballard MD Active VITAMIN D3 5000 UNIT TABS 1qd CHOLECALCIFER OL 51537858805 No Longer Active Arnol Ballard MD Active FIBER THERAPY 500 MG TABS 1qd METHYLCELL ULOSE (LAXATIVE) 79071957221 No Longer Active Arnol Ballard MD Active VITAMIN C 1000 MG TABS 1qd ASCORBIC ACID 30 220802507 No Longer Active Arnol Ballard MD Active HYDROCODONE-ACETAMINOPHEN 10-500 MG TABS 1 prn HYDROCODONE-ACETAMINOPHEN 90071218937 No Longer Active Arnol Ballard MD Active LOVASTATIN 40 MG TABS 1 at bedtime LOVASTATIN 00 695436613 No Longer Active Joao Harms PA Active CLONAZEPAM 0.5 MG TABS 2 tablet by mouth 1 times daily at bedtime CLONAZEPAM 38070102803 Active Joao Harms PA Active CYMBALTA 60 MG CPEP 1 every morning DULOXETINE HC L 02298992579 Active Joao Harms PA Active CYMBALTA 30 MG CPEP 1 cap by mouth daily with 60mg cap DULOXETINE HCL 39829942201 No Longer Active Joao Harms PA Active CLONAZEPAM 0.5 MG TBDP 2 tabs at bedtime CLONAZ EPAM 13482261802 No Longer Active Joao Harms PA Active OMEGA 3-6-9 COMPLEX CAPS 1qd OMEGA 3-6-9 FATTY ACIDS 91100418051 Active Sobia Naff VENETIAN BLIND MAKER Active SUPER B-50 B COMPLEX CAPS 1qd B [id number] 00 259728516 Active Sobia Naff VENETIAN BLIND MAKER Active ZYRTEC ALLERGY 10 MG TABS Take one by mouth daily 2011 CETIRIZINE HCL 08140505237 No Longer Active Sobia Naff VENETIAN BLIND MAKER Active VITAMIN D3 2000 UNIT CAPS 2 1/2 daily CHOLECALC IFEROL 20010997230 No Longer Active Sobia Cartwright VENETIAN BLIND MAKER Active ZITHROMAX Z-ANTONIETA 250 MG TABS 2x1day,8k1msnj AZIT HROMYCIN 33706895593 No Longer Active Sobia Cartwright VENETIAN BLIND MAKER Active MELOXICAM 15 MG TABS 1qd MELOXICAM 67041844114 Ac tive Sobia Naff VENETIAN BLIND MAKER Active VESICARE 10 MG TABS 1 tab daily SOLIFENACIN SUCCI KAHLIL 32142984884 Active Symone Lucke Active MULTIVITAMINS TABS Take one by mouth daily MULT IPLE VITAMIN 88032309541 Active Symone Lucke Active VITAMIN D3 2000 UNIT CAPS 2 1/2 daily TAMIN D3 2000 UNIT CAPS CHOLECALCIFEROL Inactive ZYRTEC ALLERGY 10 MG TABS Take one by mouth daily 2011 ZYRTEC ALLERGY 10 MG TABS 2593709 CETIRIZINE HCL Inactive CLONAZEPAM 0.5 MG TBDP 2 tabs at bedtime CLONAZEPAM 0.5 MG TBDP 958573 CLONAZEPAM Inactive CYMBALTA 30 MG CPEP 1 cap by mouth daily with 60mg cap CYMBALTA 30 MG CPEP 188136 DULOXETINE HCL Inactive LOVASTATIN 40 MG TABS 1 at bedtime LOVASTATIN 4 0 MG TABS 418455 LOVASTATIN Inactive HYDROCODONE-ACETAMINOPHEN 10-500 MG TABS 1 prn HYDROCODONE- ACETAMINOPHEN 10-500 MG TABS HYDROCODONE-ACETAMINOPHEN Inact kiya VITAMIN C 1000 MG TABS 1qd VITAMIN C 1000 M G TABS 202458 ASCORBIC ACID Inactive FIBER THERAPY 500 MG TABS 1qd FIBER THERAPY 500 MG TABS METHYLCELLULOSE (LAXATIVE) Inactive VITAMIN D3 5000 UNIT TABS 1qd VITAMIN D3 50 00 UNIT TABS CHOLECALCIFEROL Inactive MACRODANTIN 100 MG CAPS Take one by mouth daily 10/18 MACRODANTIN 100 MG CAPS 140148 NITROFURANTOIN MACROCRYSTAL Inactive ASPIRIN 81 MG TAB 1 tablet by mouth daily ASPIRIN 81 MG TAB 027084 ASPIRIN Inactive AMBIEN 10 MG TABS 1 at bedtime AMBIEN 10 MG TABS 757945 ZOLPIDEM TARTRATE Inactive SUPER B COMPLEX TABS Take one by mouth daily 4 SUPER B COMPLEX TABS B COMPLEX-C Inactive NEXIUM 40 MG CPDR 1 q d NEXIUM 40 MG CPDR ESOMEPRAZOLE MAGNESIUM Inactive ZITHROMAX Z-ANTONIETA 250 MG TABS 2x1day,4a5chld ZITHROMAX Z-ANTONIETA 250 MG TABS 1342520 AZITHROMYCIN Inactive Vital Signs Date Name Value Unit Range Description blood pressure, diastolic 80 mm[Hg] BP shore blood pressure, systolic 116 mm[Hg] BP sys height E&M 67 [in_us] Bdy height pulse rate E&M 84 /min Heart rate temperature E&M 97.6 [degF] Body temp erature weight E&M 208 [lb_av] Weight Measure d blood pressure, diastolic 80 mm[Hg] BP shore blood pressure, systolic 122 mm[Hg] BP sys pulse rate E&M 83 /min Heart rate temperature E&M 96.3 [degF] Body temp erature weight E&M 218 [lb_av] Weight Measure d blood pressure, diastolic 84 mm[Hg] BP shore [...] weight E&M 263 [lb_av] Weight Measure d Diagnostic Results Date Name Value Unit Range Description Chart Maintenance: Outside labs entered on [facility] - Chemistry sodium, serum 146 mmol/L potassium, serum 3.3 mmol/L blood glucose 96 mg/dL creatinine, serum 0.96 mg/dL aspartate aminotransferase (SGOT), serum 15 U/L alanine aminotransferase (SGPT), serum 28 U/L alkaline phosphatase, serum 189 U/L Chart Maintenance: Outside labs entered on [employer] - Hematology leukocyte count, blood 7.1 10*3/mm3 hemoglobin, blood 13.6 g/dL platelet count 296 10*3/mm3 Lab Report: CBC w/ Diff, BMP - Chemistry sodium, serum 144 mmol/L potassium, [...] width 13.8 % platelet count 293 10*3/mm3 Encounters Code Encounter Date Provider Facility CPT-88006 Level 3 Est. Patient 12:55:02 [place] MAN Arnol collier MD [facility] CPT-63520 Level 4 New Patient 14:35:08 CDT Arnol quinn MD [facility] CPT-28378 Level 4 Est. Patient 08:52:50 CDT Joao jacques [facility] CPT-68831 Level 4 Est. Patient 07:47:45 CDT Joao jacques [facility] Procedures Code Procedure Name Date Entry Date Standard Desc ription CPT-84637 Postop F/U Visit 14:36:53 CDT CPT-OV Office Visit 14:55:53 CDT CPT-OV Office Visit 14:55:26 CDT CPT-OV Office Visit 15:26:35 CDT CPT-87655 Postop F/U Visit 17:47:54 [employer] CPT-[id number] Interstim trial 12:55:02 [employer] MAN CPT-[id number] Venipuncture Draw Fee 17:04:06 CDT
--- OUTSIDE RECORDS SUMMARY | 2019-04-15 12:40 | XMS REPORT | Clinical Summary ---
Author Author Admin, Sabrina Jefferson Organization 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 F amily history of diabetes mellitus DROWSINESS [...] NAPROSYN 500 MG TABS 1 bid NAPROXEN 45706447239 Act kiya Elaine Meadows RENATO Active [facility] ZINC 50 MG TABS 1 qd ZINC 19492235936 Active Anupama Meadows RENATO Active [facility]S MAGNESIUM 250 MG TABS 3 q d MAGNESIUM 961754525 81 Active Elaine Meadows APRN Active CVS VITAMIN C 1000 MG TABS 1 qd ASCORBIC ACID 5042 5269137 Active Elaine Meadows MFT Active SUPER B COMPLEX TABS Take one by mouth daily B COMPLEX-C 04802342420 No Longer Active Elaine Meadows APRN Active AMBIEN 10 MG TABS 1 at bedtime ZOLPIDEM TARTRAT E 19900606098 No Longer Active Elaine Meadows APRN Active ASPIRIN 81 MG TAB 1 tablet by mouth daily ASPIR IN 14975679983 No Longer Active Elaine Meadows MFT Active PANTOPRAZOLE SODIUM 40 MG TBEC Take one by mouth bid PANTOPRAZOLE SODIUM 77441525416 Active Elaine Meadows APRN Active MACRODANTIN 100 MG CAPS Take one by mouth daily 10/18 NITROFURANTOIN MACROCRYSTAL 55642193105 No Longer Active Arnol Ballard MD Active VITAMIN D3 5000 UNIT TABS 1qd CHOLECALCIFER OL 23970828462 No Longer Active Arnol Ballard MD Active FIBER THERAPY 500 MG TABS 1qd METHYLCELL ULOSE (LAXATIVE) 78536308635 No Longer Active Arnol Ballard MD Active VITAMIN C 1000 MG TABS 1qd ASCORBIC ACID 30 716602517 No Longer Active Arnol Ballard MD Active HYDROCODONE-ACETAMINOPHEN 10-500 MG TABS 1 prn HYDROCODONE-ACETAMINOPHEN 57345611758 No Longer Active Arnol Ballard MD Active LOVASTATIN 40 MG TABS 1 at bedtime LOVASTATIN 00 625574348 No Longer Active Joao Harms PA Active CLONAZEPAM 0.5 MG TABS 2 tablet by mouth 1 times daily at bedtime CLONAZEPAM 22316479595 Active Joao Harms PA Active CYMBALTA 60 MG CPEP 1 every morning DULOXETINE HC L 82316184584 Active Joao Harms PA Active CYMBALTA 30 MG CPEP 1 cap by mouth daily with 60mg cap DULOXETINE HCL 52994595504 No Longer Active Joao Marleny PA Active CLONAZEPAM 0.5 MG TBDP 2 tabs at bedtime CLONAZ EPAM 23800139493 No Longer Active Joao Marleny PA Active OMEGA 3-6-9 COMPLEX CAPS 1qd OMEGA 3-6-9 FATTY ACIDS 84710201575 Active Sobia Naff AUTOMOTIVE DESIGN DRAFTER Active SUPER B-50 B COMPLEX CAPS 1qd B [id number] 00 667728944 Active Sobia Naff AUTOMOTIVE DESIGN DRAFTER Active ZYRTEC ALLERGY 10 MG TABS Take one by mouth daily 2011 CETIRIZINE HCL 20581706709 No Longer Active Sobia Naff AUTOMOTIVE DESIGN DRAFTER Active VITAMIN D3 2000 UNIT CAPS 2 1/2 daily CHOLECALC IFEROL 66458524031 No Longer Active Sobia Naff AUTOMOTIVE DESIGN DRAFTER Active ZITHROMAX Z-ANTONIETA 250 MG TABS 2x1day,7p8rpfe AZIT HROMYCIN 84387935894 No Longer Active Sobia Naff AUTOMOTIVE DESIGN DRAFTER Active MELOXICAM 15 MG TABS 1qd MELOXICAM 36316885478 Ac tive Sobia Naff AUTOMOTIVE DESIGN DRAFTER Active VESICARE 10 MG TABS 1 tab daily SOLIFENACIN SUCCI KAHLIL 37785494942 Active Symone Lucke Active MULTIVITAMINS TABS Take one by mouth daily MULT IPLE VITAMIN 50045811998 Active Symone Lucke Active VITAMIN D3 2000 UNIT CAPS 2 1/2 daily TAMIN D3 2000 UNIT CAPS CHOLECALCIFEROL Inactive ZYRTEC ALLERGY 10 MG TABS Take one by mouth daily 2011 ZYRTEC ALLERGY 10 MG TABS 4863594 CETIRIZINE HCL Inactive CLONAZEPAM 0.5 MG TBDP 2 tabs at bedtime CLONAZEPAM 0.5 MG TBDP 790597 CLONAZEPAM Inactive CYMBALTA 30 MG CPEP 1 cap by mouth daily with 60mg cap CYMBALTA 30 MG CPEP 909198 DULOXETINE HCL Inactive LOVASTATIN 40 MG TABS 1 at bedtime LOVASTATIN 4 0 MG TABS 311920 LOVASTATIN Inactive HYDROCODONE-ACETAMINOPHEN 10-500 MG TABS 1 prn HYDROCODONE- ACETAMINOPHEN 10-500 MG TABS HYDROCODONE-ACETAMINOPHEN Inact kiya VITAMIN C 1000 MG TABS 1qd VITAMIN C 1000 M G TABS 810805 ASCORBIC ACID Inactive FIBER THERAPY 500 MG TABS 1qd FIBER THERAPY 500 MG TABS METHYLCELLULOSE (LAXATIVE) Inactive VITAMIN D3 5000 UNIT TABS 1qd VITAMIN D3 50 00 UNIT TABS CHOLECALCIFEROL Inactive MACRODANTIN 100 MG CAPS Take one by mouth daily 10/18 MACRODANTIN 100 MG CAPS 628618 NITROFURANTOIN MACROCRYSTAL Inactive ASPIRIN 81 MG TAB 1 tablet by mouth daily ASPIRIN 81 MG TAB 758592 ASPIRIN Inactive AMBIEN 10 MG TABS 1 at bedtime AMBIEN 10 MG TABS 604719 ZOLPIDEM TARTRATE Inactive SUPER B COMPLEX TABS Take one by mouth daily 4 SUPER B COMPLEX TABS B COMPLEX-C Inactive ZITHROMAX Z-ANTONIETA 250 MG TABS 2x1day,4i9apdg ZITHROMAX Z-ANTONIETA 250 MG TABS 6947963 AZITHROMYCIN Inactive Vital Signs Date Name Value [...] Description Chart Maintenance: Outside labs entered on [employer] - Chemistry sodium, serum 146 mmol/L potassium, serum 3.3 mmol/L blood glucose 96 mg/dL creatinine, serum 0.96 mg/dL aspartate aminotransferase (SGOT), serum 15 U/L alanine aminotransferase (SGPT), serum 28 U/L alkaline phosphatase, serum 189 U/L Chart Maintenance: Outside labs entered on [employer] - Hematology leukocyte count, blood 7.1 10*3/mm3 hemoglobin, blood 13.6 g/dL platelet count 296 10*3/mm3 Lab Report: CBC w/ Diff, BMP - Chemistry sodium, serum 144 mmol/L potassium, serum 3.7 mmol/L chloride, serum 105 mmol/L carbon dioxide, venous blood 29.3 mmol/L urea nitrogen, blood 17 mg/dL blood glucose 91 mg/dL creatinine, serum 1.10 mg/dL calcium, serum 9.2 mg/dL Lab Report: CBC w/ Diff, [facility] - Hematolog y leukocyte count, blood [...] negative Encounters Code Encounter Date Provider Facility CPT-49316 Level 3 Est. Patient 12:55:02 SHANK PINNER Arnol collier MD [facility] CPT-56168 Level 4 New Patient 14:35:08 CDT Arnol quinn MD [facility] CPT-70735 Level 4 Est. Patient 08:52:50 CDT Joao BOYD [facility] CPT-24778 Level 4 Est. Patient 07:47:45 CDT Joao BOYD [facility] Procedures Code Procedure Name Date Entry Date Standard Desc ription CPT-OV Office Visit 14:55:53 CDT CPT-OV Office Visit 14:55:26 CDT CPT-OV Office Visit 15:26:35 CDT CPT-42517 Postop F/U Visit 17:47:54 SHANK PINNER CPT-04868 Interstim trial 12:55:02 SHANK PINNER CPT-24280 Venipuncture Draw Fee 17:04:06 CDT
--- OUTSIDE RECORDS SUMMARY | 2019-04-15 12:40 | XMS REPORT | Clinical Summary ---
Author Author Admin, Sabrina Jefferson Organization [facility] Address Unknown Phone Allergies, Adverse Reactions, [...] NAPROSYN 500 MG TABS 1 bid NAPROXEN [id number] Act kiya Elaine Meadows RENATO Active [facility] ZINC 50 MG TABS 1 qd ZINC 63696855337 Active Anupama Meadows RENATO Active [facility] MAGNESIUM 250 MG TABS 3 q d MAGNESIUM 679740456 81 Active Elaine Meadows RESIDENTIAL DIRECTOR Active CVS VITAMIN C 1000 MG TABS 1 qd ASCORBIC ACID 5042 2853088 Active Elaine Meadows RESIDENTIAL DIRECTOR Active SUPER B COMPLEX TABS Take one by mouth daily B COMPLEX-C 46236844640 No Longer Active Elaine Meadows RESIDENTIAL DIRECTOR Active AMBIEN 10 MG TABS 1 at bedtime ZOLPIDEM TARTRAT E 41737852665 No Longer Active Elaine Meadows RESIDENTIAL DIRECTOR Active ASPIRIN 81 MG TAB 1 tablet by mouth daily ASPIR IN 79731980894 No Longer Active Elaine Meadows RESIDENTIAL DIRECTOR Active PANTOPRAZOLE SODIUM 40 MG TBEC Take one by mouth bid PANTOPRAZOLE SODIUM 44815903225 [facility]IN 100 MG CAPS Take one by mouth daily 10/18 NITROFURANTOIN MACROCRYSTAL 16711735664 No Longer Active Arnol Ballard MD Active VITAMIN D3 5000 UNIT TABS 1qd CHOLECALCIFER OL 16969117823 No Longer Active Arnol Ballard MD Active FIBER THERAPY 500 MG TABS 1qd METHYLCELL ULOSE (LAXATIVE) 19988993331 No Longer Active Arnol Ballard MD Active VITAMIN C 1000 MG TABS 1qd ASCORBIC ACID 30 232064812 No Longer Active Arnol Ballard MD Active HYDROCODONE-ACETAMINOPHEN 10-500 MG TABS 1 prn HYDROCODONE-ACETAMINOPHEN 13746247444 No Longer Active Arnol Ballard MD Active LOVASTATIN 40 MG TABS 1 at bedtime LOVASTATIN 00 145395084 No Longer Active Joao Marleny PA Active CLONAZEPAM 0.5 MG TABS 2 tablet by mouth 1 times daily at bedtime CLONAZEPAM 97547529855 Active Joao Harms PA Active CYMBALTA 60 MG CPEP 1 every morning DULOXETINE HC L 60531156343 Active Joao Harms PA Active CYMBALTA 30 MG CPEP 1 cap by mouth daily with 60mg cap DULOXETINE HCL 44690048134 No Longer Active Joao Farmer PA Active CLONAZEPAM 0.5 MG TBDP 2 tabs at bedtime CLONAZ EPAM 09672985598 No Longer Active Joao Marleny PA Active OMEGA 3-6-9 COMPLEX CAPS 1qd OMEGA 3-6-9 FATTY ACIDS 09738249376 Active Sobia Aisha [employer] Active SUPER B-50 B COMPLEX CAPS 1qd B [id number] 00 816663908 Active Sobia Aisha [employer] Active ZYRTEC ALLERGY 10 MG TABS Take one by mouth daily 2011 CETIRIZINE HCL 61682661527 No Longer Active Sobia Boomer [employer] Act kiya VITAMIN D3 2000 UNIT CAPS 2 1/2 daily CHOLECALC IFEROL 79134018068 No Longer Active Sobia Boomer [employer] Active ZITHROMAX Z-ANTONIETA 250 MG TABS 2x1day,7w3wwfi AZIT HROMYCIN 55077410591 No Longer Active Sobia Boomer [employer] Active MELOXICAM 15 MG TABS 1qd MELOXICAM 51989816476 Ac tive Sobia Boomer [employer] Active VESICARE 10 MG TABS 1 tab daily SOLIFENACIN SUCCI KAHLIL 44574858376 Active Symone Lucke Active MULTIVITAMINS TABS Take one by mouth daily MULT IPLE VITAMIN 52290663556 Active Symone Lucke Active VITAMIN D3 2000 UNIT CAPS 2 1/2 daily TAMIN D3 2000 UNIT CAPS CHOLECALCIFEROL Inactive ZYRTEC ALLERGY 10 MG TABS Take one by mouth daily 2011 ZYRTEC ALLERGY 10 MG TABS 1660197 CETIRIZINE HCL Inactive CLONAZEPAM 0.5 MG TBDP 2 tabs at bedtime CLONAZEPAM 0.5 MG TBDP 731019 CLONAZEPAM Inactive CYMBALTA 30 MG CPEP 1 cap by mouth daily with 60mg cap CYMBALTA 30 MG CPEP 466377 DULOXETINE HCL Inactive LOVASTATIN 40 MG TABS 1 at bedtime LOVASTATIN 4 0 MG TABS 568940 LOVASTATIN Inactive HYDROCODONE-ACETAMINOPHEN 10-500 MG TABS 1 prn HYDROCODONE- ACETAMINOPHEN 10-500 MG TABS 445340 HYDROCODONE-ACETAMINOPHEN Inact kiya VITAMIN C 1000 MG TABS 1qd VITAMIN C 1000 M G TABS 830148 ASCORBIC ACID Inactive FIBER THERAPY 500 MG TABS 1qd FIBER THERAPY 500 MG TABS METHYLCELLULOSE (LAXATIVE) Inactive VITAMIN D3 5000 UNIT TABS 1qd VITAMIN D3 50 00 UNIT TABS CHOLECALCIFEROL Inactive MACRODANTIN 100 MG CAPS Take one by mouth daily 10/18 MACRODANTIN 100 MG CAPS 127250 NITROFURANTOIN MACROCRYSTAL Inactive ASPIRIN 81 MG TAB 1 tablet by mouth daily ASPIRIN 81 MG TAB 746975 ASPIRIN Inactive AMBIEN 10 MG TABS 1 at bedtime AMBIEN 10 MG TABS 888162 ZOLPIDEM TARTRATE Inactive SUPER B COMPLEX TABS Take one by mouth daily 4 SUPER B COMPLEX TABS B COMPLEX-C Inactive ZITHROMAX Z-ANTONIETA 250 MG TABS 2x1day,9h6xdny ZITHROMAX Z-ANTONIETA 250 MG TABS 0584226 AZITHROMYCIN Inactive Vital Signs Date Name Value [...] Description Chart Maintenance: Outside labs entered on [facility] - Chemistry sodium, serum 146 mmol/L potassium, serum 3.3 mmol/L blood glucose 96 mg/dL creatinine, serum 0.96 mg/dL aspartate aminotransferase (SGOT), serum 15 U/L alanine aminotransferase (SGPT), serum 28 U/L alkaline phosphatase, serum 189 U/L Chart Maintenance: Outside labs entered on [facility] - Hematology leukocyte count, blood 7.1 10*3/mm3 hemoglobin, blood 13.6 g/dL platelet count 296 10*3/mm3 Lab Report: CBC w/ Diff, [facility] - Chemistry sodium, serum 144 mmol/L [...] negative Encounters Code Encounter Date Provider Facility CPT-[id number] Level 3 Est. 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 Patient 08:52:50 CDT Joao jacques [facility] [place] CPT-41337 Level 4 Est. Patient 07:47:45 CDT Joao jacques [facility] [place] Procedures Code Procedure Name Date Entry Date Standard Desc ription CPT-OV Office Visit 15:26:35 CDT CPT-47321 Postop F/U Visit 17:47:54 SHOPPER INSIGHTS MANAGER CPT-34247 Interstim trial 12:55:02 SHOPPER INSIGHTS MANAGER CPT-79143 Venipuncture Draw Fee 17:04:06 CDT
--- OUTSIDE RECORDS SUMMARY | 2019-04-15 12:40 | XMS REPORT | Clinical Summary ---
Author Author Admin, Sabrina Jefferson Organization [facility] Address Unknown Phone Unavailable Allergies, Adverse Reactions, [...] unspecified hyperlipidemia OSTEOARTHRITIS 715.90 Active Sobia Naff [employer] Osteoarthrosis, unspecified whether generalized or localized, involving unspecified site G E R D 530.81 Active Sobia Naff [employer] Esoph ageal reflux DEPRESSION 311 Active Sobia Naff [employer] De pressive disorder, not elsewhere classified FH DIABETES V18.0 Active Sobia Naff [employer] F amily history of diabetes mellitus DROWSINESS [...] 40 MG CPDR 1 q d ESOMEPRAZOLE MAGNESIUM 0018 3602735 Active Rony Mata MD Active HYDROCODONE-ACETAMINOPHEN 5-325 MG TABS 1-2 q 4 hr prn pain HYDROCODONE-ACETAMINOPHEN 73544203296 Active Rony Mata MD Active NAPROSYN 500 MG TABS 1 bid NAPROXEN 23792656196 Act kiya Elaine Meadows RENATO Active [facility] ZINC 50 MG TABS 1 qd ZINC 29058543201 Active Anupama Meadows RENATO Active [facility]S MAGNESIUM 250 MG TABS 3 q d MAGNESIUM 769566311 81 Active [facility]IT[facility] 1000 MG TABS 1 qd ASCORBIC ACID 5042 9210613 Active [facility] Active SUPER B COMPLEX TABS Take one by mouth daily B COMPLEX-C 75196023280 No Longer Active [facility] Active AMBIEN 10 MG TABS 1 at bedtime ZOLPIDEM TARTRAT E 30826918239 No Longer Active [facility] Active ASPIRIN 81 MG TAB 1 tablet by mouth daily ASPIR IN 58933159601 No Longer Active [facility] Active PANTOPRAZOLE SODIUM 40 MG TBEC Take one by mouth bid PANTOPRAZOLE SODIUM 60202907412 [facility] 100 MG CAPS Take one by mouth daily 10/18 NITROFURANTOIN MACROCRYSTAL 07025088001 No Longer Active Arnol Ballard MD Active VITAMIN D3 5000 UNIT TABS 1qd CHOLECALCIFER OL 84395404451 No Longer Active Arnol Ballard MD Active FIBER THERAPY 500 MG TABS 1qd METHYLCELL ULOSE (LAXATIVE) 34675294900 No Longer Active Arnol Ballard MD Active VITAMIN C 1000 MG TABS 1qd ASCORBIC ACID 30 929384880 No Longer Active Arnol Ballard MD Active HYDROCODONE-ACETAMINOPHEN 10-500 MG TABS 1 prn HYDROCODONE-ACETAMINOPHEN 71811937424 No Longer Active Arnol Ballard MD Active LOVASTATIN 40 MG TABS 1 at bedtime LOVASTATIN 00 088938966 No Longer Active Joao Marleny DEB Active CLONAZEPAM 0.5 MG TABS 2 tablet by mouth 1 times daily at bedtime CLONAZEPAM 20113017283 Active Joao Marleny PA Active CYMBALTA 60 MG CPEP 1 every morning DULOXETINE HC L 90914613906 Active Joao Marleny PA Active CYMBALTA 30 MG CPEP 1 cap by mouth daily with 60mg cap DULOXETINE HCL 70724012538 No Longer Active Joao Marleny PA Active CLONAZEPAM 0.5 MG TBDP 2 tabs at bedtime CLONAZ EPAM 04964573914 No Longer Active Joao Marleny PA Active OMEGA 3-6-9 COMPLEX CAPS 1qd OMEGA 3-6-9 FATTY ACIDS 71059304509 Active Sobia Naff [employer] Active SUPER B-50 B COMPLEX CAPS 1qd B [id number] 00 384312424 Active Sobia Naff [employer] Active ZYRTEC ALLERGY 10 MG TABS Take one by mouth daily 2011 CETIRIZINE HCL 51754148985 No Longer Active Sobia Naff [employer] Active VITAMIN D3 2000 UNIT CAPS 2 1/2 daily CHOLECALC IFEROL 55923806781 No Longer Active Sobia Naff [employer] Active ZITHROMAX Z-ANTONIETA 250 MG TABS 2x1day,4n3noww AZIT HROMYCIN 53013759074 No Longer Active Sobia Cartwright [employer] Active MELOXICAM 15 MG TABS 1qd MELOXICAM 96205550331 Ac tive Sobia Inmanf [employer] Active VESICARE 10 MG TABS 1 tab daily SOLIFENACIN SUCCI KAHLIL 96384838774 Active Symone Lucke Active MULTIVITAMINS TABS Take one by mouth daily MULT IPLE VITAMIN 97583014535 Active Symone Lucke Active VITAMIN D3 2000 UNIT CAPS 2 1/2 daily TAMIN D3 2000 UNIT CAPS CHOLECALCIFEROL Inactive ZYRTEC ALLERGY 10 MG TABS Take one by mouth daily 2011 ZYRTEC ALLERGY 10 MG TABS 8993474 CETIRIZINE HCL Inactive CLONAZEPAM 0.5 MG TBDP 2 tabs at bedtime CLONAZEPAM 0.5 MG TBDP 757515 CLONAZEPAM Inactive CYMBALTA 30 MG CPEP 1 cap by mouth daily with 60mg cap CYMBALTA 30 MG CPEP 212035 DULOXETINE HCL Inactive LOVASTATIN 40 MG TABS 1 at bedtime LOVASTATIN 4 0 MG TABS 018576 LOVASTATIN Inactive HYDROCODONE-ACETAMINOPHEN 10-500 MG TABS 1 prn HYDROCODONE- ACETAMINOPHEN 10-500 MG TABS HYDROCODONE-ACETAMINOPHEN Inact kiya VITAMIN C 1000 MG TABS 1qd VITAMIN C 1000 M G TABS 463713 ASCORBIC ACID Inactive FIBER THERAPY 500 MG TABS 1qd FIBER THERAPY 500 MG TABS METHYLCELLULOSE (LAXATIVE) Inactive VITAMIN D3 5000 UNIT TABS 1qd VITAMIN D3 50 00 UNIT TABS CHOLECALCIFEROL Inactive MACRODANTIN 100 MG CAPS Take one by mouth daily 10/18 MACRODANTIN 100 MG CAPS 758745 NITROFURANTOIN MACROCRYSTAL Inactive ASPIRIN 81 MG TAB 1 tablet by mouth daily ASPIRIN 81 MG TAB 199811 ASPIRIN Inactive AMBIEN 10 MG TABS 1 at bedtime AMBIEN 10 MG TABS 605972 ZOLPIDEM TARTRATE Inactive SUPER B COMPLEX TABS Take one by mouth daily 4 SUPER B COMPLEX TABS B COMPLEX-C Inactive ZITHROMAX Z-ANTONIETA 250 MG TABS 2x1day,9t0lnqr ZITHROMAX Z-ANTONIETA 250 MG TABS 2444116 AZITHROMYCIN Inactive Vital Signs Date Name Value [...] 296 10*3/mm3 Lab Report: CBC w/ Diff, [facility] - Chemistry sodium, serum 144 mmol/L potassium, serum 3.7 mmol/L chloride, serum 105 mmol/L carbon dioxide, venous blood 29.3 mmol/L urea nitrogen, blood 17 mg/dL blood glucose 91 mg/dL creatinine, serum 1.10 mg/dL calcium, serum 9.2 mg/dL Lab Report: CBC w/ Diff, [facility] - Hematolog y leukocyte count, blood [...] negative Encounters Code Encounter Date Provider Facility CPT-37266 Level 3 Est. Patient 12:55:02 TRANSMISSION MAINTENANCE SUPERVISOR Arnol collier MD [facility] CPT-49464 Level 4 New Patient 14:35:08 CDT Arnol quinn MD [facility] CPT-79525 Level 4 Est. Patient 08:52:50 CDT Joao jacques [facility] CPT-50987 Level 4 Est. Patient 07:47:45 CDT Joao jacques [facility] Procedures Code Procedure Name Date Entry Date Standard Desc ription CPT-OV Office Visit 14:55:53 CDT CPT-OV Office Visit 14:55:26 CDT CPT-OV Office Visit 15:26:35 CDT CPT-78988 Postop F/U Visit 17:47:54 TRANSMISSION MAINTENANCE SUPERVISOR CPT-88651 Interstim trial 12:55:02 TRANSMISSION MAINTENANCE SUPERVISOR CPT-11933 Venipuncture Draw Fee 17:04:06 CDT
--- OUTSIDE RECORDS SUMMARY | 2019-04-15 12:40 | XMS REPORT | Clinical Summary ---
Author Author Admin, Sabrina Jefferson Organization [facility] Address Unknown Phone Unavailable Allergies, Adverse Reactions, Alerts Allergy Name Reaction Description Start Date Severity Status Pr kristy VICENTES Critical Active Sobia Naff LP N SULFA rash Moderate Active Symoen Lucke DICLOFENAC SODIUM Moderate Active Symone Tabby [...] unspecified hyperlipidemia OSTEOARTHRITIS 715.90 Active Sobia Naff [employer] Osteoarthrosis, unspecified whether generalized or localized, involving unspecified site G E R D 530.81 Active Sobia Naff [employer] Esoph ageal reflux DEPRESSION 311 Active Sobia Naff [employer] De pressive disorder, not elsewhere classified FH DIABETES V18.0 Active Sobia Naff [employer] F amily history of diabetes mellitus DROWSINESS 780.09 Active Joao BYOD O ther alteration of consciousness INSOMNIA, HX [...] chest pain Colon cancer screening V76.51 Active lEaine Meadows APRN Screening for malignant neoplasms of colon 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 nactive Joao BOYD Medication List Medication Instructions Start Date Stop Date Generic Name NDC Status Provider Patient Instruction NEXIUM 40 MG CPDR 1 q d ESOMEPRAZOLE MAGNE SIUM 49990396553 No Longer Active Rony Mata MD Active PRILOSEC 40 MG CPDR 1 tab daily OMEPRAZOLE 8235673229 8 Active Rony Mata MD Active HYDROCODONE-ACETAMINOPHEN 5-325 MG TABS 1-2 q 4 hr prn pain HYDROCODONE-ACETAMINOPHEN 96309092084 Active Rony Mata MD Active NAPROSYN 500 MG TABS 1 bid NAPROXEN 24064962248 Act kiya Elaine Abdiel RENATO Active [facility] ZINC 50 MG TABS 1 qd ZINC 25944914184 Active Anupama lange King RENATO Active [facility]S MAGNESIUM 250 MG TABS 3 q d MAGNESIUM 581560952 81 [facility] 1000 MG TABS 1 qd ASCORBIC ACID 5042 0856425 Active [facility] Active SUPER B COMPLEX TABS Take one by mouth daily B COMPLEX-C 54887133467 No Longer [facility] AM[facility]EN 10 MG TABS 1 at bedtime ZOLPIDEM TARTRAT E 38569902221 No Longer Active Elaine Abdiel RENATO Active ASPIRIN 81 MG TAB 1 tablet by mouth daily ASPIR IN 75091981361 No Longer Active [facility] Active PANTOPRAZOLE SODIUM 40 MG TBEC Take one by mouth bid PANTOPRAZOLE SODIUM 20997781415 Active Elaine Meadows SUPERVISOR [employer] Active MACRODANTIN 100 MG CAPS Take one by mouth daily 10/18 NITROFURANTOIN MACROCRYSTAL 50865438288 No Longer Active Arnol Ballard MD Active VITAMIN D3 5000 UNIT TABS 1qd CHOLECALCIFER OL 97364551299 No Longer Active Arnol Ballard MD Active FIBER THERAPY 500 MG TABS 1qd METHYLCELL ULOSE (LAXATIVE) 49669804404 No Longer Active Arnol Ballard MD Active VITAMIN C 1000 MG TABS 1qd ASCORBIC ACID 30 429814605 No Longer Active Arnol Ballard MD Active HYDROCODONE-ACETAMINOPHEN 10-500 MG TABS 1 prn HYDROCODONE-ACETAMINOPHEN 80283360006 No Longer Active Arnol Ballard MD Active LOVASTATIN 40 MG TABS 1 at bedtime LOVASTATIN 00 378867085 No Longer Active Joao Harms PA Active CLONAZEPAM 0.5 MG TABS 2 tablet by mouth 1 times daily at bedtime CLONAZEPAM 14988171620 Active Joao Harms PA Active CYMBALTA 60 MG CPEP 1 every morning DULOXETINE HC L 26382753719 Active Joao Harms PA Active CYMBALTA 30 MG CPEP 1 cap by mouth daily with 60mg cap DULOXETINE HCL 97669471992 No Longer Active Joao Harms PA Active CLONAZEPAM 0.5 MG TBDP 2 tabs at bedtime CLONAZ EPAM 58104206064 No Longer Active Joao Harms PA Active OMEGA 3-6-9 COMPLEX CAPS 1qd OMEGA 3-6-9 FATTY ACIDS 86168689960 Active Sobia Naff CASINO ACCOUNTANT Active SUPER B-50 B COMPLEX CAPS 1qd B [id number] 00 918485185 Active Sobia Naff [employer]INO [employer]OUNT[employer] Active ZYRTEC ALLERGY 10 MG TABS Take one by mouth daily 2011 CETIRIZINE HCL 97887742674 No Longer Active Sobia Naff [employer]INO ACCOUNTANT Active VITAMIN D3 2000 UNIT CAPS 2 1/2 daily CHOLECALC IFEROL 78826688734 No Longer Active Sobia Cartwright CASINO ACCOUNTANT Active ZITHROMAX Z-ANTONIETA 250 MG TABS 2x1day,9a2knve AZIT HROMYCIN 85641576227 No Longer Active Sobia Cartwright CASINO ACCOUNTANT Active MELOXICAM 15 MG TABS 1qd MELOXICAM 53391296806 Ac tive Sobia Naff [employer]INO ACCOUNTANT Active VESICARE 10 MG TABS 1 tab daily SOLIFENACIN SUCCI KAHLIL 71002416806 Active Symone Lucke Active MULTIVITAMINS TABS Take one by mouth daily MULT IPLE VITAMIN 07045866453 Active Symone Lucke Active VITAMIN D3 2000 UNIT CAPS 2 1/2 daily TAMIN D3 2000 UNIT CAPS CHOLECALCIFEROL Inactive ZYRTEC ALLERGY 10 MG TABS Take one by mouth daily 2011 ZYRTEC ALLERGY 10 MG TABS 3819381 CETIRIZINE HCL Inactive CLONAZEPAM 0.5 MG TBDP 2 tabs at bedtime CLONAZEPAM 0.5 MG TBDP 006017 CLONAZEPAM Inactive CYMBALTA 30 MG CPEP 1 cap by mouth daily with 60mg cap CYMBALTA 30 MG CPEP 339876 DULOXETINE HCL Inactive LOVASTATIN 40 MG TABS 1 at bedtime LOVASTATIN 4 0 MG TABS 261397 LOVASTATIN Inactive HYDROCODONE-ACETAMINOPHEN 10-500 MG TABS 1 prn HYDROCODONE- ACETAMINOPHEN 10-500 MG TABS HYDROCODONE-ACETAMINOPHEN Inact kiya VITAMIN C 1000 MG TABS 1qd VITAMIN C 1000 M G TABS 643121 ASCORBIC ACID Inactive FIBER THERAPY 500 MG TABS 1qd FIBER THERAPY 500 MG TABS METHYLCELLULOSE (LAXATIVE) Inactive VITAMIN D3 5000 UNIT TABS 1qd VITAMIN D3 50 00 UNIT TABS CHOLECALCIFEROL Inactive MACRODANTIN 100 MG CAPS Take one by mouth daily 10/18 MACRODANTIN 100 MG CAPS 130553 NITROFURANTOIN MACROCRYSTAL Inactive ASPIRIN 81 MG TAB 1 tablet by mouth daily ASPIRIN 81 MG TAB 955721 ASPIRIN Inactive AMBIEN 10 MG TABS 1 at bedtime AMBIEN 10 MG TABS 001344 ZOLPIDEM TARTRATE Inactive SUPER B COMPLEX TABS Take one by mouth daily 4 SUPER B COMPLEX TABS B COMPLEX-C Inactive NEXIUM 40 MG CPDR 1 q d NEXIUM 40 MG CPDR ESOMEPRAZOLE MAGNESIUM Inactive ZITHROMAX Z-ANTONIETA 250 MG TABS 2x1day,9v3sikz ZITHROMAX Z-ANTONIETA 250 MG TABS 5935422 AZITHROMYCIN Inactive Vital Signs Date Name Value [...] 296 10*3/mm3 Lab Report: CBC w/ Diff, [facility] - Chemistry sodium, serum 144 mmol/L [...] negative Encounters Code Encounter Date Provider Facility CPT-80920 Level 3 Est. Patient 12:55:02 VP HOME HEALTH Arnol collier MD [facility] CPT-06779 Level 4 New Patient 14:35:08 CDT Arnol quinn MD [facility] CPT-33665 Level 4 Est. Patient 08:52:50 CDT Joao jacques [facility] CPT-86077 Level 4 Est. Patient 07:47:45 CDT Joao jacques [facility] Procedures Code Procedure Name Date Entry Date Standard Desc ription CPT-OV Office Visit 14:55:53 CDT CPT-OV Office Visit 14:55:26 CDT CPT-OV Office Visit 15:26:35 CDT CPT-92629 Postop F/U Visit 17:47:54 VP [employer] CPT-36281 Interstim trial 12:55:02 [employer] CPT-07062 Venipuncture Draw Fee 17:04:06 CDT
--- OUTSIDE RECORDS SUMMARY | 2019-04-15 12:41 | XMS REPORT | Clinical Summary ---
Author Author Admin, Sabrina Jefferson Organization [place] [facility] Address Unknown Phone Allergies, Adverse Reactions, [...] NAPROSYN 500 MG TABS 1 bid NAPROXEN [id number] Act kiya Elaine Meadows RENATO Active [facility] ZINC 50 MG TABS 1 qd ZINC 06322075505 Active Anupama Meadows RENATO Active [facility] MAGNESIUM 250 MG TABS 3 q d MAGNESIUM 179461659 81 Active Elaine Meadows FENCE INSTALLER Active CVS VITAMIN C 1000 MG TABS 1 qd ASCORBIC ACID 5042 7296105 Active Elaine Meadows FENCE INSTALLER Active SUPER B COMPLEX TABS Take one by mouth daily B COMPLEX-C 33875980769 No Longer Active Elaine Meadows FENCE INSTALLER Active AMBIEN 10 MG TABS 1 at bedtime ZOLPIDEM TARTRAT E 33189409529 No Longer Active Elaine Meadows FENCE INSTALLER Active ASPIRIN 81 MG TAB 1 tablet by mouth daily ASPIR IN 80278934763 No Longer Active Elaine Meadows FENCE INSTALLER Active PANTOPRAZOLE SODIUM 40 MG TBEC Take one by mouth bid PANTOPRAZOLE SODIUM 63320003022 [facility] Active MACRODANTIN 100 MG CAPS Take one by mouth daily 10/18 NITROFURANTOIN MACROCRYSTAL 82743086408 No Longer Active Arnol Balladr MD Active VITAMIN D3 5000 UNIT TABS 1qd CHOLECALCIFER OL 77863463709 No Longer Active Arnol Ballard MD Active FIBER THERAPY 500 MG TABS 1qd METHYLCELL ULOSE (LAXATIVE) 84091248580 No Longer Active Arnol Ballard MD Active VITAMIN C 1000 MG TABS 1qd ASCORBIC ACID 30 009087631 No Longer Active Arnol Ballard MD Active HYDROCODONE-ACETAMINOPHEN 10-500 MG TABS 1 prn HYDROCODONE-ACETAMINOPHEN 66549862962 No Longer Active Arnol Ballard MD Active LOVASTATIN 40 MG TABS 1 at bedtime LOVASTATIN 00 687174454 No Longer Active Joao Farmer PA Active CLONAZEPAM 0.5 MG TABS 2 tablet by mouth 1 times daily at bedtime CLONAZEPAM 24782878153 Active Joao Harms PA Active CYMBALTA 60 MG CPEP 1 every morning DULOXETINE HC L 56446400231 Active Joao Harms PA Active CYMBALTA 30 MG CPEP 1 cap by mouth daily with 60mg cap DULOXETINE HCL 94984722960 No Longer Active Joao Farmer PA Active CLONAZEPAM 0.5 MG TBDP 2 tabs at bedtime CLONAZ EPAM 54004296152 No Longer Active Joao Marleny PA Active OMEGA 3-6-9 COMPLEX CAPS 1qd OMEGA 3-6-9 FATTY ACIDS 59377480068 Active Sobia Aisha CONSULTING MANAGER Active SUPER B-50 B COMPLEX CAPS 1qd B [id number] 00 864798980 Active Sobia Aisha CONSULTING MANAGER Active ZYRTEC ALLERGY 10 MG TABS Take one by mouth daily 2011 CETIRIZINE HCL 76195991290 No Longer Active Sobia [place] CONSULTING MANAGER Act kiya VITAMIN D3 2000 UNIT CAPS 2 1/2 daily CHOLECALC IFEROL 77907210780 No Longer Active Sobia [place] CONSULTING MANAGER Active ZITHROMAX Z-ANTONIETA 250 MG TABS 2x1day,8m1vqox AZIT HROMYCIN 63390457175 No Longer Active Sobia [place] CONSULTING MANAGER Active MELOXICAM 15 MG TABS 1qd MELOXICAM 98181246142 Ac tive Sobia [place] CONSULTING MANAGER Active VESICARE 10 MG TABS 1 tab daily SOLIFENACIN SUCCI KAHLIL 21306865536 Active Symone Lucke Active MULTIVITAMINS TABS Take one by mouth daily MULT IPLE VITAMIN 41324470971 Active Symone Lucke Active VITAMIN D3 2000 UNIT CAPS 2 1/2 daily TAMIN D3 2000 UNIT CAPS CHOLECALCIFEROL Inactive ZYRTEC ALLERGY 10 MG TABS Take one by mouth daily 2011 ZYRTEC ALLERGY 10 MG TABS 9763144 CETIRIZINE HCL Inactive CLONAZEPAM 0.5 MG TBDP 2 tabs at bedtime CLONAZEPAM 0.5 MG TBDP 355310 CLONAZEPAM Inactive CYMBALTA 30 MG CPEP 1 cap by mouth daily with 60mg cap CYMBALTA 30 MG CPEP 104428 DULOXETINE HCL Inactive LOVASTATIN 40 MG TABS 1 at bedtime LOVASTATIN 4 0 MG TABS 993001 LOVASTATIN Inactive HYDROCODONE-ACETAMINOPHEN 10-500 MG TABS 1 prn HYDROCODONE- ACETAMINOPHEN 10-500 MG TABS 301488 HYDROCODONE-ACETAMINOPHEN Inact kiya VITAMIN C 1000 MG TABS 1qd VITAMIN C 1000 M G TABS 074494 ASCORBIC ACID Inactive FIBER THERAPY 500 MG TABS 1qd FIBER THERAPY 500 MG TABS METHYLCELLULOSE (LAXATIVE) Inactive VITAMIN D3 5000 UNIT TABS 1qd VITAMIN D3 50 00 UNIT TABS CHOLECALCIFEROL Inactive MACRODANTIN 100 MG CAPS Take one by mouth daily 10/18 MACRODANTIN 100 MG CAPS 040959 NITROFURANTOIN MACROCRYSTAL Inactive ASPIRIN 81 MG TAB 1 tablet by mouth daily ASPIRIN 81 MG TAB 440017 ASPIRIN Inactive AMBIEN 10 MG TABS 1 at bedtime AMBIEN 10 MG TABS 578975 ZOLPIDEM TARTRATE Inactive SUPER B COMPLEX TABS Take one by mouth daily 4 SUPER B COMPLEX TABS B COMPLEX-C Inactive ZITHROMAX Z-ANTONIETA 250 MG TABS 2x1day,9j4lkei ZITHROMAX Z-ANTONIETA 250 MG TABS 7359878 AZITHROMYCIN Inactive Vital Signs Date Name Value [...] Description Chart Maintenance: Outside labs entered on [employer] - Chemistry sodium, serum 146 mmol/L potassium, serum 3.3 mmol/L blood glucose 96 mg/dL creatinine, serum 0.96 mg/dL aspartate aminotransferase (SGOT), serum 15 U/L alanine aminotransferase (SGPT), serum 28 U/L alkaline phosphatase, serum 189 U/L Chart Maintenance: Outside labs entered on [employer] - Hematology leukocyte count, blood 7.1 10*3/mm3 hemoglobin, blood 13.6 g/dL platelet count 296 10*3/mm3 Lab Report: CBC w/ Diff, [facility] - Chemistry sodium, serum 144 mmol/L potassium, [...] negative Encounters Code Encounter Date Provider Facility CPT-[id number] Level 3 Est. Patient 12:55:02 CLINIC PHYSICIAN Arnol collier MD [facility] CPT-04426 Level 4 New Patient 14:35:08 CDT Arnol quinn MD [facility] CPT-17693 Level 4 Est. Patient 08:52:50 CDT Joao jacques [facility] CPT-72174 Level 4 Est. Patient 07:47:45 CDT Joao jacques [facility] Procedures Code Procedure Name Date Entry Date Standard Desc ription CPT-OV Office Visit 14:55:26 CDT CPT-OV Office Visit 15:26:35 CDT CPT-58561 Postop F/U Visit 17:47:54 CLINIC PHYSICIAN CPT-94751 Interstim trial 12:55:02 CLINIC PHYSICIAN CPT-68672 Venipuncture Draw Fee 17:04:06 CDT
--- OUTSIDE RECORDS SUMMARY | 2019-04-15 12:41 | XMS REPORT | Clinical Summary ---
Author Author Admin, Sabrina Jefferson Organization [facility] Address Unknown Phone Unavailable Allergies, Adverse Reactions, [...] unspecified hyperlipidemia OSTEOARTHRITIS 715.90 Active Sobia Naff FILM PROCESSOR Osteoarthrosis, unspecified whether generalized or localized, involving unspecified site G E R D 530.81 Active Sobia Naff FILM PROCESSOR Esoph ageal reflux DEPRESSION 311 Active Sobia Naff FILM PROCESSOR De pressive disorder, not elsewhere classified FH DIABETES V18.0 Active Sobia Naff FILM PROCESSOR F amily history of diabetes mellitus DROWSINESS [...] NAPROSYN 500 MG TABS 1 bid NAPROXEN 99904572071 Act kiya Elaien Meadows RENATO Active [facility] ZINC 50 MG TABS 1 qd ZINC 02063359261 Active Anupama Meadows RENATO Active [facility]S MAGNESIUM 250 MG TABS 3 q d MAGNESIUM 993227825 81 Active Elaine Meadows APRN Active CVS VITAMIN C 1000 MG TABS 1 qd ASCORBIC ACID 5042 7965511 Active Elaine Meadows ANIMAL NUTRITION CONSULTANT Active SUPER B COMPLEX TABS Take one by mouth daily B COMPLEX-C 55335480433 No Longer Active Elaine Meadows APRN Active AMBIEN 10 MG TABS 1 at bedtime ZOLPIDEM TARTRAT E 80915953241 No Longer Active Elaine Meadows APRN Active ASPIRIN 81 MG TAB 1 tablet by mouth daily ASPIR IN 69069605359 No Longer Active Elaine Meadows ANIMAL NUTRITION CONSULTANT Active PANTOPRAZOLE SODIUM 40 MG TBEC Take one by mouth bid PANTOPRAZOLE SODIUM 22797118337 Active Elaine Meadows APRN Active MACRODANTIN 100 MG CAPS Take one by mouth daily 10/18 NITROFURANTOIN MACROCRYSTAL 17166950809 No Longer Active Arnol Ballard MD Active VITAMIN D3 5000 UNIT TABS 1qd CHOLECALCIFER OL 97630960466 No Longer Active Arnol Ballard MD Active FIBER THERAPY 500 MG TABS 1qd METHYLCELL ULOSE (LAXATIVE) 98022957922 No Longer Active Arnol Ballard MD Active VITAMIN C 1000 MG TABS 1qd ASCORBIC ACID 30 003729307 No Longer Active Arnol Ballard MD Active HYDROCODONE-ACETAMINOPHEN 10-500 MG TABS 1 prn HYDROCODONE-ACETAMINOPHEN 06149481287 No Longer Active Arnol Ballard MD Active LOVASTATIN 40 MG TABS 1 at bedtime LOVASTATIN 00 731571931 No Longer Active Joao Harms PA Active CLONAZEPAM 0.5 MG TABS 2 tablet by mouth 1 times daily at bedtime CLONAZEPAM 82397418801 Active Joao Harms PA Active CYMBALTA 60 MG CPEP 1 every morning DULOXETINE HC L 85927379766 Active Joao Harms PA Active CYMBALTA 30 MG CPEP 1 cap by mouth daily with 60mg cap DULOXETINE HCL 88259351084 No Longer Active Joao Marleny PA Active CLONAZEPAM 0.5 MG TBDP 2 tabs at bedtime CLONAZ EPAM 19838177480 No Longer Active Joao Marleny PA Active OMEGA 3-6-9 COMPLEX CAPS 1qd OMEGA 3-6-9 FATTY ACIDS 71198615522 Active Sobia Naff FILM PROCESSOR Active SUPER B-50 B COMPLEX CAPS 1qd B [id number] 00 303149419 Active Sobia Naff FILM PROCESSOR Active ZYRTEC ALLERGY 10 MG TABS Take one by mouth daily 2011 CETIRIZINE HCL 80850492973 No Longer Active Sobia Naff FILM PROCESSOR Active VITAMIN D3 2000 UNIT CAPS 2 1/2 daily CHOLECALC IFEROL 99823616941 No Longer Active Sobia Naff FILM PROCESSOR Active ZITHROMAX Z-ANTONIETA 250 MG TABS 2x1day,7t0cfeb AZIT HROMYCIN 64969334219 No Longer Active Sobia Naff FILM PROCESSOR Active MELOXICAM 15 MG TABS 1qd MELOXICAM 56923602598 Ac tive Sobia Naff FILM PROCESSOR Active VESICARE 10 MG TABS 1 tab daily SOLIFENACIN SUCCI KAHLIL 36229454242 Active Symone Lucke Active MULTIVITAMINS TABS Take one by mouth daily MULT IPLE VITAMIN 67165862465 Active Symone Lucke Active VITAMIN D3 2000 UNIT CAPS 2 1/2 daily TAMIN D3 2000 UNIT CAPS CHOLECALCIFEROL Inactive ZYRTEC ALLERGY 10 MG TABS Take one by mouth daily 2011 ZYRTEC ALLERGY 10 MG TABS 5930764 CETIRIZINE HCL Inactive CLONAZEPAM 0.5 MG TBDP 2 tabs at bedtime CLONAZEPAM 0.5 MG TBDP 574572 CLONAZEPAM Inactive CYMBALTA 30 MG CPEP 1 cap by mouth daily with 60mg cap CYMBALTA 30 MG CPEP 066671 DULOXETINE HCL Inactive LOVASTATIN 40 MG TABS 1 at bedtime LOVASTATIN 4 0 MG TABS 568072 LOVASTATIN Inactive HYDROCODONE-ACETAMINOPHEN 10-500 MG TABS 1 prn HYDROCODONE- ACETAMINOPHEN 10-500 MG TABS HYDROCODONE-ACETAMINOPHEN Inact kiya VITAMIN C 1000 MG TABS 1qd VITAMIN C 1000 M G TABS 407161 ASCORBIC ACID Inactive FIBER THERAPY 500 MG TABS 1qd FIBER THERAPY 500 MG TABS METHYLCELLULOSE (LAXATIVE) Inactive VITAMIN D3 5000 UNIT TABS 1qd VITAMIN D3 50 00 UNIT TABS CHOLECALCIFEROL Inactive MACRODANTIN 100 MG CAPS Take one by mouth daily 10/18 MACRODANTIN 100 MG CAPS 602984 NITROFURANTOIN MACROCRYSTAL Inactive ASPIRIN 81 MG TAB 1 tablet by mouth daily ASPIRIN 81 MG TAB 592541 ASPIRIN Inactive AMBIEN 10 MG TABS 1 at bedtime AMBIEN 10 MG TABS 141737 ZOLPIDEM TARTRATE Inactive SUPER B COMPLEX TABS Take one by mouth daily 4 SUPER B COMPLEX TABS B COMPLEX-C Inactive ZITHROMAX Z-ANTONIETA 250 MG TABS 2x1day,4i8mnyp ZITHROMAX Z-ANTONIETA 250 MG TABS 4279699 AZITHROMYCIN Inactive Vital Signs Date Name Value [...] Description Chart Maintenance: Outside labs entered on [employer] - Chemistry sodium, serum 146 mmol/L potassium, serum 3.3 mmol/L blood glucose 96 mg/dL creatinine, serum 0.96 mg/dL aspartate aminotransferase (SGOT), serum 15 U/L alanine aminotransferase (SGPT), serum 28 U/L alkaline phosphatase, serum 189 U/L Chart Maintenance: Outside labs entered on [email or web address] - Hematology leukocyte count, blood 7.1 10*3/mm3 hemoglobin, blood 13.6 g/dL platelet count 296 10*3/mm3 Lab Report: CBC w/ Diff, [facility] - Chemistry sodium, serum 144 mmol/L potassium, serum 3.7 mmol/L chloride, serum 105 mmol/L carbon dioxide, venous blood 29.3 mmol/L urea nitrogen, blood 17 mg/dL blood glucose 91 mg/dL creatinine, serum 1.10 mg/dL calcium, serum 9.2 mg/dL Lab Report: CBC w/ Diff, [facility] - Hematolog y leukocyte count, blood 8.7 [...] negative Encounters Code Encounter Date Provider Facility CPT-70123 Level 3 Est. Patient 12:55:02 CORE STACKER Arnol collier MD [facility] CPT-41043 Level 4 New Patient 14:35:08 CDT Arnol quinn MD [facility] CPT-07023 Level 4 Est. Patient 08:52:50 CDT Joao BOYD [facility] CPT-46602 Level 4 Est. Patient 07:47:45 CDT Joao BOYD [facility] Procedures Code Procedure Name Date Entry Date Standard Desc ription CPT-OV Office Visit 14:55:53 CDT CPT-OV Office Visit 14:55:26 CDT CPT-OV Office Visit 15:26:35 CDT CPT-03734 Postop F/U Visit 17:47:54 CORE STACKER CPT-86058 Interstim trial 12:55:02 CORE STACKER CPT-21433 Venipuncture Draw Fee 17:04:06 CDT
--- OUTSIDE RECORDS SUMMARY | 2019-04-15 12:41 | XMS REPORT | Clinical Summary ---
Author Author Admin, Sabrina Jefferson Organization [facility] Address Unknown Phone Allergies, Adverse Reactions, Alerts [...] NAPROSYN 500 MG TABS 1 bid NAPROXEN 71451313303 Act kiya Elaine Meadows RENATO Active [facility]S ZINC 50 MG TABS 1 qd ZINC 16226096221 Active Anupama Meadows RENATO Active CVS MAGNESIUM 250 MG TABS 3 q d MAGNESIUM 468309303 81 Active Elaine Meadows CELLOPHANE CASTING MACHINE REPAIRER Active CVS VITAMIN C 1000 MG TABS 1 qd ASCORBIC ACID 5042 6822175 Active Elaine Meadows CELLOPHANE CASTING MACHINE REPAIRER Active SUPER B COMPLEX TABS Take one by mouth daily B COMPLEX-C 04457873137 No Longer Active Elaine Meadows CELLOPHANE CASTING MACHINE REPAIRER Active AMBIEN 10 MG TABS 1 at bedtime ZOLPIDEM TARTRAT E 69176403531 No Longer Active Elaine Meadows CELLOPHANE CASTING MACHINE REPAIRER Active ASPIRIN 81 MG TAB 1 tablet by mouth daily ASPIR IN 90144238273 No Longer Active Elaine Meadows CELLOPHANE CASTING MACHINE REPAIRER Active PANTOPRAZOLE SODIUM 40 MG TBEC Take one by mouth bid PANTOPRAZOLE SODIUM 06888046810 [facility] 100 MG CAPS Take one by mouth daily 10/18 NITROFURANTOIN MACROCRYSTAL 39350759627 No Longer Active Arnol Ballard MD Active VITAMIN D3 5000 UNIT TABS 1qd CHOLECALCIFER OL 23994255055 No Longer Active Arnol Ballard MD Active FIBER THERAPY 500 MG TABS 1qd METHYLCELL ULOSE (LAXATIVE) 47539944294 No Longer Active Arnol Ballard MD Active VITAMIN C 1000 MG TABS 1qd ASCORBIC ACID 30 476510655 No Longer Active Arnol Ballard MD Active HYDROCODONE-ACETAMINOPHEN 10-500 MG TABS 1 prn HYDROCODONE-ACETAMINOPHEN 62255583978 No Longer Active Arnol Ballard MD Active LOVASTATIN 40 MG TABS 1 at bedtime LOVASTATIN 00 099957289 No Longer Active Joao Farmer PA Active CLONAZEPAM 0.5 MG TABS 2 tablet by mouth 1 times daily at bedtime CLONAZEPAM 94297420498 Active Joao Harms PA Active CYMBALTA 60 MG CPEP 1 every morning DULOXETINE HC L 19578562663 Active Joao Harms PA Active CYMBALTA 30 MG CPEP 1 cap by mouth daily with 60mg cap DULOXETINE HCL 70856538311 No Longer Active Joao Farmer PA Active CLONAZEPAM 0.5 MG TBDP 2 tabs at bedtime CLONAZ EPAM 41533646538 No Longer Active Joao Marleny PA Active OMEGA 3-6-9 COMPLEX CAPS 1qd OMEGA 3-6-9 FATTY ACIDS 02487022045 Active Sobia Aisha MECHANICAL PRODUCT ENGINEER Active SUPER B-50 B COMPLEX CAPS 1qd B [id number] 00 758877461 Active Sobia Aisha MECHANICAL PRODUCT ENGINEER Active ZYRTEC ALLERGY 10 MG TABS Take one by mouth daily 2011 CETIRIZINE HCL 79716411377 No Longer Active Sobia [place] MECHANICAL PRODUCT ENGINEER Act kiya VITAMIN D3 2000 UNIT CAPS 2 1/2 daily CHOLECALC IFEROL 35061134495 No Longer Active Sobia [place] MECHANICAL PRODUCT ENGINEER Active ZITHROMAX Z-ANTONIETA 250 MG TABS 2x1day,9m9duko AZIT HROMYCIN 02231513419 No Longer Active Sobia [place] MECHANICAL PRODUCT ENGINEER Active MELOXICAM 15 MG TABS 1qd MELOXICAM 27348716043 Ac tive Sobia [place] MECHANICAL PRODUCT ENGINEER Active VESICARE 10 MG TABS 1 tab daily SOLIFENACIN SUCCI KAHLIL 39715457323 Active Symone Lucke Active MULTIVITAMINS TABS Take one by mouth daily MULT IPLE VITAMIN 32011730444 Active Symone Lucke Active VITAMIN D3 2000 UNIT CAPS 2 1/2 daily TAMIN D3 2000 UNIT CAPS CHOLECALCIFEROL Inactive ZYRTEC ALLERGY 10 MG TABS Take one by mouth daily 2011 ZYRTEC ALLERGY 10 MG TABS 3713839 CETIRIZINE HCL Inactive CLONAZEPAM 0.5 MG TBDP 2 tabs at bedtime CLONAZEPAM 0.5 MG TBDP 765022 CLONAZEPAM Inactive CYMBALTA 30 MG CPEP 1 cap by mouth daily with 60mg cap CYMBALTA 30 MG CPEP 613835 DULOXETINE HCL Inactive LOVASTATIN 40 MG TABS 1 at bedtime LOVASTATIN 4 0 MG TABS 103526 LOVASTATIN Inactive HYDROCODONE-ACETAMINOPHEN 10-500 MG TABS 1 prn HYDROCODONE- ACETAMINOPHEN 10-500 MG TABS 763334 HYDROCODONE-ACETAMINOPHEN Inact kiya VITAMIN C 1000 MG TABS 1qd VITAMIN C 1000 M G TABS 975076 ASCORBIC ACID Inactive FIBER THERAPY 500 MG TABS 1qd FIBER THERAPY 500 MG TABS METHYLCELLULOSE (LAXATIVE) Inactive VITAMIN D3 5000 UNIT TABS 1qd VITAMIN D3 50 00 UNIT TABS CHOLECALCIFEROL Inactive MACRODANTIN 100 MG CAPS Take one by mouth daily 10/18 MACRODANTIN 100 MG CAPS 100778 NITROFURANTOIN MACROCRYSTAL Inactive ASPIRIN 81 MG TAB 1 tablet by mouth daily ASPIRIN 81 MG TAB 538377 ASPIRIN Inactive AMBIEN 10 MG TABS 1 at bedtime AMBIEN 10 MG TABS 143677 ZOLPIDEM TARTRATE Inactive SUPER B COMPLEX TABS Take one by mouth daily 4 SUPER B COMPLEX TABS B COMPLEX-C Inactive ZITHROMAX Z-ANTONIETA 250 MG TABS 2x1day,2p9oddf ZITHROMAX Z-ANTONIETA 250 MG TABS 4881497 AZITHROMYCIN Inactive Vital Signs Date Name Value [...] Description Chart Maintenance: Outside labs entered on [email or web address] - Chemistry sodium, serum 146 mmol/L potassium, serum 3.3 mmol/L blood glucose 96 mg/dL creatinine, serum 0.96 mg/dL aspartate aminotransferase (SGOT), serum 15 U/L alanine aminotransferase (SGPT), serum 28 U/L alkaline phosphatase, serum 189 U/L Chart Maintenance: Outside labs entered on [employer] - Hematology leukocyte count, blood 7.1 10*3/mm3 hemoglobin, blood 13.6 g/dL platelet count 296 10*3/mm3 Lab Report: CBC w/ Diff, [facility] - Chemistry sodium, serum 144 mmol/L [...] negative Encounters Code Encounter Date Provider Facility CPT-43424 Level 3 Est. Patient 12:55:02 GRASS FARMER Arnol collier MD [facility] CPT-99181 Level 4 New Patient 14:35:08 CDT Arnol quinn MD [facility] CPT-09962 Level 4 Est. Patient 08:52:50 CDT Joao jacques [facility] CPT-20776 Level 4 Est. Patient 07:47:45 CDT Joao jacques [facility] Procedures Code Procedure Name Date Entry Date Standard Desc ription CPT-OV Office Visit 14:55:26 CDT CPT-OV Office Visit 15:26:35 CDT CPT-83383 Postop F/U Visit 17:47:54 GRASS FARMER CPT-69112 Interstim trial 12:55:02 GRASS FARMER CPT-00788 Venipuncture Draw Fee 17:04:06 CDT
--- OUTSIDE RECORDS SUMMARY | 2019-04-15 12:41 | XMS REPORT | Clinical Summary ---
Author Author Admin, Sabrina Jefferson Organization [facility] Address Unknown Phone Unavailable Allergies, Adverse Reactions, [...] unspecified hyperlipidemia OSTEOARTHRITIS 715.90 Active Sobia Naff BALLOON ARTIST Osteoarthrosis, unspecified whether generalized or localized, involving unspecified site G E R D 530.81 Active Sobia Naff BALLOON ARTIST Esoph ageal reflux DEPRESSION 311 Active Sobia Naff BALLOON ARTIST De pressive disorder, not elsewhere classified FH DIABETES V18.0 Active Sobia Naff BALLOON ARTIST F amily history of diabetes mellitus DROWSINESS [...] CPDR 1 q d ESOMEPRAZOLE MAGNE SIUM 27371093878 No Longer Active Rony Mata MD Active PRILOSEC 40 MG CPDR 1 tab daily OMEPRAZOLE 0238393447 8 Active Rony Mata MD Active HYDROCODONE-ACETAMINOPHEN 5-325 MG TABS 1-2 q 4 hr prn pain HYDROCODONE-ACETAMINOPHEN 78614856085 Active Rony Mata MD Active NAPROSYN 500 MG TABS 1 bid NAPROXEN 45986418550 Act kiya Elaine Abdiel RENATO Active [facility] ZINC 50 MG TABS 1 qd ZINC 18383718774 Active Anupama lange King RENATO Active [facility] MAGNESIUM 250 MG TABS 3 q d MAGNESIUM 531460250 81 Active [facility] VITAMIN C 1000 MG TABS 1 qd ASCORBIC ACID 5042 3420462 Active Elaine [facility] SUPER B COMPLEX TABS Take one by mouth daily B COMPLEX-C 48422568415 No [facility]EN 10 MG TABS 1 at bedtime ZOLPIDEM TARTRAT E 42767968484 No Longer Active Elaine Abdiel RENATO Active ASPIRIN 81 MG TAB 1 tablet by mouth daily ASPIR IN 09862651451 No Longer Active Elaine [facility] Active PANTOPRAZOLE SODIUM 40 MG TBEC Take one by mouth bid PANTOPRAZOLE SODIUM 79441272749 Active Elaine [place] CONTROL OPERATOR Active MACRODANTIN 100 MG CAPS Take one by mouth daily 10/18 NITROFURANTOIN MACROCRYSTAL 89178441910 No Longer Active Arnol Ballard MD Active VITAMIN D3 5000 UNIT TABS 1qd CHOLECALCIFER OL 00634305196 No Longer Active Arnol Ballard MD Active FIBER THERAPY 500 MG TABS 1qd METHYLCELL ULOSE (LAXATIVE) 47197548685 No Longer Active Arnol Ballard MD Active VITAMIN C 1000 MG TABS 1qd ASCORBIC ACID 30 405175805 No Longer Active Arnol Ballard MD Active HYDROCODONE-ACETAMINOPHEN 10-500 MG TABS 1 prn HYDROCODONE-ACETAMINOPHEN 61670148201 No Longer Active Arnol Ballard MD Active LOVASTATIN 40 MG TABS 1 at bedtime LOVASTATIN 00 107374789 No Longer Active Joao Harms PA Active CLONAZEPAM 0.5 MG TABS 2 tablet by mouth 1 times daily at bedtime CLONAZEPAM 86763729824 Active Joao Harms PA Active CYMBALTA 60 MG CPEP 1 every morning DULOXETINE HC L 58367941858 Active Joao Harms PA Active CYMBALTA 30 MG CPEP 1 cap by mouth daily with 60mg cap DULOXETINE HCL 80838331026 No Longer Active Joao Harms PA Active CLONAZEPAM 0.5 MG TBDP 2 tabs at bedtime CLONAZ EPAM 31119667066 No Longer Active Joao Harms PA Active OMEGA 3-6-9 COMPLEX CAPS 1qd OMEGA 3-6-9 FATTY ACIDS 41887765452 Active Sobia Naff BALLOON ARTIST Active SUPER B-50 B COMPLEX CAPS 1qd B [id number] 00 511365582 Active Sobia Naff BALLOON ARTIST Active ZYRTEC ALLERGY 10 MG TABS Take one by mouth daily 2011 CETIRIZINE HCL 59914291701 No Longer Active Sobia Naff BALLOON ARTIST Active VITAMIN D3 2000 UNIT CAPS 2 1/2 daily CHOLECALC IFEROL 56604609126 No Longer Active Sobia Cartwright BALLOON ARTIST Active ZITHROMAX Z-ANTONIETA 250 MG TABS 2x1day,[id number] AZIT HROMYCIN 76128344303 No Longer Active Sobia Cartwright BALLOON ARTIST Active MELOXICAM 15 MG TABS 1qd MELOXICAM 13234180434 Ac tive Sobia Naff BALLOON ARTIST Active VESICARE 10 MG TABS 1 tab daily SOLIFENACIN SUCCI KAHLIL 84674284693 Active Symone Lucke Active MULTIVITAMINS TABS Take one by mouth daily MULT IPLE VITAMIN 26885880012 Active Symone Lucke Active VITAMIN D3 2000 UNIT CAPS 2 1/2 daily TAMIN D3 2000 UNIT CAPS CHOLECALCIFEROL Inactive ZYRTEC ALLERGY 10 MG TABS Take one by mouth daily 2011 ZYRTEC ALLERGY 10 MG TABS 4512496 CETIRIZINE HCL Inactive CLONAZEPAM 0.5 MG TBDP 2 tabs at bedtime CLONAZEPAM 0.5 MG TBDP 297153 CLONAZEPAM Inactive CYMBALTA 30 MG CPEP 1 cap by mouth daily with 60mg cap CYMBALTA 30 MG CPEP 913147 DULOXETINE HCL Inactive LOVASTATIN 40 MG TABS 1 at bedtime LOVASTATIN 4 0 MG TABS 993400 LOVASTATIN Inactive HYDROCODONE-ACETAMINOPHEN 10-500 MG TABS 1 prn HYDROCODONE- ACETAMINOPHEN 10-500 MG TABS HYDROCODONE-ACETAMINOPHEN Inact kiya VITAMIN C 1000 MG TABS 1qd VITAMIN C 1000 M G TABS 162827 ASCORBIC ACID Inactive FIBER THERAPY 500 MG TABS 1qd FIBER THERAPY 500 MG TABS METHYLCELLULOSE (LAXATIVE) Inactive VITAMIN D3 5000 UNIT TABS 1qd VITAMIN D3 50 00 UNIT TABS CHOLECALCIFEROL Inactive MACRODANTIN 100 MG CAPS Take one by mouth daily 10/18 MACRODANTIN 100 MG CAPS 029919 NITROFURANTOIN MACROCRYSTAL Inactive ASPIRIN 81 MG TAB 1 tablet by mouth daily ASPIRIN 81 MG TAB 306710 ASPIRIN Inactive AMBIEN 10 MG TABS 1 at bedtime AMBIEN 10 MG TABS 991168 ZOLPIDEM TARTRATE Inactive SUPER B COMPLEX TABS Take one by mouth daily 4 SUPER B COMPLEX TABS B COMPLEX-C Inactive NEXIUM 40 MG CPDR 1 q d NEXIUM 40 MG CPDR ESOMEPRAZOLE MAGNESIUM Inactive ZITHROMAX Z-ANTONIETA 250 MG TABS 2x1day,[id number] ZITHROMAX Z-ANTONIETA 250 MG TABS 0695287 AZITHROMYCIN Inactive Vital Signs Date Name Value [...] Description Chart Maintenance: Outside labs entered on [facility] - Chemistry creatinine, serum 0.96 mg/dL aspartate aminotransferase (SGOT), serum 15 U/L alanine aminotransferase (SGPT), serum 28 U/L alkaline phosphatase, serum 189 U/L sodium, serum 146 mmol/L potassium, serum 3.3 mmol/L blood glucose 96 mg/dL Chart Maintenance: Outside labs entered on [facility] - Hematology hemoglobin, blood 13.6 g/dL platelet count 296 10*3/mm3 leukocyte count, blood 7.1 10*3/mm3 Lab Report: CBC w/ Diff, BMP - Chemistry sodium, serum 144 mmol/L potassium, serum 3.7 mmol/L chloride, serum 105 mmol/L carbon dioxide, venous blood 29.3 mmol/L urea nitrogen, blood 17 mg/dL blood glucose 91 mg/dL creatinine, serum 1.10 mg/dL calcium, serum 9.2 mg/dL Lab Report: CBC w/ Diff, BMP - Hematolog y mean corpuscular volume, RBC 88.4 fL hematocrit, blood 41.0 % hemoglobin, blood 13.1 g/dL erythrocyte (RBC) count 4.6 10*6/mm3 leukocyte count, blood 8.7 10*3/mm3 mean corpuscular hemoglobin, RBC 28.2 pg red blood cell distribution width 13.8 % platelet count 293 10*3/mm3 Encounters Code Encounter Date Provider Facility [id number] Level 3 Est. Patient 12:55:02 FRAMING MECHANIC Arnol collier MD [facility] CPT-09280 Level 4 New Patient 14:35:08 CDT Arnol quinn MD [facility] CPT-22176 Level 4 Est. Patient 08:52:50 CDT Joao jacques [facility] CPT-45338 Level 4 Est. Patient 07:47:45 CDT Joao jacques [facility] Procedures Code Procedure Name Date Entry Date Standard Desc ription CPT-40349 Postop F/U Visit 14:36:53 CDT CPT-OV Office Visit 14:55:53 CDT CPT-OV Office Visit 14:55:26 CDT CPT-OV Office Visit 15:26:35 CDT CPT-01489 Postop F/U Visit 17:47:54 FRAMING MECHANIC CPT-97891 Interstim trial 12:55:02 FRAMING MECHANIC CPT-19374 Venipuncture Draw Fee 17:04:06 CDT
--- OUTSIDE RECORDS SUMMARY | 2019-04-15 12:42 | XMS REPORT | Continuity of Care Document ---
Demographics x Preferred Language Unknown Marital Status Unknown Sabianist Affiliation Unknown Race Unknown Ethnic Group Unknown Author Organization Unknown Address Unknown Phone Unavailable Allergies Active Description Code Type Severity Reaction Onset Reported/Identified Relationship to Patient Clinical Status Yes Diclofenac 4409 Drug Allergy N/A N/A Yes feather Animal Allergy N/A N/A Yes SULFA Drug Allergy N/A Hives Yes Sulfa (Sulfonamide Antibiotics) 491 Drug Allergy N/A Hives Yes Sulfa (Sulfonamide Antibiotics) Drug Allergy N/A N/A Confirmed or Verified Yes doxycycline Drug N/A N/A Yes sulfa drug 16 Drug N/A N/A Yes doxycycline [id number] Drug Aller gy Unknown Itching, EYE SW 04/11/2019 Yes Sulfa (Sulfonamide Antibiotics) [id number] 0491 Drug Allergy Unknown HIVES, ITCHING 04/11/2019 Medications There is no data. Problems Date Dx Coded Attending Type Code Diagnosis Diagnosed By 04/11/2013 ARI MONTES DE OCA 272.4 HYPERLIPIDEMIA NEC/NOS 04/11/2013 ARI MONTES DE OCA 413.9 ANGINA PECTORIS NEC/NOS 04/11/2013 ARI MONTES DE OCA 786.50 CHEST PAIN NOS 04/11/2013 ARI MONTES DE OCA V17.3 FAM HX-ISCHEM HEART DIS 04/11/2013 ARI MONTES DE OCA 786.09 RESPIRATORY ABNORM NEC 04/11/2013 ARI MONTES DE OCA 786.50 CHEST PAIN NOS 07/24/2014 DARIEN STAFFORD 719.4 6 JOINT PAIN-L/LEG 07/31/2014 DARIEN STAFFORD 719.4 6 JOINT PAIN-L/LEG 07/31/2014 DARIEN STAFFORD V43.6 5 KNEE JOINT REPLACEMENT 08/28/2018 DARIEN LLANOS Reason For V isit M25.562 Pain in left knee 11/06/2018 DARIEN LLANOS Reason For V isit M25.562 Pain in left knee 11/06/2018 DARIEN LLANOS Final R82.90 Unspecified abnormal findings in urine 04/09/2019 ARI MONTES DE OCA Reason For Visit R04.0 Epistaxis 04/09/2019 ARI MONTES DE OCA Final Z79. 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 Procedures Code [place] [address] ROUT INE VENIPUNCTURE 04/11/2013 39172 CHES T X-RAY 04/11/2013 33473 COMP REHEN METABOLIC PANEL 04/11/2013 49191 ASSA Y OF CK (CPK) 04/11/2013 48297 CREA ANH, MB FRACTION 04/11/2013 34469 NATR IURETIC PEPTIDE 04/11/2013 24483 ASSA Y OF TROPONIN, QUANT 04/11/2013 19434 COMP LETE CBC, AUTOMATED 04/11/2013 50547 ELEC TROCARDIOGRAM, TRACING 04/11/2013 85702 ELEC TROCARDIOGRAM REPORT 04/11/2013 57176 THER /PROPH/DIAG INJ, SC/IM 04/11/2013 91761 ARIC GENCY DEPT VISIT 04/11/2013 27046 RAIC GENCY DEPT VISIT 04/11/2013 J1650 Inj enoxaparin sodium 04/11/2013 A0425 GROU ND MILEAGE 04/11/2013 A0426 ALS 1 04/11/2013 98792 X-RA Y EXAM OF KNEE, 3 07/24/2014 40135 ROUT INE VENIPUNCTURE 07/31/2014 04385 RBC SED RATE, NONAUTOMATED 07/31/2014 68769 C-RE ACTIVE PROTEIN 07/31/2014 12709 ROUT INE VENIPUNCTURE 05/30/[address] H EAD/BRAIN W/O DYE 05/30/2015 25881 COMP REHEN METABOLIC PANEL 05/30/2015 35238 DRUG SCREEN NON TLC DEVICES 05/30/2015 20557 URIN ALYSIS, AUTO W/SCOPE 05/30/2015 61464 COMP LETE CBC W/AUTO DIFF WBC 05/30/2015 30214 RBC SED RATE, NONAUTOMATED 05/30/2015 77413 TTE W/DOPPLER, COMPLETE 05/30/2015 10952 EXTR ACRANIAL STUDY 05/30/2015 67926 [facility]IC GENCY DEPT VISIT 05/30/2015 46707 [facility] DEPT VISIT 05/30/2015 G0378 HOSP ITAL OBSERVATION PER HR 05/30/2015 Results Test Result Range CBC - 04/11/13 00:00 HCT 42.5 % 36.9-47.0 HGB 13.6 G/DL 12.0-16.0 MCH 28.3 PG 27-31 MCHC 32.0 G/DL 33-37 MCV 88.5 FL 81-99 MPV 10.2 FL 7.3-10.4 PLT 296 10^3u 130-400 RBC 4.8 10^6u 4.2-5.4 RDW 15.9 % 11.5-15.5 WBC 7.1 10^3u 4.8-10.8 TROP - 04/11/13 00:00 TROP < 0.04 NG/ML 0.0-0.4 CK - 04/11/13 00:00 CK 25 IU/L 26-192 CMP - 04/11/13 00:00 ALB 2.8 G/DL 3.5-5 ALP 189 IU/L 32-92 ALT 28 IU/L 12-65 AST 15 IU/L 10-42 BCR 18.8 10-20 BUN 18 MG/DL 7-18 CA 8.8 MG/DL 8.4-10.2 CL 104 MEQ/L 98-107 CO2 30.8 MEQ/L 22-28 CREA 0.96 MG/DL 0.6-1.0 EGFR 59 eGFR >= 60 GLU 96 MG/DL 70-105 K 3.3 MEQ/L 3.5-5.1 NA 146 MEQ/L 134-145 OSMSC 292.3 MOSML 280-300 TBIL 0.5 MG/DL 0.1-1.0 TP 6.9 G/DL 6.0-8.3 Albumin/Globulin Ratio 0.7 0-8 Anion Gap 11.2 8-16 CKMB - 04/11/13 00:00 CKMB 0.6 NG/ML 0-3.6 PRO-BNP - 04/11/13 00:00 PRO-BNP 81 PG/ML 0-900 CBC WITH DIFF - 09/30/13 00:00 BASO% 0.6 % 0-2 EOS% 4.0 % 0-7.0 HCT 41.4 % 36.9-47.0 HGB 13.1 G/DL 12.0-16.0 LYMPH% 24.1 % 20-40 MCH 29.0 PG 27-31 MCHC 31.6 G/DL 33-37 MCV 91.6 FL 81-99 MONO% 8.2 % 0-10.0 MPV 10.7 FL 7.3-10.4 NEUTRO% 63.1 % 40-70 PLT 276 10^3u 130-400 RBC 4.5 10^6u 4.2-5.4 RDW 14.9 % 11.5-15.5 WBC 7.8 10^3u 4.8-10.8 NEUTRO# 4.9 10^3u 1.5-7.5 LYMPH# 1.9 10^3u 0.9-4.0 MONO# 0.6 10^3u 0-0.8 EOS# 0.3 10^3u 0-0.6 BASO# 0.1 10^3u 0-0.1 CMP - 09/30/13 00:00 ALB 3.4 G/DL 3.5-5 ALP 173 IU/L 32-92 ALT 26 IU/L 12-65 AST 23 IU/L 10-42 BCR 13.8 10-20 BUN 15 MG/DL 7-18 CA 8.9 MG/DL 8.4-10.2 CL 105 MEQ/L 98-107 CO2 28.8 MEQ/L 22-28 CREA 1.09 MG/DL 0.6-1.0 EGFR 51 eGFR >= 60 GLU 101 MG/DL 70-105 K 3.6 MEQ/L 3.5-5.1 NA 142 MEQ/L 134-145 OSMSC 284.1 MOSML 280-300 TBIL 0.8 MG/DL 0.1-1.0 TP 6.9 G/DL 6.0-8.3 Albumin/Globulin Ratio 1.0 0-8 Anion Gap 8.2 8-16 TYPE AND SCREEN - 09/30/13 00:00 ABO O ABSCRN N Negative RH N UA - 10/02/13 00:00 PH 6.5 4.5-8.0 SG 1.025 1.003-1.035 UABILI NEGATIVE UABLD NEGATIVE UACOLOR YEL UAGLU NEGATIVE UAKET NEGATIVE UALEUK NEGATIVE UANIT NEGATIVE UAURO 1.0 0-0.2 CLARITY HAZY PROTEIN NEGATIVE UA WBC R510 UA RBC R05 SQUAMOUS EPITHELIAL CELLS 1+ BACTERIA 1+ MUCOUS 1+ SEDR - 07/31/14 00:00 SEDR 17 0-30 CRP - 07/31/14 00:00 CRP <= 0.2 MG/DL 0-1 CBC WITH DIFF - 05/29/15 00:00 BASO% 1.0 % 0-2 EOS% 8.1 % 0-7.0 HCT 40.0 % 36.9-47.0 HGB 13.5 G/DL 12.0-16.0 LYMPH% 31.0 % 20-40 MCH 30.3 PG 27-31 MCHC 33.8 G/DL 33-37 MCV 89.9 FL 81-99 MONO% 10.2 % 0-10.0 MPV 10.1 FL 7.3-10.4 NEUTRO% 49.5 % 40-70 PLT 230 10^3u 130-400 RBC 4.5 10^6u 4.2-5.4 RDW 12.9 % 11.5-15.5 WBC 6.2 10^3u 4.8-10.8 NEUTRO# 3.1 10^3u 1.5-7.5 LYMPH# 1.9 10^3u 0.9-4.0 MONO# 0.6 10^3u 0-0.8 EOS# 0.5 10^3u 0-0.6 BASO# 0.1 10^3u 0-0.1 SEDR - 05/29/15 00:00 SEDR 10 0-30 IMM GRANULOCYTE % 0.2 % IMM GRANULOCYTE # 0.0 10^3u 0-5 CMP - 05/29/15 00:00 ALB 3.1 G/DL 3.5-5 ALP 172 IU/L 25-72 ALT 24 IU/L 12-65 AST 18 IU/L 10-42 BCR 17.8 10-20 BUN 16 MG/DL 7-18 CA 8.2 MG/DL 8.4-10.2 CL 107 MEQ/L 98-107 CO2 28.8 MEQ/L 22-28 CREA 0.90 MG/DL 0.6-1.0 EGFR 63 eGFR >= 60 GLU 121 MG/DL 70-105 K 3.4 MEQ/L 3.5-5.1 NA 141 MEQ/L 134-145 OSMSC 283.7 MOSML 280-300 TBIL 0.4 MG/DL 0.1-1.0 TP 6.1 G/DL 6.0-8.3 Albumin/Globulin Ratio 1.0 0-8 Anion Gap 5.2 8-16 DRUG SCREEN IN HOUSE - 05/29/15 00:00 MBAR N Negative MBENZO N Negative MCOCN N Negative MMAMP N Negative MMTD N Negative MOPIAT N Negative MPCP N Negative MTCA N Negative MTHC N Negative AMPHETAMINE N Negative UA - 05/29/15 00:00 PH 5.5 4.5-8.0 SG 1.025 1.003-1.035 UABILI NEGATIVE UABLD NEGATIVE UACOLOR YEL UAGLU NEGATIVE UAKET NEGATIVE UALEUK NEGATIVE UANIT NEGATIVE UAURO 0.2 0-0.2 UCX NO CLARITY CL PROTEIN NEGATIVE UA WBC R05 UA RBC R05 SQUAMOUS EPITHELIAL CELLS 2+ BACTERIA OCC MUCOUS 1+ Blood CBC with ordered manual differenti al panel - 04/11/19 13:20 Blood leukocytes automated count (number/volume) 8.4 10*3/uL 4.3-11.0 Blood erythrocytes automated count (number/volume) 4.08 10*6/uL 4.35-5.85 Venous blood hemoglobin measurement (mass/volume) 11.5 g/dL 11.5-16.0 Blood hematocrit (volume fraction) 36 % 35-52 Automated erythrocyte mean corpuscular volume 89 [ foz_us] 80-99 Automated erythrocyte mean corpuscular h emoglobin (mass per erythrocyte) 28 pg 25-34 Automated erythrocyte mean corpuscular h emoglobin concentration measurement (mass/volume) 32 g/dL 32-36 Automated erythrocyte distribution width ratio 14. 5 % 10.0- 14.5 Automated blood platelet count (count/volume) 274 10*3/uL 130-400 Automated blood platelet mean volume measurement 10.3 [foz_us] 7.4-10.4 Automated blood neutrophils/100 leukocytes 64 % 42-75 Automated blood lymphocytes/100 leukocytes 25 % 12-44 Blood monocytes/100 leukocytes 5 % NRG Automated blood eosinophils/100 leukocytes 2 % 0-10 Automated blood basophils/100 leukocytes 0 % 0-10 Blood neutrophils automated count (number/volume) 5.4 10*3 1.8-7.8 Blood lymphocytes automated count (number/volume) 2.1 10*3 1.0-4.0 Blood monocytes automated count (number/volume) 0. 7 10*3 0.0-1.0 Automated eosinophil count 0.2 10*3/uL 0 .0-0.3 Automated blood basophil count (count/volume) 0.0 10*3/uL 0.0-0.1 Manual blood segmented neutrophils/100 leukocytes 67 % NRG Blood band neutrophils/100 leukocytes 2 % NRG Manual blood lymphocytes/100 leukocytes 24 % NRG Manual eosinophils/100 leukocytes in nose 2 % NRG Manual blood basophils/100 leukocytes 0 % NRG Blood ovalocytes detection by light microscopy SLI GHT NRG Blood blood smear finding identification by light micr oscopy NO NRG Whole blood basic metabolic panel - 06/25 13:20 Serum or plasma sodium measurement (moles/volume) 143 mmol/L 135-145 Serum or plasma potassium measurement (moles/volume) 3.9 mmol/L 3.6-5.0 Serum or plasma chloride measurement (moles/volume) 108 mmol/L 98-107 Carbon dioxide 26 mmol/L 21-32 Serum or plasma anion gap determination (moles/volume) 9 mmol/L 5-14 Serum or plasma urea nitrogen measurement (mass/volume ) 18 mg/dL 7-18 Serum or plasma creatinine measurement (mass/volume) 0.82 mg/dL 0.60-1.30 Serum or plasma urea nitrogen/creatinine mass ratio 22 NRG Serum or plasma creatinine measurement w ith calculation of estimated glomerular filtration rate > NRG Serum or plasma glucose measurement (mass/volume) 110 mg/dL 70-105 Serum or plasma calcium measurement (mass/volume) 8.8 mg/dL 8.5-10.1 Methicillin resistant Staphylococcus aur eus (MRSA) screening culture - 04/11/19 17:45 Methicillin resistant Staphylococcus aureus (MRSA) scr eening culture NEG NRG Complete blood count (CBC) with automate d white blood cell (WBC) differential - 04/12/19 13:19 Blood leukocytes automated count (number/volume) 9.6 10*3/uL 4.3-11.0 Blood erythrocytes automated count (number/volume) 4.18 10*6/uL 4.35-5.85 Venous blood hemoglobin measurement (mass/volume) 11.8 g/dL 11.5-16.0 Blood hematocrit (volume fraction) 37 % 35-52 Automated erythrocyte mean corpuscular volume 89 [ foz_us] 80-99 Automated erythrocyte mean corpuscular h emoglobin (mass per erythrocyte) 28 pg 25-34 Automated erythrocyte mean corpuscular h emoglobin concentration measurement (mass/volume) 32 g/dL 32-36 Automated erythrocyte distribution width ratio 14. 6 % 10.0- 14.5 Automated blood platelet count (count/volume) 287 10*3/uL 130-400 Automated blood platelet mean volume measurement 9.7 [foz_us] 7.4-10.4 Automated blood neutrophils/100 leukocytes 78 % 42-75 Automated blood lymphocytes/100 leukocytes 16 % 12-44 Blood monocytes/100 leukocytes 3 % 0-12 Automated blood eosinophils/100 leukocytes 3 % 0-10 Automated blood basophils/100 leukocytes 0 % 0-10 Blood neutrophils automated count (number/volume) 7.4 10*3 1.8-7.8 Blood lymphocytes automated count (number/volume) 1.5 10*3 1.0-4.0 Blood monocytes automated count (number/volume) 0. 3 10*3 0.0-1.0 Automated eosinophil count 0.3 10*3/uL 0 .0-0.3 Automated blood basophil count (count/volume) 0.0 10*3/uL 0.0-0.1 RED CELLS LEUKO REDUCED AS1 - 04/12/19 1 3:19 RED CELLS LEUKO REDUCED AS1 R ROSAMARIA NRG Blood type T Indirect antibody screen [facility] - 04/12/19 13:19 WRISTBAND NUMBER [id number] NRG ABO+Rh group ON NRG Blood group antibody screen NEGATIVE NR G Whole blood hemoglobin and hematocrit [facility] [employer] - 04/12/19 18:04 Venous blood hemoglobin measurement (mass/volume) 11.4 g/dL 11.5-16.0 Blood hematocrit (volume fraction) 36 % 35-52 Complete blood count (CBC) with automate d white blood cell (WBC) differential - 04/13/19 05:46 Blood leukocytes automated count (number/volume) 11.2 10*3/uL 4.3-11.0 Blood erythrocytes automated count (number/volume) 3.42 10*6/uL 4.35-5.85 Venous blood hemoglobin measurement (mass/volume) 9.8 g/dL 11.5-16.0 Blood hematocrit (volume fraction) 31 % 35-52 Automated erythrocyte mean corpuscular volume 90 [ foz_us] 80-99 Automated erythrocyte mean corpuscular h emoglobin (mass per erythrocyte) 29 pg 25-34 Automated erythrocyte mean corpuscular h emoglobin concentration measurement (mass/volume) 32 g/dL 32-36 Automated erythrocyte distribution width ratio 14. 1 % 10.0- 14.5 Automated blood platelet count (count/volume) 276 10*3/uL 130-400 Automated blood platelet mean volume measurement 10.3 [foz_us] 7.4-10.4 Automated blood neutrophils/100 leukocytes 77 % 42-75 Automated blood lymphocytes/100 leukocytes 16 % 12-44 Blood monocytes/100 leukocytes 8 % 0-12 Automated blood eosinophils/100 leukocytes 0 % 0-10 Automated blood basophils/100 leukocytes 0 % 0-10 Blood neutrophils automated count (number/volume) 8.5 10*3 1.8-7.8 Blood lymphocytes automated count (number/volume) 1.8 10*3 1.0-4.0 Blood monocytes automated count (number/volume) 0. 9 10*3 0.0-1.0 Automated eosinophil count 0.0 10*3/uL 0 .0-0.3 Automated blood basophil count (count/volume) 0.0 10*3/uL 0.0-0.1 Complete blood count (CBC) with automate d white blood cell (WBC) differential - 04/14/19 05:48 Blood leukocytes automated count (number/volume) 9.3 10*3/uL 4.3-11.0 Blood erythrocytes automated count (number/volume) 3.21 10*6/uL 4.35-5.85 Venous blood hemoglobin measurement (mass/volume) 9.1 g/dL 11.5-16.0 Blood hematocrit (volume fraction) 29 % 35-52 Automated erythrocyte mean corpuscular volume 91 [ foz_us] 80-99 Automated erythrocyte mean corpuscular h emoglobin (mass per erythrocyte) 28 pg 25-34 Automated erythrocyte mean corpuscular h emoglobin concentration measurement (mass/volume) 31 g/dL 32-36 Automated erythrocyte distribution width ratio 14. 7 % 10.0- 14.5 Automated blood platelet count (count/volume) 264 10*3/uL 130-400 Automated blood platelet mean volume measurement 10.2 [foz_us] 7.4-10.4 Automated blood neutrophils/100 leukocytes 50 % 42-75 Automated blood lymphocytes/100 leukocytes 38 % 12-44 Blood monocytes/100 leukocytes 9 % 0-12 Automated blood eosinophils/100 leukocytes 3 % 0-10 Automated blood basophils/100 leukocytes 1 % 0-10 Blood neutrophils automated count (number/volume) 4.7 10*3 1.8-7.8 Blood lymphocytes automated count (number/volume) 3.5 10*3 1.0-4.0 Blood monocytes automated count (number/volume) 0. 8 10*3 0.0-1.0 Automated eosinophil count 0.3 10*3/uL 0 .0-0.3 Automated blood basophil count (count/volume) 0.1 10*3/uL 0.0-0.1 Encounters ACCT No. Visit Date/Time Discharge Status Pt. Type Provider Facility Loc./Unit Complaint [id number] 05/29/2015 14:10:00 05/30/2015 10:42 :00 DIS Outpatient MARION ELLINGTON [facility] OBS [id number] 02/12/2015 00:00:00 02/12/2015 23:59 :59 CLS Outpatient RIVERADARIEN [facility] RAD [id number] 08/21/2014 10:00:00 08/21/2014 10:00 :00 DIS Outpatient NON STAFF, [facility] RAD [id number] 08/05/2014 12:37:00 08/05/2014 12:37 :00 DIS Outpatient NON STAFF, [facility] RAD [id number] 07/31/2014 13:00:00 07/31/2014 23:59 :59 CLS Outpatient RIVERADARIEN Rizvi [facility] ORTHO [id number] 07/30/2014 09:56:00 07/30/2014 09:56 :00 DIS Outpatient RIVERADARIEN Rizvi [facility] ORTHO [id number] 07/24/2014 13:41:00 07/24/2014 23:59 :59 CLS Outpatient RIVERA, DARIEN L [facility] RAD [id number] 10/02/2013 06:50:00 10/03/2013 15:19 :00 DIS Inpatient YOLANDE FISCHER [facility] OBS [id number] 07/08/2013 10:29:00 07/08/2013 10:29 :00 DIS Outpatient NIHARIKA POWER [facility] RAD [id number] 06/03/2013 06:40:00 06/03/2013 09:40 :00 DIS Inpatient YOLANDE FISCHER [facility] OPS [id number] 05/29/2013 08:48:00 05/29/2013 08:48 :00 DIS Outpatient YOLANDE FISCHER [facility] RAD [id number] 05/27/2013 09:28:00 05/27/2013 09:28 :00 [facility] SURG [id number] 04/19/2013 12:00:00 04/19/2013 23:59 :59 CLS Outpatient WORKS, PRAVEEN Lechuga [facility] RESP [id number] 04/11/2013 14:34:00 04/11/2013 14:3 4:00 DIS Outpatient ARI MONTES DE OCA [facility] EMR [id number] 04/11/2013 10:31:00 04/11/2013 13:40 :00 DIS Emergency ARI MONTES DE OCA [facility] EMR [id number] 01/05/2015 00:00:00 Document Registration [id number] 01/05/2014 00:00:00 Document Registration [id number] 04/19/2013 12:00:09 Document Registration [id number] 04/19/2013 12:00:09 Document Registration [id number] 01/05/2013 00:00:00 Document Registration [id number] 01/05/2013 00:00:00 Document Registration [id number] 04/10/2019 19:34:52 0 23:59:59 CLS Emergency [facility] DAVID ED ed visit [id number] 04/10/2019 12:42:04 0 23:59:59 CLS Emergency DAVE SYED Becky [facility] DAVID ED ED Visit [id number] 04/09/2019 19:06:46 0 23:59:59 CLS Emergency ARI MONTES DE OCA [facility] DVAID ED ed visit [id number] 11/06/2018 10:35:42 9 23:59:59 DIS Outpatient DARIEN LLANOS [facility] DAVID LAB lab [id number] 08/30/2018 10:45:00 9 23:59:59 [facility] Ortho [id number] 08/28/2018 13:23:29 9 23:59:59 DIS Outpatient DARIEN LLANOS [facility] DAVID LAB lab [id number] 07/08/2018 21:53:00 9 23:55:00 DIS Emergency ARI MONTES DE OCA [facility] DAVID ED ed visit [id number] 02/26/2018 16:50:00 9 20:54:00 DIS Emergency LIEN BERKOWITZ [facility] ED ed visit [id number] 12/06/2017 11:08:13 8 23:59:59 CLS Preadmit NIHARIKA POWER [facility] DAVID RAD screening [id number] 11/17/2017 10:13:58 8 23:59:59 DIS Outpatient NIHARIKA POWER [facility] DAVID RAD low back pain w/rt l eg radiculopathy [id number] 04/05/2017 10:43:59 8 11:35:00 DIS R PARESH RAYGOZA [facility] DAVID PT S/P R Revision TK Arthroscop y [id number] 04/09/2017 21:39:00 8 22:16:00 DIS Emergency ARI MONTES DE OCA [facility] DAVID ED ed visit [id number] 12/21/2016 09:55:31 7 23:59:59 DIS Outpatient Nahid, Dave R N [facility] Ortho Lab xray [id number] 12/21/2016 09:54:09 7 23:59:59 DIS Outpatient Nahid Dave Rizvi [facility] Ortho [id number] 06/08/2016 07:49:00 7 23:59:59 CLS Emergency [facility] DAVID ED fall [id number] 01/28/2016 12:30:00 6 23:59:59 CLS Outpatient RIVERA DARIEN [facility] Ortho [id number] 01/28/2016 12:19:13 6 23:59:59 CLS Outpatient RIVERA DARIEN Ton[facility] DAVID RAD xray [id number] 01/07/2016 07:20:14 6 23:59:59 CLS Outpatient NIHARIKA POWER [facility] DAVID RAD screeing [id number] 04/11/2019 10:10:00 020 09:30:00 DIS Inpatient ROBBY IRELAND, MAXIMUS [facility] 4TH EPISTAXIS [id number] 09/27/2016 13:20:02 ACT Unknown
--- OUTSIDE RECORDS SUMMARY | 2019-04-15 12:42 | XMS REPORT | Clinical Summary ---
Author Author Admin, Sabrina Jefferson Organization [facility] Address Unknown Phone Allergies, Adverse Reactions, Alerts [...] NAPROSYN 500 MG TABS 1 bid NAPROXEN [id number] Act kiya [place] RENATO Active CVS ZINC 50 MG TABS 1 qd ZINC 51306540318 Active Anupama [place] RENATO Active CVS MAGNESIUM 250 MG TABS 3 q d MAGNESIUM 313337161 81 Active [place] WAIST PLEATER Active CVS VITAMIN C 1000 MG TABS 1 qd ASCORBIC ACID 5042 9135546 Active [place] WAIST PLEATER Active SUPER B COMPLEX TABS Take one by mouth daily B COMPLEX-C 29248490499 No Longer Active [place] WAIST PLEATER Active AMBIEN 10 MG TABS 1 at bedtime ZOLPIDEM TARTRAT E 30433958104 No Longer Active [place] WAIST PLEATER Active ASPIRIN 81 MG TAB 1 tablet by mouth daily ASPIR IN 26118719889 No Longer Active [place] WAIST PLEATER Active PANTOPRAZOLE SODIUM 40 MG TBEC Take one by mouth bid PANTOPRAZOLE SODIUM 05288445009 [facility] MACRODANTIN 100 MG CAPS Take one by mouth daily 10/18 NITROFURANTOIN MACROCRYSTAL 70114463546 No Longer Active Arnol Ballard MD Active VITAMIN D3 5000 UNIT TABS 1qd CHOLECALCIFER OL 15577352752 No Longer Active Arnol Ballard MD Active FIBER THERAPY 500 MG TABS 1qd METHYLCELL ULOSE (LAXATIVE) 48849717762 No Longer Active Arnol Ballard MD Active VITAMIN C 1000 MG TABS 1qd ASCORBIC ACID 30 152704019 No Longer Active Arnol Ballard MD Active HYDROCODONE-ACETAMINOPHEN 10-500 MG TABS 1 prn HYDROCODONE-ACETAMINOPHEN 01410812439 No Longer Active Arnol Ballard MD Active LOVASTATIN 40 MG TABS 1 at bedtime LOVASTATIN 00 673478051 No Longer Active Joao Farmer PA Active CLONAZEPAM 0.5 MG TABS 2 tablet by mouth 1 times daily at bedtime CLONAZEPAM 84018405357 Active Joao Harms PA Active CYMBALTA 60 MG CPEP 1 every morning DULOXETINE HC L 24848587159 Active Joao Harms PA Active CYMBALTA 30 MG CPEP 1 cap by mouth daily with 60mg cap DULOXETINE HCL 29493347621 No Longer Active Joao Farmer PA Active CLONAZEPAM 0.5 MG TBDP 2 tabs at bedtime CLONAZ EPAM 59088039212 No Longer Active Joao Marleny PA Active OMEGA 3-6-9 COMPLEX CAPS 1qd OMEGA 3-6-9 FATTY ACIDS 47767438935 Active Sobia Aisha REIMBURSEMENT SPECIALIST Active SUPER B-50 B COMPLEX CAPS 1qd B [id number] 00 243285824 Active Sobia Aisha REIMBURSEMENT SPECIALIST Active ZYRTEC ALLERGY 10 MG TABS Take one by mouth daily 2011 CETIRIZINE HCL 87636792227 No Longer Active Sobia [place] REIMBURSEMENT SPECIALIST Act kiya VITAMIN D3 2000 UNIT CAPS 2 1/2 daily CHOLECALC IFEROL 07913849862 No Longer Active Sobia [place] REIMBURSEMENT SPECIALIST Active ZITHROMAX Z-ANTONIETA 250 MG TABS 2x1day,8u0dreh AZIT HROMYCIN 52332638215 No Longer Active Sobia [place] REIMBURSEMENT SPECIALIST Active MELOXICAM 15 MG TABS 1qd MELOXICAM 61227907266 Ac tive Sobia [place] REIMBURSEMENT SPECIALIST Active VESICARE 10 MG TABS 1 tab daily SOLIFENACIN SUCCI KAHLIL 85853715368 Active Symone Lucke Active MULTIVITAMINS TABS Take one by mouth daily MULT IPLE VITAMIN 09777237745 Active Symone Lucke Active VITAMIN D3 2000 UNIT CAPS 2 1/2 daily TAMIN D3 2000 UNIT CAPS CHOLECALCIFEROL Inactive ZYRTEC ALLERGY 10 MG TABS Take one by mouth daily 2011 ZYRTEC ALLERGY 10 MG TABS 5339660 CETIRIZINE HCL Inactive CLONAZEPAM 0.5 MG TBDP 2 tabs at bedtime CLONAZEPAM 0.5 MG TBDP 237071 CLONAZEPAM Inactive CYMBALTA 30 MG CPEP 1 cap by mouth daily with 60mg cap CYMBALTA 30 MG CPEP 293558 DULOXETINE HCL Inactive LOVASTATIN 40 MG TABS 1 at bedtime LOVASTATIN 4 0 MG TABS 106541 LOVASTATIN Inactive HYDROCODONE-ACETAMINOPHEN 10-500 MG TABS 1 prn HYDROCODONE- ACETAMINOPHEN 10-500 MG TABS 231462 HYDROCODONE-ACETAMINOPHEN Inact kiya VITAMIN C 1000 MG TABS 1qd VITAMIN C 1000 M G TABS 271534 ASCORBIC ACID Inactive FIBER THERAPY 500 MG TABS 1qd FIBER THERAPY 500 MG TABS METHYLCELLULOSE (LAXATIVE) Inactive VITAMIN D3 5000 UNIT TABS 1qd VITAMIN D3 50 00 UNIT TABS CHOLECALCIFEROL Inactive MACRODANTIN 100 MG CAPS Take one by mouth daily 10/18 MACRODANTIN 100 MG CAPS 243209 NITROFURANTOIN MACROCRYSTAL Inactive ASPIRIN 81 MG TAB 1 tablet by mouth daily ASPIRIN 81 MG TAB 533683 ASPIRIN Inactive AMBIEN 10 MG TABS 1 at bedtime AMBIEN 10 MG TABS 810537 ZOLPIDEM TARTRATE Inactive SUPER B COMPLEX TABS Take one by mouth daily 4 SUPER B COMPLEX TABS B COMPLEX-C Inactive ZITHROMAX Z-ANTONIETA 250 MG TABS 2x1day,2m5pcpk ZITHROMAX Z-ANTONIETA 250 MG TABS 2201471 AZITHROMYCIN Inactive Vital Signs Date Name Value [...] Description Chart Maintenance: Outside labs entered on [facility] - Chemistry sodium, serum 146 mmol/L potassium, serum 3.3 mmol/L blood glucose 96 mg/dL creatinine, serum 0.96 mg/dL aspartate aminotransferase (SGOT), serum 15 U/L alanine aminotransferase (SGPT), serum 28 U/L alkaline phosphatase, serum 189 U/L Chart Maintenance: Outside labs entered on [facility] - Hematology leukocyte count, blood 7.1 10*3/mm3 hemoglobin, blood 13.6 g/dL platelet count 296 10*3/mm3 Lab Report: CBC w/ Diff, [facility] - Chemistry sodium, serum 144 mmol/L [...] negative Encounters Code Encounter Date Provider Facility [id number] Level 3 Est. Patient 12:55:02 BOOTH OPERATOR Arnol collier MD [facility] CPT-79648 Level 4 New Patient 14:35:08 CDT Arnol quinn MD [facility] CPT-40313 Level 4 Est. Patient 08:52:50 CDT Joao jacques [facility] CPT-86250 Level 4 Est. Patient 07:47:45 CDT Joao jacques [facility] Procedures Code Procedure Name Date Entry Date Standard Desc ription CPT-OV Office Visit 14:55:26 CDT CPT-OV Office Visit 15:26:35 CDT CPT-10828 Postop F/U Visit 17:47:54 BOOTH OPERATOR CPT-07300 Interstim trial 12:55:02 BOOTH OPERATOR CPT-49992 Venipuncture Draw Fee 17:04:06 CDT
== END 2019-04-14 09:30 | disposition home or self-care (01) ==
LOC: 4TH 10:10
PROVIDERS: ADMIT Otolaryngology Otolaryngology/Facial Plastic Surgery; ATTEND Otolaryngology Otolaryngology/Facial Plastic Surgery
DX: R04.0 Epistaxis (principal); G47.33 Obstructive sleep apnea (adult) (pediatric); E66.9 Obesity, unspecified; F41.9 Anxiety disorder, unspecified; Z90.710 Acquired absence of both cervix and uterus; Z88.2 Allergy status to sulfonamides; Z88.1 Allergy status to other antibiotic agents; Z86.73 Personal history of transient ischemic attack (TIA), and cerebral infarction without residual deficits; Z68.38 Body mass index [BMI] 38.0-38.9, adult; Z79.891 Long term (current) use of opiate analgesic; Z79.899 Other long term (current) drug therapy; Z82.49 Family history of ischemic heart disease and other diseases of the circulatory system
CPT/HCPCS: 36415; 80048; 85007; 85014; 85018; 85025; 85027; 86850; 86900; 86901; 86920; 87081; 94760; 99211; G0378